=== PATIENT | female | born 1950 | race Caucasian/White ===

== ENCOUNTER 2020-04-05 14:14 | Inpatient (IN) | payer MEDICARE, SELFPAY ==
[2020-04-05] VITALS (12 sets, daily range): BP systolic 106–191; BP diastolic 62–84; PULSE 76–98; RESP 14–22; TEMP 36.6–37.1; O2SAT 85–96; BMI 35.4; BMI 35.5; BMI 35.9
[2020-04-05 15:29] LABS: Absolute Lymphocyte Count 1.04 X10^3/uL (0.83-4.51); Absolute Neutrophil Count 5.8 X10^3/uL (2.0-7.7); Basophil# 0.05 X10^3/uL; Basophil% 0.7 % (0-1); Eosinophil# 0.19 X10^3/uL; Eosinophils% 2.5 % (0-5); Hematocrit 55.4 % (37-47); Hemoglobin 16.9 g/dL (12.0-15.0); Lymphocyte # 1.04 X10^3/ul (4.0); Lymphocyte % 13.9 % (19-41); Mean Corp Hgb Conc 30.5 g/dL (32-36); Mean Corpuscular Hgb 29.4 pg (27.0-32.0); Mean Corpuscular Volume 96.5 fL (81-99); Mean Platelet Vol. 10.8 fl (6.2-12.0); Monocyte# 0.41 X10^3/uL; Monocyte% 5.5 % (0-10); NRBC Flagged by Analyzer 0 % (0-5); Neutrophil # 5.78 X10^3/uL (2.7-7.7); Platelet Count 218 K/mm3 (150-450); RBC Distribution Width SD 49.9 fl (35.1-43.9); Red Blood Count 5.74 M/mm3 (4.2-5.4); White Blood Count 7.5 K/mm3 (4.4-11.0)
--- NOTE | 2020-04-05 15:32 | ED.DCSUM_ITS ---
History of Present Illness Chief Complaint: Shortness of Breath Informant: Patient Onset: Days Context: Gradual Onset Timing: Continuous Current Severity: Moderate Maximum Severity: Severe Narrative: The patient is a 69-year-old female with medical history significant for hypertension and GERD, along with significant smoking history but no aruna diagnosis of COPD, who presents to the emergency department with shortness of breath, fever, productive sputum, and generalized malaise. Patient states her symptoms began over the weekend. She states she had worsening cough. She states that she was feeling like she was wheezing and having a difficult time moving air. She states over the past 2 days, she is felt more weak. She went to urgent care. She was found to be hypoxic with saturations of 84%. She has not on oxygen at baseline. She denies any sick contacts or travel. She denies any chest pain. Prior similar symptoms: No Recent Illness/Hospitalization: No Past Medical History - Allergies and Home Meds Allergies/Adverse Reactions: Allergies No Known Allergies Allergy (Verified 04/05/20 14:16) Primary Care Physician: Romy Denson MD [NON-STAFF] - Prior records reviewed: Yes Past Medical History: - - Hypertension, GERD Surgical History: noncontributory Lives: With Family Smoking Status: Current every day smoker Review of Systems General: Reports: Fever. Denies: Chills, Sweats Eyes: Denies: Visual changes - bilaterally, Diplopia ENT: Denies: Rhinorrhea, Sore throat Cardiovascular: Denies: Chest pain, Palpitations Respiratory: Reports: Dyspnea, Cough, Sputum. Denies: Dyspnea on exertion Gastrointestinal: Denies: Abdominal pain, Nausea, Vomiting, Diarrhea, Melena, Hematochezia Genitourinary: Denies: Dysuria, Hematuria, Frequency Musculoskeletal: Denies: Back pain, Extremity Pain Skin: Denies: Rash, Wounds Neurological: Denies: Headache, Weakness, Numbness Physical Exam Vital Signs/Narrative: Vital Signs Temp Pulse Resp BP Pulse Ox 04/05/20 14:21 18 94 04/05/20 14:14 97.9 F 98 22 H 191/78 H 85 Inital Vital Signs reviewed: Yes General: Well nourished, Well developed, No Acute Distress Head: Normocephalic, Atraumatic Eyes: Perrl, EOMI ENT: Moist mucous membranes, No rhinorrhea Neck: Supple, Nontender Cardiovascular: Regular rate, Regular rhythm, No murmurs Respiratory: No distress, Chest nontender, Wheezing, Decreased Air Movement Abdomen: Soft, Nontender, Nondistended, Normal bowel sounds Back: Nontender, Normal Inspection Extremities: Nontender, No edema Skin: Normal color, No rash Neurological: Alert, Oriented x3, Cranial nerves II-XII grossly intact, Normal Strength, Normal Sensation Psychological: Normal affect, Normal Mood Diagnostic/Tx/Re-eval Clinical Impression(s) from Imaging Studies Chest X-Ray 04/05/20 16:20 IMPRESSION: Bibasilar infiltrates and/or atelectasis. Calcified plaques of the aortic arch. Electronically Signed: Carlos Love MD at 16:38 EDT , Service support , Abnormal Lab Results 04/05/20 04/05/20 04/05/20 15:20 15:20 15:20 WBC 7.5 RBC 5.74 H Hgb 16.9 H Hct 55.4 H MCV 96.5 MCH 29.4 MCHC 30.5 L RDW Std Deviation 49.9 H RDW Coeff of Piper 14.0 Plt Count 218 MPV 10.8 Immature Gran % (Auto) 0.400 Neut % (Auto) 77.0 H Lymph % (Auto) 13.9 L Mariposa % (Auto) 5.5 Eos % (Auto) 2.5 Baso % (Auto) 0.7 Absolute Neuts (auto) 5.8 Absolute Lymphs (auto) 1.04 Nucleated RBC % 0 Sodium 143 Potassium 3.9 Chloride 104 Carbon Dioxide 34.0 H Anion Gap 5 BUN 16 Creatinine 1.12 H Estim Creat Clear Calc 37.49 Est GFR (MDRD) Af Amer 62 Est GFR (MDRD) Non-Af 51 L BUN/Creatinine Ratio 14.3 Glucose 218 H Lactic Acid 1.7 Calcium 9.3 Total Bilirubin 0.30 AST 12 L ALT 21 Alkaline Phosphatase 95 B-Natriuretic Peptide Total Protein 7.6 Albumin 3.4 Globulin 4.2 Albumin/Globulin Ratio 0.8 L 04/05/20 15:20 WBC RBC Hgb Hct MCV MCH MCHC RDW Std Deviation RDW Coeff of Piper Plt Count MPV Immature Gran % (Auto) Neut % (Auto) Lymph % (Auto) Mariposa % (Auto) Eos % (Auto) Baso % (Auto) Absolute Neuts (auto) Absolute Lymphs (auto) Nucleated RBC % Sodium Potassium Chloride Carbon Dioxide Anion Gap BUN Creatinine Estim Creat Clear Calc Est GFR (MDRD) Af Amer Est GFR (MDRD) Non-Af BUN/Creatinine Ratio Glucose Lactic Acid Calcium Total Bilirubin AST ALT Alkaline Phosphatase B-Natriuretic Peptide 115.2 H Total Protein Albumin Globulin Albumin/Globulin Ratio - Medical Decision Making The patient presents to the emergency department cough, productive sputum, fever, dyspnea. She was hypoxic on arrival with oxygen saturations of 86%. She has no known oxygen requirement. She did have wheezing in all lung [place]. Metabolic work-up was pursued. She does have mild leukocytosis. Labs are otherwise unremarkable. Chest x-ray shows bibasilar infiltrates. Not sure if this is atelectasis versus actual infection. COVID was obtained and is currently pending. Given the patient's oxygen requirement, I do feel that she is going require admission. She will be treated for community-acquired pneumonia. Patient was discussed with the hospitalist. Impression 1. Community-acquired pneumonia 2. Hypoxia requiring supplemental oxygen ED Disposition - Plan for ED Patient: Referrals: Romy Denson MD [NON-STAFF] -
[2020-04-05 15:52] LABS: BNP,B-Type NATRIURETIC PEPTIDE 115.2 pg/mL (0-100)
[2020-04-05 15:53] LABS: ALB/GLOB Ratio 0.8 RATIO (0.9-2.4); AST(SGOT) 12 U/L (15-37); Alanine Aminotransfer ALT/SGPT 21 U/L (13-56); Albumin, Serum 3.4 g/dL (3.2-5.0); Alkaline Phosphatase 95 U/L (45-117); Anion Gap 5 (5-15); BUN 16 mg/dL (7-18); BUN/Creat Ratio 14.3 RATIO (10-20); Calcium,Total 9.3 mg/dL (8.5-10.1); Chloride 104 mmol/L (98-107); Creatinine, Serum 1.12 mg/dL (0.55-1.02); EST Glomerular Filtration Rate 51 mL/min (>60); Est Glom Filt Rate - Afr Amer 62 mL/min (>60); Estimated Creatinine Clearance 37.49 ml/min; Globulin 4.2 g/dL (2.2-4.2); Glucose 218 mg/dL (74-106); Potassium 3.9 mmol/L (3.5-5.1); Protein, Total 7.6 g/dL (6.4-8.2); Sodium Level 143 mmol/L (136-145)
[2020-04-05 15:54] LABS: Lactic Acid 1.7 mmol/L (0.4-1.9)
[2020-04-05] MEDS: Acetaminophen 500 MG Tablet 1000 MG PO (16:17)
--- NOTE | 2020-04-05 16:20 | RAD_ITS ---
STUDY: X-RAY CHEST REASON FOR EXAM: Female, 69 years old. pulse ox of 84%. -- Pt C/O cough, SOB and fever TECHNIQUE: Single AP portable view of the chest. COMPARISON: None. FINDINGS: gambling monitor leads are present. There are bibasilar infiltrates and/or atelectasis. There is no demonstrated pleural abnormality. Normal size heart. Normal mediastinum and [place]. Normal visualized pulmonary arteries. There are calcified plaques of the aortic arch. Normal visualized thoracic spine. Normal visualized ribs, clavicles, and shoulders. There is no demonstrated abnormality of the visualized soft tissue structures of the upper abdomen. RAD/Chest 1 View (Portable) IMPRESSION: Bibasilar infiltrates and/or atelectasis. Calcified plaques of the aortic arch. Electronically Signed: Carlos Love MD at 16:38 EDT , Service support ,
--- NOTE | 2020-04-05 16:51 | HP.PCM_ITS ---
History of Present Illness Date of Admission: 04/05/20 Chief Complaint: shortness of breath The patient is a 69 year old F with past medical history significant for hypertension and GERD and a significant smoking history. She has never been diagnosed with COPD. She was admitted through the ED on 04/05/2020 with a complaint of fever, shortness of breath and general malaise as well as cough with productive sputum. Symptoms have started about 3 to 4 days prior to admission. Cough has been worsening and she also had some wheezing. Her weakness had gradually progressed. She therefore went to the urgent care on day of admission was found to be hypoxic with saturation of 84%. Patient is not on oxygen. She denied any chest pain, palpitations, nausea vomiting or diarrhea. Review of symptoms otherwise negative. In the ED, vitals showed temperature of 98.1 Fahrenheit with blood pressure of 130/70, pulse rate of 92 respiratory rate of 17. Chemistry showed creatinine of 1.12 and BNP was 115.2. CBC showed hemoglobin of 16.9 and WBC of 7.5 with platelets of 218. Chest x-ray showed bibasilar infiltrates and atelectasis. COVID test was done and pending at time of review. She has been admitted to be managed for acute hypoxic respiratory insufficiency due to community-acquired pneumonia, probable COPD exacerbation and probable COVID infection. [] Past Medical History Allergies No Known Allergies Allergy (Verified 04/05/20 14:16) Home Medications: Ambulatory Orders Medication Instructions Recorded Cholecalciferol (Vitamin D3) 1,250 mcg PO BLAKE 04/05/20 [Weekly-D] Cyanocobalamin (Vitamin B-12) 5,000 mcg PO DAILY 04/05/20 [Vitamin B-12] Hydrochlorothiazide 12.5 mg PO DAILY 04/05/20 Multivit-Min/Iron/Folic/Lutein 1 tab PO DAILY 04/05/20 [Centrum Silver Women Tablet] Omeprazole 40 mg PO DAILY 04/05/20 Surgical History: noncontributory Psychiatric History: No pertinent psych hx Lives: With Family Smoking Status: Current every day smoker Tobacco Use: Cigarettes Alcohol: None Drugs: None Review of Systems Constitutional: Reports: Anorexia, Chills, Fever, Malaise, Weakness, Fatigue Eyes: Denies: Blurred vision HEENT: Denies: Head Aches, Sinus Congestion, Sinus Drainage Cardiovascular: Denies: Chest Pain, Chest Pressure, Chest Tightness, Edema, Light Headedness, Orthopnea, Palpitations Respiratory: Reports: Cough, Shortness of Breath, Shortness of breath at rest, Shortness of breath upon exertion, Sputum production, Wheezing Gastrointestinal: Denies: Abdominal Pain, Nausea, Vomiting Genitourinary: Denies: Dysuria Musculoskeletal: Denies: Joint Pain, Joint Tenderness Skin: Denies: Rash, Wounds Neurological: Denies: Numbness, Tingling, Focal weakness Psychiatric: Denies: Anxiety, Depression, Homicidal Ideations, Suicidal Ideations Hematologic/ Lymphatic: Denies: Easy Bruising, Easy Bleeding VTE Information - Inpt Only VTE Present on Admission: No VTE Pharm Prophylaxis ordered?: Yes - Physical Exam Vitals/I&O's: Vital Signs Temp Pulse Resp BP Pulse Ox 98.1 F 92 17 130/70 H 91 04/05/20 16:18 04/05/20 16:18 04/05/20 16:18 04/05/20 16:18 04/05/20 16:18 Oxygen Flow Rate (L/min) 3 Oxygen Delivery Method Nasal Cannula Weight: 194 lb Body Mass Index (BMI) 35.4 General: Alert, Oriented x3, Cooperative HEENT: Atraumatic, PERRLA, EOMI, Normocephalic Oral: Moist Mucosa Neck: Supple, No JVD, Negative Carotid Bruits Lungs: - - bilatereal wheezing, with decreased breath sounds Cardiovascular: Regular rate, Regular Rhythm, Normal S1, Normal S2, No murmurs Abdomen: Bowel Sounds Present Extremities: No edema, Capillary Refill Less than 3 Seconds Skin: No rashes, No breakdown Musculoskeletal: No Tenderness to Palpation of Joints or Extremities Neurological: Cranial nerves II-XII grossly intact, Neuro grossly intact, Motor Exam 5/5 strength throughout Psych/Mental Status: Normal Affect, Appropriate, Alert and oriented to time, place, person, mood and affect Laboratory Results 04/05/20 15:20: WBC 7.5, RBC 5.74 H, Hgb 16.9 H, Hct 55.4 H, MCV 96.5, MCH 29.4, MCHC 30.5 L, RDW Std Deviation 49.9 H, RDW Coeff of Piper 14.0, Plt Count 218, MPV 10.8, Immature Gran % (Auto) 0.400, Neut % (Auto) 77.0 H, Lymph % (Auto) 13.9 L, Mckean % (Auto) 5.5, Eos % (Auto) 2.5, Baso % (Auto) 0.7, Absolute Neuts (auto) 5.8, Absolute Lymphs (auto) 1.04, Nucleated RBC % 0 04/05/20 15:20: Sodium 143, Potassium 3.9, Chloride 104, Carbon Dioxide 34.0 H, Anion Gap 5, BUN 16, Creatinine 1.12 H, Estim Creat Clear Calc 37.49, Est GFR (MDRD) Af Amer 62, Est GFR (MDRD) Non-Af 51 L, BUN/Creatinine Ratio 14.3, Glucose 218 H, Calcium 9.3, Total Bilirubin 0.30, AST 12 L, ALT 21, Alkaline Phosphatase 95, Total Protein 7.6, Albumin 3.4, Globulin 4.2, Albumin/Globulin Ratio 0.8 L 04/05/20 15:20: Lactic Acid 1.7 04/05/20 15:20: B-Natriuretic Peptide 115.2 H Diagnostic Data Chest X-Ray 04/05/20 16:20 IMPRESSION: Bibasilar infiltrates and/or atelectasis. Calcified plaques of the aortic arch. Electronically Signed: Carlos Love MD at 16:38 EDT , Service support , Current Medications Acetaminophen (Tylenol) 1,000 mg PO X1 ONE Stop: 04/05/20 15:15 Last Admin: 04/05/20 16:17 Dose: 1,000 mg Documented by: Albuterol Sulfate (Proair Hfa (Sp) Surgery/Vent Pts) 6 puff INHALATION X1 ONE Stop: 04/05/20 15:15 Last Admin: 04/05/20 15:45 Dose: 6 puff Documented by: Azithromycin 500 mg/ Dextrose 255 mls @ 250 mls/hr IV X1 ONE Stop: 04/05/20 17:46 Ceftriaxone Sodium (Rocephin) 1 gm in 50 mls @ 100 mls/hr IV X1 ONE Stop: 04/05/20 17:14 Assessment/Plan 69-year-old admitted with a complaint of fever, chills and cough/shortness of breath. #Acute hypoxic respiratory insufficiency * Patient saturation was 84% on admission. Currently on 3 L of oxygen. * Likely due to COPD exacerbation, community-acquired pneumonia and probable covud nfection. * BNP was only 115. * Will get 2D echo. * Titrate oxygen to maintain saturation above 90%. * IV solumedrol 40mg q8 # Community acquired pneumonia * X-ray showed bilateral infiltrates. Started on IV ceftriaxone and azithromycin in the ED. Will continue. * Sputum cultures and blood cultures pending. * Hydrate gently with IV fluids. # COPD exacerbation * patient says her PCP has told her she may have suspected COPD, but she hasnt seen a utility specialist before * started on IV solumedrol 40mg q8 * on breathing treatments with IV solumedrol 40mg q8 * #Hypertension: On hydrochlorothiazide. IV solumedrol DVT prophylaxis: lovenox Code status: full code * Patient counseled extensively about different types of CODE STATUS including full code, DNR CCA and DNR CCA. Patient elects to be full code. * Total [id number] time 17 minutes. Inpatient E&M: 02563 Init Hosp L3 Procedures: 84295 Advncd Care Plan 30 Min
--- NOTE | 2020-04-05 16:51 | NURSING ---
MED SURG KORAM HYPOXIA, PROBABLE COPD EXAC
[2020-04-05] MEDS: Ceftriaxone 1 GM/50 ML BAG IV (17:35)
[2020-04-05] MEDS: 0.9% Normal Saline 1,000 ML 100 ML IV (20:24)
[2020-04-05] MEDS: 0.9% Saline Lock 10 ML Syringe IV (22:11)
[2020-04-05] MEDS: Ipratropium/Albuterol Sulfate 3 ML AMPUL.NEB INHALATION (22:29)
[2020-04-06] VITALS (15 sets, daily range): BP systolic 94–130; BP diastolic 56–80; PULSE 77–98; RESP 16–20; TEMP 36.4–37.1; O2SAT 91–95
[2020-04-06] MEDS: Ipratropium/Albuterol Sulfate 3 ML AMPUL.NEB INHALATION ×5 (02:39→23:09)
[2020-04-06 05:42] LABS: Absolute Lymphocyte Count 0.36 X10^3/uL (0.83-4.51); Absolute Neutrophil Count 6.9 X10^3/uL (2.0-7.7); Basophil# 0.02 X10^3/uL; Basophil% 0.3 % (0-1); Hematocrit 52.1 % (37-47); Hemoglobin 15.7 g/dL (12.0-15.0); Lymphocyte # 0.36 X10^3/ul (4.0); Lymphocyte % 4.9 % (19-41); Mean Corp Hgb Conc 30.1 g/dL (32-36); Mean Corpuscular Hgb 29.6 pg (27.0-32.0); Mean Corpuscular Volume 98.3 fL (81-99); Mean Platelet Vol. 10.6 fl (6.2-12.0); Monocyte# 0.07 X10^3/uL; Monocyte% 0.9 % (0-10); NRBC Flagged by Analyzer 0 % (0-5); Neutrophil # 6.92 X10^3/uL (2.7-7.7); Neutrophil % 93.4 % (47-70); POSITIVE DIFFERENTIAL YES; Platelet Count 199 K/mm3 (150-450); RBC Distribution Width CV 14.1 % (11.6-14.6); RBC Distribution Width SD 51.6 fl (35.1-43.9); White Blood Count 7.4 K/mm3 (4.4-11.0)
[2020-04-06 05:48] LABS: Differential Indicated SCAN CRITERIA MET
[2020-04-06] MEDS: 0.9% Normal Saline 1,000 ML 100 ML IV (06:01)
[2020-04-06] MEDS: 0.9% Saline Lock 10 ML Syringe IV ×2 (06:02→21:06)
[2020-04-06 06:08] LABS: Anion Gap 2 (5-15); BUN 16 mg/dL (7-18); BUN/Creat Ratio 19.4 RATIO (10-20); Calcium,Total 8.4 mg/dL (8.5-10.1); Chloride 107 mmol/L (98-107); Creatinine, Serum 0.82 mg/dL (0.55-1.02); EST Glomerular Filtration Rate 73 mL/min (>60); Est Glom Filt Rate - Afr Amer 88 mL/min (>60); Estimated Creatinine Clearance 51.21 ml/min; Glucose 142 mg/dL (74-106); Potassium 4.5 mmol/L (3.5-5.1); Sodium Level 139 mmol/L (136-145)
[2020-04-06 06:27] LABS: Differential Comment SCANNED
[2020-04-06] MEDS: Pantoprazole Sodium 40 MG Tablet PO (08:05)
[2020-04-06] MEDS: Multivitamins,Ther W-Minerals Tablet 1 TABLET PO (08:05)
[2020-04-06] MEDS: hydroCHLOROthiazide 12.5mg 12.5 MG PO (08:05)
[2020-04-06] MEDS: Enoxaparin 40 MG/0.4 ML Syringe SC (08:05)
[2020-04-06] MEDS: Acetaminophen 500 MG Tablet 1000 MG PO (08:48)
[2020-04-06] MEDS: Azithromycin 250 MG Tablet 500 MG PO (09:29)
--- NOTE | 2020-04-06 13:00 | CASEMGMT ---
RN KIMBERLY Face to Face with patient for initial transition planning/care coordination assessment. RN CM introduced self and role at [facility]. Patient lying in bed, alert and oriented. Patient willing to participate in assessment and is able to answer all questions appropriately. Care providers, pharmacy, and demographics verified. Patient wishes to discharge home, denies need for home health at this time. Patient states she has no further needs or concerns at this time. CM to follow for discharge planning needs that may arise. PCP: Castillo Specialists: None Preferred Pharmacy: [facility] Insurance: [employer] Prescription Benefit: yes Living Will/HPOA: none LNOK: daughter Living Arrangements: Patient lives with daughter in a ranch style home with 3 steps to enter the home. Patient states she is independent at home. Transportation: self DME/HHC: Patient denies DME or previous HHC. Will monitor for need for home oxygen and nebulizer at home. Disposition Plan: Patient to discharge home with family support and follow-up plans in place. Latonia NOBLE, RN, CM
--- NOTE | 2020-04-06 17:15 | PN_ITS ---
Subjective: Patient was seen and examined today, she is requiring 4 L of oxygen to maintain her pulse ox, patient's viral panel was positive for rhinovirus. Patient states she smokes a pack of cigarettes daily and has done so for at least 40 years. - Physical Exam Vitals/I&O's: Vital Signs Temp Pulse Resp BP Pulse Ox 98 F 78 18 109/56 L 95 04/06/20 15:58 04/06/20 15:58 04/06/20 15:58 04/06/20 15:58 04/06/20 15:58 Oxygen Flow Rate (L/min) 4 Oxygen Delivery Method Nasal Cannula Weight: 89.1 kg Body Mass Index (BMI) 35.9 Intake and Output for Last 24 Hours 04/04/20 04/05/20 04/06/20 23:59 23:59 23:59 Intake Total 405 / 405 2206.67 / 2206.67 Output Total 250 / 250 Balance 405 / 405 1956.67 / 1956.67 General: Alert, Oriented x3, Cooperative, No apparent distress, Well developed HEENT: Atraumatic, PERRLA, EOMI, Normocephalic Oral: Moist Mucosa Neck: Supple, No JVD, Trachea Midline, Thyroid Normal Size and Texture Lungs: Diminished, Wheezes - Diffuse expiratory wheezes are noted bilaterally Cardiovascular: Regular rate, Regular Rhythm, Normal S1, Normal S2, No murmurs, PMI Normal, No rub noted, No Gallop Abdomen: Bowel Sounds Present, Soft, Non Tender, Non-Distended, No hernias noted Extremities: No clubbing, No cyanosis, No edema, Capillary Refill Less than 3 Seconds Skin: No rashes, No breakdown Musculoskeletal: No Tenderness to Palpation of Joints or Extremities Neurological: Cranial nerves II-XII grossly intact, Neuro grossly intact, Sensory exam intact to light touch and pain, Coordination normal Psych/Mental Status: Normal Affect, Appropriate, Alert and oriented to time, place, person, mood and affect Microbiology Past 72 Hours 04/06/20 04:40 Urine, Clean Catch Legionella Antigen - Final 04/06/20 04:40 Urine, Clean Catch Streptococcus pneumoniae Antigen (M - Final 04/05/20 15:40 Mucosa - Nose Respiratory Panel (PCR) - Final Rhinovirus Laboratory Results 04/05/20 15:40: COVID-19 (GURVINDER) Not Detected 04/06/20 05:14: WBC 7.4, RBC 5.30, Hgb 15.7 H, Hct 52.1 H, MCV 98.3, MCH 29.6, MCHC 30.1 L, RDW Std Deviation 51.6 H, RDW Coeff of Piper 14.1, Plt Count 199, MPV 10.6, Immature Gran % (Auto) 0.500, Neut % (Auto) 93.4 H, Lymph % (Auto) 4.9 L, Nobles % (Auto) 0.9, Eos % (Auto) 0.0, Baso % (Auto) 0.3, Absolute Neuts (auto) 6.9, Absolute Lymphs (auto) 0.36 L, Nucleated RBC % 0, Differential Comment SCANNED 04/06/20 05:14: Sodium 139, Potassium 4.5, Chloride 107, Carbon Dioxide 30.0, Anion Gap 2 L, BUN 16, Creatinine 0.82, Estim Creat Clear Calc 51.21, Est GFR (MDRD) Af Amer 88, Est GFR (MDRD) Non-Af 73, BUN/Creatinine Ratio 19.4, Glucose 142 H, Calcium 8.4 L Current Medications Acetaminophen (Tylenol) 1,000 mg PO Q8H PRN PRN PRN Reason: Pain Score 1-10/10 Last Admin: 04/06/20 08:48 Dose: 1,000 mg Documented by: Albuterol/Ipratropium (Duoneb) 3 ml INHALATION Q4H.RT [facility] Last Admin: 04/06/20 16:10 Dose: Not Given Documented by: Azithromycin (Zithromax) 500 mg PO Q24 [facility] Last Admin: 04/06/20 09:29 Dose: 500 mg Documented by: Enoxaparin Sodium (Lovenox) 40 mg SC DAILY [facility] Last Admin: 04/06/20 08:05 Dose: 40 mg Documented by: Ergocalciferol (Vitamin D) 50,000 unit PO BLAKE [facility] Hydrochlorothiazide () 12.5 mg PO DAILY [facility] Last Admin: 04/06/20 08:05 Dose: 12.5 mg Documented by: Methylprednisolone (Solu-Medrol) 40 mg IV Q8 [facility] Last Admin: 04/06/20 14:02 Dose: 40 mg Documented by: Multivitamins/Minerals (Multivitamin With Minerals (Bkc)) 1 tablet PO DAILY@0800 [facility] Last Admin: 04/06/20 08:05 Dose: 1 tablet Documented by: Nitroglycerin (Nitrostat) 0.4 mg SUBLINGUAL Q5M PRN PRN Reason: CARDIAC/CHEST PAIN Ondansetron HCl (Zofran) 4 mg IV Q8H PRN PRN PRN Reason: NAUSEA/VOMITING Pantoprazole Sodium (Protonix) 40 mg PO DAILY [facility] Last Admin: 04/06/20 08:05 Dose: 40 mg Documented by: Sodium Chloride () 10 - 40 ml IV UD PRN PRN Reason: SALINE FLUSH Last Admin: 04/06/20 06:02 Dose: 10 ml Documented by: Medical Necessity - Tobacco Use Smoking Status: Current every day smoker Tobacco Use: Cigarettes Assessment/Plan #1 acute exacerbation of COPD secondary to tracheobronchitis from rhinovirus- continue IV corticosteroid administration, aerosol treatments, and monitoring of pulse ox #2 tracheobronchitis secondary to rhinovirus-continue IV corticosteroid administration and aerosol treatments #3 hypoxia secondary to #1 and #2-monitor pulse ox, supplemental oxygen will continue as needed #4 GERD-patient is on omeprazole at home Inpatient E&M: [id number] [facility] Hosp L2
[2020-04-07] VITALS (12 sets, daily range): BP systolic 127–149; BP diastolic 65–82; PULSE 76–113; RESP 12–20; TEMP 36.5–36.9; O2SAT 90–94
[2020-04-07] MEDS: 0.9% Saline Lock 10 ML Syringe IV ×4 (05:26→21:45)
[2020-04-07] MEDS: Ipratropium/Albuterol Sulfate 3 ML AMPUL.NEB INHALATION ×4 (07:28→18:26)
[2020-04-07] MEDS: hydroCHLOROthiazide 12.5mg 12.5 MG PO (08:35)
[2020-04-07] MEDS: Multivitamins,Ther W-Minerals Tablet 1 TABLET PO (08:38)
[2020-04-07] MEDS: Enoxaparin 40 MG/0.4 ML Syringe SC (08:38)
[2020-04-07] MEDS: Pantoprazole Sodium 40 MG Tablet PO (08:38)
[2020-04-07] MEDS: Azithromycin 250 MG Tablet 500 MG PO (08:38)
[2020-04-07] MEDS: Acetaminophen 500 MG Tablet 1000 MG PO (14:30)
--- NOTE | 2020-04-07 18:07 | PN_ITS ---
Subjective: Patient was seen and examined today, she states she feels better today and her breathing is better, she is still requiring 4 L of supplemental oxygen however to maintain her pulse ox adequately. Patient does not complain of any chills, chest pain, or increased shortness of breath. - Physical Exam Vitals/I&O's: Vital Signs Temp Pulse Resp BP Pulse Ox 98.5 F 81 16 137/66 H 94 04/07/20 14:25 04/07/20 16:03 04/07/20 16:03 04/07/20 14:25 04/07/20 14:25 Oxygen Flow Rate (L/min) 4 Oxygen Delivery Method Nasal Cannula Weight: 89.1 kg Body Mass Index (BMI) 35.9 Intake and Output for Last 24 Hours 04/05/20 04/06/20 04/07/20 23:59 23:59 23:59 Intake Total 405 / 405 2806.67 / 2806.67 1000 / 1000 Output Total 250 / 250 Balance 405 / 405 2556.67 / 2556.67 1000 / 1000 General: Alert, Oriented x3, Cooperative, No apparent distress, Well developed HEENT: Atraumatic, PERRLA, EOMI, Normocephalic Oral: Moist Mucosa Neck: Supple, No JVD, Negative Carotid Bruits, Trachea Midline, Thyroid Normal Size and Texture Lungs: Normal air movement, No rhonchi, Wheezes - Expiratory wheezes are noted bilaterally Cardiovascular: Regular rate, Regular Rhythm, Normal S1, Normal S2, No murmurs, PMI Normal, No rub noted, No Gallop Abdomen: Bowel Sounds Present, Soft, Non Tender Extremities: No clubbing, No cyanosis, No edema, Capillary Refill Less than 3 Seconds Skin: No rashes, No breakdown Musculoskeletal: No Tenderness to Palpation of Joints or Extremities Neurological: Cranial nerves II-XII grossly intact, Neuro grossly intact, Sensory exam intact to light touch and pain, Coordination normal Psych/Mental Status: Normal Affect, Appropriate, Alert and oriented to time, place, person, mood and affect Microbiology Past 72 Hours 04/05/20 15:25 Blood Culture (Wb) - Left Forearm Blood Culture - Preliminary No growth in 48 hours. 04/05/20 15:20 Blood Culture (Wb) - Anticubital Right Blood Culture - Preliminary No growth in 48 hours. 04/06/20 04:40 Urine, Clean Catch Legionella Antigen - Final 04/06/20 04:40 Urine, Clean Catch Streptococcus pneumoniae Antigen (M - Final 04/05/20 15:40 Mucosa - Nose Respiratory Panel (PCR) - Final Rhinovirus Current Medications Acetaminophen (Tylenol) 1,000 mg PO Q8H PRN PRN PRN Reason: Pain Score 1-10/10 Last Admin: 04/07/20 14:30 Dose: 1,000 mg Documented by: Albuterol/Ipratropium (Duoneb) 3 ml INHALATION Q4H.RT [facility] Last Admin: 04/07/20 16:01 Dose: 3 ml Documented by: Azithromycin (Zithromax) 500 mg PO Q24 [facility] Last Admin: 04/07/20 08:38 Dose: 500 mg Documented by: Enoxaparin Sodium (Lovenox) 40 mg SC DAILY [facility] Last Admin: 04/07/20 08:38 Dose: 40 mg Documented by: Ergocalciferol (Vitamin D) 50,000 unit PO BLAKE [facility] Hydrochlorothiazide () 12.5 mg PO DAILY [facility] Last Admin: 04/07/20 08:35 Dose: 12.5 mg Documented by: Methylprednisolone (Solu-Medrol) 40 mg IV Q8 [facility] Last Admin: 04/07/20 14:26 Dose: 40 mg Documented by: Multivitamins/Minerals (Multivitamin With Minerals (Bkc)) 1 tablet PO DAILY@0800 [facility] Last Admin: 04/07/20 08:38 Dose: 1 tablet Documented by: Nitroglycerin (Nitrostat) 0.4 mg SUBLINGUAL Q5M PRN PRN Reason: CARDIAC/CHEST PAIN Ondansetron HCl (Zofran) 4 mg IV Q8H PRN PRN PRN Reason: NAUSEA/VOMITING Pantoprazole Sodium (Protonix) 40 mg PO DAILY [facility] Last Admin: 04/07/20 08:38 Dose: 40 mg Documented by: Sodium Chloride () 10 - 40 ml IV UD PRN PRN Reason: SALINE FLUSH Last Admin: 04/07/20 14:26 Dose: 10 ml Documented by: Medical Necessity - Tobacco Use Smoking Status: Current every day smoker Tobacco Use: Cigarettes Assessment/Plan #1 acute exacerbation of COPD secondary to tracheobronchitis from rhinovirus- continue IV corticosteroid administration, aerosol treatments, and monitoring of pulse ox, I explained to the patient that she may have to be discharged when medically stable on oxygen and she is agreeable to this. Patient will be reevaluated tomorrow for possible discharge and need for home O2. #2 tracheobronchitis secondary to rhinovirus-continue IV corticosteroid administration and aerosol treatments #3 hypoxia secondary to #1 and #2-monitor pulse ox, supplemental oxygen will continue as needed #4 GERD-patient is on omeprazole at home Inpatient E&M: [id number] [facility] Hosp L2
[2020-04-08] VITALS (8 sets, daily range): BP systolic 141–146; BP diastolic 63–78; PULSE 70–95; RESP 14–18; TEMP 36.3–36.6; O2SAT 80–92
[2020-04-08] MEDS: Ipratropium/Albuterol Sulfate 3 ML AMPUL.NEB INHALATION ×3 (02:32→11:11)
[2020-04-08] MEDS: 0.9% Saline Lock 10 ML Syringe IV (06:17)
[2020-04-08] MEDS: Pantoprazole Sodium 40 MG Tablet PO (09:26)
[2020-04-08] MEDS: Multivitamins,Ther W-Minerals Tablet 1 TABLET PO (09:26)
[2020-04-08] MEDS: hydroCHLOROthiazide 12.5mg 12.5 MG PO (09:26)
[2020-04-08] MEDS: Azithromycin 250 MG Tablet 500 MG PO (09:26)
[2020-04-08] MEDS: Enoxaparin 40 MG/0.4 ML Syringe SC (09:26)
--- NOTE | 2020-04-08 11:01 | NURSING ---
Patient ambulated on 4L was 86% oxygen increased to 6L while ambulating and was 90%.
--- NOTE | 2020-04-08 11:28 | CASEMGMT ---
NATACHA HARRIS updated that patient will need oxygen at discharge. NATACHA HARRIS received script from hospitalist. NATACHA HARRIS in to discuss preferences for DME and list provided to patient. Patient would like [employer] for home oxygen. NATACHA HARRIS sent referral and called to arrange for delivery prior to discharge.
--- NOTE | 2020-04-08 11:44 | PCM.HOSP.N ---
Hospitalist Note Patient was seen and examined today, she was walked to determine her pulse ox on activity, she still required supplemental oxygen at 6 L while ambulating-the pulse ox was 90%, at rest on room air the patient's oxygen sat was 80%, she required 4 L per nasal cannula at rest to maintain a pulse ox of 90%. Patient will require home oxygen, she is ambulatory both in and out of her home and will require ambulatory oxygen. Patient's diagnosis for oxygen use will be chronic obstructive pulmonary disease.
--- NOTE | 2020-04-08 12:01 | PCM.DC ---
You will use the following diet at home:: No restrictions Your food should be the consistency of: Regular Your liquids should be the consistency of: Regular/Thin Discharge Activity: Return to Normal Activity Weight Bearing Status: Full weight bearing Additional Instructions: USE OXYGEN AT 4 LITERS PER MINUTE AT REST, 6 LITERS PER MINUTE WHILE AMBULATING. DON'T SMOKE Allergies/Adverse Reactions: Allergies No Known Allergies Allergy (Verified 04/05/20 14:16) Medications to take at Discharge Cholecalciferol (Vitamin D3) [Weekly-D] 1,250 mcg PO BLAKE 04/05/20 Cyanocobalamin (Vitamin B-12) [Vitamin B-12] 5,000 mcg PO DAILY 04/05/20 Hydrochlorothiazide 12.5 mg PO DAILY 04/05/20 Multivit-Min/Iron/Folic/Lutein [Centrum Silver Women Tablet] 1 tab PO DAILY 04/05/20 Omeprazole 40 mg PO DAILY 04/05/20 Albuterol Inhaler [Ventolin Hfa] 2 puff INHALATION [id number] #1 inhaler 04/08/20 Prednisone 20 mg PO UD #18 tab 04/08/20 Tiotropium [place] [Spiriva Respimat] 4 gm IH DAILY #1 mist.inhal 04/08/20 The following prescriptions were given: Prednisone 20 mg PO UD #18 tab Transmission Status: Pending to [employer] [facility] #30 Tiotropium [place] [Spiriva Respimat] 4 gm IH DAILY #1 mist.inhal Transmission Status: Pending to [employer] [facility] [employer] #30 Albuterol Inhaler [Ventolin Hfa] 2 puff INHALATION [id number] #1 inhaler Transmission Status: Pending to [employer] [facility] [employer] #30 Primary Care Physician: Romy Denson MD [NON-STAFF] - Please follow up with your Primary Care Physician in: in 1-2 weeks Test Results: Test results from this visit will be discussed in further detail at your follow-up appointment, if applicable.
--- NOTE | 2020-04-09 09:25 | DS.PCM_ITS ---
Discharge Date and Diagnosis Date of Admission: 04/05/20 Date of Discharge: 04/08/20 - Primary Discharge Diagnosis Acute Problems: #1 acute exacerbation of COPD secondary to tracheobronchitis from rhinovirus #2 tracheobronchitis secondary to rhinovirus #3 hypoxia secondary to #1 and #2 #4 GERD Hospital Course and Treatment Operations: None Procedures: None Summary of Care Provided: The patient is a 69 year old F was seen in the emergency room at [facility] with shortness of breath, fever, productive sputum, and general malaise. Her symptoms began several days ago, she had a worsening cough, she is a chronic cigarette smoker. Work-up in the emergency room included a chest x-ray which showed evidence of bibasilar infiltrates and/or atelectasis, patient was hypoxic on room air with O2 sat of 86%, on examination she had wheezing in all lung [place], patient had a mild leukocytosis labs are otherwise unremarkable. COVID test was obtained and was negative, respiratory panel was obtained and was positive for rhinovirus. Patient was admitted to [place] [id number] with a diagnosis of community-acquired pneumonia and hypoxia, urine culture for Legionella and strep pneumoniae were negative. Patient was placed on IV corticosteroids and received Zithromax. Patient made slow progress while hospitalized as far as her respiratory status was concerned, she remained on supplemental oxygen. On 04/08/2020, patient was seen and examined: General: Alert, Oriented x3, Cooperative, No apparent distress, Well developed HEENT: Atraumatic, PERRLA, EOMI, Normocephalic Oral: Moist Mucosa Neck: Supple, No JVD, Negative Carotid Bruits, Trachea Midline, Thyroid Normal Size and Texture Lungs: Normal air movement, No rhonchi, Wheezes - Expiratory wheezes are noted bilaterally Cardiovascular: Regular rate, Regular Rhythm, Normal S1, Normal S2, No murmurs, PMI Normal, No rub noted, No Gallop Abdomen: Bowel Sounds Present, Soft, Non Tender Extremities: No clubbing, No cyanosis, No edema, Capillary Refill Less than 3 Seconds Skin: No rashes, No breakdown Musculoskeletal: No Tenderness to Palpation of Joints or Extremities Neurological: Cranial nerves II-XII grossly intact, Neuro grossly intact, Sensory exam intact to light touch and pain, Coordination normal Psych/Mental Status: Normal Affect, Appropriate, Alert and oriented to time, place, person, mood and affect It was felt she was stable for discharge on 04/08/2020, patient had completed 3 days of antibiotic treatment with Zithromax and this examiner felt that this was sufficient for treatment of any atypical pneumonia. Patient was discharged on prednisone, and a Spiriva inhaler. She was to resume her Ventolin which she has at home. Patient was cautioned not to smoke. Supplemental oxygen at 4 L/min at rest and 6 L/min while ambulating was arranged for the patient to have at home. - Physical Exam Vitals/I&O's: Vital Signs Temp Pulse Resp BP Pulse Ox 97.8 F 70 18 143/69 H 92 04/08/20 14:10 04/08/20 14:10 04/08/20 14:10 04/08/20 14:10 04/08/20 14:10 Oxygen Flow Rate (L/min) [ 4 AMBULATION with Oxygen] Oxygen Flow Rate (L/min) 4 Oxygen Delivery Method Nasal Cannula Weight: 89.1 kg Body Mass Index (BMI) 35.9 Intake and Output for Last 24 Hours 04/07/20 04/08/20 04/09/20 23:59 23:59 23:59 Intake Total 2200 / 2200 1000 / 1000 Balance 2200 / 2200 1000 / 1000 Microbiology Past 72 Hours 04/05/20 15:25 Blood Culture (Wb) - Left Forearm Blood Culture - Preliminary No growth in 48 hours. 04/05/20 15:20 Blood Culture (Wb) - Anticubital Right Blood Culture - Preliminary No growth in 48 hours. 04/06/20 04:40 Urine, Clean Catch Legionella Antigen - Final 04/06/20 04:40 Urine, Clean Catch Streptococcus pneumoniae Antigen (M - Final Discharge Activity: Return to Normal Activity Weight Bearing Status: Full weight bearing Home Medications: Medications to take at Discharge Cholecalciferol (Vitamin D3) [Weekly-D] 1,250 mcg PO BLAKE 04/05/20 Cyanocobalamin (Vitamin B-12) [Vitamin B-12] 5,000 mcg PO DAILY 04/05/20 Hydrochlorothiazide 12.5 mg PO DAILY 04/05/20 Multivit-Min/Iron/Folic/Lutein [Centrum Silver Women Tablet] 1 tab PO DAILY 04/05/20 Omeprazole 40 mg PO DAILY 04/05/20 Albuterol Inhaler [Ventolin Hfa] 2 puff INHALATION [id number] #1 inhaler 04/08/20 Prednisone 20 mg PO UD #18 tab 04/08/20 Tiotropium [place] [Spiriva Respimat] 4 gm IH DAILY #1 mist.inhal 04/08/20 Following Prescriptions Were Given to Patient: Prednisone 20 mg PO UD #18 tab Transmission Status: Received by [employer] #30 Tiotropium [place] [Spiriva Respimat] 4 gm IH DAILY #1 mist.inhal Transmission Status: Received by [employer] #30 Albuterol Inhaler [Ventolin Hfa] 2 puff INHALATION [id number] #1 inhaler Transmission Status: Received by [employer] #30 Primary Care Physician: Romy Denson MD [NON-STAFF] - Please follow up with your Primary Care Physician in: in 1-2 weeks Disposition: Home Minutes spent on discharge:: 32 Patient Condition:: Stable Medical Necessity - Tobacco Use Smoking Status: Current every day smoker Tobacco Use: Cigarettes Meaningful Use Info Meaningful Use Diagnoses (Choose all that apply): None applicable Inpatient E&M: 55331 Disch Hosp
== END 2020-04-08 14:30 | disposition home or self-care (01) | DRG 202 ==
LOC: ED 16:02 → MS3 19:53
PROVIDERS: Admitting Provider Student in an Organized Health Care Education/Training Program; Emergency Provider Emergency Medicine; PCP Family Medicine; Visit Provider Internal Medicine
DX: J20.6 Acute bronchitis due to rhinovirus (principal); J44.1 Chronic obstructive pulmonary disease with (acute) exacerbation; J44.0 Chronic obstructive pulmonary disease with (acute) lower respiratory infection; Z66 Do not resuscitate; B97.89 Other viral agents as the cause of diseases classified elsewhere; R09.02 Hypoxemia; I10 Essential (primary) hypertension; K21.9 Gastro-esophageal reflux disease without esophagitis; F17.210 Nicotine dependence, cigarettes, uncomplicated; Z79.899 Other long term (current) drug therapy; Z23 Encounter for immunization
CPT/HCPCS: 36415; 36600; 71045; 80048; 80053; 83605; 83880; 85025; 87040; 87449; 87633; 87635; 94640; 94668; 97161; 97530; 99285; 99406; G0008; J7030; 90686; A4216; U0003

== ENCOUNTER 2021-08-10 10:44 | Emergency (ER) | payer MEDICARE, SELFPAY ==
[2021-08-10 10:45] VITALS: BP 172/90; PULSE 92; RESP 15; TEMP 35.7; O2SAT 93; BMI 35.9
--- NOTE | 2021-08-10 10:53 | RAD_ITS ---
STUDY: X-RAY - RIGHT ANKLE REASON FOR EXAM: Female, 71 years old. Injury/Pain TECHNIQUE: 3 view(s) of the ankle. COMPARISON: None. FINDINGS: Normal visualized distal tibia and fibula. Nondisplaced avulsion fracture of the lateral malleolus. Normal tibiotalar articulation and ankle mortise. Normal visualized talus and calcaneus. The visualized subtalar, talonavicular, calcaneocuboid and tarsal articulations are normal. Lateral soft tissue swelling. RAD/Ankle min 3 Views IMPRESSION: Nondisplaced avulsion fracture of the lateral malleolus. Overlying soft tissue swelling. Electronically Signed: Cameron Nation MD at 11:46 EST ,
--- NOTE | 2021-08-10 12:07 | ED.VIS.LOWEX ---
HPI History of Present Illness HPI Narrative: Patient presents with right ankle injury that occurred 4 days ago. Patient states she inverted her ankle when she slipped and fell. Patient states her pain is sharp and aching. Patient states it is worse with ambulation. Patient denies any paresthesias or weakness. Patient denies any other injuries. Patient denies any pain over the proximal fibula or fifth metatarsal. Chief Complaint: Lower Extremity Injury Informant: patient Occured/Mechanism Mechanism/Context: Yes fall Onset/Context/Timing Onset: Days (5) Context: Sudden Onset Timing: Continuous Quality of Pain: Sharp and Aching Location: Lateral aspect of right ankle Worsened by: Ambulation Relieved by: Nothing Associated Symptoms Associated Symptoms: Negative for Parasthesia, Weakness and Loss of Funtion PFSH PFSH Medical History COPD (chronic obstructive pulmonary disease) GERD (gastroesophageal reflux disease) Hypertension Home Medications hydrochlorothiazide 12.5 mg PO DAILY 04/05/20 [History Last Taken 04/03/20] omeprazole 40 mg PO DAILY 04/05/20 [History Last Taken 04/03/20] albuterol sulfate 2 puff INHALATION [id number] #1 inhaler 04/08/20 [Rx Last Taken Unknown] hydrocodone-acetaminophen 1 tab PO Q6H PRN PRN 3 Days #10 tablet 08/10/21 [Rx Last Taken Unknown] Allergy/AdvReac Type Severity Reaction Status Date / Time shellfish derived Allergy Other Verified 08/10/21 10:47 Social History Smoking Status: Current every day smoker tobacco type: cigarettes ROS ROS ED Constitutional Constitutional ED: Denies chills or fever(s) Eyes Eyes: Denies blurry vision or change in vision ENT ENT ED: Denies rhinorrhea or sore throat Cardiovascular Cardiovascular: Denies chest pain or palpitations Respiratory/Chest Respiratory/Chest: Denies cough or dyspnea Gastrointestinal Gastrointestinal: Denies nausea or vomiting Genitourinary Genitourinary ED: Denies dysuria or hematuria Musculoskeletal Musculoskeletal: Denies back pain or neck pain Integumentary Denies abscess or rash Neurologic Neurologic: Denies headache(s) or weakness Allergic/Immunologic Allergic/Immunologic ED: Denies mouth swelling or urticaria EXAM Physical Exam Const Vital Signs: 08/10/21 10:45 Temperature 96.2 F L Temperature Source Temporal Pulse Rate 92 Respiratory Rate 15 Blood Pressure 172/90 H Blood Pressure Mean 117 Pulse Ox 93 Oxygen Delivery Method Room Air Positive well nourished and well developed General Appearance ED: well developed HEENT Reports moist mucous membranes Neck full ROM Extremity Extremity Narrative: There is tenderness, edema, and ecchymosis over the lateral aspect of the right ankle. There is no obvious deformity noted. There is no bony crepitance or step-off. Range of motion was limited in all motions of the right ankle secondary to pain. There is no tenderness over the fifth metatarsal. There is no tenderness over the proximal fibula. Pedal pulses are equal bilaterally. Sensation was intact to light touch in all digits. Capillary refill was less than 2 seconds in all digits. Neuro oriented x3, CN's II-XII intact bilaterally, moves all extremities and no sensory deficits noted Sensorium / Orientation: alert Motor Exam: strength 5/5 throughout Psych mental status grossly normal MDM MDM MDM Narrative Medical decision making narrative: X-rays of the right ankle were obtained. There are 3 views. On my interpretation, there is a nondisplaced fracture of the distal fibula. There is also an old avulsion fracture of the tip of the distal fibula. There is some mild soft tissue swelling. Radiologist also interpreted the x-rays and agrees. Patient states she has a walking boot at home. Patient was given a prescription for a short course of [place]. Patient was instructed to ice and elevate the right ankle. Patient was given a referral for orthopedics for follow-up care. Patient understood and was agreeable with the plan. All questions were answered. Radiography Diagnostic Testing: Clinical Impression(s) from Imaging Studies Ankle X-Ray 08/10/21 10:53 IMPRESSION: Nondisplaced avulsion fracture of the lateral malleolus. Overlying soft tissue swelling. Electronically Signed: Cameron Nation MD at 11:46 EST , Discharge Plan Triage Chief Complaint: Lower Extremity Injury ED Provider: Bridger Zafar Dx/Rx/DC Orders Clinical Impression: Closed fracture of distal end of right fibula Instructions: ED Ankle Fracture, Distal Fibula Prescriptions: New hydrocodone-acetaminophen [hydrocodone-acetaminophen] 1 TABLET tablet 1 tab PO Q6H PRN PRN (Reason: Pain) 3 Days Qty: 10 RF: 0 No Action hydrochlorothiazide 12.5 mg capsule 12.5 mg PO DAILY RF: 0 omeprazole 20 MG capsule,delayed release(DR/EC) 40 mg PO DAILY RF: 0 albuterol sulfate 1 INHALER inhaler 2 puff inhalation [id number] Qty: 1 RF: 0 Primary Care Provider: Davy Chong Referrals: Oscar Solis DO [STAFF PHYSICIAN] - 5-7 Days Davy Chong MD [Primary Care Provider] - 5-7 Days Disposition Disposition: Home, Self Care
== END 2021-08-10 12:36 | disposition home or self-care (01) ==
PROVIDERS: Emergency Provider Emergency Medicine; PCP Family Medicine; Visit Provider Emergency Medicine
DX: S82.64XA Nondisplaced fracture of lateral malleolus of right fibula, initial encounter for closed fracture (principal); J44.9 Chronic obstructive pulmonary disease, unspecified; W01.0XXA Fall on same level from slipping, tripping and stumbling without subsequent striking against object, initial encounter; I10 Essential (primary) hypertension; K21.9 Gastro-esophageal reflux disease without esophagitis; F17.210 Nicotine dependence, cigarettes, uncomplicated; Z79.899 Other long term (current) drug therapy
CPT/HCPCS: 73610; 99282

== ENCOUNTER 2023-03-21 09:32 | Inpatient (IN) | payer MEDICARE, SELFPAY ==
[2023-03-21] VITALS (32 sets, daily range): BP systolic 122–189; BP diastolic 69–126; PULSE 79–138; RESP 13–33; TEMP 35.2–36.8; O2SAT 87–97; BMI 40.4; BMI 40.8
--- NOTE | 2023-03-21 09:44 | EKG12_ITS ---
Test Reason : SOB Blood Pressure : / mmHG Vent. Rate : 076 BPM Atrial Rate : 076 BPM P-R Int : 156 ms QRS Dur : 082 ms QT Int : 418 ms P-R-T Axes : 074 072 098 degrees QTc Int : 470 ms Normal sinus rhythm Low voltage QRS Cannot rule out Anterior infarct , age undetermined Abnormal ECG Confirmed by BALA ROBLEDO, NAVEED ([id number]), online editor ERLIN THOMAS ([id number]) on 03/22/2023 12:04:45 PM Referred By: Confirmed By:NAVEED MCKENNA MD
--- NOTE | 2023-03-21 09:44 | RAD_ITS ---
STUDY: X-RAY CHEST REASON FOR EXAM: Female, 72 years old. Dyspnea. Decreased oxygenation. TECHNIQUE: Single AP portable view of the chest. COMPARISON: Comparison is made with prior study dated April 05, 2020. FINDINGS: EKG electrodes are seen. Increased interstitial markings at the lung bases with areas of confluence. This has progressed as compared to prior study and most likely represents bibasilar scarring. This is superimposed on mild vascular congestion. Blunting of the left costophrenic angle. There is mild cardiac enlargement. Normal mediastinum and [place]. Normal visualized pulmonary arteries. There is atherosclerotic calcification of the aortic arch with tortuosity. There are diffuse degenerative changes of the visualized thoracic spine. Normal visualized ribs, clavicles, and shoulders. There is no demonstrated abnormality of the visualized soft tissue structures of the upper abdomen. RAD/Chest 1 View (Portable) IMPRESSION: Increased markings at the lung bases with areas of confluence which have progressed as compared to prior study. Findings suggestive of bibasilar scarring superimposed on mild vascular congestion. Electronically Signed: Cameron Nation MD at 10:37 EDT ,
--- NOTE | 2023-03-21 09:46 | ED.VIS.DYS ---
HPI History of Present Illness Chief Complaint: Shortness of Breath Informant: patient Narrative Narrative: Progressive dyspnea wheeze over the past week. History of COPD tobacco history up to a pack per day. Reported stopped yesterday. No history of diabetes. Patient states she was on oxygen 2 years ago she was diagnosed with pneumonia with hospitalization. He was on it for short-term. Chest tightness. States with the weather changes it is worsened over the last week. Headache chronic myalgias. COVID vaccinated with no COVID infections in the past. Denies recent travel or surgeries. No history of PE or DVT. Prior similar symptoms: Yes PFSH PFSH Medical History COPD (chronic obstructive pulmonary disease) GERD (gastroesophageal reflux disease) Hypertension Smoker Home Medications hydrochlorothiazide 12.5 mg capsule 12.5 mg PO DAILY BP 04/05/20 [History Last Taken 03/21/23] omeprazole 20 mg capsule,delayed release 40 mg PO DAILY GERD 04/05/20 [History Last Taken 03/21/23] albuterol sulfate 90 mcg/actuation aerosol inhaler 2 puff inhalation [id number] ##1 04/08/20 [Rx Last Taken 03/21/23] cetirizine 10 mg tablet (All Day Allergy (cetirizine)) 10 mg PO DAILY 03/21/23 [History Last Taken 03/21/23] fluticasone fur. 100 mcg-umeclid 62.5 mcg-vilant 25 mcg inhalat.powder (Trelegy Ellipta) 1 inh inhalation Q24H 03/21/23 [History Last Taken 03/21/23] Allergy/AdvReac Type Severity Reaction Status Date / Time shellfish derived Allergy Other Verified 03/21/23 09:34 Surgical History (Updated 03/21/23 @ 15:05 by Claudia Lu) History of appendectomy Social History Smoking Status: Current every day smoker tobacco type: cigarettes ROS ROS ED Constitutional Constitutional ED: Denies chills, fever(s) or sweats Eyes Eyes: Denies change in vision ENT ENT ED: Denies dysphagia or sore throat Cardiovascular Cardiovascular: Denies chest pain, leg edema, palpitations or racing heartbeat Respiratory/Chest Respiratory/Chest: Reports cough and dyspnea; Denies dyspnea on exertion Gastrointestinal Gastrointestinal: Denies abdominal pain, diarrhea, nausea or vomiting Genitourinary Genitourinary ED: Denies dysuria, hematuria or urinary frequency Musculoskeletal Musculoskeletal: Denies back pain, extremity pain or neck pain Integumentary Denies rash or wounds Neurologic Neurologic: Reports headache(s); Denies paresthesias or weakness EXAM Physical Exam Const Vital Signs: 03/21/23 09:34 03/21/23 09:44 03/21/23 09:44 Temperature 97.6 F L Temperature Source Temporal Pulse Rate 80 Respiratory Rate 16 Respiratory Effort Short of Breath Respiratory Pattern Tachypnea Blood Pressure 149/76 H Blood Pressure Mean 100 Pulse Ox 90 87 Oxygen Delivery Method Nasal Cannula Nasal Cannula Nasal Cannula Oxygen Flow Rate (L/min) 3 5 6 03/21/23 09:54 03/21/23 11:57 03/21/23 12:00 Temperature Temperature Source Pulse Rate 80 85 Respiratory Rate 20 H 24 H Respiratory Effort Respiratory Pattern Blood Pressure 133/74 H Blood Pressure Mean 84 Pulse Ox 94 Oxygen Delivery Method Oxygen Flow Rate (L/min) 03/21/23 12:10 03/21/23 12:15 03/21/23 12:20 Temperature Temperature Source Pulse Rate 138 H 100 89 Respiratory Rate 17 15 14 Respiratory Effort Respiratory Pattern Blood Pressure 148/101 H Blood Pressure Mean 114 Pulse Ox 92 94 94 Oxygen Delivery Method Oxygen Flow Rate (L/min) 03/21/23 12:30 03/21/23 12:40 Temperature Temperature Source Pulse Rate 89 97 Respiratory Rate 16 17 Respiratory Effort Respiratory Pattern Blood Pressure 170/95 H Blood Pressure Mean 118 Pulse Ox 92 91 Oxygen Delivery Method Oxygen Flow Rate (L/min) Positive well nourished and well developed General Appearance ED: well developed and NAD HEENT Reports moist mucous membranes normocephalic and atraumatic Eyes PERRL, EOMs intact bilaterally and conjunctivae normal General Eye ED: Yes normal appearance of both eyes Neck no lymphadenopathy, supple and no meningeal signs General: Negative for tenderness Chest Wall Chest: Negative for tenderness Resp Resp Narrative: Decreased breath sounds at bases there is mild expiratory wheezing, no distress Effort and Inspection: symmetric chest movement; Negative for respiratory distress Cardio regular rate, regular rhythm and no murmurs Peripheral Pulses: pulses 2+ throughout GI normal to inspection, nondistended, normoactive bowel sounds and non-tender Palpation: Negative for guarding or rebound tenderness present Back/Spine no CVA tenderness and no thoracic nor lumbar tenderness Extremity normal to inspection General Extremety ED: Negative for edema or tenderness General Extremity: Negative for edema Neuro oriented x3, CN's II-XII intact bilaterally and no sensory deficits noted Sensorium / Orientation: awake and alert Skin no rashes or lesions noted and no wounds MDM MDM MDM Narrative Medical decision making narrative: Interventions / MDM: Differential diagnosis: COPD exacerbation, pneumonia, chest pain, ACS Diagnosis considered but do not suspect: PE however CT chest negative. My EKG interpretation: Sinus rate of 76, no ST or T wave changes. Imaging independently reviewed and interpreted by myself: 1 view chest x-ray: No infiltrates, question effusion. Also read by radiology. CTA chest: No PE. Right-sided patchy infiltrate noted per radiology. External documents reviewed: N/A Test considered but not ordered:N/A ED course: Ambulated in the department 60% on room air. She is in no respiratory distress, she is placed on oxygen. History of COPD has wheezing. Aerosol treatment steroids. Labs were ordered. Tylenol for headache. No meningismal findings. 1050: Currently on 4.5 L of oxygen 95% on room air. Breathing and chest tightness improved aerosol treatments troponin did return at 78. EKG with no ischemic findings. D-dimer was elevated. COVID negative. CTA chest ordered for further evaluation. 1155: CTA chest negative for PE however patchy infiltrates noted. 7.1 mm nodule right side. Patient covered with Rocephin and Zithromax IV. Aspirin ordered for her elevated troponin, pending 2-hour troponin, is likely type II strain. Will discuss with hospitalist service for admission. Discussed with hospitalist Dr. Springer for admission to PCU. Re-evaluation: stable, on 4.5 L nasal cannula. Disposition discussed with patient/family/significant other: Patient Case discussed with consulting clinician: Hospitalist This note was generated with [employer] dictation software. It may contain incorrect words, spelling, and punctuation that were not noted in checking the note before signing. Lab Data Attestation: I reviewed the patient's lab results. Labs: Laboratory Results - last 24 hr 03/21/23 09:58 WBC 6.1 RBC 6.01 H Hgb 16.0 H Hct 54.2 H MCV 90.2 MCH 26.6 L MCHC 29.5 L RDW Std Deviation 50.5 H RDW Coeff of [place] 15.3 H Plt Count 238 MPV 10.7 Immature Gran % (Auto) 0.500 Neut % (Auto) 65.7 Lymph % (Auto) 20.8 Davis % (Auto) 9.2 Eos % (Auto) 2.6 Baso % (Auto) 1.2 H Absolute Neuts (auto) 4.0 Absolute Lymphs (auto) 1.26 Nucleated RBC % 0 PT 13.8 INR 1.1 APTT 28.2 D-Dimer Quant (PE/DVT) 0.95 H* Sodium 140 Potassium 3.7 Chloride 103 Carbon Dioxide 32.0 Anion Gap 5 BUN 23 H Creatinine 1.13 H Estim Creat Clear Calc 33.96 Est GFR (MDRD) Af Amer 61 Est GFR (MDRD) Non-Af 50 L BUN/Creatinine Ratio 20.4 H Glucose 106 Calcium 8.7 Total Bilirubin 0.70 AST 44 H ALT 101 H Alkaline Phosphatase 92 Troponin I High Sens 79 H Total Protein 6.9 Albumin 3.0 L Globulin 3.9 Albumin/Globulin Ratio 0.8 L Radiography Diagnostic Testing: Clinical Impression(s) from Imaging Studies Chest X-Ray 03/21/23 09:44 IMPRESSION: Increased markings at the lung bases with areas of confluence which have progressed as compared to prior study. Findings suggestive of bibasilar scarring superimposed on mild vascular congestion. Electronically Signed: Cameron Nation MD at 10:37 EDT , Chest CTA 03/21/23 10:32 IMPRESSION: No evidence of pulmonary embolism. Emphysematous changes. Infiltration at the lung bases slightly worse on the right side. Patchy infiltrate in the posterior aspect of the right middle lobe. 7.1 mm noncalcified nodule in the peripheral lateral aspect of the right middle lobe. Twelve-month follow-up examination is recommended. Electronically Signed: Cameron Nation MD at 11:52 EDT , Discharge Plan Dx/Rx/DC Orders Clinical Impression: Elevated troponin, Hypoxia, COPD exacerbation, Pneumonia Disposition Disposition: Acute Care Hospital [facility] Discharge Date/Time: 03/21/23 14:35
--- NOTE | 2023-03-21 09:50 | NURSING ---
NO OLD EKGS
[2023-03-21] MEDS: Ipratropium/Albuterol Sulfate 3 ML AMPUL.NEB INHALATION ×3 (09:54→23:36)
[2023-03-21] MEDS: Albuterol 2.5 MG/3 ML VIAL.NEB. INHALATION (09:54)
[2023-03-21] MEDS: MethylPREDNISolone 125 MG/2 ML Vial IV (10:03)
[2023-03-21 10:10] LABS: Absolute Lymphocyte Count 1.26 X10^3/uL (0.83-4.51); Basophil# 0.07 X10^3/uL; Basophil% 1.2 % (0-1); Eosinophil# 0.16 X10^3/uL; Eosinophils% 2.6 % (0-5); Hematocrit 54.2 % (37-47); Lymphocyte # 1.26 X10^3/ul (0.83-4.51); Lymphocyte % 20.8 % (19-41); Mean Corp Hgb Conc 29.5 g/dL (32-36); Mean Corpuscular Hgb 26.6 pg (27.0-32.0); Mean Corpuscular Volume 90.2 fL (81-99); Mean Platelet Vol. 10.7 fl (6.2-12.0); Monocyte# 0.56 X10^3/uL; Monocyte% 9.2 % (0-10); NRBC Flagged by Analyzer 0 % (0-5); Neutrophil # 3.98 X10^3/uL (2.7-7.7); Neutrophil % 65.7 % (47-70); Platelet Count 238 K/mm3 (150-450); RBC Distribution Width CV 15.3 % (11.6-14.6); RBC Distribution Width SD 50.5 fl (35.1-43.9); Red Blood Count 6.01 M/mm3 (4.2-5.4); White Blood Count 6.1 K/mm3 (4.4-11.0)
[2023-03-21 10:24] LABS: ALB/GLOB Ratio 0.8 RATIO (0.9-2.4); AST(SGOT) 44 U/L (15-37); Alanine Aminotransfer ALT/SGPT 101 U/L (13-56); Alkaline Phosphatase 92 U/L (45-117); Anion Gap 5 (5-15); BUN 23 mg/dL (7-18); BUN/Creat Ratio 20.4 RATIO (10-20); Calcium,Total 8.7 mg/dL (8.5-10.1); Chloride 103 mmol/L (98-107); Creatinine, Serum 1.13 mg/dL (0.55-1.02); EST Glomerular Filtration Rate 50 mL/min (>60); Est Glom Filt Rate - Afr Amer 61 mL/min (>60); Estimated Creatinine Clearance 33.96 ml/min; Globulin 3.9 g/dL (2.2-4.2); Glucose 106 mg/dL (74-106); Potassium 3.7 mmol/L (3.5-5.1); Protein, Total 6.9 g/dL (6.4-8.2); Sodium Level 140 mmol/L (136-145); Troponin-I HS (w/2H Reflex) 79 pg/mL (3.0-54.0)
[2023-03-21 10:29] LABS: D-Dimer Quantitative (DVT/PE) 0.95 FEU/ug/m (0.27-0.49)
--- NOTE | 2023-03-21 10:32 | CT_ITS ---
STUDY: CTA CHEST REASON FOR EXAM: Female, 72 years old. Hypoxia, elevated dimer RADIATION DOSAGE (If Supplied By Facility): CTDIvol = ( 15.01 ) mGy, DLP = ( 488.15 ) mGycm TECHNIQUE: The examination was performed with the intravenous administration of IV 100mL Isovue-370. Post-processing of the angiographic images was performed, with multiplanar reformation and 3D reconstruction. Individualized dose optimization techniques were used for this CT. COMPARISON: Comparison is made with prior chest radiograph done earlier today. FINDINGS: Normal enhancement of the main pulmonary artery and right and left pulmonary arteries. Normal enhancement of the bilateral peripheral pulmonary arteries. There is no demonstrated pulmonary embolism. There is atherosclerotic calcification of the aortic arch with tortuosity. There is no demonstrated aortic dissection. Normal heart and pericardium. Normal mediastinum. Normal hilar regions. Normal visualized trachea and bronchi. The lungs are well expanded. There is evidence of emphysematous changes more prominent in the upper lobes with centrilobular changes. Patchy infiltrate in the posterior aspect of the right middle lobe. This is 7.1 mm noncalcified nodule in the peripheral lateral aspect of the right middle lobe as seen on axial image #70 and coronal image #120. There is evidence of a infiltration at the lung bases worse at the right lung base. Normal pleura. Normal chest wall structures. There are degenerative changes of thoracic spine. Increased kyphosis. Normal visualized upper abdomen. CT/CTA Chest W/WO Contrast IMPRESSION: No evidence of pulmonary embolism. Emphysematous changes. Infiltration at the lung bases slightly worse on the right side. Patchy infiltrate in the posterior aspect of the right middle lobe. 7.1 mm noncalcified nodule in the peripheral lateral aspect of the right middle lobe. Twelve-month follow-up examination is recommended. Electronically Signed: Cameron Nation MD at 11:52 EDT ,
[2023-03-21 10:33] LABS: International Normalized Ratio 1.1; Partial Thromboplast Time 28.2 Seconds (24.1-36.2); Prothrombin Time (Protime)PT. 13.8 SECONDS (11.7-14.9)
[2023-03-21 12:02] LABS: Reflex Troponin-HS? (from REC) Y
--- NOTE | 2023-03-21 12:31 | PCM.HP.STD ---
HPI - General General Date of Admission: 03/21/23 Date of Service: 03/21/23 Chief Complaint: Worsening shortness of breath HPI Narrative MIMA DOS SANTOS, is a 72 F with history of COPD not on home O2, current smoker, hypertension and GERD who presented to [facility] ED on 03/21/2023 with worsening shortness of breath. Patient seen at bedside in the ED, son present. Patient had just received a breathing treatment and was feeling significantly improved. Breathing comfortably on 4 to 5 L nasal cannula, no increased work of breathing noted. Patient states she was diagnosed with COPD about 2 years ago, has never had an acute exacerbation of COPD like this before. She does not wear home oxygen. She is a current smoker, has been trying to cut back and is currently smoking about 5 cigarettes daily. Has extensive smoking history. States she has had progressive dyspnea with worsening wheezing over the past week. Has been taking her long-acting inhaler as prescribed, and has been using her rescue inhaler more frequently with some relief. Patient denies any fevers or chills. Denies any known sick contacts recently. She denies any chest pain. Denies abdominal pain, nausea or vomiting. No other acute concerns. Vitals in ED notable for mild tachycardia with heart rate in 90s to 100s (normal sinus rhythm), O2 saturations in low 90s on 4 L nasal cannula, respiration rate around 20, mild hypertension, afebrile. Labs notable for normal white blood cell count of 6, hemoglobin 16, normal BMP, troponins 79 down to 68. Chest CTA showed infiltration of the lung bases slightly worse on the right side, patchy infiltrate in the posterior aspect of the right middle lobe, emphysematous changes, no evidence of pulmonary embolism. [facility] Medical History COPD (chronic obstructive pulmonary disease) GERD (gastroesophageal reflux disease) Hypertension Smoker Home Medications hydrochlorothiazide 12.5 mg capsule 12.5 mg PO DAILY BP 04/05/20 [History Last Taken 03/21/23] omeprazole 20 mg capsule,delayed release 40 mg PO DAILY GERD 04/05/20 [History Last Taken 03/21/23] albuterol sulfate 90 mcg/actuation aerosol inhaler 2 puff inhalation [id number] ##1 04/08/20 [Rx Last Taken 03/21/23] cetirizine 10 mg tablet (All Day Allergy (cetirizine)) 10 mg PO DAILY 03/21/23 [History Last Taken 03/21/23] fluticasone fur. 100 mcg-umeclid 62.5 mcg-vilant 25 mcg inhalat.powder (Trelegy Ellipta) 1 inh inhalation Q24H 03/21/23 [History Last Taken 03/21/23] Allergy/AdvReac Type Severity Reaction Status Date / Time shellfish derived Allergy Other Verified 03/21/23 09:34 Surgical History (Updated 03/21/23 @ 15:05 by Claudia Lu) History of appendectomy Social History Smoking Status: Current every day smoker tobacco type: cigarettes Vital Signs Vital Signs Vital Signs: 03/21/23 09:34 03/21/23 09:44 03/21/23 09:44 Temperature 97.6 F L Temperature Source Temporal Pulse Rate 80 Respiratory Rate 16 Respiratory Effort Short of Breath Respiratory Pattern Tachypnea Blood Pressure 149/76 H Blood Pressure Mean 100 Pulse Ox 90 87 Oxygen Delivery Method Nasal Cannula Nasal Cannula Nasal Cannula Oxygen Flow Rate (L/min) 3 5 6 03/21/23 09:54 03/21/23 11:57 03/21/23 12:00 Temperature Temperature Source Pulse Rate 80 85 Respiratory Rate 20 H 24 H Respiratory Effort Respiratory Pattern Blood Pressure 133/74 H Blood Pressure Mean 84 Pulse Ox 94 Oxygen Delivery Method Oxygen Flow Rate (L/min) 03/21/23 12:10 03/21/23 12:15 Temperature Temperature Source Pulse Rate 138 H 100 Respiratory Rate 17 15 Respiratory Effort Respiratory Pattern Blood Pressure 148/101 H Blood Pressure Mean 114 Pulse Ox 92 94 Oxygen Delivery Method Oxygen Flow Rate (L/min) Weight Weight: 97.205 kg Body Mass Index (BMI) 40.4 Physical Exam Const alert, oriented x3, no apparent distress, average body habitus and well nourished Constitutional Narrative: Pleasant female, sitting comfortably in bed, conversing normally, no conversational dyspnea, no increased work of breathing, satting well on 4 L nasal cannula. General Appearance: cooperative, comfortable, well kempt and well developed HEENT normocephalic, head/scalp atraumatic, hearing grossly normal bilaterally, nasal mucous membranes and turbinates normal and moist oral mucous membranes Eyes PERRL, EOMs intact bilaterally and conjunctivae normal Neck full ROM, no lymphadenopathy and supple Lymph Lymphatic: no lymphadenopathy noted Chest inspection of chest normal Resp Resp Narrative: Decreased breath sounds throughout, with mild wheezes noted bilaterally in upper airways. No increased work of breathing noted. Cardio regular rate, regular rhythm, no murmurs and peripheral pulses 2+ throughout GI normal to inspection, nondistended, normoactive bowel sounds, soft to palpation, non-tender and non-distended Back/Spine normal ROM Extremity normal to inspection, full ROM and no pedal edema Skin no rashes or lesions noted Psych mental status grossly normal Results Lab / Micro Data 03/21/23 09:58 03/21/23 09:58 Labs: Laboratory Results - last 24 hr 03/21/23 09:58: WBC 6.1, RBC 6.01 H, Hgb 16.0 H, Hct 54.2 H, MCV 90.2, MCH 26.6 L, MCHC 29.5 L, RDW Std Deviation 50.5 H, RDW Coeff of Piper 15.3 H, Plt Count 238, MPV 10.7, Immature Gran % (Auto) 0.500, Neut % (Auto) 65.7, Lymph % (Auto) 20.8, Rice % (Auto) 9.2, Eos % (Auto) 2.6, Baso % (Auto) 1.2 H, Absolute Neuts (auto) 4.0, Absolute Lymphs (auto) 1.26, Nucleated RBC % 0, PT 13.8, INR 1.1, APTT 28.2, D-Dimer Quant (PE/DVT) 0.95 H*, Sodium 140, Potassium 3.7, Chloride 103, Carbon Dioxide 32.0, Anion Gap 5, BUN 23 H, Creatinine 1.13 H, Estim Creat Clear Calc 33.96, Est GFR (MDRD) Af Amer 61, Est GFR (MDRD) Non-Af 50 L, BUN/Creatinine Ratio 20.4 H, Glucose 106, Calcium 8.7, Total Bilirubin 0.70, AST 44 H, ALT 101 H, Alkaline Phosphatase 92, Troponin I High Sens 79 H, Total Protein 6.9, Albumin 3.0 L, Globulin 3.9, Albumin/Globulin Ratio 0.8 L Micro: Microbiology 03/21/23 09:58 Nasal Secretion SARS-CoV-2 & FLU Antigen (Rapid) - Final Radiology Impression Chest X-Ray 03/21/23 09:44 IMPRESSION: Increased markings at the lung bases with areas of confluence which have progressed as compared to prior study. Findings suggestive of bibasilar scarring superimposed on mild vascular congestion. Electronically Signed: Cameron Nation MD at 10:37 EDT , Chest CTA 03/21/23 10:32 IMPRESSION: No evidence of pulmonary embolism. Emphysematous changes. Infiltration at the lung bases slightly worse on the right side. Patchy infiltrate in the posterior aspect of the right middle lobe. 7.1 mm noncalcified nodule in the peripheral lateral aspect of the right middle lobe. Twelve-month follow-up examination is recommended. Electronically Signed: Cameron Nation MD at 11:52 EDT , Assessment & Plan Assessment/Plan (1) COPD exacerbation: PLAN: Plan Patient is a 72-year-old female with history of COPD not on home O2, current smoker, hypertension and GERD who presented to [facility] ED on 03/21/2023 with worsening shortness of breath. 1. Acute hypoxic respiratory failure, COPD exacerbation, community-acquired pneumonia with unclear organism History of COPD secondary to longstanding tobacco use, not on home oxygen. Diagnosed with COPD about 2 years ago. No previous history of COPD exacerbations. Suspect exacerbation is likely secondary to community-acquired pneumonia. Chest CTA showed infiltrates at the lung bases slightly worse on the right side, patchy infiltrate in the posterior aspect of the right middle lobe, emphysematous changes. Requiring 4 to 5 L nasal cannula in ED for saturations greater than 90%. Moderately improved in ED after a breathing treatment. COVID and flu negative. ? Admit to cardiac telemetry bed in PCU. Treat COPD exacerbation with prednisone, ceftriaxone and azithromycin for 5-day courses. Wean supplemental oxygen as able, goal saturations greater than 88%. May require home O2 evaluation prior to discharge. Sputum culture, respiratory panel, urine antigens ordered. DuoNebs every 4 hours scheduled for now. Continue home long-acting inhaler. 2. Current smoker Currently smoking around 5 cigarettes daily. Extensive smoking history. ? Nicotine patch ordered per patient request. Encouraged cessation. 3. Lung nodule ? CT chest on admit with 7 mm noncalcified nodule noted in peripheral lateral aspect of the right middle lobe. 12-month follow-up examination is recommended. 4. Elevated troponins ? Troponin trend 79 to 68 in the ED. EKG showed normal sinus rhythm, no ST changes. Suspect secondary to demand ischemia in setting of COPD exacerbation as noted above. No need for further work-up. Chronic medical conditions: ? Hypertension: Continue home hydrochlorothiazide. ? GERD: Continue home PPI. DVT prophylaxis: Lovenox CODE STATUS: Full code, verified Expected disposition: Home, 2 to 3 days Total clinical time spent by myself addressing the patient's medical issues, reviewing all the data, and collaborating with patient's care team: 35 minutes. Charges/Coding Visit Charges Inpatient E&M: 78373 Init Hosp L2
[2023-03-21] MEDS: Acetaminophen 500 MG Tablet 1000 MG PO (12:36)
[2023-03-21] MEDS: Aspirin 325 MG Tablet PO (12:36)
[2023-03-21] MEDS: Ceftriaxone 1 GM/50 ML BAG IV (12:36)
[2023-03-21 13:20] LABS: Troponin-I HS 68 pg/mL (3.0-54.0)
[2023-03-22] VITALS (10 sets, daily range): BP systolic 124–150; BP diastolic 61–76; PULSE 77–96; RESP 18–20; TEMP 35.9–36.5; O2SAT 91–94
[2023-03-22 04:14] LABS: Mucous, Urine 0 SEEN /hpf (<or=2+); Red Blood Cells-Urine 0 SEEN /hpf (0-5)
[2023-03-22 04:15] LABS: Color, Urine Yellow (Yellow); Glucose, Dipstick Normal (Normal); Ketone-Dipstick Negative (Negative); Leukocyte Esterase-Dipstick 25 /ul (Negative); Nitrite-Dipstick Negative (Negative); Occult Blood-Urine 10 /ul (Negative); Protein-Dipstick 30 mg/dl (Negative); Urine Bilirubin Dipstick Negative (Negative); Urine Clarity Clear (Clear); Urine Urobilinogen Normal (Normal)
[2023-03-22 05:20] LABS: Bacteria 2+ /hpf (None Seen); Squamous Epithelial Cells - UA 0-5 SEEN /hpf (5-10); White Blood Cells 0-5 SEEN /hpf (0-5)
[2023-03-22 06:01] LABS: Hematocrit 55.1 % (37-47); Hemoglobin 15.7 g/dL (12.0-15.0); Mean Corp Hgb Conc 28.5 g/dL (32-36); Mean Corpuscular Hgb 25.9 pg (27.0-32.0); Mean Corpuscular Volume 90.8 fL (81-99); Mean Platelet Vol. 10.8 fl (6.2-12.0); Platelet Count 256 K/mm3 (150-450); RBC Distribution Width CV 15.6 % (11.6-14.6); RBC Distribution Width SD 50.9 fl (35.1-43.9); Red Blood Count 6.07 M/mm3 (4.2-5.4); White Blood Count 10.3 K/mm3 (4.4-11.0)
[2023-03-22 06:42] LABS: Anion Gap 3 (5-15); BUN 22 mg/dL (7-18); BUN/Creat Ratio 24.3 RATIO (10-20); Chloride 102 mmol/L (98-107); Creatinine, Serum 0.91 mg/dL (0.55-1.02); EST Glomerular Filtration Rate 65 mL/min (>60); Est Glom Filt Rate - Afr Amer 78 mL/min (>60); Estimated Creatinine Clearance 42.17 ml/min; Glucose 140 mg/dL (74-106); Potassium 4.2 mmol/L (3.5-5.1); Sodium Level 138 mmol/L (136-145)
[2023-03-22] MEDS: Ipratropium/Albuterol Sulfate 3 ML AMPUL.NEB INHALATION ×3 (07:24→19:33)
[2023-03-22] MEDS: Enoxaparin 40 MG/0.4 ML Syringe SC (10:28)
[2023-03-22] MEDS: Pantoprazole Sodium 40 MG Tablet PO (10:28)
[2023-03-22] MEDS: Azithromycin 250 MG in Dextrose 5%-Water (250mL Bag) 250 ML IV (10:29)
[2023-03-22] MEDS: hydroCHLOROthiazide 12.5mg 12.5 MG PO (10:29)
[2023-03-22] MEDS: predniSONE 20 MG Tablet 40 MG PO (10:29)
[2023-03-22] MEDS: Loratadine 10 MG Tablet PO (10:29)
[2023-03-22] MEDS: Ceftriaxone 1 GM/50 ML BAG IV (11:59)
--- NOTE | 2023-03-22 12:40 | CASEMGMT ---
RN?CM?DISABILITY BENEFITS SPECIALIST?CM?to room to meet with patient for initial transition planning/care coordination?assessment.?RN?CM?introduced self and role at [facility].? Pt voices understanding and consents to?assessment?at this time.? Pt resting in bed in no distress at this time.? Pt is A/O at this time and answers all questions appropriately.?? Care providers, pharmacy, and demographics verified/updated at this time. PCP: Dr Chong Specialists:Pt states was in the process of getting established w/Dr Gianna Maynard/pulmonology and plans to f/u with this after d/c. Preferred Pharmacy: [facility], [place] Insurance: [employer] Prescription Benefit:?yes Living Will/HPOA:?Pt does not currently have LW/HCPOA and interested in completing. SW, Vanessa, made aware. Pt made aware, if SW unable to meet w/her prior to discharge, AD can be completed as an OP w/SW. LNOK: Dtr, [address]. Son, [address] Living Arrangements: Lives alone in one-story home w/basement where laundry is.3 steps to enter home. Pt denies having difficulty w/any stairs. Pt is independent w/ADL's and IADL's and manages her own medications. Pt works full-time @ [employer]. Transportation:?Pt states drives self and states no transportation concerns at this time.?Dtr will take her home @ d/c. DME: States has the following DME:?shower chair, nebulizer, pulse ox. Pt does not have Home O2. Discussed process of home O2 set-up, should she qualify for O2 @ d/c. [facility] is only home O2 provider in-network w/pt's insurance and she is aware of same and is agreeable to [facility]. Pt states no need for further DME at this time.? HHC/SNF: No hx of either. Denies needs for HHC and no needs identified. Palliative: Discussed palliative care w/pt. She states is not interested in referral at this time, but would take info on this. Info provided along w/list of local palliative agencies. Pt voices appreciation. Pt wishes to return home and states has no concerns with going home at time of discharge.? Pt smokes ~ 1 PPD. Discussed importance of not smoking around oxygen, if she does need oxygen @ d/c. Pt voices understanding. Follow for home oxygen needs and any further discharge planning/needs.? Pt voices no further concerns/needs at this time.? Advised pt to ask for?CM?if any further questions/concerns/needs arise.? Voices understanding. PLAN:?Home. Follow for any O2 needs @ d/c. ? Araceli MARTINEZN?RN?CM
--- NOTE | 2023-03-22 13:10 | PN.HOSP_ITS ---
Reason for Visit Reason for Visit: Diagnoses Chronic obstructive pulmonary disease with (acute) exacerbation (03/21/23) Subjective Subjective No acute events overnight. Patient seen at bedside this morning. Laying comfortably in bed, conversing normally, no acute distress. Breathing comfortably on 4 L nasal cannula, satting in low 90s, no increased work of breathing noted. Patient states she continues to feel more fatigued than her usual, but otherwise has no acute concerns. States that her breathing does not feel labored at this point. Denies any fevers or chills. Denies any chest pain. Denies any lightheadedness or dizziness. Has been able to ambulate around the room without issue. No other acute concerns. Objective Data Objective Data Vital Signs: Vital Signs Temp Pulse Resp BP Pulse Ox O2 Del Method O2 Flow Rate 97.7 F L 85 20 H 130/61 H 93 Nasal Cannula 6 03/22/23 10:15 03/22/23 10:15 03/22/23 10:15 03/22/23 10:15 03/22/23 10:15 03/22/23 10:15 03/22/23 10:15 Oxygen Flow Rate (L/min) 6 Oxygen Delivery Method Nasal Cannula Weight: 98 kg Body Mass Index (BMI) 40.8 Intake & Output: Intake and Output for Last 24 Hours 03/20/23 03/21/23 03/22/23 23:59 23:59 23:59 Intake Total 785 / 905 902.5 / 902.5 Balance 785 / 905 902.5 / 902.5 Lab / Micro Data 03/22/23 05:00 03/22/23 05:00 Labs: Laboratory Results - last 24 hr 03/21/23 12:45: Troponin I High Sens 68 H 03/22/23 03:10: Urine Color Yellow, Urine Clarity Clear, Urine pH 5.0, Ur Specific Dutton 1.020, Urine Protein 30 H, Urine Glucose (UA) Normal, Urine Ketones Negative, Urine Occult Blood 10 H, Urine Nitrite Negative, Urine Bilirubin Negative, Urine Urobilinogen Normal, Ur Leukocyte Esterase 25 H, Urine RBC 0 SEEN, Urine WBC 0-5 SEEN, Ur Squamous Epith Cells 0-5 SEEN, Urine Bacteria 2+, Urine Mucus 0 SEEN 03/22/23 05:00: WBC 10.3, RBC 6.07 H, Hgb 15.7 H, Hct 55.1 H, MCV 90.8, MCH 25.9 L, MCHC 28.5 L, RDW Std Deviation 50.9 H, RDW Coeff of Piper 15.6 H, Plt Count 256, MPV 10.8, Sodium 138, Potassium 4.2, Chloride 102, Carbon Dioxide 33.0 H, Anion Gap 3 L, BUN 22 H, Creatinine 0.91, Estim Creat Clear Calc 42.17, Est GFR (MDRD) Af Amer 78, Est GFR (MDRD) Non-Af 65, BUN/Creatinine Ratio 24.3 H, Glucose 140 H, Calcium 9.0 Micro: Microbiology 03/22/23 03:10 Urine, Clean Catch Legionella Antigen - Final 03/22/23 03:10 Urine, Clean Catch Streptococcus pneumoniae Antigen (M - Final 03/21/23 16:15 Mucosa - Nasopharyngeal Respiratory Panel (PCR) - Final 03/21/23 09:58 Nasal Secretion SARS-CoV-2 & FLU Antigen (Rapid) - Final Physical Exam Const alert, oriented x3, no apparent distress, average body habitus and well nourished Constitutional Narrative: Pleasant female, laying comfortably in bed, conversing normally, no conversational dyspnea, no increased work of breathing, satting well on 4 L nasal cannula. General Appearance: cooperative, comfortable, well kempt and well developed HEENT normocephalic, head/scalp atraumatic, hearing grossly normal bilaterally, nasal mucous membranes and turbinates normal and moist oral mucous membranes Eyes PERRL, EOMs intact bilaterally and conjunctivae normal Neck full ROM, no lymphadenopathy and supple Lymph Lymphatic: no lymphadenopathy noted Chest inspection of chest normal Resp Resp Narrative: Decreased breath sounds throughout, with mild wheezes noted bilaterally in upper airways. No increased work of breathing noted. Cardio regular rate, regular rhythm, no murmurs and peripheral pulses 2+ throughout GI normal to inspection, nondistended, normoactive bowel sounds, soft to palpation, non-tender and non-distended Back/Spine normal ROM Extremity normal to inspection, full ROM and no pedal edema Skin no rashes or lesions noted Psych mental status grossly normal Assessment & Plan Assessment/Plan (1) COPD exacerbation: PLAN: Plan Patient is a 72-year-old female with history of COPD not on home O2, current smoker, hypertension and GERD who presented to [facility] ED on 03/21/2023 with worsening shortness of breath. 1. Acute hypoxic respiratory failure, COPD exacerbation, community-acquired pneumonia with unclear organism History of COPD secondary to longstanding tobacco use, not on home oxygen. Diagnosed with COPD about 2 years ago. No previous history of COPD exace rbations. Suspect exacerbation is likely secondary to community-acquired pneumonia. Chest CTA showed infiltrates at the lung bases slightly worse on the right side, patchy infiltrate in the posterior aspect of the right middle lobe, emphysematous changes. Requiring 4 to 5 L nasal cannula in ED for saturations greater than 90%. Moderately improved in ED after a breathing treatment. COVID and flu negative. Respiratory panel negative. ?Continue prednisone, ceftriaxone and azithromycin with plan for 5-day courses. Wean supplemental oxygen as able, goal saturations greater than 88%. Patient very likely will require home O2 evaluation prior to discharge. Follow-up sputum culture, urine antigens. DuoNebs every 4 hours scheduled for now. Continue home long-acting inhaler. 2. Current smoker Currently smoking around 5 cigarettes daily. Extensive smoking history. ? Nicotine patch ordered per patient request. Encouraged cessation. 3. Lung nodule ? CT chest on admit with 7 mm noncalcified nodule noted in peripheral lateral aspect of the right middle lobe. 12-month follow-up examination is recommended. 4. Elevated troponins ? Troponin trend 79 to 68 in the ED. EKG showed normal sinus rhythm, no ST changes. Suspect secondary to demand ischemia in setting of COPD exacerbation as noted above. No need for further work-up. Chronic medical conditions: ? Hypertension: Continue home hydrochlorothiazide. ? GERD: Continue home PPI. DVT prophylaxis: Lovenox CODE STATUS: Full code, verified Expected disposition: Home, 1 to 2 days Total clinical time spent by myself addressing the patient's medical issues, reviewing all the data, and collaborating with patient's care team: 35 minutes. Charges/Coding Visit Charges Inpatient E&M: 13010 Subs Hosp L2
--- NOTE | 2023-03-22 16:12 | CASEMGMT ---
SW was informed that patient would like to complete advance directives. SW met with patient and confirmed she would like to do the documents. SW completed documents with patient. Copies were made and given to patient along with originals. A copy of each was also placed in patient's chart. Vanessa DUENAS
[2023-03-23] VITALS (11 sets, daily range): BP systolic 119–140; BP diastolic 67–73; PULSE 80–158; RESP 16–20; TEMP 36.6–36.9; O2SAT 82–100
[2023-03-23] MEDS: Ipratropium/Albuterol Sulfate 3 ML AMPUL.NEB INHALATION ×3 (07:13→20:20)
[2023-03-23] MEDS: Loratadine 10 MG Tablet PO (09:20)
[2023-03-23] MEDS: predniSONE 20 MG Tablet 40 MG PO (09:20)
[2023-03-23] MEDS: hydroCHLOROthiazide 12.5mg 12.5 MG PO (09:20)
[2023-03-23] MEDS: Pantoprazole Sodium 40 MG Tablet PO (09:21)
[2023-03-23] MEDS: Enoxaparin 40 MG/0.4 ML Syringe SC (09:21)
--- NOTE | 2023-03-23 09:30 | CASEMGMT ---
Social Work Noted in patient's chart, AD were complete with JUD Díaz on 03/22/23 with a copy placed on patient's chart. Kristy JOHN, HENRIQUE
--- NOTE | 2023-03-23 09:59 | EKG12_ITS ---
Test Reason : Blood Pressure : / mmHG Vent. Rate : 156 BPM Atrial Rate : 359 BPM P-R Int : 000 ms QRS Dur : 078 ms QT Int : 278 ms P-R-T Axes : 000 097 250 degrees QTc Int : 448 ms Critical Test Result: High HR Atrial flutter with variable A-V block Anterolateral infarct (cited on or before 21-MAR-2023) Abnormal ECG When compared with ECG of 21-MAR-2023 09:58, Atrial flutter has replaced Sinus rhythm Vent. rate has increased BY 80 BPM Questionable change in initial forces of Lateral leads Nonspecific T wave abnormality now evident in Inferior leads Confirmed by BALA ROBLEDO, NAVEED ([id number]), news video editor ERLIN THOMAS ([id number]) on 04/24/2023 1:54:28 PM Referred By: Confirmed By:NAVEED MCKENNA MD
[2023-03-23] MEDS: 0.9% Saline Lock 10 ML Syringe IV (10:03)
[2023-03-23] MEDS: Ceftriaxone 1 GM/50 ML BAG IV (10:03)
[2023-03-23] MEDS: Azithromycin 250 MG in Dextrose 5%-Water (250mL Bag) 250 ML IV (11:01)
--- NOTE | 2023-03-23 13:42 | PCM.PN.HOSP ---
Reason for Visit Reason for Visit: Diagnoses Chronic obstructive pulmonary disease with (acute) exacerbation (03/21/23) Subjective Subjective No acute events overnight. Patient seen at bedside this morning. Laying comfortably in bed, conversing normally, no acute distress. Still requiring 3 to 4 L nasal cannula to maintain saturations greater than 90%. She has mild shortness of breath with walking around the room. Denies any shortness of breath at rest. Denies any chest pain. States the prednisone has made her feel a bit jittery, and has limited her sleep somewhat. She denies any fevers or chills. Denies any sputum production. Has been tolerating the nicotine patch well. No other acute concerns. Objective Data Objective Data Vital Signs: Vital Signs Temp Pulse Resp BP Pulse Ox O2 Del Method O2 Flow Rate 98.2 F 88 18 119/69 86 Nasal Cannula 3 03/23/23 09:10 03/23/23 09:10 03/23/23 09:10 03/23/23 09:10 03/23/23 12:54 03/23/23 09:10 03/23/23 12:54 Oxygen Flow Rate (L/min) [ 6 AMBULATING with Oxygen #2] Oxygen Flow Rate (L/min) [ 4 AMBULATING with Oxygen #1] Oxygen Flow Rate (L/min) [At 3 REST with Oxygen] Oxygen Flow Rate (L/min) 5 Oxygen Delivery Method Nasal Cannula Weight: 98 kg Body Mass Index (BMI) 40.8 Intake & Output: Intake and Output for Last 24 Hours 03/21/23 03/22/23 03/23/23 23:59 23:59 23:59 Intake Total 785 / 905 1622.5 / 1622.5 422.5 / 422.5 Balance 785 / 905 1622.5 / 1622.5 422.5 / 422.5 Lab / Micro Data 03/22/23 05:00 03/22/23 05:00 Micro: Microbiology 03/22/23 03:10 Urine, Clean Catch Legionella Antigen - Final 03/22/23 03:10 Urine, Clean Catch Streptococcus pneumoniae Antigen (M - Final 03/21/23 16:15 Mucosa - Nasopharyngeal Respiratory Panel (PCR) - Final 03/21/23 09:58 Nasal Secretion SARS-CoV-2 & FLU Antigen (Rapid) - Final Physical Exam Const alert, oriented x3, no apparent distress, average body habitus and well nourished Constitutional Narrative: Pleasant female, laying comfortably in bed, conversing normally, no conversational dyspnea, no increased work of breathing, satting well on 4 L nasal cannula. General Appearance: cooperative, comfortable, well kempt and well developed HEENT normocephalic, head/scalp atraumatic, hearing grossly normal bilaterally, nasal mucous membranes and turbinates normal and moist oral mucous membranes Eyes PERRL, EOMs intact bilaterally and conjunctivae normal Neck full ROM, no lymphadenopathy and supple Lymph Lymphatic: no lymphadenopathy noted Chest inspection of chest normal Resp Resp Narrative: Decreased breath sounds throughout, with mild wheezes noted bilaterally in upper airways. No increased work of breathing noted. Cardio regular rate, regular rhythm, no murmurs and peripheral pulses 2+ throughout GI normal to inspection, nondistended, normoactive bowel sounds, soft to palpation, non-tender and non-distended Back/Spine normal ROM Extremity normal to inspection, full ROM and no pedal edema Skin no rashes or lesions noted Psych mental status grossly normal Assessment & Plan Assessment/Plan (1) COPD exacerbation: PLAN: Plan Patient is a 72-year-old female with history of COPD not on home O2, current smoker, hypertension and GERD who presented to [facility] ED on 03/21/2023 with worsening shortness of breath. 1. Acute hypoxic respiratory failure, COPD exacerbation, community-acquired pneumonia with unclear organism History of COPD secondary to longstanding tobacco use, not on home oxygen. Diagnosed with COPD about 2 years ago. No previous history of COPD exacerbations. Suspect exacerbation is likely secondary to community-acquired pneumonia. Chest CTA showed infiltrates at the lung bases slightly worse on the right side, patchy infiltrate in the posterior aspect of the right middle lobe, emphysematous changes. Requiring 4 to 5 L nasal cannula in ED for saturations greater than 90%. Moderately improved in ED after a breathing treatment. COVID and flu negative. Respiratory panel negative. Urine antigens negative. Unable to produce sputum culture. ? Patient unfortunately failed O2 walk test on 03/23, had oxygen saturations drop below 88% on 6 L nasal cannula. We will plan to repeat tomorrow. Continue prednisone, ceftriaxone and azithromycin with plan for 5-day courses. Continue DuoNebs every 4 hours scheduled. Continue home long-acting inhaler. 2. Paroxysmal atrial flutter New diagnosis. Had episode of heart rate spike to the 150s on 03/23. EKG showed atrial flutter with 2:1 conduction, heart rate 156 bpm. Episode notably occurred shortly after breathing treatment and as patient was exerting herself. Resolved after approximately 10 minutes without need for rate control medication. ?We will start p.o. Lopressor 25 mg twice daily. We will hold on anticoagulation at this time. Monitor telemetry. 3. Current smoker Currently smoking around 5 cigarettes daily. Extensive smoking history. ? Nicotine patch ordered per patient request. Encouraged cessation. 4. Lung nodule ? CT chest on admit with 7 mm noncalcified nodule noted in peripheral lateral aspect of the right middle lobe. 12-month follow-up examination is recommended. 5. Elevated troponins ? Troponin trend 79 to 68 in the ED. EKG showed normal sinus rhythm, no ST changes. Suspect secondary to demand ischemia in setting of COPD exacerbation as noted above. No need for further work-up. Chronic medical conditions: ? Hypertension: Continue home hydrochlorothiazide. ? GERD: Continue home PPI. DVT prophylaxis: Lovenox CODE STATUS: Full code, verified Expected disposition: Home, 1 to 2 days Total clinical time spent by myself addressing the patient's medical issues, reviewing all the data, and collaborating with patient's care team: 35 minutes. Charges/Coding Visit Charges Inpatient E&M: 62250 Subs Hosp L2
[2023-03-23] MEDS: Metoprolol Tartrate 25 MG Tablet PO (21:01)
[2023-03-24] VITALS (12 sets, daily range): BP systolic 107–148; BP diastolic 58–96; PULSE 73–85; RESP 18–20; TEMP 36.7–36.9; O2SAT 88–93
[2023-03-24 00:18] LABS: BNP,B-Type NATRIURETIC PEPTIDE 508.7 pg/mL (0-100)
--- NOTE | 2023-03-24 00:22 | PCM.HOSP.N ---
Hospitalist Note Patient with increased oxygenation requirements with rales, admit with COPD but new onset PAFlutter with RVR. BNP obtained and ~ 500 range. Certainly with RVR could be overloaded component. Will pulse dose with lasix 40 mg IV x 1 now. ECHO requested, mag ordered as well as TSH/FT4.
--- NOTE | 2023-03-24 00:23 | ECHOCS_ITS ---
Reason For Study: CHF Procedure This was a 2D Doppler, Color Flow transthoracic echocardiogram. Exam performed portable in patient room. Left Ventricle Normal LV size. Mild concentric left ventricular hypertrophy. Left ventricular systolic function is normal. The estimated ejection fraction is 55 %. Stage 1 diastolic dysfunction. No regional wall motion abnormalities noted. Right Ventricle Normal RV size. Normal systolic function. Atria Normal left atrium. Normal right atrium. Mitral Valve Mitral valve not well visualized. Tricuspid Valve The tricuspid valve is not well visualized. Aortic Valve The aortic valve is not well visualized. Pulmonic Valve The pulmonic valve is not well visualized. Great Vessels Normal aortic root. The pulmonary artery is normal size. Normal inferior vena cava. Pericardium/Pleural No pericardial effusion. Medication Diluted definity 2ml given slow IV push to enhance endocardial definition. MMode/2D Measurements & Calculations LVIDd: 3.9 cm IVSd: 1.3 cm Ao root diam: 2.6 cm LVIDs: 2.6 cm LVPWd: 1.4 cm FS: 34.8 % LAV(MOD-bp): 31.3 ml LVAd ap4: 26.6 cm2 SV(MOD-sp4): 47.1 ml LAV(MOD-bp) Indexed: 16.0 ml/m2 LVLd ap4: 7.5 cm LAV(MOD-sp2): 28.2 ml EDV(MOD-sp4): 75.5 ml LAV(MOD-sp4): 33.8 ml EDV(sp4-el): 79.8 ml LVAs ap4: 14.6 cm2 LVLs ap4: 6.5 cm ESV(MOD-sp4): 28.3 ml ESV(sp4-el): 27.8 ml EF(MOD-sp4): 62.4 % EF(sp4-el): 65.2 % SV(sp4-el): 52.0 ml LA A4 area: 14.5 cm2 LA dimension(2D): 3.7 cm RA A4 area: 15.3 cm2 TAPSE: 1.2 cm Time Measurements MV dec time: 0.28 sec Doppler Measurements & Calculations MV E max rod: 77.6 cm/sec Lat Peak E' Rod: 8.6 cm/sec Med Peak E' Rod: 6.2 cm/sec MV A max rod: 92.6 cm/sec E/E' lat: 9.0 E/E' med: 12.5 MV E/A: 0.84 MV V2 max: 98.7 cm/sec MV dec slope: 278.3 cm/sec2 Ao V2 max: 143.4 cm/sec MV max P.9 mmHg Ao max P.2 mmHg MV V2 mean: 55.9 cm/sec Ao V2 mean: 96.9 cm/sec MV mean P.4 mmHg Ao mean P.3 mmHg MV V2 VTI: 32.3 cm Ao V2 VTI: 28.7 cm AV (velocity ratio): 0.96 LV V1 max: 124.2 cm/sec PA V2 max: 90.2 cm/sec LV V1 max P.2 mmHg PA V2 mean: 60.3 cm/sec LV V1 mean P.2 mmHg LV V1 mean: 82.9 cm/sec LV V1 VTI: 27.6 cm ECHO/Echo Complete W/ Contrast Interpretation Summary Normal LV size. Left ventricular systolic function is normal. The estimated ejection fraction is 55 %. Stage 1 diastolic dysfunction. Mild concentric left ventricular hypertrophy. Ordering Physician: Ana Paula Hennessy Referring Physician: NADEGE DOWNEY Performed By: Francisca Austin RCS
[2023-03-24] MEDS: Furosemide 40 MG/4 ML Vial IV ×3 (01:05→17:33)
[2023-03-24] MEDS: 0.9% Saline Lock 10 ML Syringe IV ×3 (01:05→17:34)
[2023-03-24] MEDS: Ipratropium/Albuterol Sulfate 3 ML AMPUL.NEB INHALATION ×4 (07:12→19:06)
[2023-03-24 07:52] LABS: Magnesium 2.4 mg/dL (1.6-2.6); T4 Free Direct 0.92 ng/dL (0.76-1.46); Thyroid Stim Hormone (TSH) 0.31 uIU/mL (0.358-3.74)
[2023-03-24] MEDS: predniSONE 20 MG Tablet 40 MG PO (08:15)
[2023-03-24 09:02] LABS: Anion Gap 4 (5-15); BUN 21 mg/dL (7-18); BUN/Creat Ratio 20.8 RATIO (10-20); Calcium,Total 8.9 mg/dL (8.5-10.1); Chloride 98 mmol/L (98-107); Creatinine, Serum 1.01 mg/dL (0.55-1.02); EST Glomerular Filtration Rate 57 mL/min (>60); Est Glom Filt Rate - Afr Amer 69 mL/min (>60); Estimated Creatinine Clearance 37.99 ml/min; Glucose 92 mg/dL (74-106); Potassium 4.1 mmol/L (3.5-5.1); Sodium Level 139 mmol/L (136-145)
[2023-03-24] MEDS: Ceftriaxone 1 GM/50 ML BAG IV (10:16)
[2023-03-24] MEDS: Loratadine 10 MG Tablet PO (10:18)
[2023-03-24] MEDS: hydroCHLOROthiazide 12.5mg 12.5 MG PO (10:18)
[2023-03-24] MEDS: Pantoprazole Sodium 40 MG Tablet PO (10:18)
[2023-03-24] MEDS: Metoprolol Tartrate 25 MG Tablet PO ×2 (10:18→21:47)
[2023-03-24] MEDS: Enoxaparin 40 MG/0.4 ML Syringe SC (10:19)
[2023-03-24] MEDS: Azithromycin 250 MG in Dextrose 5%-Water (250mL Bag) 250 ML IV (11:00)
[2023-03-24] MEDS: APIXABAN 5 MG TABLET PO ×2 (11:42→21:47)
--- NOTE | 2023-03-24 12:17 | PCM.PN.HOSP ---
Reason for Visit Reason for Visit: Diagnoses Chronic obstructive pulmonary disease with (acute) exacerbation (03/21/23) Subjective Subjective Patient had mildly worsened hypoxia overnight, along with runs of A-fib with RVR. See Dr. Hennessy's note for further details. Patient seen at bedside this morning. Was asleep when I entered the room. Resting comfortably in bed, conversing normally, no acute distress. No increased work of breathing noted on 4 L nasal cannula. Patient states that she has noticed palpitations yesterday and this morning. However, she states she has noticed palpitations at home as well for some time. She denies any fevers or chills. She denies any sputum production. She denies any leg swelling or discomfort. No other acute concerns. Objective Data Objective Data Vital Signs: Vital Signs Temp Pulse Resp BP Pulse Ox O2 Del Method O2 Flow Rate 98.4 F 84 20 H 122/67 H 93 Nasal Cannula 6 03/24/23 08:55 03/24/23 11:13 03/24/23 11:13 03/24/23 10:18 03/24/23 08:55 03/24/23 08:55 03/24/23 08:55 Oxygen Flow Rate (L/min) [ 6 AMBULATING with Oxygen #2] Oxygen Flow Rate (L/min) [ 4 AMBULATING with Oxygen #1] Oxygen Flow Rate (L/min) [At 3 REST with Oxygen] Oxygen Flow Rate (L/min) 6 Oxygen Delivery Method Nasal Cannula Weight: 98 kg Body Mass Index (BMI) 40.8 Intake & Output: Intake and Output for Last 24 Hours 03/22/23 03/23/23 03/24/23 23:59 23:59 23:59 Intake Total 1622.5 / 1622.5 422.5 / 662.5 530 / 530 Output Total 1550 / 1550 Balance 1622.5 / 1622.5 422.5 / 662.5 -1020 / -1020 Lab / Micro Data 03/22/23 05:00 03/24/23 06:12 Labs: Laboratory Results - last 24 hr 03/23/23 23:44: B-Natriuretic Peptide 508.7 H 03/24/23 06:12: Sodium 139, Potassium 4.1, Chloride 98, Carbon Dioxide 37.0 H, Anion Gap 4 L, BUN 21 H, Creatinine 1.01, Estim Creat Clear Calc 37.99, Est GFR (MDRD) Af Amer 69, Est GFR (MDRD) Non-Af 57 L, BUN/Creatinine Ratio 20.8 H, Glucose 92, Calcium 8.9, Magnesium 2.4, TSH 0.31 L, Free T4 0.92 Micro: Microbiology 03/22/23 03:10 Urine, Clean Catch Legionella Antigen - Final 03/22/23 03:10 Urine, Clean Catch Streptococcus pneumoniae Antigen (M - Final 03/21/23 16:15 Mucosa - Nasopharyngeal Respiratory Panel (PCR) - Final 03/21/23 09:58 Nasal Secretion SARS-CoV-2 & FLU Antigen (Rapid) - Final Physical Exam Const alert, oriented x3, no apparent distress, average body habitus and well nourished Constitutional Narrative: Pleasant female, laying comfortably in bed, conversing normally, no conversational dyspnea, no increased work of breathing, satting well on 4 L nasal cannula. General Appearance: cooperative, comfortable, well kempt and well developed HEENT normocephalic, head/scalp atraumatic, hearing grossly normal bilaterally, nasal mucous membranes and turbinates normal and moist oral mucous membranes Eyes PERRL, EOMs intact bilaterally and conjunctivae normal Neck full ROM, no lymphadenopathy and supple Lymph Lymphatic: no lymphadenopathy noted Chest inspection of chest normal Resp Resp Narrative: Decreased breath sounds throughout, with mild wheezes noted bilaterally in upper airways. No increased work of breathing noted. Cardio regular rate, regular rhythm, no murmurs and peripheral pulses 2+ throughout GI normal to inspection, nondistended, normoactive bowel sounds, soft to palpation, non-tender and non-distended Back/Spine normal ROM Extremity normal to inspection, full ROM and no pedal edema Skin no rashes or lesions noted Psych mental status grossly normal Assessment & Plan Assessment/Plan (1) COPD exacerbation: PLAN: Plan Patient is a 72-year-old female with history of COPD not on home O2, current smoker, hypertension and GERD who presented to [facility] ED on 03/21/2023 with worsening shortness of breath. 1. Acute hypoxic respiratory failure, COPD exacerbation, community-acquired pneumonia with unclear organism History of COPD secondary to longstanding tobacco use, not on home oxygen. Diagnosed with COPD about 2 years ago. No previous history of COPD exacerbations. Suspect exacerbation is likely secondary to community-acquired pneumonia. Chest CTA showed infiltrates at the lung bases slightly worse on the right side, patchy infiltrate in the posterior aspect of the right middle lobe, emphysematous changes. Requiring 4 to 5 L nasal cannula in ED for saturations greater than 90%. Moderately improved in ED after a breathing treatment. COVID and flu negative. Respiratory panel negative. Urine antigens negative. Unable to produce sputum culture. Failed O2 walk test on 03/23, had oxygen saturations drop below 88% on 6 L nasal cannula. ? Continue supplemental oxygen, wean as able. Will need home oxygen on discharge, will repeat walk test likely tomorrow after echo was done as noted below. Continue prednisone, ceftriaxone and azithromycin with plan for 5-day courses. Continue DuoNebs every 4 hours scheduled. Continue home long-acting inhaler. 2. Paroxysmal atrial flutter New diagnosis. Had episode of heart rate spike to the 150s on 03/23. EKG showed atrial flutter with 2:1 conduction, heart rate 156 bpm. Resolved after approximately 10 minutes without need for rate control medication. Unfortunately had recurrence on evening of 03/23. ?[id number] score of 3 (age, sex, hypertension). Continue Lopressor 25 mg twice daily, can increase as needed. TTE ordered. We will start Eliquis today for anticoagulation. Lasix as noted below. Monitor telemetry. 3. Concern for volume overload Mild volume overload suspected given persistent hypoxia as noted above. Likely tachycardia mediated in setting of paroxysmal atrial flutter as noted above. ? TTE pending as above. We will give 2 doses of IV Lasix 40 mg today, start p.o. Lasix 40 mg daily tomorrow morning. Monitor volume status and oxygen saturations. 4. Current smoker Currently smoking around 5 cigarettes daily. Extensive smoking history. ? Nicotine patch ordered per patient request. Encouraged cessation. 5. Lung nodule ? CT chest on admit with 7 mm noncalcified nodule noted in peripheral lateral aspect of the right middle lobe. 12-month follow-up examination is recommended. 6. Elevated troponins ? Troponin trend 79 to 68 in the ED. EKG showed normal sinus rhythm, no ST changes. Suspect secondary to demand ischemia in setting of COPD exacerbation as noted above. No need for further work-up. Chronic medical conditions: ? Hypertension: Continue home hydrochlorothiazide. ? GERD: Continue home PPI. DVT prophylaxis: Lovenox CODE STATUS: Full code, verified Expected disposition: Home, 1 to 2 days Total clinical time spent by myself addressing the patient's medical issues, reviewing all the data, and collaborating with patient's care team: 35 minutes. Charges/Coding Visit Charges Inpatient E&M: 66118 Subs Hosp L2
[2023-03-25] VITALS (13 sets, daily range): BP systolic 116–168; BP diastolic 61–82; PULSE 64–89; RESP 14–24; TEMP 36.3–36.9; O2SAT 83–94
[2023-03-25] MEDS: Ipratropium/Albuterol Sulfate 3 ML AMPUL.NEB INHALATION ×4 (07:05→20:21)
[2023-03-25] MEDS: Ceftriaxone 1 GM/50 ML BAG IV (09:19)
[2023-03-25] MEDS: Metoprolol Tartrate 25 MG Tablet PO ×2 (09:20→20:07)
[2023-03-25] MEDS: Pantoprazole Sodium 40 MG Tablet PO (09:20)
[2023-03-25] MEDS: hydroCHLOROthiazide 12.5mg 12.5 MG PO (09:20)
[2023-03-25] MEDS: APIXABAN 5 MG TABLET PO ×2 (09:20→20:07)
[2023-03-25] MEDS: Loratadine 10 MG Tablet PO (09:20)
[2023-03-25] MEDS: predniSONE 20 MG Tablet 40 MG PO (09:20)
[2023-03-25] MEDS: Enoxaparin 40 MG/0.4 ML Syringe SC (09:21)
[2023-03-25] MEDS: Azithromycin 250 MG in Dextrose 5%-Water (250mL Bag) 250 ML IV (10:13)
--- NOTE | 2023-03-25 13:12 | PCM.PN.HOSP ---
Subjective Subjective Doing well, no issues overnight. Breathing a little bit easier today. Objective Data Objective Data Vital Signs: Vital Signs Temp Pulse Resp BP Pulse Ox O2 Del Method O2 Flow Rate 98 F 64 14 168/82 H 91 Nasal Cannula 5 03/25/23 08:59 03/25/23 10:59 03/25/23 10:59 03/25/23 09:20 03/25/23 10:59 03/25/23 10:59 03/25/23 10:59 Oxygen Flow Rate (L/min) [ 6 AMBULATING with Oxygen #2] Oxygen Flow Rate (L/min) [ 4 AMBULATING with Oxygen #1] Oxygen Flow Rate (L/min) [At 3 REST with Oxygen] Oxygen Flow Rate (L/min) 5 Oxygen Delivery Method Nasal Cannula Weight: 216 lb 0.848 oz Body Mass Index (BMI) 40.8 Intake & Output: Intake and Output for Last 24 Hours 03/24/23 03/25/23 03/26/23 03:59 03:59 03:59 Intake Total 542.5 / 542.5 1442.5 / 1442.5 50 / 50 Output Total 3300 / 3300 700 / 700 Balance 542.5 / 542.5 -1857.5 / -1857.5 -650 / -650 Lab / Micro Data 03/22/23 05:00 03/24/23 06:12 Micro: Microbiology 03/24/23 10:20 Sputum, Expectorated/Coughed Gram Stain - Final 03/24/23 10:20 Sputum, Expectorated/Coughed Respiratory Culture - Preliminary Appears to be normal respiratory no. Further studies to follow. 03/22/23 03:10 Urine, Clean Catch Legionella Antigen - Final 03/22/23 03:10 Urine, Clean Catch Streptococcus pneumoniae Antigen (M - Final 03/21/23 16:15 Mucosa - Nasopharyngeal Respiratory Panel (PCR) - Final 03/21/23 09:58 Nasal Secretion SARS-CoV-2 & FLU Antigen (Rapid) - Final Physical Exam Narrative General: Alert, Oriented x3, Cooperative, No apparent distress HEENT: Atraumatic, PERRLA, EOMI, Normocephalic Oral: Moist Mucosa Neck: Supple, No JVD Lungs: Diminished left greater than right, Normal air movement, No rhonchi, slight expiratory wheeze, No rales Cardiovascular: Regular rate, Regular Rhythm, Normal S1, Normal S2, No murmurs Abdomen: Soft, Non Tender, Non-Distended, No Hepato-splenomegaly Extremities: No edema, Capillary Refill Less than 3 Seconds Skin: No rashes, No breakdown Musculoskeletal: No Tenderness to Palpation of Joints or Extremities Neurological: Cranial nerves II-XII grossly intact, Motor Exam 5/5 strength throughout, Sensory exam intact to light touch and pain Psych/Mental Status: Normal Affect, Appropriate Assessment & Plan Assessment/Plan (1) COPD exacerbation: PLAN: Plan 1. Acute hypoxic respiratory failure, COPD exacerbation, community-acquired pneumonia with unclear organism History of COPD secondary to longstanding tobacco use, not on home oxygen. Diagnosed with COPD about 2 years ago. No previous history of COPD exacerbations. Suspect exacerbation is likely secondary to community-acquired pneumonia. Chest CTA showed infiltrates at the lung bases slightly worse on the right side, patchy infiltrate in the posterior aspect of the right middle lobe, emphysematous changes. Requiring 4 to 5 L nasal cannula in ED for saturations greater than 90%. Moderately improved in ED after a breathing treatment. COVID and flu negative. Respiratory panel negative. Urine antigens negative. Unable to produce sputum culture. Failed O2 walk test on 03/23, had oxygen saturations drop below 88% on 6 L nasal cannula. ? Continue supplemental oxygen, wean as able. Will need home oxygen on discharge, will repeat walk test likely tomorrow after echo was done as noted below. Continue prednisone, ceftriaxone and azithromycin with plan for 5-day courses. Continue DuoNebs every 4 hours scheduled. Continue home long-acting inhaler. 03/25/2023: Doing well, she is slow to improve this is likely secondary to her baseline lung physiology. Will obtain an ambulatory pulse ox today to gauge where we are at in her recovery 2. Paroxysmal atrial flutter/elevated troponins New diagnosis. Had episode of heart rate spike to the 150s on 03/23. EKG showed atrial flutter with 2:1 conduction, heart rate 156 bpm. Resolved after approximately 10 minutes without need for rate control medication. Unfortunately had recurrence on evening of 03/23. ?[id number] score of 3 (age, sex, hypertension). Continue Lopressor 25 mg twice daily, can increase as needed. TTE ordered. We will start Eliquis today for anticoagulation. Lasix as noted below. Monitor telemetry. 03/25/2023: Rate and rhythm are regular so this is likely paroxysmal and could be related to her hypoxia especially with ambulation. We will continue with medications and have her follow-up as an outpatient with allergy. Troponins are likely secondary to demand ischemia and hypoxia from her COPD exacerbation 3. Concern for volume overload Mild volume overload suspected given persistent hypoxia as noted above. Likely tachycardia mediated in setting of paroxysmal atrial flutter as noted above. ? TTE pending as above. We will give 2 doses of IV Lasix 40 mg today, start p.o. Lasix 40 mg daily tomorrow morning. Monitor volume status and oxygen saturations. 4. Current smoker Currently smoking around 5 cigarettes daily. Extensive smoking history. ? Nicotine patch ordered per patient request. Encouraged cessation. 5. Lung nodule ? CT chest on admit with 7 mm noncalcified nodule noted in peripheral lateral aspect of the right middle lobe. 12-month follow-up examination is recommended. Chronic medical conditions: ? Hypertension: Continue home hydrochlorothiazide. ? GERD: Continue home PPI. DVT: Eliquis Charges/Coding Visit Charges Inpatient E&M: 93918 Subs Hosp L2
[2023-03-25] MEDS: Furosemide 40 MG Tablet PO (20:06)
[2023-03-26] VITALS (14 sets, daily range): BP systolic 106–127; BP diastolic 58–79; PULSE 63–78; RESP 16–18; TEMP 36.4–36.8; O2SAT 86–93
[2023-03-26 05:08] LABS: Absolute Lymphocyte Count 2.01 X10^3/uL (0.83-4.51); Absolute Neutrophil Count 6.3 X10^3/uL (2.0-7.7); Basophil# 0.05 X10^3/uL; Basophil% 0.5 % (0-1); Eosinophil# 0.12 X10^3/uL; Eosinophils% 1.3 % (0-5); Hemoglobin 16.3 g/dL (12.0-15.0); Lymphocyte # 2.01 X10^3/ul (0.83-4.51); Lymphocyte % 21.8 % (19-41); Mean Corp Hgb Conc 29.1 g/dL (32-36); Mean Corpuscular Hgb 26.1 pg (27.0-32.0); Mean Corpuscular Volume 89.9 fL (81-99); Mean Platelet Vol. 10.1 fl (6.2-12.0); Monocyte# 0.76 X10^3/uL; Monocyte% 8.2 % (0-10); NRBC Flagged by Analyzer 0 % (0-5); Neutrophil # 6.25 X10^3/uL (2.7-7.7); Neutrophil % 67.8 % (47-70); Platelet Count 211 K/mm3 (150-450); RBC Distribution Width CV 16.1 % (11.6-14.6); Red Blood Count 6.24 M/mm3 (4.2-5.4); White Blood Count 9.2 K/mm3 (4.4-11.0)
[2023-03-26 05:16] LABS: Hematocrit 56.1 % (37-47)
[2023-03-26 05:45] LABS: Anion Gap 4 (5-15); BUN 32 mg/dL (7-18); BUN/Creat Ratio 33.4 RATIO (10-20); Calcium,Total 8.8 mg/dL (8.5-10.1); Chloride 95 mmol/L (98-107); Creatinine, Serum 0.96 mg/dL (0.55-1.02); EST Glomerular Filtration Rate 61 mL/min (>60); Est Glom Filt Rate - Afr Amer 73 mL/min (>60); Estimated Creatinine Clearance 39.97 ml/min; Glucose 108 mg/dL (74-106); Potassium 3.9 mmol/L (3.5-5.1); Sodium Level 139 mmol/L (136-145)
[2023-03-26] MEDS: Ipratropium/Albuterol Sulfate 3 ML AMPUL.NEB INHALATION ×4 (07:42→19:14)
[2023-03-26] MEDS: predniSONE 20 MG Tablet 40 MG PO (09:51)
[2023-03-26] MEDS: Metoprolol Tartrate 25 MG Tablet PO ×2 (09:51→23:10)
[2023-03-26] MEDS: Pantoprazole Sodium 40 MG Tablet PO (09:51)
[2023-03-26] MEDS: Loratadine 10 MG Tablet PO (09:51)
[2023-03-26] MEDS: Furosemide 40 MG Tablet PO (09:51)
[2023-03-26] MEDS: hydroCHLOROthiazide 12.5mg 12.5 MG PO (09:51)
[2023-03-26] MEDS: APIXABAN 5 MG TABLET PO ×2 (09:52→23:09)
[2023-03-26] MEDS: Ceftriaxone 1 GM/50 ML BAG IV (09:59)
[2023-03-26] MEDS: Azithromycin 250 MG in Dextrose 5%-Water (250mL Bag) 250 ML IV (10:52)
--- NOTE | 2023-03-26 13:57 | PN.HOSP_ITS ---
Subjective Subjective Breathing about the same today. No new issues overnight Objective Data Objective Data Vital Signs: Vital Signs Temp Pulse Resp BP Pulse Ox O2 Del Method O2 Flow Rate 97.9 F 65 18 109/58 L 89 Nasal Cannula 6 03/26/23 09:44 03/26/23 11:00 03/26/23 11:00 03/26/23 09:51 03/26/23 12:37 03/26/23 09:47 03/26/23 12:37 Oxygen Flow Rate (L/min) [ 6 AMBULATING with Oxygen #2] Oxygen Flow Rate (L/min) [ 6 AMBULATING with Oxygen #1] Oxygen Flow Rate (L/min) [At 6 REST with Oxygen] Oxygen Flow Rate (L/min) 4 Oxygen Delivery Method Nasal Cannula Weight: 216 lb 0.848 oz Body Mass Index (BMI) 40.8 Intake & Output: Intake and Output for Last 24 Hours 03/25/23 03/26/23 03/27/23 03:59 03:59 03:59 Intake Total 1442.5 / 1442.5 542.5 / 542.5 422.5 / 422.5 Output Total 3300 / 3300 700 / 700 Balance -1857.5 / -1857.5 -157.5 / -157.5 422.5 / 422.5 Lab / Micro Data 03/26/23 04:56 03/26/23 04:56 Labs: Laboratory Results - last 24 hr 03/26/23 04:56: WBC 9.2, RBC 6.24 H, Hgb 16.3 H, Hct 56.1 H, MCV 89.9, MCH 26.1 L, MCHC 29.1 L, RDW Std Deviation 51.0 H, RDW Coeff of Piper 16.1 H, Plt Count 211, MPV 10.1, Immature Gran % (Auto) 0.400, Neut % (Auto) 67.8, Lymph % (Auto) 21.8, [place] % (Auto) 8.2, Eos % (Auto) 1.3, Baso % (Auto) 0.5, Absolute Neuts (auto) 6.3, Absolute Lymphs (auto) 2.01, Nucleated RBC % 0, Sodium 139, Pot assium 3.9, Chloride 95 L, Carbon Dioxide 40.0 H, Anion Gap 4 L, BUN 32 H, Creatinine 0.96, Estim Creat Clear Calc 39.97, Est GFR (MDRD) Af Amer 73, Est GFR (MDRD) Non-Af 61, BUN/Creatinine Ratio 33.4 H, Glucose 108 H, Calcium 8.8 Micro: Microbiology 03/24/23 10:20 Sputum, Expectorated/Coughed Gram Stain - Final 03/24/23 10:20 Sputum, Expectorated/Coughed Respiratory Culture - Prelimin lucy 03/22/23 03:10 Urine, Clean Catch Legionella Antigen - Final 03/22/23 03:10 Urine, Clean Catch Streptococcus pneumoniae Antigen (M - Final 03/21/23 16:15 Mucosa - Nasopharyngeal Respiratory Panel (PCR) - Final 03/21/23 09:58 Nasal Secretion SARS-CoV-2 & FLU Antigen (Rapid) - Final Radiography Diagnostic Testing: Radiology Impression Echocardiogram 03/24/23 00:23 Interpretation Summary Normal LV size. Left ventricular systolic function is normal. The estimated ejection fraction is 55 %. Stage 1 diastolic dysfunction. Mild concentric left ventricular hypertrophy. Ordering Physician: Ana Paula Hennessy Referring Physician: NADEGE DOWNEY Performed By: Francisca Austin RCS Physical Exam Narrative General: Alert, Oriented x3, Cooperative, No apparent distress HEENT: Atraumatic, PERRLA, EOMI, Normocephalic Oral: Moist Mucosa Neck: Supple, No JVD Lungs: Diminished left greater than right, Normal air movement, No rhonchi, slight expiratory wheeze, No rales Cardiovascular: Regular rate, Regular Rhythm, Normal S1, Normal S2, No murmurs Abdomen: Soft, Non Tender, Non-Distended, No Hepato-splenomegaly Extremities: No edema, Capillary Refill Less than 3 Seconds Skin: No rashes, No breakdown Musculoskeletal: No Tenderness to Palpation of Joints or Extremities Neurological: Cranial nerves II-XII grossly intact, Motor Exam 5/5 strength throughout, Sensory exam intact to light touch and pain Psych/Mental Status: Normal Affect, Appropriate Assessment & Plan Assessment/Plan (1) COPD exacerbation: PLAN: Plan 1. Acute hypoxic respiratory failure, COPD exacerbation, community-acquired pneumonia with unclear organism History of COPD secondary to longstanding tobacco use, not on home oxygen. Diagnosed with COPD about 2 years ago. No previous history of COPD exacerbations. Suspect exacerbation is likely secondary to community-acquired pneumonia. Chest CTA showed infiltrates at the lung bases slightly worse on the right side, patchy infiltrate in the posterior aspect of the right middle lobe, emphysematous changes. Requiring 4 to 5 L nasal cannula in ED for saturations greater than 90%. Moderately improved in ED after a breathing treatment. COVID and flu negative. Respiratory panel negative. Urine antigens negative. Unable to produce sputum culture. Failed O2 walk test on 03/23, had oxygen saturations drop below 88% on 6 L nasal cannula. ? Continue supplemental oxygen, wean as able. Will need home oxygen on discharge, will repeat walk test likely tomorrow after echo was done as noted below. Continue prednisone, ceftriaxone and azithromycin with plan for 5-day courses. Continue DuoNebs every 4 hours scheduled. Continue home long-acting inhaler. 03/25/2023: Doing well, she is slow to improve this is likely secondary to her baseline lung physiology. Will obtain an ambulatory pulse ox today to gauge where we are at in her recovery 03/26/2023: Given her slow improvement we will place her back on IV Lasix daily and will transition her steroids to IV 3 times daily 2. Paroxysmal atrial flutter/elevated troponins New diagnosis. Had episode of heart rate spike to the 150s on 03/23. EKG showed atrial flutter with 2:1 conduction, heart rate 156 bpm. Resolved after approximately 10 minutes without need for rate control medication. Unfortunately had recurrence on evening of 03/23. ?[id number] score of 3 (age, sex, hypertension). Continue Lopressor 25 mg twice daily, can increase as needed. TTE ordered. We will start Eliquis today for anticoagulation. Lasix as noted below. Monitor telemetry. 03/25/2023: Rate and rhythm are regular so this is likely paroxysmal and could be related to her hypoxia especially with ambulation. We will continue with medications and have her follow-up as an outpatient with allergy. Troponins are likely secondary to demand ischemia and hypoxia from her COPD exacerbation 3. Concern for volume overload Mild volume overload suspected given persistent hypoxia as noted above. Likely tachycardia mediated in setting of paroxysmal atrial flutter as noted above. ? TTE pending as above. We will give 2 doses of IV Lasix 40 mg today, start p.o. Lasix 40 mg daily tomorrow morning. Monitor volume status and oxygen saturations. 4. Current smoker Currently smoking around 5 cigarettes daily. Extensive smoking history. ? Nicotine patch ordered per patient request. Encouraged cessation. 5. Lung nodule ? CT chest on admit with 7 mm noncalcified nodule noted in peripheral lateral a spect of the right middle lobe. 12-month follow-up examination is recommended. Chronic medical conditions: ? Hypertension: Continue home hydrochlorothiazide. ? GERD: Continue home PPI. DVT: Eliquis Charges/Coding Visit Charges Inpatient E&M: 60656 Subs Hosp L2
[2023-03-26] MEDS: 0.9% Saline Lock 10 ML Syringe IV (14:45)
[2023-03-26] MEDS: Furosemide 40 MG/4 ML Vial IV (14:45)
[2023-03-27] VITALS (12 sets, daily range): BP systolic 120–136; BP diastolic 59–74; PULSE 63–77; RESP 16–20; TEMP 36.5–36.6; O2SAT 86–98
[2023-03-27 06:30] LABS: Absolute Lymphocyte Count 0.57 X10^3/uL (0.83-4.51); Absolute Neutrophil Count 8.4 X10^3/uL (2.0-7.7); Basophil# 0.02 X10^3/uL; Basophil% 0.2 % (0-1); Hemoglobin 16.9 g/dL (12.0-15.0); Lymphocyte # 0.57 X10^3/ul (0.83-4.51); Lymphocyte % 6.2 % (19-41); Mean Corp Hgb Conc 29.2 g/dL (32-36); Mean Corpuscular Hgb 26.2 pg (27.0-32.0); Mean Corpuscular Volume 89.9 fL (81-99); Mean Platelet Vol. 11.1 fl (6.2-12.0); Monocyte# 0.17 X10^3/uL; Monocyte% 1.8 % (0-10); NRBC Flagged by Analyzer 0 % (0-5); Neutrophil # 8.41 X10^3/uL (2.7-7.7); Neutrophil % 91.3 % (47-70); POSITIVE DIFFERENTIAL YES; Platelet Count 235 K/mm3 (150-450); RBC Distribution Width CV 16.8 % (11.6-14.6); RBC Distribution Width SD 51.8 fl (35.1-43.9); Red Blood Count 6.44 M/mm3 (4.2-5.4); White Blood Count 9.2 K/mm3 (4.4-11.0)
[2023-03-27 06:43] LABS: Differential Indicated SCAN CRITERIA MET; Hematocrit 57.9 % (37-47)
[2023-03-27 06:53] LABS: Differential Comment SCANNED
[2023-03-27 07:06] LABS: Anion Gap 3 (5-15); BUN 37 mg/dL (7-18); BUN/Creat Ratio 36.6 RATIO (10-20); Calcium,Total 9.4 mg/dL (8.5-10.1); Chloride 93 mmol/L (98-107); Creatinine, Serum 1.01 mg/dL (0.55-1.02); EST Glomerular Filtration Rate 57 mL/min (>60); Est Glom Filt Rate - Afr Amer 69 mL/min (>60); Estimated Creatinine Clearance 37.99 ml/min; Glucose 130 mg/dL (74-106); Potassium 4.4 mmol/L (3.5-5.1); Sodium Level 139 mmol/L (136-145)
[2023-03-27] MEDS: Ipratropium/Albuterol Sulfate 3 ML AMPUL.NEB INHALATION ×4 (07:39→20:10)
--- NOTE | 2023-03-27 08:45 | RAD_ITS ---
STUDY: X-RAY CHEST REASON FOR EXAM: Female, 72 years old. Hypoxia TECHNIQUE: Single AP portable view of the chest. COMPARISON: Comparison is made with prior study to March 21, 2023. FINDINGS: EKG electrodes are seen. Persistent infiltrate in the right lung base. Improved aeration of the left lung base. Persistent blunting of both triangles. Normal size heart. Normal mediastinum and [place]. Normal visualized pulmonary arteries. There is atherosclerotic calcification of the aortic arch with tortuosity. Normal visualized thoracic spine. Normal visualized ribs, clavicles, and shoulders. There is no demonstrated abnormality of the visualized soft tissue structures of the upper abdomen. RAD/Chest 1 View (Portable) IMPRESSION: Persistent right lower lobe infiltrate. Improved aeration at the left lung base. Electronically Signed: Cameron Nation MD at 9:40 EDT ,
[2023-03-27] MEDS: Furosemide 20 MG/2 ML VIAL IV ×2 (09:35→17:05)
[2023-03-27] MEDS: 0.9% Saline Lock 10 ML Syringe IV ×4 (09:35→17:05)
[2023-03-27] MEDS: Metoprolol Tartrate 25 MG Tablet PO ×2 (09:37→21:16)
[2023-03-27] MEDS: Pantoprazole Sodium 40 MG Tablet PO (09:37)
[2023-03-27] MEDS: Ceftriaxone 1 GM/50 ML BAG IV (09:37)
[2023-03-27] MEDS: Loratadine 10 MG Tablet PO (09:38)
[2023-03-27] MEDS: APIXABAN 5 MG TABLET PO ×2 (09:38→21:16)
--- NOTE | 2023-03-27 10:28 | PN.HOSP_ITS ---
Subjective Subjective No issues overnight still requiring 6 to 7 L nasal cannula Objective Data Objective Data Vital Signs: Vital Signs Temp Pulse Resp BP Pulse Ox O2 Del Method O2 Flow Rate 99.5 F H 72 15 119/60 98 Nasal Cannula 6 03/27/23 09:21 03/27/23 09:37 03/27/23 09:21 03/27/23 09:21 03/27/23 09:21 03/27/23 09:34 03/27/23 09:34 Oxygen Flow Rate (L/min) [ 6 AMBULATING with Oxygen #2] Oxygen Flow Rate (L/min) [ 6 AMBULATING with Oxygen #1] Oxygen Flow Rate (L/min) [At 6 REST with Oxygen] Oxygen Flow Rate (L/min) 6 Oxygen Delivery Method Nasal Cannula Weight: 216 lb 0.848 oz Body Mass Index (BMI) 40.8 Intake & Output: Intake and Output for Last 24 Hours 03/26/23 03/27/23 03/28/23 03:59 03:59 03:59 Intake Total 542.5 / 542.5 422.5 / 422.5 Output Total 700 / 700 Balance -157.5 / -157.5 422.5 / 422.5 Lab / Micro Data 03/27/23 05:46 03/27/23 05:46 Labs: Laboratory Results - last 24 hr 03/27/23 05:46: WBC 9.2, RBC 6.44 H, Hgb 16.9 H, Hct 57.9 H, MCV 89.9, MCH 26.2 L, MCHC 29.2 L, RDW Std Deviation 51.8 H, RDW Coeff of Piper 16.8 H, Plt Count 235, MPV 11.1, Immature Gran % (Auto) 0.500, Neut % (Auto) 91.3 H, Lymph % (Auto) 6.2 L, [place] % (Auto) 1.8, Eos % (Auto) 0.0, Baso % (Auto) 0.2, Absolute Neuts (auto) 8.4 H, Absolute Lymphs (auto) 0.57 L, Nucleated RBC % 0, Differential Comment SCANNED, Sodium 139, Potassium 4.4, Chloride 93 L, Carbon Dioxide 43.0 H, Anion Gap 3 L, BUN 37 H, Creatinine 1.01, Estim Creat Clear Calc 37.99, Est GFR (MDRD) Af Amer 69, Est GFR (MDRD) Non-Af 57 L, BUN/Creatinine Ratio 36.6 H, Glucose 130 H, Calcium 9.4 Micro: Microbiology 03/24/23 10:20 Sputum, Expectorated/Coughed Gram Stain - Final 03/24/23 10:20 Sputum, Expectorated/Coughed Respiratory Culture - Final 03/22/23 03:10 Urine, Clean Catch Legionella Antigen - Final 03/22/23 03:10 Urine, Clean Catch Streptococcus pneumoniae Antigen (M - Final 03/21/23 16:15 Mucosa - Nasopharyngeal Respiratory Panel (PCR) - Final 03/21/23 09:58 Nasal Secretion SARS-CoV-2 & FLU Antigen (Rapid) - Final Radiography Diagnostic Testing: Radiology Impression Chest X-Ray 03/27/23 08:45 IMPRESSION: Persistent right lower lobe infiltrate. Improved aeration at the left lung base. Electronically Signed: Cameron Nation MD at 9:40 EDT Reading Location ID and State: [facility] / [place] , Service support , Physical Exam Narrative General: Alert, Oriented x3, Cooperative, No apparent distress HEENT: Atraumatic, PERRLA, EOMI, Normocephalic Oral: Moist Mucosa Neck: Supple, No JVD Lungs: Diminished left greater than right, poor air movement, No rhonchi, slight expiratory wheeze, No rales Cardiovascular: Regular rate, Regular Rhythm, Normal S1, Normal S2, No murmurs Abdomen: Soft, Non Tender, Non-Distended, No Hepato-splenomegaly Extremities: No edema, Capillary Refill Less than 3 Seconds Skin: No rashes, No breakdown Musculoskeletal: No Tenderness to Palpation of Joints or Extremities Neurological: Cranial nerves II-XII grossly intact, Motor Exam 5/5 strength throughout, Sensory exam intact to light touch and pain Psych/Mental Status: Normal Affect, Appropriate Assessment & Plan Assessment/Plan (1) COPD exacerbation: PLAN: Plan 1. Acute hypoxic respiratory failure, COPD exacerbation, community-acquired pneumonia with unclear organism History of COPD secondary to longstanding tobacco use, not on home oxygen. Diagnosed with COPD about 2 years ago. No previous history of COPD exacerbations. Suspect exacerbation is likely secondary to community-acquired pneumonia. Chest CTA showed infiltrates at the lung bases slightly worse on the right side, patchy infiltrate in the posterior aspect of the right middle lobe, emphysematous changes. Requiring 4 to 5 L nasal cannula in ED for saturations greater than 90%. Moderately improved in ED after a breathing treatment. COVID and flu negative. Respiratory panel negative. Urine antigens negative. Unable to produce sputum culture. Failed O2 walk test on 03/23, had oxygen saturations drop below 88% on 6 L nasal cannula. ? Continue supplemental oxygen, wean as able. Will need home oxygen on discharge, will repeat walk test likely tomorrow after echo was done as noted below. Continue prednisone, ceftriaxone and azithromycin with plan for 5-day courses. Continue DuoNebs every 4 hours scheduled. Continue home long-acting inhaler. 03/25/2023: Doing well, she is slow to improve this is likely secondary to her baseline lung physiology. Will obtain an ambulatory pulse ox today to gauge where we are at in her recovery 03/26/2023: Given her slow improvement we will place her back on IV Lasix daily and will transition her steroids to IV 3 times daily 03/27/2023: Given her continued slow improvement we will consult pulmonology for their assistance 2. Paroxysmal atrial flutter/elevated troponins New diagnosis. Had episode of heart rate spike to the 150s on 03/23. EKG showed atrial flutter with 2:1 conduction, heart rate 156 bpm. Resolved after approximately 10 minutes without need for rate control medication. Unfortunately had recurrence on evening of 03/23. ?[id number] score of 3 (age, sex, hypertension). Continue Lopressor 25 mg twice daily, can increase as needed. TTE ordered. We will start Eliquis today for anticoagulation. Lasix as noted below. Monitor telemetry. 03/25/2023: Rate and rhythm are regular so this is likely paroxysmal and could be related to her hypoxia especially with ambulation. We will continue with medications and have her follow-up as an outpatient with allergy. Troponins are likely secondary to demand ischemia and hypoxia from her COPD exacerbation 3. Concern for volume overload Mild volume overload suspected given persistent hypoxia as noted above. Likely tachycardia mediated in setting of paroxysmal atrial flutter as noted above. ? TTE pending as above. We will give 2 doses of IV Lasix 40 mg today, start p.o. Lasix 40 mg daily tomorrow morning. Monitor volume status and oxygen saturations. 03/27/2023: We will hold off on any further diuretics at this time her bicarb is climbing so we will monitor for now and await pulmonology evaluation 4. Current smoker Currently smoking around 5 cigarettes daily. Extensive smoking history. ? Nicotine patch ordered per patient request. Encouraged cessation. 5. Lung nodule ? CT chest on admit with 7 mm noncalcified nodule noted in peripheral lateral aspect of the right middle lobe. 12-month follow-up examination is recommended. Chronic medical conditions: ? Hypertension: Continue home hydrochlorothiazide. ? GERD: Continue home PPI. DVT: Eliquis Charges/Coding Visit Charges Inpatient E&M: 21206 Subs Hosp L2
[2023-03-27] MEDS: AcetaZOLAMIDE 500 MG/10 ML Vial IV (10:39)
[2023-03-27] MEDS: Acetaminophen 325 MG Tablet 650 MG PO (13:53)
--- NOTE | 2023-03-27 14:43 | CON.PCM.CC_ITS ---
Assessment & Plan Assessment/Plan (1) COPD exacerbation: PLAN: Plan Assessment Acute hypoxic respiratory failure currently on 6 to 7 L via nasal cannula. 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 She also has diastolic heart failure. * Initiate Lasix with Diamox to help avoid contraction alkalosis and improve diuresis in the light of diastolic heart failure * Continue steroids and breathing treatments * Patient would benefit from outpatient pulmonary evaluation. She also has severe sleep apnea per her report but she has not had CPAP or BiPAP prescribed. She will need further work-up outpatient * Discussed with the patient importance of smoking cessation * Patient was found to have a 7.1 mm right middle lobe nodule along with bilateral consolidation suggestive of pneumonia. Patient high risk given her smoking history. Recommend repeat CT scan in 2 to 8 weeks to ensure resolution of PNA. * wean Oxygen as tolerated. She will need home O2 eval prior to discharge * Rest of management per primary HPI Consult Data Date of Consult: 03/27/23 HPI Narrative Reason for Consultation: Hypoxia HPI Narrative: MIMA DOS SANTOS, is a 72 F past medical history of morbid obesity BMI of 40.8, C OPD, lifelong smoker and hypertension. Patient presented around a week ago with worsening shortness of breath she told me that she went to her primary care physician's office and was found to be satting in the 90s. She is not on home oxygen. Reports that she is diagnosed with COPD and she is on home Trelegy and as needed albuterol. She reports that her most recent COPD exacerbation was around 2 years ago. She continues to smoke. She reports that she has had home sleep study which revealed severe sleep apnea and AHI of 47 however she has not followed up and has not obtained a BiPAP/CPAP. Patient was found to have bilateral infiltrates on her CT scan upon admission she is on CAP coverage. She also went into A-fib with RVR her echo showed grade 1 diastolic dysfunction with a EF of 55%. She also notes that she occasionally has lower extremity edema. She otherwise denies coughing, weight loss, hemoptysis or fever. PFSH Medical History COPD (chronic obstructive pulmonary disease) GERD (gastroesophageal reflux disease) Hypertension Smoker Home Medications hydrochlorothiazide 12.5 mg capsule 12.5 mg PO DAILY BP 04/05/20 [History Last Taken 03/21/23] omeprazole 20 mg capsule,delayed release 40 mg PO DAILY GERD 04/05/20 [History Last Taken 03/21/23] albuterol sulfate 90 mcg/actuation aerosol inhaler 2 puff inhalation [id number] ##1 04/08/20 [Rx Last Taken 03/21/23] cetirizine 10 mg tablet (All Day Allergy (cetirizine)) 10 mg PO DAILY 03/21/23 [History Last Taken 03/21/23] fluticasone fur. 100 mcg-umeclid 62.5 mcg-vilant 25 mcg inhalat.powder (Trelegy Ellipta) 1 inh inhalation Q24H 03/21/23 [History Last Taken 03/21/23] Allergy/AdvReac Type Severity Reaction Status Date / Time shellfish derived Allergy Other Verified 03/21/23 09:34 Surgical History History of appendectomy Social History Smoking Status: Current every day smoker tobacco type: cigarettes ROS ROS Narrative Pertinent positives and pertinent negatives as noted in HPI. All other systems were reviewed and are negative Physical Exam Narrative General alert oriented in no acute distress HEENT. Normocephalic atraumatic, pupils equal and reactive Respiratory reduced air entry bilaterally, no wheezing Cardiac S1-S2, regular rate and rhythm GI abdomen soft and nontender MSK +1 lower extremity edema Skin no rashes Neuro moves all extremities, no dysarthria, no facial droop Lab / Micro Data 03/27/23 05:46 03/27/23 05:46 Labs: Laboratory Results - last 24 hr 03/27/23 05:46: WBC 9.2, RBC 6.44 H, Hgb 16.9 H, Hct 57.9 H, MCV 89.9, MCH 26.2 L, MCHC 29.2 L, RDW Std Deviation 51.8 H, RDW Coeff of Piper 16.8 H, Plt Count 235, MPV 11.1, Immature Gran % (Auto) 0.500, Neut % (Auto) 91.3 H, Lymph % (Auto) 6.2 L, [place] % (Auto) 1.8, Eos % (Auto) 0.0, Baso % (Auto) 0.2, Absolute Neuts (auto) 8.4 H, Absolute Lymphs (auto) 0.57 L, Nucleated RBC % 0, Differential Comment SCANNED, Sodium 139, Potassium 4.4, Chloride 93 L, Carbon Dioxide 43.0 H, Anion Gap 3 L, BUN 37 H, Creatinine 1.01, Estim Creat Clear Calc 37.99, Est GFR (MDRD) Af Amer 69, Est GFR (MDRD) Non-Af 57 L, BUN/Creatinine Ratio 36.6 H, Glucose 130 H, Calcium 9.4 Micro: Microbiology 03/24/23 10:20 Sputum, Expectorated/Coughed Gram Stain - Final 03/24/23 10:20 Sputum, Expectorated/Coughed Respiratory Culture - Final Radiology Impression Chest X-Ray 03/27/23 08:45 IMPRESSION: Persistent right lower lobe infiltrate. Improved aeration at the left lung base. Electronically Signed: Cameron Nation MD at 9:40 EDT , Charges/Coding Visit Charges Inpatient E&M: 91660 Init Hosp L3
[2023-03-28] VITALS (15 sets, daily range): BP systolic 120–141; BP diastolic 58–75; PULSE 57–76; RESP 14–18; TEMP 36.5–36.8; O2SAT 88–94
[2023-03-28] MEDS: 0.9% Saline Lock 10 ML Syringe IV ×3 (05:52→22:06)
[2023-03-28 07:27] LABS: Absolute Neutrophil Count 12.7 X10^3/uL (2.0-7.7); Basophil# 0.03 X10^3/uL; Basophil% 0.2 % (0-1); Hemoglobin 16.7 g/dL (12.0-15.0); Lymphocyte % 4.3 % (19-41); Mean Corp Hgb Conc 29.2 g/dL (32-36); Mean Corpuscular Hgb 26.6 pg (27.0-32.0); Mean Corpuscular Volume 91.1 fL (81-99); Mean Platelet Vol. 11.7 fl (6.2-12.0); Monocyte# 0.48 X10^3/uL; Monocyte% 3.5 % (0-10); NRBC Flagged by Analyzer 0 % (0-5); Neutrophil # 12.66 X10^3/uL (2.7-7.7); Neutrophil % 91.5 % (47-70); POSITIVE DIFFERENTIAL YES; Platelet Count 264 K/mm3 (150-450); RBC Distribution Width CV 16.7 % (11.6-14.6); RBC Distribution Width SD 54.3 fl (35.1-43.9); Red Blood Count 6.27 M/mm3 (4.2-5.4); White Blood Count 13.8 K/mm3 (4.4-11.0)
[2023-03-28] MEDS: Ipratropium/Albuterol Sulfate 3 ML AMPUL.NEB INHALATION ×4 (07:34→19:33)
[2023-03-28 07:45] LABS: Differential Indicated SCAN CRITERIA MET; Hematocrit 57.1 % (37-47)
[2023-03-28 08:12] LABS: Anion Gap 2 (5-15); BUN 48 mg/dL (7-18); BUN/Creat Ratio 41.7 RATIO (10-20); Calcium,Total 9.2 mg/dL (8.5-10.1); Chloride 101 mmol/L (98-107); Creatinine, Serum 1.15 mg/dL (0.55-1.02); EST Glomerular Filtration Rate 49 mL/min (>60); Est Glom Filt Rate - Afr Amer 60 mL/min (>60); Estimated Creatinine Clearance 33.37 ml/min; Glucose 134 mg/dL (74-106); Potassium 4.4 mmol/L (3.5-5.1); Sodium Level 138 mmol/L (136-145)
--- NOTE | 2023-03-28 08:40 | PN.HOSP_ITS ---
Subjective Subjective Resting comfortably, no issues overnight. Appreciate pulmonology's assistance Objective Data Objective Data Vital Signs: Vital Signs Temp Pulse Resp BP Pulse Ox O2 Del Method O2 Flow Rate 97.7 F L 57 L 18 141/71 H 93 High Flow 8 03/28/23 05:00 03/28/23 05:00 03/28/23 05:00 03/28/23 05:00 03/28/23 05:00 03/28/23 05:00 03/28/23 05:00 Oxygen Flow Rate (L/min) [ 10 AMBULATING with Oxygen #2] Oxygen Flow Rate (L/min) [ 8 AMBULATING with Oxygen #1] Oxygen Flow Rate (L/min) [At 7 REST with Oxygen] Oxygen Flow Rate (L/min) 8 Oxygen Delivery Method High Flow Weight: 216 lb 0.848 oz Body Mass Index (BMI) 40.8 Intake & Output: Intake and Output for Last 24 Hours 03/27/23 03/28/23 03/29/23 03:59 03:59 03:59 Intake Total 422.5 / 422.5 900 / 900 0 / 0 Balance 422.5 / 422.5 900 / 900 0 / 0 Lab / Micro Data 03/28/23 05:56 03/28/23 05:56 Labs: Laboratory Results - last 24 hr 03/28/23 05:56: WBC 13.8 H, RBC 6.27 H, Hgb 16.7 H, Hct 57.1 H, MCV 91.1, MCH 26.6 L, MCHC 29.2 L, RDW Std Deviation 54.3 H, RDW Coeff of Piper 16.7 H, Plt Count 264, MPV 11.7, Immature Gran % (Auto) 0.500, Neut % (Auto) 91.5 H, Lymph % (Auto) 4.3 L, [place] % (Auto) 3.5, Eos % (Auto) 0.0, Baso % (Auto) 0.2, Absolute Neuts (auto) 12.7 H, Absolute Lymphs (auto) 0.60 L, Nucleated RBC % 0, Sodium 138, Potassium 4.4, Chloride 101, Carbon Dioxide 35.0 H, Anion Gap 2 L, BUN 48 H , Creatinine 1.15 H, Estim Creat Clear Calc 33.37, Est GFR (MDRD) Af Amer 60, Est GFR (MDRD) Non-Af 49 L, BUN/Creatinine Ratio 41.7 H, Glucose 134 H, Calcium 9.2 Micro: Microbiology 03/24/23 10:20 Sputum, Expectorated/Coughed Gram Stain - Final 03/24/23 10:20 Sputum, Expectorated/Coughed Respiratory Culture - Final 03/22/23 03:10 Urine, Clean Catch Legionella Antigen - Final 03/22/23 03:10 Urine, Clean Catch Streptococcus pneumoniae Antigen (M - Final 03/21/23 16:15 Mucosa - Nasopharyngeal Respiratory Panel (PCR) - Final 03/21/23 09:58 Nasal Secretion SARS-CoV-2 & FLU Antigen (Rapid) - Final Radiography Diagnostic Testing: Radiology Impression Chest X-Ray 03/27/23 08:45 IMPRESSION: Persistent right lower lobe infiltrate. Improved aeration at the left lung base. Electronically Signed: Cameron Nation MD at 9:40 EDT , Physical Exam Narrative General: Alert, Oriented x3, Cooperative, No apparent distress HEENT: Atraumatic, PERRLA, EOMI, Normocephalic Oral: Moist Mucosa Neck: Supple, No JVD Lungs: Diminished left greater than right, poor air movement, No rhonchi, no wheeze, No rales Cardiovascular: Regular rate, Regular Rhythm, Normal S1, Normal S2, No murmurs Abdomen: Soft, Non Tender, Non-Distended, No Hepato-splenomegaly Extremities: No edema, Capillary Refill Less than 3 Seconds Skin: No rashes, No breakdown Musculoskeletal: No Tenderness to Palpation of Joints or Extremities Neurological: Cranial nerves II-XII grossly intact, Motor Exam 5/5 strength throughout, Sensory exam intact to light touch and pain Psych/Mental Status: Normal Affect, Appropriate Assessment & Plan Assessment/Plan (1) COPD exacerbation: PLAN: Plan 1. Acute hypoxic respiratory failure, COPD exacerbation, community-acquired pneumonia with unclear organism History of COPD secondary to longstanding tobacco use, not on home oxygen. Diagnosed with COPD about 2 years ago. No previous history of COPD exacerbations. Suspect exacerbation is likely secondary to community-acquired pneumonia. Chest CTA showed infiltrates at the lung bases slightly worse on the right side, patchy infiltrate in the posterior aspect of the right middle lobe, emphysematous changes. Requiring 4 to 5 L nasal cannula in ED for saturations greater than 90%. Moderately improved in ED after a breathing treatment. COVID and flu negative. Respiratory panel negative. Urine antigens negative. Unable to produce sputum culture. Failed O2 walk test on 03/23, had oxygen saturations drop below 88% on 6 L nasal cannula. ? Continue supplemental oxygen, wean as able. Will need home oxygen on discharge, will repeat walk test likely tomorrow after echo was done as noted below. Continue prednisone, ceftriaxone and azithromycin with plan for 5-day courses. Continue DuoNebs every 4 hours scheduled. Continue home long-acting inhaler. 03/25/2023: Doing well, she is slow to improve this is likely secondary to her baseline lung physiology. Will obtain an ambulatory pulse ox today to gauge w here we are at in her recovery 03/26/2023: Given her slow improvement we will place her back on IV Lasix daily and will transition her steroids to IV 3 times daily 03/27/2023: Given her continued slow improvement we will consult pulmonology for their assistance 03/28/2023: Continue with IV Lasix and Diamox per pulmonology's recommendations she will complete her dose of Rocephin this morning 2. Paroxysmal atrial flutter/elevated troponins New diagnosis. Had episode of heart rate spike to the 150s on 03/23. EKG showed atrial flutter with 2:1 conduction, heart rate 156 bpm. Resolved after approxi mately 10 minutes without need for rate control medication. Unfortunately had recurrence on evening of 03/23. ?[id number] score of 3 (age, sex, hypertension). Continue Lopressor 25 mg twice daily, can increase as needed. TTE ordered. We will start Eliquis today for anticoagulation. Lasix as noted below. Monitor telemetry. 03/25/2023: Rate and rhythm are regular so this is likely paroxysmal and could be related to her hypoxia especially with ambulation. We will continue with medications and have her follow-up as an outpatient with allergy. Troponins are likely secondary to demand ischemia and hypoxia from her COPD exacerbation 3. Concern for volume overload Mild volume overload suspected given persistent hypoxia as noted above. Likely tachycardia mediated in setting of paroxysmal atrial flutter as noted above. ? TTE pending as above. We will give 2 doses of IV Lasix 40 mg today, start p.o. Lasix 40 mg daily tomorrow morning. Monitor volume status and oxygen saturations. 03/27/2023: We will hold off on any further diuretics at this time her bicarb is climbing so we will monitor for now and await pulmonology evaluation 4. Current smoker Currently smoking around 5 cigarettes daily. Extensive smoking history. ? Nicotine patch ordered per patient request. Encouraged cessation. 5. Lung nodule ? CT chest on admit with 7 mm noncalcified nodule noted in peripheral lateral aspect of the right middle lobe. 12-month follow-up examination is recommended. Chronic medical conditions: ? Hypertension: Continue home hydrochlorothiazide. ? GERD: Continue home PPI. DVT: Eliquis Charges/Coding Visit Charges Inpatient E&M: 13521 Subs Hosp L2
[2023-03-28] MEDS: APIXABAN 5 MG TABLET PO ×2 (09:58→22:04)
[2023-03-28] MEDS: Furosemide 20 MG/2 ML VIAL IV ×2 (09:58→17:55)
[2023-03-28] MEDS: AcetaZOLAMIDE 500 MG/10 ML Vial IV (09:58)
[2023-03-28] MEDS: Loratadine 10 MG Tablet PO (09:58)
[2023-03-28] MEDS: Metoprolol Tartrate 25 MG Tablet PO ×2 (09:58→22:04)
[2023-03-28] MEDS: Pantoprazole Sodium 40 MG Tablet PO (09:59)
[2023-03-28] MEDS: Methylprednisolone Sod Succ 40 MG/ML VIAL IV ×2 (09:59→22:04)
[2023-03-28] MEDS: Ceftriaxone 1 GM/50 ML BAG IV (10:08)
--- NOTE | 2023-03-28 10:26 | PN.CC_ITS ---
Assessment & Plan Assessment/Plan (1) COPD exacerbation: PLAN: Plan Assessment Acute hypoxic respiratory failure currently on 6 to 7 L via nasal cannula. 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 She also has diastolic heart failure. * She was started on lasix with diamox yesterday. Her kidney function is starting to be affected. Will cont lasix with diamox for one more day. She remains on 8L NC. * start steroid taper. cont breathing treatments * Will obtain a blood gas, if pt is hypercapnic then she could qualify for home non invasive vent * Patient would benefit from outpatient pulmonary evaluation. She also has severe sleep apnea per her report but she has not had CPAP or BiPAP prescribed. She will need further work-up outpatient * Discussed with the patient importance of smoking cessation * Patient was found to have a 7.1 mm right middle lobe nodule along with bilateral consolidation suggestive of pneumonia. Patient high risk given her smoking history. Recommend repeat CT scan in 6 to 8 weeks to ensure resolution of PNA. * wean Oxygen as tolerated. She will need home O2 eval prior to discharge * Rest of management per primary Subjective Subjective No acute changes. Patient is frustrated with her respiratory status. She was asking about getting a sleep study done inpatient. Explained that we cannot do that here Objective Data Objective Data Vital Signs: Vital Signs Temp Pulse Resp BP Pulse Ox O2 Del Method O2 Flow Rate 36.6 C 65 18 132/58 H 92 Nasal Cannula 8 03/28/23 09:55 03/28/23 09:58 03/28/23 09:55 03/28/23 09:58 03/28/23 09:55 03/28/23 09:55 03/28/23 09:55 Oxygen Flow Rate (L/min) [ 10 AMBULATING with Oxygen #2] Oxygen Flow Rate (L/min) [ 8 AMBULATING with Oxygen #1] Oxygen Flow Rate (L/min) [At 7 REST with Oxygen] Oxygen Flow Rate (L/min) 8 Oxygen Delivery Method Nasal Cannula Weight: 98 kg Body Mass Index (BMI) 40.8 Intake & Output: Intake and Output for Last 24 Hours 03/26/23 03/27/23 03/28/23 23:59 23:59 23:59 Intake Total 422.5 / 422.5 900 / 900 0 / 0 Balance 422.5 / 422.5 900 / 900 0 / 0 Lab / Micro Data 03/28/23 05:56 03/28/23 05:56 Labs: Laboratory Results - last 24 hr 03/28/23 05:56: WBC 13.8 H, RBC 6.27 H, Hgb 16.7 H, Hct 57.1 H, MCV 91.1, MCH 26 .6 L, MCHC 29.2 L, RDW Std Deviation 54.3 H, RDW Coeff of Piper 16.7 H, Plt Count 264, MPV 11.7, Immature Gran % (Auto) 0.500, Neut % (Auto) 91.5 H, Lymph % (Auto) 4.3 L, [place] % (Auto) 3.5, Eos % (Auto) 0.0, Baso % (Auto) 0.2, Absolute Neuts (auto) 12.7 H, Absolute Lymphs (auto) 0.60 L, Nucleated RBC % 0, Differential Comment COMMENT, Sodium 138, Potassium 4.4, Chloride 101, Carbon Dioxide 35.0 H, Anion Gap 2 L, BUN 48 H, Creatinine 1.15 H, Estim Creat Clear Calc 33.37, Est GFR (MDRD) Af Amer 60, Est GFR (MDRD) Non-Af 49 L, BUN/Creatinine Ratio 41.7 H, Glucose 134 H, Calcium 9.2 Micro: Microbiology 03/24/23 10:20 Sputum, Expectorated/Coughed Gram Stain - Final 03/24/23 10:20 Sputum, Expectorated/Coughed Respiratory Culture - Final 03/22/23 03:10 Urine, Clean Catch Legionella Antigen - Final 03/22/23 03:10 Urine, Clean Catch Streptococcus pneumoniae Antigen (M - Final 03/21/23 16:15 Mucosa - Nasopharyngeal Respiratory Panel (PCR) - Final 03/21/23 09:58 Nasal Secretion SARS-CoV-2 & FLU Antigen (Rapid) - Final Physical Exam Narrative General alert oriented in no acute distress HEENT. Normocephalic atraumatic, pupils equal and reactive Respiratory reduced air entry bilaterally, mild wheezing Cardiac S1-S2, regular rate and rhythm GI abdomen soft and nontender MSK +1 lower extremity edema Skin no rashes Neuro moves all extremities, no dysarthria, no facial droop Charges/Coding Visit Charges Inpatient E&M: 12379 Subs Hosp L3
[2023-03-28 12:50] LABS: Allen Test Positive; Base Excess 10 mmol/L (-2 to +2); Bicarbonate 35.5 mmol/L (22-26); Blood Gas Specimen Type ART; Mode Not entered; O2 Delivery Device Cannula; PO2 69 mmHG (75-100); SITE L Radial; SO2 92 % (95-99); Total Carbon Dioxide 37 mmol/L; pCO2 63.1 mmHg (35-45); pH 7.36 (7.35-7.45)
--- NOTE | 2023-03-28 22:45 | CPS ---
Pt still awake, will keep checking frequently
[2023-03-29] VITALS (14 sets, daily range): BP systolic 126–138; BP diastolic 70–73; PULSE 60–79; RESP 14–20; TEMP 36.6–36.7; O2SAT 92–95
--- NOTE | 2023-03-29 06:34 | CPS ---
Started at 12/5 and 50% o2 sats were 96%, immediately decreased fio2 to40. TV was over 500 because she was awake, checked on her after a bit and tidal volumes dropped after she fell asleep. RT slowly increased pressures. Ended with 29/03 35-40% tv's were over 400 O2 sats stayed 90-93%
[2023-03-29 06:46] LABS: Anion Gap 5 (5-15); BUN 56 mg/dL (7-18); BUN/Creat Ratio 40.3 RATIO (10-20); Calcium,Total 9.1 mg/dL (8.5-10.1); Chloride 105 mmol/L (98-107); Creatinine, Serum 1.39 mg/dL (0.55-1.02); EST Glomerular Filtration Rate 40 mL/min (>60); Est Glom Filt Rate - Afr Amer 48 mL/min (>60); Estimated Creatinine Clearance 27.61 ml/min; Glucose 158 mg/dL (74-106); Potassium 4.5 mmol/L (3.5-5.1); Sodium Level 141 mmol/L (136-145)
[2023-03-29] MEDS: Ipratropium/Albuterol Sulfate 3 ML AMPUL.NEB INHALATION ×4 (06:57→20:03)
--- NOTE | 2023-03-29 09:57 | PN.CC_ITS ---
Assessment & Plan Assessment/Plan (1) COPD exacerbation: PLAN: Plan Assessment Acute hypoxic respiratory failure currently on 6 to 7 L via nasal cannula. 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 She also has diastolic heart failure. * Will hold off Lasix today given worsening BECKIE. * cont steroid taper. cont breathing treatments. Will try her on 6L NC today, goal O2 sat 88% or above * This patient has severe COPD with elevated CO2 despite treatment for a week. Her condition now requires the use of a noninvasive ventilator due to the life-threatening condition chronic respiratory failure secondary to chronic obstructive pulmonary disease. All other therapies have been considered and or attempted and failed. Due to the severity of this patient's disease, as indicated by CO2 retention, this patient requires assisted tidal volume therapy with a trilogy, astral or Anna NIV unit. Without noninvasive ventilator intervention this patient's health will rapidly deteriorate which could lead to serious harm, rehospitalization or . * Discussed with the patient importance of smoking cessation * Patient was found to have a 7.1 mm right middle lobe nodule along with bilateral consolidation suggestive of pneumonia. Patient high risk given her smoking history. Recommend repeat CT scan in 6 to 8 weeks to ensure resolution of PNA. * wean Oxygen as tolerated. She will need home O2 eval prior to discharge * Rest of management per primary Subjective Subjective She reports that she slept better with NIPPV on Objective Data Objective Data Vital Signs: Vital Signs Temp Pulse Resp BP Pulse Ox O2 Del Method O2 Flow Rate 36.6 C 63 16 133/73 H 93 Nasal Cannula 6 03/29/23 09:50 03/29/23 09:50 03/29/23 09:50 03/29/23 09:50 03/29/23 09:50 03/29/23 09:50 03/29/23 09:50 FiO2 35 03/29/23 04:01 Oxygen Flow Rate (L/min) [ 10 AMBULATING with Oxygen #2] Oxygen Flow Rate (L/min) [ 8 AMBULATING with Oxygen #1] Oxygen Flow Rate (L/min) [At 7 REST with Oxygen] Oxygen Flow Rate (L/min) 6 Oxygen Delivery Method Nasal Cannula Weight: 98 kg Body Mass Index (BMI) 40.8 Intake & Output: Intake and Output for Last 24 Hours 03/27/23 03/28/23 03/29/23 23:59 23:59 23:59 Intake Total 900 / 900 500 / 500 Output Total 300 / 300 Balance 900 / 900 200 / 200 Lab / Micro Data 03/28/23 05:56 03/29/23 05:38 Labs: Laboratory Results - last 24 hr 03/29/23 05:38: Sodium 141, Potassium 4.5, Chloride 105, Carbon Dioxide 31.0, Anion Gap 5, BUN 56 H, Creatinine 1.39 H, Estim Creat Clear Calc 27.61, Est GFR (MDRD) Af Amer 48 L, Est GFR (MDRD) Non-Af 40 L, BUN/Creatinine Ratio 40.3 H, Glucose 158 H, Calcium 9.1 Micro: Microbiology 03/24/23 10:20 Sputum, Expectorated/Coughed Gram Stain - Final 03/24/23 10:20 Sputum, Expectorated/Coughed Respiratory Culture - Final 03/22/23 03:10 Urine, Clean Catch Legionella Antigen - Final 03/22/23 03:10 Urine, Clean Catch Streptococcus pneumoniae Antigen (M - Final 03/21/23 16:15 Mucosa - Nasopharyngeal Respiratory Panel (PCR) - Final 03/21/23 09:58 Nasal Secretion SARS-CoV-2 & FLU Antigen (Rapid) - Final ABG Data ABG results: ABG 03/28/23 12:46 Specimen Type ART Sample Site L Radial pH 7.36 Bicarbonate Actual 35.5 H Total CO2 37 Base Excess 10 H O2 Saturation 92 L O2 % 8.0 ABG pCO2 63.1 H ABG pO2 69 L Redd Test Positive O2 Delivery Device Cannula Vent Mode Not entered Physical Exam Narrative General alert oriented in no acute distress HEENT. Normocephalic atraumatic, pupils equal and reactive Respiratory reduced air entry bilaterally, mild wheezing Cardiac S1-S2, regular rate and rhythm GI abdomen soft and nontender MSK +1 lower extremity edema Skin no rashes Neuro moves all extremities, no dysarthria, no facial droop Charges/Coding Visit Charges Inpatient E&M: 41050 Subs Hosp L3
[2023-03-29] MEDS: Loratadine 10 MG Tablet PO (10:04)
[2023-03-29] MEDS: 0.9% Saline Lock 10 ML Syringe IV ×2 (10:04→22:15)
[2023-03-29] MEDS: APIXABAN 5 MG TABLET PO ×2 (10:05→21:29)
[2023-03-29] MEDS: Pantoprazole Sodium 40 MG Tablet PO (10:05)
[2023-03-29] MEDS: Methylprednisolone Sod Succ 40 MG/ML VIAL IV ×2 (10:05→22:16)
[2023-03-29] MEDS: Metoprolol Tartrate 25 MG Tablet PO ×2 (10:05→21:29)
--- NOTE | 2023-03-29 10:34 | PN.HOSP_ITS ---
Subjective Subjective Feels better today, she was finally able to get some sleep with the BiPAP overnight and she feels more rested than she has in a long time Objective Data Objective Data Vital Signs: Vital Signs Temp Pulse Resp BP Pulse Ox O2 Del Method O2 Flow Rate 97.8 F 63 16 133/73 H 93 Nasal Cannula 6 03/29/23 09:50 03/29/23 10:05 03/29/23 09:50 03/29/23 10:05 03/29/23 09:50 03/29/23 09:50 03/29/23 09:50 FiO2 35 03/29/23 04:01 Oxygen Flow Rate (L/min) [ 10 AMBULATING with Oxygen #2] Oxygen Flow Rate (L/min) [ 8 AMBULATING with Oxygen #1] Oxygen Flow Rate (L/min) [At 7 REST with Oxygen] Oxygen Flow Rate (L/min) 6 Oxygen Delivery Method Nasal Cannula Weight: 216 lb 0.848 oz Body Mass Index (BMI) 40.8 Intake & Output: Intake and Output for Last 24 Hours 03/28/23 03/29/23 03/30/23 03:59 03:59 03:59 Intake Total 900 / 900 500 / 500 Output Total 300 / 300 Balance 900 / 900 200 / 200 Lab / Micro Data 03/28/23 05:56 03/29/23 05:38 Labs: Laboratory Results - last 24 hr 03/29/23 05:38: Sodium 141, Potassium 4.5, Chloride 105, Carbon Dioxide 31.0, Anion Gap 5, BUN 56 H, Creatinine 1.39 H, Estim Creat Clear Calc 27.61, Est GFR (MDRD) Af Amer 48 L, Est GFR (MDRD) Non-Af 40 L, BUN/Creatinine Ratio 40.3 H, Glucose 158 H, Calcium 9.1 Micro: Microbiology 03/24/23 10:20 Sputum, Expectorated/Coughed Gram Stain - Final 03/24/23 10:20 Sputum, Expectorated/Coughed Respiratory Culture - Final 03/22/23 03:10 Urine, Clean Catch Legionella Antigen - Final 03/22/23 03:10 Urine, Clean Catch Streptococcus pneumoniae Antigen (M - Final 03/21/23 16:15 Mucosa - Nasopharyngeal Respiratory Panel (PCR) - Final 03/21/23 09:58 Nasal Secretion SARS-CoV-2 & FLU Antigen (Rapid) - Final ABG Data ABG results: ABG 03/28/23 12:46 Specimen Type ART Sample Site L Radial pH 7.36 Bicarbonate Actual 35.5 H Total CO2 37 Base Excess 10 H O2 Saturation 92 L O2 % 8.0 ABG pCO2 63.1 H ABG pO2 69 L Redd Test Positive O2 Delivery Device Cannula Vent Mode Not entered Physical Exam Narrative General: Alert, Oriented x3, Cooperative, No apparent distress HEENT: Atraumatic, PERRLA, EOMI, Normocephalic Oral: Moist Mucosa Neck: Supple, No JVD Lungs: Diminished, poor air movement, No rhonchi, no wheeze, No rales Cardiovascular: Regular rate, Regular Rhythm, Normal S1, Normal S2, No murmurs Abdomen: Soft, Non Tender, Non-Distended, No Hepato-splenomegaly Extremities: No edema, Capillary Refill Less than 3 Seconds Skin: No rashes, No breakdown Musculoskeletal: No Tenderness to Palpation of Joints or Extremities Neurological: Cranial nerves II-XII grossly intact, Motor Exam 5/5 strength throughout, Sensory exam intact to light touch and pain Psych/Mental Status: Normal Affect, Appropriate Assessment & Plan Assessment/Plan (1) COPD exacerbation: PLAN: Plan 1. Acute hypoxic respiratory failure, COPD exacerbation, community-acquired pneumonia with unclear organism History of COPD secondary to longstanding tobacco use, not on home oxygen. Diagnosed with COPD about 2 years ago. No previous history of COPD exacerbations. Suspect exacerbation is likely secondary to community-acquired pneumonia. Chest CTA showed infiltrates at the lung bases slightly worse on the right side, patchy infiltrate in the posterior aspect of the right middle lobe, emphysematous changes. Requiring 4 to 5 L nasal cannula in ED for saturations greater than 90%. Moderately improved in ED after a breathing treatment. COVID and flu negative. Respiratory panel negative. Urine antigens negative. Unable to produce sputum culture. Failed O2 walk test on 03/23, had oxygen saturations drop below 88% on 6 L nasal cannula. ? Continue supplemental oxygen, wean as able. Will need home oxygen on discharge, will repeat walk test likely tomorrow after echo was done as noted below. Continue prednisone, ceftriaxone and azithromycin with plan for 5-day courses. Continue DuoNebs every 4 hours scheduled. Continue home long-acting inhaler. 03/25/2023: Doing well, she is slow to improve this is likely secondary to her baseline lung physiology. Will obtain an ambulatory pulse ox today to gauge where we are at in her recovery 03/26/2023: Given her slow improvement we will place her back on IV Lasix daily and will transition her steroids to IV 3 times daily 03/27/2023: Given her continued slow improvement we will consult pulmonology for their assistance 03/28/2023: Continue with IV Lasix and Diamox per pulmonology's recommendations she will complete her dose of Rocephin this morning 03/29/2023: She tolerated the BiPAP very well overnight and she feels like it worked well she was able to sleep, her creatinine is elevated so we will hold her Lasix and Diamox and we will proceed with trying to obtain home noninvasive ventilator 2. Paroxysmal atrial flutter/elevated troponins New diagnosis. Had episode of heart rate spike to the 150s on 03/23. EKG showed atrial flutter with 2:1 conduction, heart rate 156 bpm. Resolved after approximately 10 minutes without need for rate control medication. Unfortunately had recurrence on evening of 03/23. ?[id number] score of 3 (age, sex, hypertension). Continue Lopressor 25 mg twice daily, can increase as needed. TTE ordered. We will start Eliquis today for anticoagulation. Lasix as noted below. Monitor telemetry. 03/25/2023: Rate and rhythm are regular so this is likely paroxysmal and could be related to her hypoxia especially with ambulation. We will continue with medications and have her follow-up as an outpatient with allergy. Troponins are likely secondary to demand ischemia and hypoxia from her COPD exacerbation 3. Concern for volume overload Mild volume overload suspected given persistent hypoxia as noted above. Likely tachycardia mediated in setting of paroxysmal atrial flutter as noted above. ? TTE pending as above. We will give 2 doses of IV Lasix 40 mg today, start p.o. Lasix 40 mg daily tomorrow morning. Monitor volume status and oxygen saturations. 03/27/2023: We will hold off on any further diuretics at this time her bicarb is climbing so we will monitor for now and await pulmonology evaluation 4. Current smoker Currently smoking around 5 cigarettes daily. Extensive smoking history. ? Nicotine patch ordered per patient request. Encouraged cessation. 5. Lung nodule ? CT chest on admit with 7 mm noncalcified nodule noted in peripheral lateral as pect of the right middle lobe. 12-month follow-up examination is recommended. Chronic medical conditions: ? Hypertension: Continue home hydrochlorothiazide. ? GERD: Continue home PPI. DVT: Eliquis Charges/Coding Visit Charges Inpatient E&M: 53343 Subs Hosp L2
--- NOTE | 2023-03-29 15:38 | CHAPLAIN ---
Type of Pastoral Visit _x__ Initial Visit ___ Follow-up Visit ___ On-call Visit ___ General Patient Visit ___ Spiritual Assessment ___ Family Conference ___ Bereavement ___ Rapid Response ___ Code Blue ___ Other (describe below) Pastoral Care Referral From ___ Patient ___ Family ___ Nurse ___ Physician ___ Bleach Packer ___ Vice President Business [employer] Development _x__ Other (describe below) Sacrament/Intervention _x__ Active listening ___ Anointing ___ Episcopal ___ Bereavement ___ Communion ___ Adalgisa exploration ___ ___ Life review ___ Prayer ___ Reconciliation ___ Sacrament of Sick ___ Supportive presence ___ Wedding ___ Other (describe below) Pastoral Comments patient had been added to referral list this afternoon; entered room and found patients with two visitors; offered support; pt states she is feeling better after a long stay in the hospital but did not request spiritual care; offer of support as desired; pt is pleasant but stated no need for spiritual care
--- NOTE | 2023-03-29 16:38 | CASEMGMT ---
NATACHA HARRIS called [facility] to inquire if they are able to provide NIV for patient. Per Valerie at [facility] they are able to provide NIV. Valerie sent script for NIV to this RN CM to have hospitalist sign. RN KIMBERLY updated hospitalist, script received and faxed to [facility] with clinical information. RN KIMBERLY in to update patient. Patient voiced understanding. Patient denies need for HHC, up independent in room. Patient had no further questions or concerns.
[2023-03-30] VITALS (14 sets, daily range): BP systolic 121–136; BP diastolic 65–75; PULSE 53–71; RESP 14–20; TEMP 35.7–36.7; O2SAT 82–95
--- NOTE | 2023-03-30 02:56 | CPS ---
Decreased fio2 to 35%
--- NOTE | 2023-03-30 05:57 | CPS ---
Increased fio2 back to 38%
[2023-03-30] MEDS: Ipratropium/Albuterol Sulfate 3 ML AMPUL.NEB INHALATION ×4 (07:50→18:53)
[2023-03-30 08:03] LABS: Absolute Lymphocyte Count 0.75 X10^3/uL (0.83-4.51); Absolute Neutrophil Count 8.1 X10^3/uL (2.0-7.7); Basophil# 0.02 X10^3/uL; Basophil% 0.2 % (0-1); Hemoglobin 17.3 g/dL (12.0-15.0); Lymphocyte # 0.75 X10^3/ul (0.83-4.51); Mean Corp Hgb Conc 28.7 g/dL (32-36); Mean Corpuscular Hgb 26.3 pg (27.0-32.0); Mean Corpuscular Volume 91.6 fL (81-99); Mean Platelet Vol. 11.2 fl (6.2-12.0); Monocyte# 0.46 X10^3/uL; Monocyte% 4.9 % (0-10); NRBC Flagged by Analyzer 0 % (0-5); Neutrophil # 8.13 X10^3/uL (2.7-7.7); Neutrophil % 86.3 % (47-70); Platelet Count 239 K/mm3 (150-450); RBC Distribution Width SD 55.9 fl (35.1-43.9); Red Blood Count 6.57 M/mm3 (4.2-5.4); White Blood Count 9.4 K/mm3 (4.4-11.0)
[2023-03-30 08:10] LABS: Hematocrit 60.2 % (37-47)
--- NOTE | 2023-03-30 08:15 | PN.HOSP_ITS ---
Subjective Subjective Well, no issues overnight. She tolerated BiPAP again very well and is now down to 6 L nasal cannula we will obtain an ambulatory pulse ox Objective Data Objective Data Vital Signs: Vital Signs Temp Pulse Resp BP Pulse Ox O2 Del Method O2 Flow Rate 97.6 F L 62 16 136/71 H 90 Nasal Cannula 6 03/30/23 03:13 03/30/23 05:00 03/30/23 05:00 03/30/23 03:13 03/30/23 05:00 03/30/23 08:10 03/30/23 08:10 FiO2 35 03/30/23 05:00 Oxygen Flow Rate (L/min) [ 10 AMBULATING with Oxygen #2] Oxygen Flow Rate (L/min) [ 8 AMBULATING with Oxygen #1] Oxygen Flow Rate (L/min) [At 7 REST with Oxygen] Oxygen Flow Rate (L/min) 6 Oxygen Delivery Method Nasal Cannula Weight: 216 lb 0.848 oz Body Mass Index (BMI) 40.8 Intake & Output: Intake and Output for Last 24 Hours 03/29/23 03/30/23 03/31/23 03:59 03:59 03:59 Intake Total 500 / 500 555 / 555 Output Total 300 / 300 Balance 200 / 200 555 / 555 Lab / Micro Data 03/30/23 07:39 03/29/23 05:38 Labs: Laboratory Results - last 24 hr 03/30/23 07:39: WBC 9.4, RBC 6.57 H, Hgb 17.3 H, Hct 60.2 H, MCV 91.6, MCH 26.3 L, MCHC 28.7 L, RDW Std Deviation 55.9 H, RDW Coeff of Piper 18.0 H, Plt Count 239, MPV 11.2, Immature Gran % (Auto) 0.600, Neut % (Auto) 86.3 H, Lymph % (Auto) 8.0 L, [place] % (Auto) 4.9, Eos % (Auto) 0.0, Baso % (Auto) 0.2, Absolute Neuts (auto) 8.1 H, Absolute Lymphs (auto) 0.75 L, Nucleated RBC % 0 Micro: Microbiology 03/24/23 10:20 Sputum, Expectorated/Coughed Gram Stain - Final 03/24/23 10:20 Sputum, Expectorated/Coughed Respiratory Culture - Final 03/22/23 03:10 Urine, Clean Catch Legionella Antigen - Final 03/22/23 03:10 Urine, Clean Catch Streptococcus pneumoniae Antigen (M - Final 03/21/23 16:15 Mucosa - Nasopharyngeal Respiratory Panel (PCR) - Final 03/21/23 09:58 Nasal Secretion SARS-CoV-2 & FLU Antigen (Rapid) - Final Physical Exam Narrative General: Alert, Oriented x3, Cooperative, No apparent distress HEENT: Atraumatic, PERRLA, EOMI, Normocephalic Oral: Moist Mucosa Neck: Supple, No JVD Lungs: Diminished, poor air movement, No rhonchi, no wheeze, No rales Cardiovascular: Regular rate, Regular Rhythm, Normal S1, Normal S2, No murmurs Abdomen: Soft, Non Tender, Non-Distended, No Hepato-splenomegaly Extremities: No edema, Capillary Refill Less than 3 Seconds Skin: No rashes, No breakdown Musculoskeletal: No Tenderness to Palpation of Joints or Extremities Neurological: Cranial nerves II-XII grossly intact, Motor Exam 5/5 strength throughout, Sensory exam intact to light touch and pain Psych/Mental Status: Normal Affect, Appropriate Assessment & Plan Assessment/Plan (1) COPD exacerbation: PLAN: Plan 1. Acute hypoxic respiratory failure, COPD exacerbation, community-acquired pneumonia with unclear organism History of COPD secondary to longstanding tobacco use, not on home oxygen. Diagnosed with COPD about 2 years ago. No previous history of COPD exacerbations. Suspect exacerbation is likely secondary to community-acquired pneumonia. Chest CTA showed infiltrates at the lung bases slightly worse on the right side, patchy infiltrate in the posterior aspect of the right middle lobe, emphysematous changes. Requiring 4 to 5 L nasal cannula in ED for saturations greater than 90%. Moderately improved in ED after a breathing treatment. COVID and flu negative. Respiratory panel negative. Urine antigens negative. Unable to produce sputum culture. Failed O2 walk test on 03/23, had oxygen saturations drop below 88% on 6 L nasal cannula. ? Continue supplemental oxygen, wean as able. Will need home oxygen on discharge, will repeat walk test likely tomorrow after echo was done as noted below. Continue prednisone, ceftriaxone and azithromycin with plan for 5-day courses. Continue DuoNebs every 4 hours scheduled. Continue home long-acting inhaler. 03/25/2023: Doing well, she is slow to improve this is likely secondary to her baseline lung physiology. Will obtain an ambulatory pulse ox today to gauge where we are at in her recovery 03/26/2023: Given her slow improvement we will place her back on IV Lasix daily and will transition her steroids to IV 3 times daily 03/27/2023: Given her continued slow improvement we will consult pulmonology for their assistance 03/28/2023: Continue with IV Lasix and Diamox per pulmonology's recommendations she will complete her dose of Rocephin this morning 03/29/2023: She tolerated the BiPAP very well overnight and she feels like it worked well she was able to sleep, her creatinine is elevated so we will hold her Lasix and Diamox and we will proceed with trying to obtain home noninvasive ventilator 03/30/2023: Awaiting BMP to monitor renal function. Do have a noninvasive ventilator set up for discharge. We will obtain an ambulatory pulse ox 2. Paroxysmal atrial flutter/elevated troponins New diagnosis. Had episode of heart rate spike to the 150s on 03/23. EKG showed atrial flutter with 2:1 conduction, heart rate 156 bpm. Resolved after approximately 10 minutes without need for rate control medication. Unfortunately had recurrence on evening of 03/23. ?[id number] score of 3 (age, sex, hypertension). Continue Lopressor 25 mg twice daily, can increase as needed. TTE ordered. We will start Eliquis today for anticoagulation. Lasix as noted below. Monitor telemetry. 03/25/2023: Rate and rhythm are regular so this is likely paroxysmal and could be related to her hypoxia especially with ambulation. We will continue with medications and have her follow-up as an outpatient with allergy. Troponins are likely secondary to demand ischemia and hypoxia from her COPD exacerbation 3. Concern for volume overload Mild volume overload suspected given persistent hypoxia as noted above. Likely tachycardia mediated in setting of paroxysmal atrial flutter as noted above. ? TTE pending as above. We will give 2 doses of IV Lasix 40 mg today, start p.o. Lasix 40 mg daily tomorrow morning. Monitor volume status and oxygen saturations. 03/27/2023: We will hold off on any further diuretics at this time her bicarb is climbing so we will monitor for now and await pulmonology evaluation 03/30/2023: Had to hold Diamox and Lasix secondary to a bump in her renal function will await repeat BMP today 4. Current smoker Currently smoking around 5 cigarettes daily. Extensive smoking history. ? Nicotine patch ordered per patient request. Encouraged cessation. 5. Lung nodule ? CT chest on admit with 7 mm noncalcified nodule noted in peripheral lateral aspect of the right middle lobe. 12-month follow-up examination is recommended. Chronic medical conditions: ? Hypertension: Continue home hydrochlorothiazide. ? GERD: Continue home PPI. DVT: Eliquis Charges/Coding Visit Charges Inpatient E&M: 90003 Subs Hosp L2
[2023-03-30 08:20] LABS: Anion Gap 2 (5-15); BUN 54 mg/dL (7-18); BUN/Creat Ratio 48.6 RATIO (10-20); Calcium,Total 9.1 mg/dL (8.5-10.1); Chloride 107 mmol/L (98-107); Creatinine, Serum 1.11 mg/dL (0.55-1.02); EST Glomerular Filtration Rate 51 mL/min (>60); Est Glom Filt Rate - Afr Amer 62 mL/min (>60); Estimated Creatinine Clearance 34.57 ml/min; Glucose 141 mg/dL (74-106); Potassium 4.7 mmol/L (3.5-5.1); Sodium Level 137 mmol/L (136-145)
[2023-03-30] MEDS: APIXABAN 5 MG TABLET PO ×2 (10:00→21:46)
[2023-03-30] MEDS: predniSONE 20 MG Tablet 40 MG PO (10:00)
[2023-03-30] MEDS: Loratadine 10 MG Tablet PO (10:00)
[2023-03-30] MEDS: Metoprolol Tartrate 25 MG Tablet PO ×2 (10:00→21:46)
[2023-03-30] MEDS: Pantoprazole Sodium 40 MG Tablet PO (10:02)
--- NOTE | 2023-03-30 10:28 | PN.CC_ITS ---
Assessment & Plan Assessment/Plan (1) COPD exacerbation: PLAN: Plan Assessment Acute hypoxic respiratory failure currently on 6 to 7 L via nasal cannula. Patient is not usually on home oxygen COPD exacerbation Chronic hypercapnia 7.1 mm right middle lobe nodule Diastolic heart failure, acute A-fib with RVR History of severe sleep apnea AHI of 47 with noncompliance Volume overload Morbid obesity BMI of 40.8 Tobacco use Plan * Hypoxia is mostly multifactorial she has severe COPD with emphysema on her CT scan. She also has diastolic heart failure. * Cont to hold off Lasix given BECKIE. * cont steroid taper. cont breathing treatments. She is down to 5 L NC today, goal O2 sat 88% or above * She is tolerating NIPPV at night. * This patient has severe COPD with elevated CO2 despite treatment for a week. Her condition now requires the use of a noninvasive ventilator due to the life-threatening condition chronic respiratory failure secondary to chronic obstructive pulmonary disease. All other therapies have been considered and or attempted and failed. Due to the severity of this patient's disease, as indicated by CO2 retention, this patient requires assisted tidal volume therapy with a trilogy, astral or Anna NIV unit. Without noninvasive ventilator intervention this patient's health will rapidly deteriorate which could lead to serious harm, rehospitalization or . * Discussed with SW and pt's insurance will cover NIPPV. * Discussed with the patient importance of smoking cessation * Patient was found to have a 7.1 mm right middle lobe nodule along with bilateral consolidation suggestive of pneumonia. Patient high risk given her smoking history. Recommend repeat CT scan in 6 to 8 weeks to ensure resolution of PNA. * wean Oxygen as tolerated. She will need home O2 eval prior to discharge * Rest of management per primary Subjective Subjective Continues to improve. she is now on 5L NC. Objective Data Objective Data Vital Signs: Vital Signs Temp Pulse Resp BP Pulse Ox O2 Del Method O2 Flow Rate 36.6 C 69 16 130/65 H 90 High Flow 5 03/30/23 09:50 03/30/23 10:00 03/30/23 09:50 03/30/23 10:00 03/30/23 09:50 03/30/23 09:50 03/30/23 09:50 FiO2 35 03/30/23 05:00 Oxygen Flow Rate (L/min) [ 10 AMBULATING with Oxygen #2] Oxygen Flow Rate (L/min) [ 8 AMBULATING with Oxygen #1] Oxygen Flow Rate (L/min) [At 7 REST with Oxygen] Oxygen Flow Rate (L/min) 5 Oxygen Delivery Method High Flow Weight: 98 kg Body Mass Index (BMI) 40.8 Intake & Output: Intake and Output for Last 24 Hours 03/28/23 03/29/23 03/30/23 23:59 23:59 23:59 Intake Total 500 / 500 555 / 555 Output Total 300 / 300 Balance 200 / 200 555 / 555 Lab / Micro Data 03/30/23 07:39 03/30/23 07:39 Labs: Laboratory Results - last 24 hr 03/30/23 07:39: WBC 9.4, RBC 6.57 H, Hgb 17.3 H, Hct 60.2 H, MCV 91.6, MCH 26.3 L, MCHC 28.7 L, RDW Std Deviation 55.9 H, RDW Coeff of [place]per 18.0 H, Plt Count 239, MPV 11.2, Immature Gran % (Auto) 0.600, Neut % (Auto) 86.3 H, Lymph % (Auto) 8.0 L, [place] % (Auto) 4.9, Eos % (Auto) 0.0, Baso % (Auto) 0.2, Absolute Neuts (auto) 8.1 H, Absolute Lymphs (auto) 0.75 L, Nucleated RBC % 0, Sodium 137, Potassium 4.7, Chloride 107, Carbon Dioxide 28.0, Anion Gap 2 L, BUN 54 H, Creatinine 1.11 H, Estim Creat Clear Calc 34.57, Est GFR (MDRD) Af Amer 62, Est GFR (MDRD) Non-Af 51 L, BUN/Creatinine Ratio 48.6 H, Glucose 141 H, Calcium 9.1 Micro: Microbiology 03/24/23 10:20 Sputum, Expectorated/Coughed Gram Stain - Final 03/24/23 10:20 Sputum, Expectorated/Coughed Respiratory Culture - Final 03/22/23 03:10 Urine, Clean Catch Legionella Antigen - Final 03/22/23 03:10 Urine, Clean Catch Streptococcus pneumoniae Antigen (M - Final 03/21/23 16:15 Mucosa - Nasopharyngeal Respiratory Panel (PCR) - Final 03/21/23 09:58 Nasal Secretion SARS-CoV-2 & FLU Antigen (Rapid) - Final Physical Exam Narrative General alert oriented in no acute distress HEENT. Normocephalic atraumatic, pupils equal and reactive Respiratory equal air entry bilaterally, no wheezing Cardiac S1-S2, regular rate and rhythm GI abdomen soft and nontender MSK +1 lower extremity edema Skin no rashes Neuro moves all extremities, no dysarthria, no facial droop Charges/Coding Visit Charges Inpatient E&M: 42089 Subs Hosp L3
[2023-03-30] MEDS: Furosemide 40 MG Tablet PO (15:06)
[2023-03-30] MEDS: 0.9% Saline Lock 10 ML Syringe IV (15:10)
--- NOTE | 2023-03-30 18:50 | NURSING ---
Reviewed charting with Vicki Carvalho RN
[2023-03-31] VITALS (16 sets, daily range): BP systolic 111–147; BP diastolic 63–69; PULSE 45–77; RESP 12–18; TEMP 36.2–36.7; O2SAT 85–95
[2023-03-31] MEDS: Ipratropium/Albuterol Sulfate 3 ML AMPUL.NEB INHALATION ×4 (07:42→19:02)
[2023-03-31 08:25] LABS: Anion Gap 5 (5-15); BUN 47 mg/dL (7-18); BUN/Creat Ratio 46.1 RATIO (10-20); Calcium,Total 8.7 mg/dL (8.5-10.1); Chloride 109 mmol/L (98-107); Creatinine, Serum 1.02 mg/dL (0.55-1.02); EST Glomerular Filtration Rate 57 mL/min (>60); Est Glom Filt Rate - Afr Amer 68 mL/min (>60); Estimated Creatinine Clearance 37.62 ml/min; Glucose 85 mg/dL (74-106); Sodium Level 140 mmol/L (136-145)
[2023-03-31 08:38] LABS: Absolute Lymphocyte Count 1.91 X10^3/uL (0.83-4.51); Absolute Neutrophil Count 5.6 X10^3/uL (2.0-7.7); Basophil# 0.01 X10^3/uL; Basophil% 0.1 % (0-1); Eosinophil# 0.06 X10^3/uL; Eosinophils% 0.7 % (0-5); Hemoglobin 17.6 g/dL (12.0-15.0); Lymphocyte # 1.91 X10^3/ul (0.83-4.51); Lymphocyte % 23.2 % (19-41); Mean Corpuscular Hgb 26.4 pg (27.0-32.0); Mean Platelet Vol. 10.7 fl (6.2-12.0); Monocyte# 0.66 X10^3/uL; NRBC Flagged by Analyzer 0 % (0-5); Neutrophil # 5.55 X10^3/uL (2.7-7.7); Neutrophil % 67.4 % (47-70); Platelet Count 214 K/mm3 (150-450); RBC Distribution Width CV 17.3 % (11.6-14.6); Red Blood Count 6.66 M/mm3 (4.2-5.4); White Blood Count 8.2 K/mm3 (4.4-11.0)
[2023-03-31 08:42] LABS: Hematocrit 60.6 % (37-47)
--- NOTE | 2023-03-31 08:54 | PCM.PN.HOSP ---
Subjective Subjective Feels a little bit better every day, she is getting much better sleep now that she wears a BiPAP at night Objective Data Objective Data Vital Signs: Vital Signs Temp Pulse Resp BP Pulse Ox O2 Del Method O2 Flow Rate 97.2 F L 54 L 18 147/69 H 86 Nasal Cannula 2 03/31/23 03:48 03/31/23 07:43 03/31/23 07:43 03/31/23 03:48 03/31/23 08:10 03/31/23 08:10 03/31/23 08:10 FiO2 40 03/31/23 04:42 Oxygen Flow Rate (L/min) [ 8 AMBULATING with Oxygen #3] Oxygen Flow Rate (L/min) [ 6 AMBULATING with Oxygen #2] Oxygen Flow Rate (L/min) [ 4 AMBULATING with Oxygen #1] Oxygen Flow Rate (L/min) [At 2 REST with Oxygen] Oxygen Flow Rate (L/min) 2 Oxygen Delivery Method Nasal Cannula Weight: 216 lb 0.848 oz Body Mass Index (BMI) 40.8 Intake & Output: Intake and Output for Last 24 Hours 03/30/23 03/31/23 04/01/23 03:59 03:59 03:59 Intake Total 555 / 555 800 / 800 Balance 555 / 555 800 / 800 Lab / Micro Data 03/31/23 08:30 03/31/23 07:25 Labs: Laboratory Results - last 24 hr 03/31/23 07:25: WBC Cancelled, Corrected WBC Cancelled, RBC Cancelled, Hgb Cancelled, Hct Cancelled, MCV Cancelled, MCH Cancelled, MCHC Cancelled, RDW Std Deviation Cancelled, RDW Coeff of Piper Cancelled, Plt Count Cancelled, MPV Cancelled, Immature Gran % (Auto) Cancelled, Neut % (Auto) Cancelled, Lymph % (Auto) Cancelled, [place] % (Auto) Cancelled, Eos % (Auto) Cancelled, Baso % (Auto) Cancelled, Absolute Neuts (auto) Cancelled, Absolute Lymphs (auto) Cancelled, Total Counted Cancelled, Neutrophils % (Manual) Cancelled, Band Neutrophils % Cancelled, Lymphocytes % (Manual) Cancelled, Monocytes % (Manual) Cancelled, Eosinophils % (Manual) Cancelled, Basophils % (Manual) Cancelled, Metamyelocytes % Cancelled, Myelocytes % Cancelled, Promyelocytes % Cancelled, Blast Cells % Cancelled, Plasma Cell % (Manual) Cancelled, Other Cells % Cancelled, Nucleated RBC % Cancelled, Nucleated RBCs/100 WBC Cancelled, Differential Comment Cancelled, Diff Path Review Cancelled, Hypersegmented Neuts Cancelled, Atypical Lymphocytes Cancelled, Reactive Lymphocytes Cancelled, Smudge Cells Cancelled, Toxic Granulation Cancelled, Toxic Vacuolation Cancelled, Dohle Bodies Cancelled, [place] Rods Cancelled, Platelet Estimate Cancelled, Plt Morphology Comment Cancelled, RBC Morphology Cancelled 03/31/23 07:25: RBC Morphology Cancelled, Polychromasia Cancelled, Hypochromasia Cancelled, Poikilocytosis Cancelled, Basophilic Stippling Cancelled, Anisocytosis Cancelled, Microcytosis Cancelled, Macrocytosis Cancelled, Spherocytes Cancelled, Sickle Cells Cancelled, Target Cells Cancelled, Tear Drop Cells Cancelled, Ovalocytes Cancelled, Stomatocytes Cancelled, Bee-[place] Bodies Cancelled, [place] Cells Cancelled, Bite Cells Cancelled, Crenated Cell Cancelled, Acanthocytes (Spur) Cancelled, Rouleaux Cancelled, Schistocytes Cancelled, Sodium 140, Potassium 5.0, Chloride 109 H, Carbon Dioxide 26.0, Anion Gap 5, BUN 47 H, Creatinine 1.02, Estim Creat Clear Calc 37.62, Est GFR (MDRD) Af Amer 68, Est GFR (MDRD) Non-Af 57 L, BUN/Creatinine Ratio 46.1 H, Glucose 85, Calcium 8.7 03/31/23 08:30: WBC 8.2, RBC 6.66 H, Hgb 17.6 H, Hct 60.6 H, MCV 91.0, MCH 26.4 L, MCHC 29.0 L, RDW Std Deviation 55.0 H, RDW Coeff of [place] 17.3 H, Plt Count 214, MPV 10.7, Immature Gran % (Auto) 0.600, Neut % (Auto) 67.4, Lymph % (Auto) 23.2, [place] % (Auto) 8.0, Eos % (Auto) 0.7, Baso % (Auto) 0.1, Absolute Neuts (auto) 5.6, Absolute Lymphs (auto) 1.91, Nucleated RBC % 0 Micro: Microbiology 03/24/23 10:20 Sputum, Expectorated/Coughed Gram Stain - Final 03/24/23 10:20 Sputum, Expectorated/Coughed Respiratory Culture - Final 03/22/23 03:10 Urine, Clean Catch Legionella Antigen - Final 03/22/23 03:10 Urine, Clean Catch Streptococcus pneumoniae Antigen (M - Final 03/21/23 16:15 Mucosa - Nasopharyngeal Respiratory Panel (PCR) - Final 03/21/23 09:58 Nasal Secretion SARS-CoV-2 & FLU Antigen (Rapid) - Final Physical Exam Narrative General: Alert, Oriented x3, Cooperative, No apparent distress HEENT: Atraumatic, PERRLA, EOMI, Normocephalic Oral: Moist Mucosa Neck: Supple, No JVD Lungs: Diminished, poor air movement, No rhonchi, no wheeze, No rales Cardiovascular: Regular rate, Regular Rhythm, Normal S1, Normal S2, No murmurs Abdomen: Soft, Non Tender, Non-Distended, No Hepato-splenomegaly Extremities: No edema, Capillary Refill Less than 3 Seconds Skin: No rashes, No breakdown Musculoskeletal: No Tenderness to Palpation of Joints or Extremities Neurological: Cranial nerves II-XII grossly intact, Motor Exam 5/5 strength throughout, Sensory exam intact to light touch and pain Psych/Mental Status: Normal Affect, Appropriate Assessment & Plan Assessment/Plan (1) COPD exacerbation: PLAN: Plan 1. Acute hypoxic respiratory failure, COPD exacerbation, community-acquired pneumonia with unclear organism/tobacco abuse ?She did complete her antibiotic course ? She does have a history of COPD but she is also never been worked up for obstructive sleep apnea currently she requires 2 L nasal cannula at rest but needed 8 L with ambulation ? We will trial her on another IV dose of Lasix today as her renal function has improved ? We will continue with nocturnal BiPAP she does have approval for BiPAP on discharge for home ? Continue nicotine patch, discussed cessation 2. Paroxysmal atrial flutter/elevated troponins/pulmonary hypertension stage I diastolic dysfunction/HTN ? We will continue with Eliquis given her [id number] score of 3 and her history of atrial flutter ? Continue with the beta-kelvin for rate control ? Echo with 55% EF and stage I diastolic dysfunction ? Now that her renal function has improved we will transition her to IV Lasix to be given daily after evaluation of her renal function 3. Lung nodule ? She has a 7 mm noncalcified nodule in closer peripheral lateral aspect of the right middle lobe follow-up as an outpatient 4. GERD ? Stable ? Continue with PPI DVT: Eliquis Charges/Coding Visit Charges Inpatient E&M: 79239 Subs Hosp L2
[2023-03-31] MEDS: 0.9% Saline Lock 10 ML Syringe IV (09:41)
[2023-03-31] MEDS: Pantoprazole Sodium 40 MG Tablet PO (09:41)
[2023-03-31] MEDS: predniSONE 20 MG Tablet 40 MG PO (09:41)
[2023-03-31] MEDS: Loratadine 10 MG Tablet PO (09:41)
[2023-03-31] MEDS: APIXABAN 5 MG TABLET PO ×2 (09:41→22:09)
[2023-03-31] MEDS: Furosemide 40 MG/4 ML Vial IV (09:41)
[2023-03-31] MEDS: Metoprolol Tartrate 25 MG Tablet PO ×2 (09:41→22:09)
--- NOTE | 2023-03-31 10:14 | PN.CC_ITS ---
Assessment & Plan Assessment/Plan (1) COPD exacerbation: PLAN: Plan Assessment Acute hypoxic respiratory failure. Patient is not usually on home oxygen COPD exacerbation Chronic hypercapnia 7.1 mm right middle lobe nodule Diastolic heart failure, acute A-fib with RVR History of severe sleep apnea AHI of 47 with noncompliance Volume overload Morbid obesity BMI of 40.8 Tobacco use Plan * Hypoxia is mostly multifactorial she has severe COPD with emphysema on her CT scan. She also has diastolic heart failure. * Kidney function improved. Lasix ordered per primary. * cont steroid taper. cont breathing treatments. She is now on 2L NC during the day but requires upto 8L when she ambulates. * Cont NIPPV at night. She will benefit from outpt pulmonary evaluation including PFTs. She will benefit from scheduled ICS/LABA/LAMA inhalers and PRN albuterol upon discharge. * This patient has severe COPD with elevated CO2 despite treatment for a week. Her condition now requires the use of a noninvasive ventilator due to the life-threatening condition chronic respiratory failure secondary to chronic obstructive pulmonary disease. All other therapies have been considered and or attempted and failed. Due to the severity of this patient's disease, as indicated by CO2 retention, this patient requires assisted tidal volume therapy with a trilogy, astral or Anna NIV unit. Without noninvasive ventilator intervention this patient's health will rapidly deteriorate which could lead to serious harm, rehospitalization or . * Discussed with SW and pt's insurance will cover NIPPV. * Discussed with the patient importance of smoking cessation * Patient was found to have a 7.1 mm right middle lobe nodule along with bilateral consolidation suggestive of pneumonia. Patient high risk given her smoking history. Recommend repeat CT scan in 6 to 8 weeks to ensure resolution of PNA. * wean Oxygen as tolerated. She will need home O2 eval prior to discharge * Rest of management per primary Subjective Subjective Continues to improve. She is now on 2L NC during the day but requires upto 8L when she ambulates. Objective Data Objective Data Vital Signs: Vital Signs Temp Pulse Resp BP Pulse Ox O2 Del Method O2 Flow Rate 36.6 C 65 18 111/63 91 Nasal Cannula 2 03/31/23 09:40 03/31/23 09:41 03/31/23 09:40 03/31/23 09:40 03/31/23 09:40 03/31/23 09:40 03/31/23 09:40 FiO2 40 09/17/23 04:42 Oxygen Flow Rate (L/min) [ 8 AMBULATING with Oxygen #3] Oxygen Flow Rate (L/min) [ 6 AMBULATING with Oxygen #2] Oxygen Flow Rate (L/min) [ 4 AMBULATING with Oxygen #1] Oxygen Flow Rate (L/min) [At 2 REST with Oxygen] Oxygen Flow Rate (L/min) 2 Oxygen Delivery Method Nasal Cannula Weight: 98 kg Body Mass Index (BMI) 40.8 Intake & Output: Intake and Output for Last 24 Hours 03/29/23 03/30/23 03/31/23 23:59 23:59 23:59 Intake Total 555 / 555 800 / 800 Balance 555 / 555 800 / 800 Lab / Micro Data 03/31/23 08:30 03/31/23 07:25 Labs: Laboratory Results - last 24 hr 03/31/23 07:25: WBC Cancelled, Corrected WBC Cancelled, RBC Cancelled, Hgb Cancelled, Hct Cancelled, MCV Cancelled, MCH Cancelled, MCHC Cancelled, RDW Std Deviation Cancelled, RDW Coeff of Piepr Cancelled, Plt Count Cancelled, MPV Cancelled, Immature Gran % (Auto) Cancelled, Neut % (Auto) Cancelled, Lymph % (Auto) Cancelled, [place] % (Auto) Cancelled, Eos % (Auto) Cancelled, Baso % (Auto) Cancelled, Absolute Neuts (auto) Cancelled, Absolute Lymphs (auto) Cancelled, Total Counted Cancelled, Neutrophils % (Manual) Cancelled, Band Neutrophils % Cancelled, Lymphocytes % (Manual) Cancelled, Monocytes % (Manual) Cancelled, Eosinophils % (Manual) Cancelled, Basophils % (Manual) Cancelled, Metamyelocytes % Cancelled, Myelocytes % Cancelled, Promyelocytes % Cancelled, Blast Cells % Cancelled, Plasma Cell % (Manual) Cancelled, Other Cells % Cancelled, Nucleated RBC % Cancelled, Nucleated RBCs/100 WBC Cancelled, Differential Comment Cancelled, Diff Path Review Cancelled, Hypersegmented Neuts Cancelled, Atypical Lymphocytes Cancelled, Reactive Lymphocytes Cancelled, Smudge Cells Cancelled, Toxic Granulation Cancelled, Toxic Vacuolation Cancelled, Dohle Bodies Cancelled, [place] Rods Cancelled, Platelet Estimate Cancelled, Plt Morphology Comment Cancelled, RBC Morphology Cancelled 03/31/23 07:25: RBC Morphology Cancelled, Polychromasia Cancelled, Hypochromasia Cancelled, Poikilocytosis Cancelled, Basophilic Stippling Cancelled, Anisocytosis Cancelled, Microcytosis Cancelled, Macrocytosis Cancelled, Spherocytes Cancelled, Sickle Cells Cancelled, Target Cells Cancelled, Tear Drop Cells Cancelled, Ovalocytes Cancelled, Stomatocytes Cancelled, Bee-[place] Bodies Cancelled, [place] Cells Cancelled, Bite Cells Cancelled, Crenated Cell Cancelled, Acanthocytes (Spur) Cancelled, Rouleaux Cancelled, Schistocytes Cancelled, Sodium 140, Potassium 5.0, Chloride 109 H, Carbon Dioxide 26.0, Anion Gap 5, BUN 47 H, Creatinine 1.02, Estim Creat Clear Calc 37.62, Est GFR (MDRD) Af Amer 68, Est GFR (MDRD) Non-Af 57 L, BUN/Creatinine Ratio 46.1 H, Glucose 85, Calcium 8.7 03/31/23 08:30: WBC 8.2, RBC 6.66 H, Hgb 17.6 H, Hct 60.6 H, MCV 91.0, MCH 26.4 L, MCHC 29.0 L, RDW Std Deviation 55.0 H, RDW Coeff of [place] 17.3 H, Plt Count 214, MPV 10.7, Immature Gran % (Auto) 0.600, Neut % (Auto) 67.4, Lymph % (Auto) 23.2, [place] % (Auto) 8.0, Eos % (Auto) 0.7, Baso % (Auto) 0.1, Absolute Neuts (auto) 5.6, Absolute Lymphs (auto) 1.91, Nucleated RBC % 0 Micro: Microbiology 03/24/23 10:20 Sputum, Expectorated/Coughed Gram Stain - Final 03/24/23 10:20 Sputum, Expectorated/Coughed Respiratory Culture - Final 03/22/23 03:10 Urine, Clean Catch Legionella Antigen - Final 03/22/23 03:10 Urine, Clean Catch Streptococcus pneumoniae Antigen (M - Final 03/21/23 16:15 Mucosa - Nasopharyngeal Respiratory Panel (PCR) - Final 03/21/23 09:58 Nasal Secretion SARS-CoV-2 & FLU Antigen (Rapid) - Final Physical Exam Narrative General alert oriented in no acute distress HEENT. Normocephalic atraumatic, pupils equal and reactive Respiratory equal air entry bilaterally, no wheezing Cardiac S1-S2, regular rate and rhythm GI abdomen soft and nontender MSK +1 lower extremity edema Skin no rashes Neuro moves all extremities, no dysarthria, no facial droop Charges/Coding Visit Charges Inpatient E&M: 60633 Subs Hosp L2
[2023-04-01] VITALS (11 sets, daily range): BP systolic 124–141; BP diastolic 65–78; PULSE 54–77; RESP 14–21; TEMP 36.5–36.8; O2SAT 83–96; BMI 38.4
[2023-04-01 06:47] LABS: Absolute Lymphocyte Count 1.92 X10^3/uL (0.83-4.51); Absolute Neutrophil Count 7.3 X10^3/uL (2.0-7.7); Basophil# 0.04 X10^3/uL; Basophil% 0.4 % (0-1); Eosinophil# 0.11 X10^3/uL; Eosinophils% 1.1 % (0-5); Hemoglobin 16.4 g/dL (12.0-15.0); Lymphocyte # 1.92 X10^3/ul (0.83-4.51); Lymphocyte % 18.8 % (19-41); Mean Corp Hgb Conc 29.1 g/dL (32-36); Mean Corpuscular Hgb 26.2 pg (27.0-32.0); Mean Corpuscular Volume 89.9 fL (81-99); Mean Platelet Vol. 11.7 fl (6.2-12.0); Monocyte# 0.83 X10^3/uL; Monocyte% 8.1 % (0-10); NRBC Flagged by Analyzer 0 % (0-5); Neutrophil % 71.2 % (47-70); Platelet Count 220 K/mm3 (150-450); RBC Distribution Width CV 17.4 % (11.6-14.6); RBC Distribution Width SD 53.4 fl (35.1-43.9); Red Blood Count 6.26 M/mm3 (4.2-5.4); White Blood Count 10.2 K/mm3 (4.4-11.0)
[2023-04-01] MEDS: Ipratropium/Albuterol Sulfate 3 ML AMPUL.NEB INHALATION ×2 (06:50→11:02)
[2023-04-01 06:51] LABS: Hematocrit 56.3 % (37-47)
[2023-04-01 07:33] LABS: Anion Gap 5 (5-15); BUN 46 mg/dL (7-18); BUN/Creat Ratio 50.3 RATIO (10-20); Calcium,Total 8.7 mg/dL (8.5-10.1); Chloride 107 mmol/L (98-107); Creatinine, Serum 0.92 mg/dL (0.55-1.02); EST Glomerular Filtration Rate 64 mL/min (>60); Est Glom Filt Rate - Afr Amer 78 mL/min (>60); Estimated Creatinine Clearance 41.71 ml/min; Glucose 88 mg/dL (74-106); Potassium 4.2 mmol/L (3.5-5.1); Sodium Level 145 mmol/L (136-145)
[2023-04-01] MEDS: Pantoprazole Sodium 40 MG Tablet PO (08:27)
[2023-04-01] MEDS: Metoprolol Tartrate 25 MG Tablet PO (08:27)
[2023-04-01] MEDS: APIXABAN 5 MG TABLET PO (08:28)
[2023-04-01] MEDS: predniSONE 20 MG Tablet 40 MG PO (08:28)
[2023-04-01] MEDS: Loratadine 10 MG Tablet PO (08:28)
--- NOTE | 2023-04-01 11:13 | CASEMGMT ---
Social Work As per admitting RN pt does not have LW/POA and declined further information. CARIDAD Aragon
[2023-04-01] MEDS: Potassium Chloride Oral Tablet 20 MEQ 40 MEQ PO (12:57)
[2023-04-01] MEDS: Furosemide 40 MG/4 ML Vial IV (12:57)
[2023-04-01] MEDS: 0.9% Saline Lock 10 ML Syringe IV (12:57)
--- NOTE | 2023-04-01 14:37 | DCINST_ITS ---
Discharge Instructions Diet Discharge Diet: No restrictions Activity Discharge Activity: Return to Normal Activity Weight Bearing Status: Weight bearing as tolerated Follow Up Care Test Results: Test results from this visit will be discussed in further detail at your follow- up appointment, if applicable. Discharge Plan Admission Admit Date/Time: 03/21/23 12:44 Primary Reason for Your Visit: Exacerbation of COPD, diastolic heart failure Attending Provider: Dhaval Smith Primary Care Provider: Davy Chong Consulting Providers: Jimmy Springer; Deng Dubon; Arturo Maynard; Michael Soto; Ty Jackson; Chance Mcintyre; Nina Worrell NP; Severino Madsen Instructions Additional Instructions / Restrictions: Do not take aspirin, ibuprofen, or Aleve while taking Eliquis, take Tylenol for pain Use oxygen at 2 L/min via nasal cannula at rest, use NIV at night, use 8 L of oxygen via nasal cannula during activity Do not smoke Discharge Orders/Prescriptions Prescriptions: New metoprolol tartrate 25 mg Tablet 25 mg PO BID Qty: 60 0RF Eliquis 5 mg Tablet 5 mg PO BID Qty: 60 0RF furosemide [Lasix] 40 mg tablet 40 mg PO DAILY Qty: 30 0RF potassium chloride 10 mEq tablet extended release 20 meq PO DAILY Qty: 60 0RF prednisone 20 mg tablet 40 mg PO DAILY Qty: 12 0RF Rx Instructions: one twice a day for 3 days, then one per day until gone Continued omeprazole 20 MG capsule,delayed release(DR/EC) 40 mg PO DAILY albuterol sulfate 1 INHALER inhaler 2 puff inhalation [id number] Qty: 1 0RF Rx Instructions: after 1 week, use every 6 hours as needed for shortness of breath Trelegy Ellipta 100-62.5-25 mcg blister with device 1 inh INHALATION Q24H Patient Comments: Inhale 1 Puff as instructed once daily. cetirizine [All Day Allergy (cetirizine)] 10 mg tablet 10 mg PO DAILY Discontinued hydrochlorothiazide 12.5 mg capsule 12.5 mg PO DAILY Patient Comments: TAKE 1 CAPSULE BY MOUTH ONCE DAILY. Referrals / Follow Up: Arturo Maynard DO [Med Staff - Active Staff] - See Referral Note (Follow-up in 2 weeks in the office) Davy Chong MD [Primary Care Provider] - Within 2 Weeks Disposition Disposition (needs filled in before D/C Order can be placed): Home, Self Care
--- NOTE | 2023-04-01 14:56 | PCM.DC.SUM ---
Providers Date of Admission: 03/21/23 Date of Discharge: 04/01/23 Primary Care Physician: Dr. Davy Chong MD Consultations 03/27/23 07:13 Consult: Tax Manager Cpa / Pulmonary Medicine Routine Consulting Provider: [facility] Reason for Consult: COPD exacerbation not improved in 6 days EMERGENT Consult: No MD Notified: Yes Date Notified: 03/27/23 Time Notified: 09:33 Method of Notification: Text Reason For Visit: PNA, COPD, HYPOXIA, ELEVATED TROPONIN Diagnosis Discharge Diagnosis (1) COPD exacerbation: Status: Chronic Code(s): J44.1 - Chronic obstructive pulmonary disease with (acute) exacerbation Plan 1. Acute hypoxic respiratory failure secondary to COPD exacerbation with community-acquired pneumonia #2 acute exacerbation of COPD #3 community-acquired pneumonia-organism unknown #4 paroxysmal atrial flutter #5 pulmonary hypertension #6 acute diastolic congestive heart failure Medications at Discharge Home Medications omeprazole 20 mg capsule,delayed release 40 mg PO DAILY GERD 04/05/20 albuterol sulfate 90 mcg/actuation aerosol inhaler 2 puff inhalation [id number] ##1 04/08/20 cetirizine 10 mg tablet (All Day Allergy (cetirizine)) 10 mg PO DAILY 03/21/23 fluticasone fur. 100 mcg-umeclid 62.5 mcg-vilant 25 mcg inhalat.powder (Trelegy Ellipta) 1 inh inhalation Q24H 03/21/23 apixaban 5 mg tablet (Eliquis) 5 mg PO BID #60 tabs 04/01/23 furosemide 40 mg tablet (Lasix) 40 mg PO DAILY #30 tabs 04/01/23 metoprolol tartrate 25 mg tablet 25 mg PO BID #60 tabs 04/01/23 potassium chloride 10 mEq tablet,extended release 20 meq (2 x 10 mEq) PO DAILY #60 tabs 04/01/23 prednisone 20 mg tablet 40 mg (2 x 20 mg) PO DAILY #12 tabs 04/01/23 Hospital Course Operations None Procedures 2-D Echocardiogram Summary of Care Provided Minutes Spent on Discharge: 32 Hospital Course: 2-year-old white female was seen in the emergency room at [facility] with complaints of shortness of breath with wheezing, patient had a history of COPD. Patient had been smoking up to the day before she was seen in the emergency room. Patient was placed on supplemental oxygen, her O2 saturations were in the low 90s on 4 L with a respiratory rate of 20, white blood cell count was normal, hemoglobin was 16, chest CTA showed infiltration of the lung bases slightly worse on the right side with a patchy infiltrate in the posterior aspect of the right middle lobe along with emphysematous changes. No evidence of pulmonary embolism was noted. Patient was admitted for acute hypoxic respiratory failure with COPD exacerbation along with community-acquired pneumonia, she was placed on corticosteroids and IV antibiotics, pulse ox was monitored and she was given aerosol treatments. Patient had mildly elevated troponins but was not thought to have had a non-STEMI. Patient was seen in consultation by pulmonary medicine, she was felt to have a component of diastolic congestive heart failure and given IV Lasix, patient required noninvasive ventilation at night and this was set up for the patient as an outpatient. On 04/01/2023, patient was seen and examined: On examination she appeared older than her stated age, she does not appear to be in any distress. Vital signs as documented. Skin warm and dry and without overt rashes. Neck without JVD, thyroid appears normal, trachea is midline, neck is supple. Lungs clear, normal air movement was noted. Heart exam notable for regular rhythm, normal sounds and absence of murmurs, rubs or gallops. Abdomen unremarkable and without evidence of organomegaly, masses, or abdominal aortic enlargement, bowel sounds are present in all 4 quadrants, no abdominal tenderness was noted. Extremities nonedematous, no cyanosis was noted, no clubbing was noted. Neuro: Cranial nerves II through XII are grossly intact, no focal motor deficits were noted, sensation to light touch and pinprick is intact, motor exam 5/5 throughout. Psych: Patient is alert and oriented x3, she does not appear anxious or depressed, she does not appear agitated. Patient required 2 L of oxygen via nasal cannula at rest, she required the use of 8 L of oxygen via nasal cannula during activity, she was expected to use the oxygen at home and outside of her home during ADLs. Noninvasive ventilation was set up at night. Patient appears stable for discharge on 04/01/2023. Weight / BMI Weight Weight: 92.3 kg Body Mass Index (BMI) 38.4 ABG / Lab / Microbiology Data 04/01/23 05:05 04/01/23 05:05 Laboratory: Laboratory Results - last 24 hr 04/01/23 05:05: WBC 10.2, RBC 6.26 H, Hgb 16.4 H, Hct 56.3 H, MCV 89.9, MCH 26.2 L, MCHC 29.1 L, RDW Std Deviation 53.4 H, RDW Coeff of Piper 17.4 H, Plt Count 220, MPV 11.7, Immature Gran % (Auto) 0.400, Neut % (Auto) 71.2 H, Lymph % (Auto) 18.8 L, Collin % (Auto) 8.1, Eos % (Auto) 1.1, Baso % (Auto) 0.4, Absolute Neuts (auto) 7.3, Absolute Lymphs (auto) 1.92, Nucleated RBC % 0, Sodium 145, Potassium 4.2, Chloride 107, Carbon Dioxide 33.0 H, Anion Gap 5, BUN 46 H, Creatinine 0.92, Estim Creat Clear Calc 41.71, Est GFR (MDRD) Af Amer 78, Est GFR (MDRD) Non-Af 64, BUN/Creatinine Ratio 50.3 H, Glucose 88, Calcium 8.7 Microbiology: Microbiology 03/24/23 10:20 Sputum, Expectorated/Coughed Gram Stain - Final 03/24/23 10:20 Sputum, Expectorated/Coughed Respiratory Culture - Final 03/22/23 03:10 Urine, Clean Catch Legionella Antigen - Final 03/22/23 03:10 Urine, Clean Catch Streptococcus pneumoniae Antigen (M - Final 03/21/23 16:15 Mucosa - Nasopharyngeal Respiratory Panel (PCR) - Final 03/21/23 09:58 Nasal Secretion SARS-CoV-2 & FLU Antigen (Rapid) - Final D/C Instructions Discharge Diet: No restrictions Weight Bearing Status: Weight bearing as tolerated Meaningful Use Info Meaningful Use Diagnoses (Choose all that apply): CHF CHF AUSTEN/ARB ordered at discharge?: No Reason AUSTEN/ARB not ordered?: Not indicated Documented LVEF (%): 55 Discharge Plan Admission Admit Date/Time: 03/21/23 12:44 Primary Reason for Your Visit: Exacerbation of COPD, diastolic heart failure Attending Provider: Dhaval Smith Primary Care Provider: Davy Chong Consulting Providers: Jimmy Springer; Deng Dubon; Arturo Maynard; Michael Soto; Ty Jackson; Chance Mcintyre; Nina Worrell NP; Severino Madsen Instructions Additional Instructions / Restrictions: Do not take aspirin, ibuprofen, or Aleve while taking Eliquis, take Tylenol for pain Use oxygen at 2 L/min via nasal cannula at rest, use NIV at night, use 8 L of oxygen via nasal cannula during activity Do not smoke Discharge Orders/Prescriptions Prescriptions: New metoprolol tartrate 25 mg Tablet 25 mg PO BID Qty: 60 0RF Eliquis 5 mg Tablet 5 mg PO BID Qty: 60 0RF furosemide [Lasix] 40 mg tablet 40 mg PO DAILY Qty: 30 0RF potassium chloride 10 mEq tablet extended release 20 meq PO DAILY Qty: 60 0RF prednisone 20 mg tablet 40 mg PO DAILY Qty: 12 0RF Rx Instructions: one twice a day for 3 days, then one per day until gone Continued omeprazole 20 MG capsule,delayed release(DR/EC) 40 mg PO DAILY albuterol sulfate 1 INHALER inhaler 2 puff inhalation [id number] Qty: 1 0RF Rx Instructions: after 1 week, use every 6 hours as needed for shortness of breath Trelegy Ellipta 100-62.5-25 mcg blister with device 1 inh INHALATION Q24H Patient Comments: Inhale 1 Puff as instructed once daily. cetirizine [All Day Allergy (cetirizine)] 10 mg tablet 10 mg PO DAILY Discontinued hydrochlorothiazide 12.5 mg capsule 12.5 mg PO DAILY Patient Comments: TAKE 1 CAPSULE BY MOUTH ONCE DAILY. Referrals / Follow Up: Davy Chong MD [Primary Care Provider] - Within 2 Weeks Nina Worrell NP, [employer] SUPER[employer]OR-C [Med Staff - [facility]] - 04/15/23 10:45 am Disposition Disposition (needs filled in before D/C Order can be placed): Home, Self Care Charges/Coding Visit Charges Inpatient E&M: 26013 Disch Hosp >30min
--- NOTE | 2023-04-01 15:15 | CASEMGMT ---
NATACHA HARRIS updated that patient is discharging today. Patient qualifies for home oxygen. Script received and referral faxed to [facility]. NATACHA HARRIS called [facility] and arranged for oxygen tank to be delivered to patient's room and for equipment and NIV to be delivered to patient's home at 4pm today. NATACHA HARRIS called [facility] to inquire about cost of Eliquis, copay is $47. NATACHA HARRIS in to update patient regarding oxygen setup and Eliquis copay. Patient denied further needs. Patient had no further questions or concerns.
== END 2023-04-01 16:00 | disposition home or self-care (01) | DRG 193 ==
LOC: ED 11:32 → PCU 12:53
PROVIDERS: Family Medicine; Admitting Provider Hospitalist; Emergency Provider Emergency Medicine; PCP Family Medicine; Visit Provider Internal Medicine
DX: J18.9 Pneumonia, unspecified organism (principal); J96.01 Acute respiratory failure with hypoxia; I50.31 Acute diastolic (congestive) heart failure; J44.1 Chronic obstructive pulmonary disease with (acute) exacerbation; Z68.41 Body mass index [BMI] 40.0-44.9, adult; I24.8 Other forms of acute ischemic heart disease; I48.92 Unspecified atrial flutter; J44.0 Chronic obstructive pulmonary disease with (acute) lower respiratory infection; E87.29 Other acidosis; I27.20 Pulmonary hypertension, unspecified; I11.0 Hypertensive heart disease with heart failure; E66.01 Morbid (severe) obesity due to excess calories; I48.91 Unspecified atrial fibrillation; I10 Essential (primary) hypertension; F17.210 Nicotine dependence, cigarettes, uncomplicated; K21.9 Gastro-esophageal reflux disease without esophagitis; E87.70 Fluid overload, unspecified; G47.30 Sleep apnea, unspecified; R77.8 Other specified abnormalities of plasma proteins; Z79.51 Long term (current) use of inhaled steroids; Z79.52 Long term (current) use of systemic steroids; Z79.01 Long term (current) use of anticoagulants; R91.8 Other nonspecific abnormal finding of lung field; Z99.81 Dependence on supplemental oxygen
CPT/HCPCS: 36415; 36600; 71045; 71275; 80048; 80053; 81001; 82803; 83735; 83880; 84439; 84443; 84484; 85025; 85027; 85379; 85610; 85730; 87070; 87205; 87428; 87449; 87633; 93005; 93306; 94002; 94003; 94640; 94668; 94762; 97162; 97165; 97802; 99252; 99285; J7050; Q9957; Q9967; A4216; C8929; G0463; J1940

== ENCOUNTER → 2023-10-04 | Outpatient (CLI) | payer MEDICARE, SELFPAY ==
--- NOTE | 2023-10-04 14:28 | CT_ITS ---
HISTORY: new 7 mm nodule in smoker. TECHNIQUE: Helically acquired images were obtained of the chest without contrast. A radiation dose optimization technique was used for this scan. 840 images. COMPARISON: CTA 03/21/2023. FINDINGS: LARGE AIRWAYS: Patent. LUNGS: Moderate emphysema with mild biapical scarring. Stable 3 mm right upper nodule. Multiple noncalcified right middle lobe nodules measuring up to 7 mm again seen. Resolution of right lower lobe pneumonia or pneumonitis with multiple 3-4 mm noncalcified nodules again seen. 3 to 4 mm left upper lobe nodules again seen. Decreased lingular atelectasis with a 2 to 3 mm nodule again seen. Decreased dependent atelectasis in the left lower lobe with nodules measuring up to 5 mm adjacent to the diaphragm again seen. PLEURA: No pneumothorax or significant pleural effusion. HEART/PERICARDIUM: Heart within normal limits in size with coronary artery calcification. No pericardial effusion. VESSELS: Thoracic aorta nondilated. Atherosclerosis present. Main pulmonary artery enlargement suggesting pulmonary hypertension. MEDIASTINUM/TYLER: No pathologically enlarged adenopathy. UPPER ABDOMEN: Colonic diverticulosis observed. Nonobstructing left renal calculus. BONES: Degenerative change. Mild scoliosis. CT/Chest without Contrast IMPRESSION: Resolution of right lower lobe pneumonia and left lower lobe atelectasis. Pulmonary emphysema with no significant interval change in pulmonary nodules measuring up to 7 mm. Lungs-RADS category 2: Continue annual screening with low dose CT. Electronically Signed: Manuela Butcher MD at 15:18 EDT ,
== END | disposition home or self-care (01) ==
PROVIDERS: PCP Family Medicine; Referring Provider Nurse Practitioner Acute Care; Visit Provider Nurse Practitioner Acute Care
DX: R91.1 Solitary pulmonary nodule (principal)
CPT/HCPCS: 71250

== ENCOUNTER → 2024-10-26 | Outpatient (CLI) | payer MEDICARE, SELFPAY ==
--- NOTE | 2024-10-26 16:57 | CT_ITS ---
PROCEDURE: LOW DOSE CT LUNG SCREENING 10/26/2024 REASON FOR EXAM: >20 PACK YEARS TECHNIQUE: Low Dose CT Lung screening without contrast. Coronal and Sagittal reconstruction series were provided. One or more dose reduction techniques were used (e.g., Automated exposure control, adjustment of the mA and/or kV according to patient size, use of iterative reconstruction technique). REFERENCE LINK: [employer] Lung-RADS RADIATION DOSE SUMMARY: CTDlvol: 4.02 mGy DLP: 133.41 mGycm COMPARISON: None. FINDINGS: Note that evaluation of the vasculature, [place], and soft tissues is limited in the absence of IV contrast. Heart/pericardium:Moderate multivessel coronary atherosclerosis and/or stents. Mild aortic annular calcification. Aorta: Mild/moderate atherosclerosis.. Pulmonary arteries: Enlarged central pulmonary arteries which may indicate pulmonary arterial hypertension. Lymph nodes: Unremarkable. Lungs/pleura: Emphysema. Biapical pleural/parenchymal scarring. Bibasilar atelectasis/scarring. 9 x 8 mm RIGHT lower lobe nodule (series 2, image 180). Similar additional similar and smaller nodules annotated on series 2. prominent likely fissural intrapulmonary lymph node on the RIGHT. Airways: Mild endobronchial debris within the lower lobes. Mild central bronchial wall thickening.. Chest wall: Unremarkable. Upper abdomen: Gastric underdistention limits evaluation of wall thickness.. Musculoskeletal: Demineralization. Multilevel spondylosis. Mild scoliosis.. CT/Low Dose CT Lung Screening IMPRESSION: 1. Lung-RADS category: 4AS (suspicious, 5-15% chance of malignancy); recommend 3-month follow-up with LDCT or PET-CT if there is a ?8 mm solid component. 2. Other clinically significant or potentially significant non-lung cancer find ings: Moderate multivessel coronary atherosclerosis.. 3. Additional description as above. Recommendations per [employer]. Lung CT Screening Reporting and Data System (Lung-RADS) v. 2021 Reading Location: [id number]
== END | disposition home or self-care (01) ==
LOC: CT 16:54
PROVIDERS: PCP Family Medicine; Referring Provider Nurse Practitioner Acute Care; Visit Provider Nurse Practitioner Acute Care
DX: F17.210 Nicotine dependence, cigarettes, uncomplicated (principal)
CPT/HCPCS: 71271

== ENCOUNTER → 2025-02-18 | Outpatient (CLI) | payer MEDICARE, SELFPAY ==
--- NOTE | 2025-02-18 17:08 | CT_ITS ---
PROCEDURE: CHEST WITHOUT CONTRAST 02/18/2025 REASON FOR EXAM: LUNG NODULE IN SMOKER Follow-up examination. History of COPD. TECHNIQUE: Chest CT without contrast. Coronal and Sagittal reconstruction series were provided. One or more dose reduction techniques were used (e.g., Automated exposure control, adjustment of the mA and/or kV according to patient size, use of iterative reconstruction technique RADIATION DOSE SUMMARY: CTDlvol: 18.37 mGy DLP: 693.21 mGycm COMPARISON: Comparison is made with prior study dated October 26, 2024. FINDINGS: Hardware: None Lymph nodes: Unremarkable Heart and Vasculature: The heart is nonenlarged. Aortic annular calcification. Coronary Artery Calcifications: Present Lungs and Airways: Mild emphysematous changes are present. New irregular pulmonary nodule in the lingular segment of the left upper lobe as seen on axial image number 61. This measures 1 cm. Focal area of scarring is seen in the surrounding lung parenchyma. Stable otherwise tiny nodular density seen in both lungs. Focal scarring in the anterior aspect of the left lower lobe. Pleura: No pleural effusion. Upper Abdomen: Unremarkable Bones: Degenerative changes of the thoracic spine. CT/Chest without Contrast IMPRESSION: Coronary artery calcification (CAC) is is present Essentially stable examination except for a new 1 cm irregular spiculated nodul e in the lingular segment of the left upper lobe as seen on axial image number 61. Correlation with a PET scan recommended. Reading Location: [id number]
== END | disposition home or self-care (01) ==
LOC: CT 17:06
PROVIDERS: PCP Family Medicine; Referring Provider Nurse Practitioner Acute Care; Visit Provider Nurse Practitioner Acute Care
DX: R91.1 Solitary pulmonary nodule (principal)
CPT/HCPCS: 71250

== ENCOUNTER → 2025-03-02 | Outpatient (CLI) | payer MEDICARE, SELFPAY ==
--- NOTE | 2025-03-02 08:00 | PET_ITS ---
PROCEDURE: PET/CT TUMOR BASE -THIGH INIT 03/02/2025 REASON FOR EXAM: 74 y/o F with LUNG: Left upper lobe enlarging solitary pulmonary nodule, currently measuring 9.8 mm. TECHNIQUE: Following the intravenous administration of radionucleotide, image acquisition on a dedicated PET/CT unit was performed at one hour post injection. A preliminary CT study encompassing the Skull base, neck, chest, abdomen, pelvis, and proximal thighs was performed for purposes of attenuation correction and anatomic localization. The proximal thighs were also included. The patient's blood glucose level was 105 mg/dL (allowable range: 50-180 mg/dL). RADIOPHARMACEUTICAL: 12.294 mCi 18F-FDG (Fluorodeoxyglucose F18) IV was injected into he patient. RADIATION DOSE SUMMARY: Effective Dose: Approximately 7 mSv for a standard whole-body PET scan Organ Doses: Varies by organ, with higher doses typically to the bladder, liver, and brain COMPARISON: COMPARISON FROM CT, PET OR OTHER PERTINENT EXAMS: Chest CT of 02/18/2025. FINDINGS: Physiologic uptake: There may be expected metabolic uptake within the brain, tongue and floor of the mouth and larynx/vocal cords, heart, [place] (many normal individuals have hilar uptake in less than 3 nodes with mildly avid hilar nodes less than 2.7 SUV), liver and spleen, system, and GI tract and symmetric muscle uptake. FDG AVID AND NON-AVID LESIONS. Reported avid SUV values (g/mL*) are maximum SUV. NECK: There are no significant neck abnormalities. CHEST: Chest wall- There are no significant chest wall abnormalities. Axilla- There are no significant axillary abnormalities. Lung parenchyma- No focus of hypermetabolic activity is seen, including the area of the previously noted left upper lobe nodule. Moderate emphysematous changes are present. Mediastinum- There are no significant hilar or mediastinal adenopathy. Pleura- There are no significant pleural abnormalities. ABDOMEN: Moderate aortic calcification is seen; no evidence of abdominal aortic aneurysm. Stomach- No significant abnormalities. Liver- No significant abnormalities. Spleen- No significant abnormalities. Pancrease- No significant abnormalities. Kidneys- No significant abnormalities. Bowel- Normal bowel activity. Spine- No significant abnormalities. PELVIS: Bowel- Normal physiologic bowel activity is identified. Masses- There are no pelvic masses. Bones- Moderate degenerative changes of the spine are most apparent at the lower lumbar and cervical regions. With the use of bone window settings, there are no osteolytic or osteoblastic lesions. There are no FDG avid lesions within the visualized portion of the axial skeleton. PET/PET/CT Tumor Base -Thigh Init IMPRESSION: FDG avid- No significant avid lesions. Other: Moderate pulmonary emphysema. Moderate degenerative changes of the spine are most apparent at the lower lumba r and cervical regions. Please note the low-dose CT scan was performed to facilitate PET image reconstr uction and anatomic localization and does not replace a diagnostic CT. Any diagnostic CT requested and performed at the time of the PET will be reported separately. Reading Location: [place] [id number]
== END | disposition home or self-care (01) ==
PROVIDERS: PCP Family Medicine; Referring Provider Nurse Practitioner Acute Care; Visit Provider Nurse Practitioner Acute Care
DX: R91.8 Other nonspecific abnormal finding of lung field (principal); R91.1 Solitary pulmonary nodule
CPT/HCPCS: 78815; A9552

== ENCOUNTER → 2025-06-09 | Outpatient (CLI) | payer MEDICARE, SELFPAY ==
--- NOTE | 2025-06-09 14:57 | CT_ITS ---
PROCEDURE: CHEST WITHOUT CONTRAST 06/09/2025 REASON FOR EXAM: NODULE IN SMOKER COPD. Patient has smoked 1 pack per day for more than 50 years. TECHNIQUE: Chest CT without contrast. Coronal and Sagittal reconstruction series were provided. One or more dose reduction techniques were used (e.g., Automated exposure control, adjustment of the mA and/or kV according to patient size, use of iterative reconstruction technique RADIATION DOSE SUMMARY: CTDlvol: 15.67 mGy DLP: 540.26 mGycm COMPARISON: February 18, 2025. FINDINGS: Hardware: None Lymph nodes: Small benign-appearing mediastinal lymph nodes. Heart and Vasculature: The heart is nonenlarged. Atherosclerotic calcifications of the thoracic aorta. Thoracic aorta and pulmonary arteries have normal contours; noncontrast technique limits evaluation. Coronary Artery Calcifications: Present Lungs and Airways: Moderate degree of emphysematous changes worse in the upper lobes. The previously seen irregular nodular density in the lateral aspect of the lingular segment of the left upper lobe is not seen at this time. There is evidence of scarring along the medial aspect of the lingular segment of the left upper lobe as well as at the lung bases. Pleura: No pleural effusion. Upper Abdomen: Unremarkable. Bones: Degenerative changes of the thoracic spine. CT/Chest without Contrast IMPRESSION: Coronary artery calcification (CAC) is is present Emphysematous changes. Mild residual scarring. The previously seen irregular density in the lingula segment of the left upper lobe is not seen at this time. Reading Location: [id number]
== END | disposition home or self-care (01) ==
LOC: CT 14:56
PROVIDERS: PCP Family Medicine; Referring Provider Nurse Practitioner Acute Care; Visit Provider Nurse Practitioner Acute Care
DX: R91.1 Solitary pulmonary nodule (principal)
CPT/HCPCS: 71250

== ENCOUNTER → 2025-06-24 | Outpatient (CLI) | payer MEDICARE, SELFPAY ==
[2025-06-24 16:27] LABS: Hematocrit 51.7 % (37-47); Hemoglobin 16.3 g/dL (12.0-15.0); Immature Granulocytes Count 0.030 X10^3/uL (0.0-0.0); Mean Corp Hgb Conc 31.5 g/dL (32-36); Mean Corpuscular Volume 94.5 fL (81-99); Mean Platelet Vol. 10.8 fl (6.2-12.0); NRBC Flagged by Analyzer 0 % (0-5); Platelet Count 275 K/mm3 (150-450); RBC Distribution Width CV 13.2 % (11.6-14.6); RBC Distribution Width SD 46.1 fl (35.1-43.9); Red Blood Count 5.47 M/mm3 (4.2-5.4); White Blood Count 7.3 K/mm3 (4.4-11.0)
--- OUTSIDE RECORDS SUMMARY | 2025-06-24 18:14 | XMS RPT_ITS | CCD ---
Author Organization [facility] Care Team Providers Care Forgeman Helper Name Role Phone Davy Downey MD Primary Care Provider Dr. Davy Downey Primary Care Provider Dr. Earl Hutson Emergency Provider Dr. Jimmy Springer Admit Provider Dr. Jimmy Springer Attending Provider Dr. Jimmy Springer Other Provider Dr. Severino Mdasen Attending Provider Dr. Severino Madsen Other Provider Dr. Víctor Sim Attending Provider Dr. Deng Dubon Other Provider Dr. Arturo Maynard Other Provider Dr. Michael Soto Other Provider Unavailable Dr. Ty Jackson Other Provider Dr. Chance Mcintyre Other Provider Unavailab kathy Worrell NP, RANGE OPERATOR-C Nina Other Provider Dr. Michael Soto Attending Provider Unavailabl Davy Webb MD Primary Care Provider Davy Downey MD Primary Care Provider Lino CARRASCON.LANCE CREWMEMBER/MLRS SERGEANT, Fahad Unavailable Jennifer Ward PA-C Unavailable Preet MANZANO, Frankie Unavailable Dr. Davy Downey MD Primary Care Provider Worrell RANGE OPERATOR-C, Nina Attending Provider Gm RANGE OPERATOR-C, Nina Referring Provider Shayan ROBLEDO, Dr. Bhatti Referring Provider Lino PLATE FURNACE OPERATOR.KYLIE, Fahad Unavailable Ed FRAGOSO Jennifer Unavailable Dr. Davy Downey MD Primary Care Provider [phone] Gm RANGE OPERATOR-C, Nina Attending Provider Gm RANGE OPERATOR-C, Nina Referring Provider FAHAD WEBBER Attending Unavailable SHAYAN, DAVY A Primary Care Unavailable SHAYAN, DAVY A Attending Unavailable SHAYAN, DAVY A Referring Unavailable SHAYAN, DAVY A Primary Care Unavailable SHAYAN, DAVY A Referring Unavailable SHAYAN, DAVY A Primary Care Unavailable WENCESLAO SPENCER Attending Unavailable SHAYAN, DAVY A Primary Care Unavailable Shayan, Davy Primary Care Unavailable Worrell RANGE OPERATOR, Nina Referring Unavailable Worrell RANGE OPERATOR, Nina Attending Unavailable Shayan, Davy Referring Unavailable Worrell RANGE OPERATOR, Nina Attending Unavailable Shayan, Davy Primary Care Unavailable Worrell RANGE OPERATOR, Nina Attending Unavailable Shayan, Davy Primary Care Unavailable Shayan, Davy Referring Unavailable Shayan, Davy Primary Care Unavailable Rajwinder Rivera Attending Unavail able Shayan, Davy Referring Unavailable Shayan, Davy Referring Unavailable Chaya Laura NP Attending Unavailable Shayan, Davy Primary Care Unavailable Shayan, Davy Referring Unavailable Shayan, Davy Primary Care Unavailable Worrell RANGE OPERATOR, Nina Attending Unavailable Worrell RANGE OPERATOR, Nina Attending Unavailable Worrell RANGE OPERATOR, Nina Referring Unavailable Shayan, Davy Primary Care Unavailable Shayan, Davy Primary Care Unavailable Worrell RANGE OPERATOR, Nina Attending Unavailable Worrell RANGE OPERATOR, Nina Referring Unavailable Worrell RANGE OPERATOR, Nina Attending Unavailable Shayan, Davy Primary Care Unavailable Worrell RANGE OPERATOR, Nina Referring Unavailable Allergies Allergy Classification Reported Allergen(s) Allergy Type Date of Onset Reaction(s) Facility shrimp allergenic extract (1 source) shrimp allergenic extract Drug Allergy 09-01-2015 Vomiting [facility] Work Phone: Sulfites (1 source) Sulfites Substance Allergy 09-01-2015 Rash [facility] (20 sources) shrimp allergenic extract; Translations: [SHRIMP] Drug Allergy 09-01-2015 Vomiting [facility] Work Phone: (20 sources) Sulfites; Translations: [SULFITES] Drug Allergy 09-01-2015 [facility] Work Phone: (8 sources) Shellfish; Translations: [shellfish derived] Allergy to substance 05-08-2023 Other [facility] (8 sources) Sulfites; Translations: [sulfite] Allergy to substance 05-08-2023 [facility] Medications Current Medications Medication Drug Class(es) Dates Sig (Normalized) Sig (Original) [id number] 200 actuat albuterol 0.09 mg/actuat metered dose inhaler (20 sources) beta2-Adrenergic Agonist Start: 04-25-2023 End: 02-23-2025 Albuterol Sulfate 90 mcg/actuation HFA aerosol inhaler Active 2 NMA INHALATION Q4H as needed for shortness of breath or wheezing 8.5 11 February 23, 2025 2:36pm Start: 04-25-2023 take 1 puff(s) by in halation every four hours Albuterol Sulfate Active 2 PUFF INHALATION Q4H April 25, 2023 12:02pm Start: 01-18-2021 End: 02-19-2023 take 2 puff(s) by inhalation every four hours as needed for wheezing albuterol HFA (VENTOLIN HFA) 90 mcg/actuation inhaler Inhale 2 Puffs as instructed every 4 hours as needed for wheezing/shortness of breath. 1 Each 5 02/19/2023 Active Start: 04-08-2020 End: 04-25-2023 Albuterol Sulfate 1 INHALER inhaler Discontinued 2 NMA INHALATION EVERY 6 HOURS FOR 7 DAYS April 08, 2020 12:00am April 25, 2023 12:03pm after 1 week, use every 6 hours as needed for shortness of breath Start: 04-08-2020 End: 04-25-2023 Albuterol Sulfate Discontinu ed 2 PUFF INHALATION EVERY 6 HOURS FOR 7 DAYS April 08, 2020 12:00am April 25, 2023 12:03pm after 1 week, use every 6 hours as needed for shortness of breath Comment on above: Inhale 2 Puffs as in structed every 4 hours as needed for wheezing/shortness of breath. apixaban 5 mg oral tablet (20 sources) Factor Xa Inhibitor Start: End: ELIQUIS 5 mg tab(s) 04/01/2023 Active atorvastatin 20 mg oral tablet (17 sources) HMG-CoA Reductase Inhibitor Start: take 1 tablet by mouth once daily atorvastatin (LIPITOR) 20 mg tablet Take 1 tablet by mouth once daily. 30 tablet 10/10/2024 Active azithromycin 500 mg oral tablet (1 source) Macrolide Antimicrobial Start: End: take 1 tablet by mouth once daily azithromycin (ZITHROMAX TRI-ISRAEL) 500 mg tablet Indications: COPD with exacerbation (HCC) Take 1 tablet by mouth once daily for 3 days. 3 tablet 11/02/2024 11/05/2024 Active Fluticasone-Umeclidi n-Vilanter (20 sources) Anticholinergic, Corticosteroid, beta2-Adrenergic Agonist Start: Fluticasone-Umeclid in-Vilanter (Trelegy Ellipta) 100-62.5-25 mcg blister with device Active 1 NMA INHALATION daily 60 February 23, 2025 2:36pm Start: 02-23-2025 End: 02-23-2025 Fheitmewhnb-Ygbqwlfmu-Cyawbz er (Trelegy Ellipta) 100-62.5-25 mcg blister with device Discontinued 1 NMA INHALATION daily February 23, 2025 12:00am February 23, 2025 2:36pm Start: 07-17-2024 take 1 puff(s) by inhalation once daily igoavhxlbsi-kywmmrvjl-gadwpwwe (TRELEGY ELLIPTA) 100-62.5-25 mcg inhalation powder Indications: Chronic obstructive pulmonary disease, unspecified COPD type (HCC) Inhale 1 Puff as instructed once daily. 1 Each 5 07/17/2024 Active Start: 03-21-2023 End: 05-27-2024 Pvcsvxafsyj-Qwysaexgo-Blagrk er (Trelegy Ellipta) 100-62.5-25 mcg blister with device Discontinued 1 NMA INHALATION Q24H March 21, 2023 12:00am May 27, 2024 4:25pm Start: 03-21-2023 Fluticasone-Um eclidin-Vilanter (Trelegy Ellipta) 100-62.5-25 mcg blister with device Active 1 INH INHALATION Q24H March 21, 2023 12:00am Start: 03-21-2023 Fluticasone-Um eclidin-Vilanter [Fluticasone Fur. 100 Mcg-Umeclid 62.5 Mcg-Vilant 25 Mcg Inhalat.Powder] (Fluticasone Fur. 100 Mcg-Umeclid 62.5 Mcg-Vilant ) 100-62.5-25 mcg blister with device Active 1 INH INHALATION Q24H March 21, 2023 12:00am Start: 08-24-2021 End: 04-14-2024 take 1 puff(s) by inhalation once daily hnapwwcotne-fgarycthf-abjiberb (TRELEGY ELLIPTA) 100-62.5-25 mcg inhalation powder Inhale 1 Puff as instructed once daily. 1 Each 5 02/19/2023 04/14/2024 Discontinued (Cost of medication) Comment on above: Inhale 1 Puff as ins tructed once daily. furosemide 20 mg oral tablet (20 sources) Loop Diuretic Start: 10-12-2024 take 1 tablet by mouth once daily Furosemide 20 mg tablet Active 20 mg PO daily 13 06October 12, 2024 12:00am This is a dose decrease Start: 04-01-2023 End: 10-12-2024 furosemide (LASIX) 40 mg tab let 04/01/2023 Active metoprolol tartrate 25 mg oral tablet (20 sources) beta-Adrenergic Kelvin Start: 04-01-2023 End: 06-03-2024 metoprolol tartrate, short acting, (LOPRESSOR) 25 mg tablet TWICE A DAY 04/01/2023 Active Comment on above: TWICE A DAY omeprazole 20 mg delayed release oral capsule (20 sources) Proton Pump Inhibitor Start: 04-05-2020 End: 12-31-2024 take 2 capsules by mouth once daily omeprazole (PRILOSEC) 20 mg capsule Indications: GERD without esophagitis Take 2 capsules by mouth once daily. 60 capsule 5 01/01/2025 Active Start: 04-05-2020 End: 05-08-2023 take 40 mg by mouth once daily Omeprazole Active 40 MG PO DAILY May 08, 2023 10:29am Comment on above: Take 2 capsules by m out once daily. potassium chloride 10 meq extended release oral tablet (20 sources) Start: 04-01-2023 potassium chloride (K-TAB) 10 mEq tablet 04/01/2023 Active Start: 04-01-2023 End: 06-03-2024 take 2 tablets by mouth once daily Potassium Chloride 10 mEq tablet extended release Discontinued 20 meq PO DAILY 60 April 30, 2023 2:09pm June 03, 2024 11:09am Start: 04-01-2023 End: 04-30-2023 take 20 mEq by mouth once daily Potassium Chloride Act sandra 20 MEQ PO DAILY 60 April 30, 2023 2:09pm predniSONE 10 mg oral tablet (16 sources) Start: 11-02-2024 predniSONE (DE LTASONE) 10 mg tablet Indications: COPD with exacerbation (HCC) Take 4 tablets x 3 days, then 3 tablets x 3 days, then 2 tablets x 3 days, then one tablet x 3 days then stop 30 tablet 11/02/2024 Active Start: 04-01-2023 End: 04-15-2023 take 1 tablet by mouth twice daily, then take 1 tablet by mouth once daily Prednisone 20 mg tablet Discontinued 40 mg PO DAILY 12 April 01, 2023 12:00am April 15, 2023 10:59am one twice a day for 3 days, then one per day until gone Start: 04-01-2023 End: 04-15-2023 Prednisone Discontinued 40 M G PO DAILY April 01, 2023 12:00am April 15, 2023 10:59am one twice a day for 3 days, then one per day until gone Completed/Discontinued Medications Medication Drug Class(es) Dates Sig (Normalized) Sig (Original) acetaminophen 325 mg / oxyCODONE hydrochloride 5 mg oral tablet (10 sources) Opioid Agonist Start: 08-10-2021 End: 03-21-2023 Oxycodone-Acetamino phen 1 TABLET tablet Discontinued 1 {tbl} PO EVERY 6 HOURS NEEDED as needed for Pain 12 3 August 10, 2021 March 21, 2023 11:13am Closed fracture of distal end of right fibula Start: 08-10-2021 End: 03-21-2023 take 1 tablet by mouth every six hours as needed Oxycodone-Acetaminophen Discontinued 1 TABLET PO EVERY 6 HOURS NEEDED 12 August 10, 2021 March 21, 2023 11:13am Start: 08-10-2021 End: 10-05-2021 oxyCODONE-acetaminophen (PER COCET) 5-325 mg tablet Take by mouth. 0 08/10/2021 10/05/2021 Discontinued Comment on above: Take by mouth. smoking cessation 12 hr buPROPion hydrochloride 150 mg extended release oral tablet (5 sources) Aminoketone Start: 11-27-19 End: 02-24-20 take 1 tablet by mouth twice daily, then take 1 tablet by mouth every twelve hours Bupropion Hcl (Smoking Deter) 150 mg tablet extended release 12 hr Discontinued 150 mg PO TWICE A DAY 60 November 26, 2024 12:00am February 23, 2025 2:19pm cetirizine hydrochloride 10 mg oral tablet (9 sources) Histamine-1 Receptor Antagonist Start: 03-21-20 End: 10-17-19 take 1 tablet by mouth once daily Cetirizine (All Day Allergy (Cetirizine)) 10 mg tablet Discontinued 10 mg PO DAILY March 21, 2023 12:00am October 17, 2023 9:22am cholecalciferol 1.25 mg oral capsule (20 sources) Vitamin D Start: 04-25-20 End: 05-08-20 Cholecalciferol (Vitamin D3) 1,250 mcg (50,000 unit) capsule Discontinued PO April 25, 2023 12:00am May 08, 2023 10:28am Start: 10-28-2022 End: 10-07-2024 take 1 capsule by mouth every other week cholecalciferol, Vitamin D3, (VITAMIN D3) 1,250 mcg (50,000 unit) cap capsule Indications: Vitamin D deficiency Take 1 capsule by mouth every 2 weeks. 10/28/2022 10/07/2024 Discontinued Start: 08-24-2021 End: 09-10-2022 take 1 capsule by mouth every week cholecalciferol, Vitamin D3, (VITAMIN D3) 1,250 mcg (50,000 unit) cap capsule Indications: Vitamin D deficiency Take 1 capsule by mouth one time a week. 12 capsule 1 09/10/2022 Active Comment on above: Take 1 capsule by mo ut one time a week. Take 1 capsule by mo uth every 2 weeks. dronedarone 400 mg oral tablet (7 sources) Antiarrhythmic Start : 05-08 End: 07-30 take 1 tablet by mouth twice daily at mealtime Dronedarone (Multaq) 400 mg tablet Discontinued 400 mg PO TWICE A DAY May 08, 2023 12:00am July 30, 2023 6:18pm must administer with a meal/food hydroCHLOROthiazide 12.5 mg oral capsule (20 sources) Thiazide Diuretic Start : 04-05 End: 04-14 take 1 capsule by mouth once daily Hydrochlorothiazide 12.5 mg capsule Discontinued 12.5 mg PO DAILY April 25, 2023 12:00am May 08, 2023 10:28am Comment on above: Take 1 capsule by mo [facility] once daily. menthol 0.0044 mg/mg / zinc oxide 0.206 mg/mg topical ointment (10 sources) Start : 04-25 End: 05-08 Menthol-Zinc Oxide (Calmoseptine) 0.44-20.6 % ointment Discontinued TOPICAL April 25, 2023 12:00am May 08, 2023 10:29am Start: 04-25-2023 End: 05-08-2023 Menthol-Zinc Oxide (Calmosep sergio) 0.44-20.6 % ointment Discontinued TOPICAL April 25, 2023 12:00am May 08, 2023 10:29am Start: 04-09-2023 End: 05-09-2023 Menthol-Zinc Oxide (CALMOSEP SERGIO) 0.44-20.6 % Indications: Skin ulcer of multiple sites of buttock, limited to breakdown of skin (HCC) Apply to affected area three times daily as needed. 113 g 2 04/09/2023 05/09/2023 Comment on above: Apply to affected ar ea three times daily as needed. 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; Translations: [Chronic ulcer of other specified sites] 04-09-2023 Chronic Diabetes mellitus without complication (20 sources) Type 2 diabetes mellitus without complication; Translations: [Type 2 diabetes mellitus without complications] Onset: 10-28-2022 10-28-2022 Chronic Disorders of lipid metabolism (1 source) Mixed hyperlipidemia; Translations: [Hyperlipidemia, mixed] Onset: 04-15-2025 Chronic Esophageal disorders (20 sources) Gastroesophageal reflux disease without esophagitis; Translations: [Gastro-esophageal reflux disease without esophagitis] Onset: 05-28-2019 Chronic Essential hypertension (20 sources) Essential hypertension; Translations: [Essential (primary) hypertension] Onset: 05-20-2020 Chronic Fracture of lower limb (12 sources) Closed fracture of lateral malleolus; Translations: [Displaced fracture of lateral malleolus of right fibula, initial encounter for closed fracture] Episodic Immunizations and screening for infectious disease (2 sources) Vaccination needed; Translations: [Encounter for immunization] Onset: 04-15-2025 Episodic Menopausal disorders (20 sources) Primary ovarian failure; Translations: [Other primary ovarian failure] Onset: 03-03-2018 03-03-2018 Chronic Nutritional deficiencies (20 sources) Vitamin D deficiency; Translations: [Vitamin D deficiency, unspecified] Onset: 01-21-2020 04-23-2020 Chronic Osteoporosis (20 sources) Senile osteoporosis; Translations: [Age-related osteoporosis without current pathological fracture] Onset: 03-12-2018 Chronic Other ear and sense organ disorders (1 source) Impacted cerumen of bilateral ears; Translations: [Impacted cerumen, bilateral] Episodic Other hematologic conditions (1 source) Raised cardiac enzyme or marker; Translations: [Other specified abnormalities of plasma proteins] 03-21-2023 Episodic Other hematologic conditions (1 source) Other specified abnormalities of plasma proteins; Translations: [Other abnormal blood chemistry] 04-01-2023 Episodic Other hematologic conditions (1 source) Erythrocytosis; Translations: [Secondary polycythemia] 04-17-2024 Episodic Other lower respiratory disease (1 source) Dyspnea; Translations: [Shortness of breath] 03-21-2023 Episodic Other lower respiratory disease (19 sources) Hypoxia; Translations: [Hypoxemia] 03-21-2023 Episodic Other lower respiratory disease (1 source) Hypoxemia; Translations: [Hypoxemia] 04-01-2023 Episodic Other lower respiratory disease (1 source) Multiple nodules of lung; Translations: [Other nonspecific abnormal finding of lung field] 04-04-2023 Episodic Other lower respiratory disease (2 sources) Solitary pulmonary nodule; Translations: [Solitary pulmonary nodule] Onset: 02-26-2025 Episodic Other lower respiratory disease (1 source) Other nonspecific abnormal finding of lung field; Translations: [Other nonspecific abnormal finding of lung field] Onset: 03-09-2025 Episodic Other nutritional; endocrine; and metabolic disorders (20 sources) Obese class II; Translations: [Obesity, unspecified] Onset: 10-05-2021 Chronic Other nutritional; endocrine; and metabolic disorders (15 sources) Obesity; Translations: [Obesity, unspecified] 11-26-2024 Chronic Other screening for suspected conditions (not mental disorders or infectious disease) (20 sources) Patient encounter status; Translations: [Encounter for screening for malignant neoplasm of colon] Onset: 09-01-2015 09-01-2015 Episodic Other upper respiratory disease (1 source) Congestion of nasal sinus; Translations: [Nasal congestion] Episodic Other upper respiratory infections (20 sources) Chronic sinusitis; Translations: [Other chronic sinusitis] Onset: 10-24-2018 04-23-2020 Chronic Pneumonia (except that caused by tuberculosis or sexually transmitted disease) (9 sources) Pneumonia; Translations: [Pneumonia, unspecified organism] 03-21-2023 Episodic Residual codes; unclassified (16 sources) Obstructive sleep apnea syndrome; Translations: [Obstructive sleep apnea (adult) (pediatric)] 10-17-2023 Chronic Residual codes; unclassified (1 source) Asymptomatic menopausal state; Translations: [Asymptomatic menopause] Onset: 04-15-2025 Episodic Respiratory failure; insufficiency; arrest (adult) (2 sources) Dependence on supplemental oxygen when ambulating; Translations: [Dependence on supplemental oxygen] 04-09-2023 Chronic Screening and history of mental health and substance abuse codes (2 sources) Encounter for screening for depression; Translations: [Encounter for screening examination for other mental health and behavioral disorders] Onset: 04-15-2025 Episodic Septicemia (except in labor) (1 source) Sepsis; Translations: [Sepsis, unspecified organism] 04-09-2023 Episodic Sprains and strains (1 source) Sprain of right ankle; Translations: [Sprain of unspecified ligament of right ankle, initial encounter] 08-28-2021 Episodic Substance-related disorders (20 sources) Smoker; Translations: [Nicotine dependence, unspecified, uncomplicated] Onset: 09-01-2015 Chronic Comment on above: LDCT due 09/2024 Unclassified (1 source) Obesity, Class II, BMI 35-39.9; Translations: [Obesity, Class II, BMI 35-39.9] Onset: 10-24-2022 Unclassified (1 source) Other persistent atrial fibrillation; Translations: [Other persistent atrial fibrillation] Onset: 05-26-2025 Past or Other Problems Problem Classification Problem Date Documented Da te Episodic/Chronic Administrative/social admission (20 sources) Advance directive discussed with patient; Translations: [Other specified counseling] Onset: 10-05-2021 Episodic Diabetes mellitus without complication (20 sources) Hyperglycemia; Translations: [Impaired fasting glucose] Onset: 01-18-2021 Episodic Genitourinary symptoms and ill-defined conditions (20 sources) Proteinuria; Translations: [Other proteinuria] Onset: 01-18-2021 01-18-2021 Episodic Other aftercare (9 sources) Drug therapy finding; Translations: [Other terminal gauger (current) drug therapy] Onset: 01-21-2020 01-21-2020 Episodic Other aftercare (1 source) Other terminal gauger (current) drug therapy; Translations: [Medication management] Onset: 10-24-2022 Episodic Other connective tissue disease (20 sources) Mass of soft tissue; Translations: [Other specified soft tissue disorders] Onset: 09-26-2017 03-03-2018 Episodic Other hematologic conditions (20 sources) Secondary polycythemia; Translations: [Secondary polycythemia] Onset: 04-22-2024 04-22-2024 Episodic Other hematologic conditions (1 source) Secondary polycythemia; Translations: [Secondary polycythemia] Onset: 04-22-2024 Episodic Other lower respiratory disease (20 sources) Nodule of lung; Translations: [Solitary pulmonary nodule] Onset: 04-04-2023 04-04-2023 Episodic Comment on above: 7 mm new Residual codes; unclassified (20 sources) Bilateral lower limb edema; Translations: [Localized edema] Onset: 05-20-2020 05-20-2020 Episodic Residual codes; unclassified (1 source) Localized edema; Translations: [Bilateral leg edema] Onset: 05-20-2020 Episodic Results Test Name Value Interpretation Reference Range Facility CNOVon 04-15-2025 CNOV Office Visit (FAMPWS ) MIMA DOS SANTOS ([id number]) 1950 F Date Time Provider Department 04/15/25 3:40 PM [facility] During your visit today, we recorded the following information about you: Pulse Blood pressure Weight 76/minute 117/65 87 kg Fahad Webber APRN.CNP 04/15/2025 5:05 PM Signed Mima A Raya is a 74 year old female here for a Medicare wellness visit. Medicare Health Risk Assessment General Health Fair Exercise: Minutes/Day None Exercise: Days/Week None Alcohol: Daily Use None Alcohol: Drinks/Day None Alcohol: 6 or more drinks None Feel off balance No Concerns: Teeth/Dentures No Concerns: Sexual function Troubled by feelings No Frequency: Eating healthy diet Well rounded ADLs requiring help No Safety precautions in home/vehicle Yes Smoke, vape, chews tobacco Yes Difficulty hearing No Difficulty seeing No Current Providers Specialists: I have reviewed specialist-related care of the patient in the medical record. Current care team: Patient Care Team: Davy Downey MD as PCP - General (Family Medicine) Fahad Webber APRN.CNP as Rolfer (Family Medicine) Jennifer Ward PA-C as Rolfer (Family Medicine) Medical/Family history review Reviewed and updated problem list, medical/surgical/family/soci al history, medications, and allergies. Opioid use review Opioid Medications (last 90 days) No data to display Anxiety/Depression screening (Lower risk for depression) (Lower risk for anxiety) Recommendation: no further intervention at this time Cognitive screening Cognitive screening reviewed and No further action needed (score 3-5). Functional Observation Was the patient's Timed Up AND Go test unsteady or >= 12 seconds? No Advance Care Planning Patient did not wish or was not able to name a surrogate decision maker or provide an advance care plan Measurements BP 117/65 Pulse 76 Wt 87 kg (191 lb 12.8 oz) BMI 36.10 kg/m? Vision Screening: Follows with optometry/ophthalmology Assessment/Plan Medicare annual wellness visit, subsequent (Z00.00) - Counseled on healthy diet and regular exercise - Fall avoidance information provided - Personalized prevention plan provided Chief Complaint Patient presents with: Medicare Wellness Exam HPI Mima Dos Santos is a 74 year old female who presents here today for Above Complaints.. Patient presents for annual wellness exam Past medical history, appointments, medications, allergies reviewed. 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 COPD (chronic obstructive pulmonary disease) (HCC) 10/24/2018 Suspected- patient not wanting to do PFT but willing to trial inhalers Diverticulosis of colon without diverticulitis 03/28/2018 Elevated fasting glucose 01/18/2021 Essential hypertension 05/20/2020 Gastritis GERD without esophagitis 05/28/2019 History of Helicobacter pylori infection 03/28/2018 Lung nodule 04/04/2023 [facility] 03/21/2023 7.1 mm noncalcified nodule Rt middle lobe Obesity, Class II, BMI 35-39.9 10/05/2021 Osteoporosis Other chronic sinusitis 10/24/2018 Paroxysmal atrial fibrillation (HCC) 04/14/2024 Seeing cardio Secondary polycythemia 04/22/2024 Smoker 09/01/2015 Started at age 15 and up to 1PPD Vitamin D deficiency 01/21/2020 Previous Surgical History PAST SURGICAL HISTORY Procedure Laterality Date APPENDECTOMY COLONOSCOPY FLX DX W/COLLJ SPEC WHEN PFRMD 03/28/2018 Colonoscopy ESOPHAGOGASTRODUODENOSCOPY TRANSORAL DIAGNOSTIC 03/28/2018 EGD PAST SURGICAL HISTORY OF 1992 KIRBY Family History FAMILY HISTORY Problem Relation Age of Onset Stroke Mother Alzheimer's Disease Father Diabetes Sister Diabetes Sister Hypertension Sister Brain Cancer Sister Diabetes Brother Hypertension Brother Alzheimer's Disease Paternal Grandmother Patient Allergies ALLERGIES Allergen Reactions Sulfites Rash Shrimp Vomiting Current Medications Current Outpatient Medications on File Prior to Visit Medication Sig omeprazole (PRILOSEC) 20 mg capsule Take 2 capsules by mouth once daily. predniSONE (DELTASONE) 10 mg tablet Take 4 tablets x 3 days, then 3 tablets x 3 days, then 2 tablets x 3 days, then one tablet x 3 days then stop yecxqsxfzvr-rfngjrjit-edqzpo er (TRELEGY ELLIPTA) 100-62.5-25 mcg inhalation powder Inhale 1 Puff as instructed once daily. ELIQUIS 5 mg tab(s) furosemide (LASIX) 40 mg tablet (Patient taking differently: 20 mg.) metoprolol tartrate, short acting, (LOPRESSOR) 25 mg tablet TWICE A DAY potassium chloride (K-TAB) 10 mEq tablet (Patient not taking: Reported on 04/15/2025) albuterol HFA (VENTOLIN HFA) 90 mcg/actuation inhaler Inhale 2 Puffs as instructed every 4 hours as needed for wheezing/shortness of breath. No current facility-adminis (more content not included)... Normal [facility] Pulmonary Visit Reporton Pulmonary Visit Report [facility] of [address] [place] [address] OFFICE VISIT Date of Service: 03/10/25 MR#: [id number] Acct: [id number] Name: MIMA DOS SANTOS Rep #: [id number] : 1950 Provider: SATURNINO Worrell Age/Sex: 74/F Location: [facility] [place].[facility] Status: Signed Assessment and Plan Assessment and Plan (1) Lung nodule: Status: Chronic Plan: The PET scan is negative, we will continue to monitor by serial imaging completing a diagnostic CT of the chest in 3 months. Return to the office in 4 months to discuss test results. She has been encouraged to contact the office with any new or worsening symptoms in the meantime. (2) COPD (chronic obstructive pulmonary disease): Status: Chronic Qualifiers: COPD type: emphysema Emphysema type: centrilobular Qualified Code(s): J43.2 - Centrilobular emphysema Plan: Stable, she does not appear to be an exacerbation of COPD today. No need for prednisone or antibiotic. Continue current maintenance medication, symptomatically controlled with use of Trelegy. No additional testing at this time. Contact the office for any new or worsening symptoms. An acute visit and typically be arranged within 1-2 days. Follow-up in 4 months. (3) Hypoxia: Status: Chronic Plan: She is using and benefiting from supplemental oxygen. She continues to titrate as needed to maintain saturations 89 to 92%. She is compliant with supplemental oxygen bleed into her NIV machine. (4) Smoking greater than 40 pack years: Status: Chronic Plan: Encourage complete smoking cessation. (5) LAWANDA (obstructive sleep apnea): Status: Chronic Plan: She is using and benefiting from NIV therapy. No indication for titration study at this time. Contact the office for any new or worsening symptoms in the meantime. Follow up in 4 months. (6) Obesity: Status: Chronic Qualifiers: Body mass index: BMI 35.0-35.9 Obesity classification: adult class 2 (BMI 35 - 39.9) Obesity type: due to excess calories Serious obesity comorbidity presence: with serious comorbidity Qualified Code(s): E66.812 - Obesity, class 2; E66.01 - Morbid (severe) obesity due to excess calories; Z68.35 - Body mass index [BMI] 35.0-35.9, adult Plan: Complicates exam, plan, care and prognosis. Encourage healthy weight loss. Orders: Orders Chest without Contrast 3 Months R91.1 - Solitary pulmonary nodule Plan Details Additional Comments: This note was generated with [employer] dictation software. It may contain incorrect words, spelling, and punctuation that were not noted in checking the note before signing. Follow Up: 4 Months HPI 2 wk fu Chief Complaint: Test results HPI Comments Details: This patient presents to the office today for follow-up of her COPD with chronic hypoxic respiratory failure and obstructive sleep apnea to discuss test results. She is ambulatory. She has not recently been seen in the ED or urgent care for any respiratory illness. She has not required any antibiotics or prednisone for any breathing problems. She is compliant with use of Trelegy 1 puff daily. She does report rinsing her mouth out after each use. She denies any medication side effect such as sore throat or thrush. She does occasionally utilize albuterol rescue inhaler. She does have supplemental oxygen. She is compliant with the supplemental oxygen bleed into her Pap machine. She is currently smoking one pack/day. She does have shortness of breath on exertion. She reports an occasional cough that can be productive of clear-colored sputum, she denies any hemoptysis. She denies any wheezing, chest tightness, chest pain or palpitations. She also denies any fever, chills or body aches. Test results personally with patient: PET CT completed on March 02, 2025. No significant avid lesions. Intake Vital Signs 02/23/25 10:19 03/10/25 07:56 Height 5 ft 1 in 5 ft 1 in Weight: 192 lb BMI 36.2 BP 160/93 H Blood Pressure Location Lt brachial Position Sitting Respiration 18 Pulse 90 Pulse Source Monitor Temp 97.3 F L Temperature Source Temporal Artery Pulse Oximetry (%) 92 Oxygen Delivery Method room air Intake Visit Reasons: 2 wk fu Chief Complaint: F/U hospital Human Resources Recruiter Required: No DME Vendor: Kenneth Conrad Curbsy Accompanied by: Self Is patient in pain?: No Allergies sulfite Allergy (Unknown, Verified 03/10/25 08:01) Rash shellfish derived Allergy (Verified 03/10/25 08:01) Other Medications ???Medication ???Instructions ???Recorded ???Confirmed ???Type metoprolol tartrate 25 mg tablet 25 mg PO BID #60 tabs 06/03/24 Rx omeprazole 20 mg capsule,delayed 40 mg (2 x 20 mg) PO DAILY GERD 03/10/25 Rx release #30 caps potassium chloride 10 mEq 20 meq (2 x 10 mEq) PO DAILY (more content not included)... Normal [facility] Positron emission tomography scan reportOrdered By: Hector Melendez on 03-03-2025 PT Unspecified body region [facility] Imaging Services [address] [place] [address] PET/CT Tumor Base -Thigh Init MR#: [id number] Acct: [id number] Name: MIMA DOS SANTOS Rep #: [id number] : 1950 F 74 From: Trino Melendez MD PCP: Dr. Davy Downey MD Status: REG CLI Study:PET/CT Tumor Base -Thigh Init Date of E xam: 03/02/25 Exam# [id number] Ordering Dr: Bre Worrell NP RANGE OPERATOR-C PROCEDURE: PET/CT TUMOR BASE -THIGH INIT 03/02/2025 REASON FOR EXAM: 74 y/o F with LUNG: Left upper lobe enlarging solitary pulmonary nodule, currently measuring 9.8 mm. TECHNIQUE: Following the intravenous administration of radionucleotide, image acquisition on a dedicated PET/CT unit was performed at one hour post injection. A preliminary CT study encompassing the Skull base, neck, chest, abdomen, pelvis, and proximal thighs was performed for purposes of attenuation correction and anatomic localization. The proximal thighs were also included. The patient's blood glucose level was 105 mg/dL (allowable range: 50-180 mg/dL). RADIOPHARMACEUTICAL: 12.294 mCi 18F-FDG (Fluorodeoxyglucose F18) IV was injectedinto he patient. RADIATION DOSE SUMMARY: Effective Dose: Approximately 7 mSv for a standard whole-body PET scan Organ Doses: Varies by organ, with higher doses typically to the bladder, liver,and brain COMPARISON: COMPARISON FROM CT, PET OR OTHER PERTINENT EXAMS: Chest CT of 02/18/2025. FINDINGS: Physiologic uptake: There may be expected metabolic uptake within the brain, tongue and floor of the mouth and larynx/vocal cords, heart, [place] (many normal individuals have hilar uptake in less than 3 nodes with mildly avid hilar nodes less than 2.7 SUV), liver and spleen, system, and GI tract and symmetric muscle uptake. FDG AVID AND NON-AVID LESIONS. Reported avid SUV values (g/mL*) are maximum SUV. NECK: There are no significant neck abnormalities. CHEST: Chest wall- There are no significant chest wall abnormalities. Axilla- There are no significant axillary abnormalities. Lung parenchyma- No focus of hypermetabolic activity is seen, including the area of the previously noted left upper lobe nodule. Moderate emphysematous changes are present. Mediastinum- There are no significant hilar or mediastinal adenopathy. Pleura- There are no significant pleural abnormalities. ABDOMEN: Moderate aortic calcification is seen; no evidence of abdominal aortic aneurysm. Stomach- No significant abnormalities. Liver- No significant abnormalities. Spleen- No significant abnormalities. Pancrease- No significant abnormalities. Kidneys- No significant abnormalities. Bowel- Normal bowel activity. Spine- No significant abnormalities. PELVIS: Bowel- Normal physiologic bowel activity is identified. Masses- There are no pelvic masses. Bones- Moderate degenerative changes of the spine are most apparent at the lower lumbarand cervical regions. With the use of bone window settings, there are no osteolytic or osteoblastic lesions. There are no FDG avid lesions within the visualized portion of the axial skeleton. PET/PET/CT Tumor Base -Thigh Init IMPRESSION: FDG avid- No significant avid lesions. Other: Moderate pulmonary emphysema. Moderate degenerative changes of the spine are most apparent at the lower lumbarand cervical regions. Please note the low-dose CT scan was performed to facilitate PET image reconstruction and anatomic localization and does not replace a diagnostic CT. Any diagnostic CT requested and performed at the time of the PET will be reported separately. Reading Location: [place] [address] CC: SATURNINO Worrell; Dr. Davy Downey MD ~ Public Opinion Survey Taker: Signed [facility] PET/CT Tumor Base -Thigh Ini ton 03-02-2025 PET/CT Tumor Base -Thigh Init [facility] Imaging Services [address] [place] [address] PET/CT Tumor Base -Thigh Init MR#: [id number] Acct: [id number] Name: MIMA DOS SANTOS Rep #: [id number] : 1950 F 74 From: Hector Fernandes PCP: Dr. Davy Downey MD Status: REG CL Study: PET/CT Tumor Base -Thigh Init Date of Exam: Exam# [id number] Ordering Dr: Nina Worrell NP RANGE OPERATOR-C PROCEDURE: PET/CT TUMOR BASE -THIGH INIT 03/02/2025 REASON FOR EXAM: 74 y/o F with LUNG: Left upper lobe enlarging solitary pulmonary nodule, currently measuring 9.8 mm. TECHNIQUE: Following the intravenous administration of radionucleotide, image acquisition on a dedicated PET/CT unit was performed at one hour post injection. A preliminary CT study encompassing the Skull base, neck, chest, abdomen, pelvis, and proximal thighs was performed for purposes of attenuation correction and anatomic localization. The proximal thighs were also included. The patient's blood glucose level was 105 mg/dL (allowable range: 50-180 mg/dL). RADIOPHARMACEUTICAL: 12.294 mCi 18F-FDG (Fluorodeoxyglucose F18) IV was injected into he patient. RADIATION DOSE SUMMARY: Effective Dose: Approximately 7 mSv for a standard whole-body PET scan Organ Doses: Varies by organ, with higher doses typically to the bladder, liver, and brain COMPARISON: COMPARISON FROM CT, PET OR OTHER PERTINENT EXAMS: Chest CT of 02/18/2025. FINDINGS: Physiologic uptake: There may be expected metabolic uptake within the brain, tongue and floor of the mouth and larynx/vocal cords, heart, [place] (many normal individuals have hilar uptake in less than 3 nodes with mildly avid hilar nodes less than 2.7 SUV), liver and spleen, system, and GI tract and symmetric muscle uptake. FDG AVID AND NON-AVID LESIONS. Reported avid SUV values (g/mL*) are maximum SUV. NECK: There are no significant neck abnormalities. CHEST: Chest wall- There are no significant chest wall abnormalities. Axilla- There are no significant axillary abnormalities. Lung parenchyma- No focus of hypermetabolic activity is seen, including the area of the previously noted left upper lobe nodule. Moderate emphysematous changes are present. Mediastinum- There are no significant hilar or mediastinal adenopathy. Pleura- There are no significant pleural abnormalities. ABDOMEN: Moderate aortic calcification is seen; no evidence of abdominal aortic aneurysm. Stomach- No significant abnormalities. Liver- No significant abnormalities. Spleen- No significant abnormalities. Pancrease- No significant abnormalities. Kidneys- No significant abnormalities. Bowel- Normal bowel activity. Spine- No significant abnormalities. PELVIS: Bowel- Normal physiologic bowel activity is identified. Masses- There are no pelvic masses. Bones- Moderate degenerative changes of the spine are most apparent at the lower lumbar and cervical regions. With the use of bone window settings, there are no osteolytic or osteoblastic lesions. There are no FDG avid lesions within the visualized portion of the axial skeleton. PET/PET/CT Tumor Base -Thigh Init IMPRESSION: FDG avid- No significant avid lesions. Other: Moderate pulmonary emphysema. Moderate degenerative changes of the spine are most apparent at the lower lumbar and cervical regions. Please note the low-dose CT scan was performed to facilitate PET image reconstruction and anatomic localization and does not replace a diagnostic CT. Any diagnostic CT requested and performed at the time of the PET will be reported separately. Reading Location: [place] [address] CC: SATURNINO Worrell; Dr. Davy Downey MD Public Opinion Survey Taker: Signed Normal [facility] Pulmonary Visit Reporton Pulmonary Visit Report [facility] of [place] [address] [place] [address] OFFICE VISIT Date of Service: 02/23/25 MR#: [id number] Acct: [id number] Name: MIMA DOS SANTOS Rep #: [id number] : 1950 Provider: SATURNINO Worrell Age/Sex: 74/F Location: [facility] [place].[facility] Status: Signed Assessment and Plan Assessment and Plan (1) Lung nodule: Status: Chronic Plan: Deteriorated. There is a new 1 cm irregular spiculated nodule in the lingular segment of the left upper lobe. I discussed with the patient the possibilities of following up on this lung nodule. We discussed the possibility of obtaining a CT-guided biopsy versus a PET scan. The patient prefers to do less invasive first. I have ordered a PET scan. She understands that if the PET scan is positive we will be proceeding with a tissue biopsy. However, if the PET scan is negative we will continue to monitor by serial imaging completing a diagnostic CT of the chest in 3 months. Return to the office in 2 to 3 weeks to discuss test results. She has been encouraged to contact the office with any new or worsening symptoms in the meantime. (2) COPD (chronic obstructive pulmonary disease): Status: Chronic Qualifiers: COPD type: emphysema Emphysema type: centrilobular Qualified Code(s): J43.2 - Centrilobular emphysema Plan: Stable, she does not appear to be an exacerbation of COPD today. No need for prednisone or antibiotic. Continue current maintenance medication, symptomatically controlled with use of Trele gy. No additional testing at this time. Contact the office for any new or worsening symptoms. An acute visit and typically be arranged within 1-2 days. Follow-up in 4 months. (3) Hypoxia: Status: Chronic Plan: She is using and benefiting from supplemental oxygen. She continues to titrate as needed to maintain saturations 89 to 92%. She is compliant with supplemental oxygen bleed into her NIV machine. (4) Smoking greater than 40 pack years: Status: Chronic Plan: Encourage complete smoking cessation. Unfortunately, the patient tried and failed Chantix. (5) LAWANDA (obstructive sleep apnea): Status: Chronic Plan: She is using and benefiting from NIV therapy. No indication for titration study at this time. She was compliant 24 out of 30 days this past month. I have encouraged her to be more compliant with PAP therapy to experience better benefit, she conveys understanding. Contact the office for any new or worsening symptoms in the meantime. Follow up in 4 months. (6) Obesity: Status: Chronic Qualifiers: Body mass index: BMI 35.0-35.9 Obesity classification: adult class 2 (BMI 35 - 39.9) Obesity type: due to excess calories Serious obesity comorbidity presence: with serious comorbidity Qualified Code(s): E66.812 - Obesity, class 2; E66.01 - Morbid (severe) obesity due to excess calories; Z68.35 - Body mass index [BMI] 35.0-35.9, adult Plan: Complicates exam, plan, care and prognosis. Encourage healthy weight loss. Orders: Orders PET/CT Tumor Base -Thigh Init Today R91.1 - Solitary pulmonary nodule, R91.8 - Other nonspecific abnormal finding of lung field Medications: New albuterol sulfate 90 mcg/actuation 2 puffs inhalation Q4H PRN 8.5 grams 11RF shortness of breath or wheezing jvnzfxwzrjo-ktduptjdd-emwyxe er 100-62.5-25 mcg (Trelegy Ellipta) 1 ea inhalation QDAY 60 ea 11RF Plan Details Additional Comments: This note was generated with [employer] dictation software. It may contain incorrect words, spelling, and punctuation that were not noted in checking the note before signing. Follow Up: 3 Weeks HPI Test results Chief Complaint: Test results HPI Comments Details: This patient presents to the office today for follow-up of her COPD with chronic hypoxic respiratory failure and obstructive sleep apnea. She is ambulatory. She has not recently been seen in the ED or urgent care for any respiratory illness. She has not required any antibiotics or prednisone for any breathing problems. She is compliant with use of Trelegy 1 puff daily. She does report rinsing her mouth out after each use. She denies any medication side effect such as sore throat or thrush. She does occasionally utilize albuterol rescue inhaler. She does have supplemental oxygen. She is compliant with the supplemental oxygen bleed into her Pap machine. She is currently smoking one pack/day. She does have shortness of breath on exertion. She reports an occasional cough that can be productive of clear-colored sputum, she denies any hemoptysis. She denies any wheezing, chest tightness, chest pain or palpitations. She also denies any fever, chills or body aches. Test results personally with patient: Chest CT completed on February 18, 2025. Mild emphysematous changes present. New irregular pulmonary nodule in the lingular segment o (more content not included)... Normal [facility] Chest without Contraston Chest without Contrast [facility] Imaging Services [address] [place] [address] Chest without Contrast MR#: [id number] Acct: [id number] Name: MIMA DOS SANTOS Rep #: [id number] : 1950 F 74 From: Cameron rowe MD PCP: Dr. Davy Downey MD Status: REG CLI Study: Chest without Contrast Date of Exam: 02/18/25 Exam# [id number] Ordering Dr: Nina Worrell RANGE OPERATOR RANGE OPERATOR-C PROCEDURE: CHEST WITHOUT CONTRAST 02/18/2025 REASON FOR EXAM: LUNG NODULE IN SMOKER Follow-up examination. History of COPD. TECHNIQUE: Chest CT without contrast. Coronal and Sagittal reconstruction series were provided. One or more dose reduction techniques were used (e.g., Automated exposure control, adjustment of the mA and/or kV according to patient size, use of iterative reconstruction technique RADIATION DOSE SUMMARY: CTDlvol: 18.37 mGy DLP: 693.21 mGycm COMPARISON: Comparison is made with prior study dated October 26, 2024. FINDINGS: Hardware: None Lymph nodes: Unremarkable Heart and Vasculature: The heart is nonenlarged. Aortic annular calcification. Coronary Artery Calcifications: Present Lungs and Airways: Mild emphysematous changes are present. New irregular pulmonary nodule in the lingular segment of the left upper lobe as seen on axial image number 61. This measures 1 cm. Focal area of scarring is seen in the surrounding lung parenchyma. Stable otherwise tiny nodular density seen in both lungs. Focal scarring in the anterior aspect of the left lower lobe. Pleura: No pleural effusion. Upper Abdomen: Unremarkable Bones: Degenerative changes of the thoracic spine. CT/Chest without Contrast IMPRESSION: Coronary artery calcification (CAC) is is present Essentially stable examination except for a new 1 cm irregular spiculated nodule in the lingular segment of the left upper lobe as seen on axial image number 61. Correlation with a PET scan recommended. Reading Location: [id number] CC: SATURNINO Worrell; Dr. Davy Downey MD Public Opinion Survey Taker: Signed Normal [facility] Pulmonary Visit Reporton Pulmonary Visit Report [facility] of [address] [place] [address] OFFICE VISIT Date of Service: 11/26/24 MR#: [id number] Acct: [id number] Name: MIMA DOS SANTOS Rep #: [id number] : 1950 Provider: SATURNINO Worrell Age/Sex: 74/F Location: [facility] [place].[facility] Status: Signed Assessment and Plan Assessment and Plan (1) COPD (chronic obstructive pulmonary disease): Status: Chronic Qualifiers: COPD type: emphysema Emphysema type: centrilobular Qualified Code(s): J43.2 - Centrilobular emphysema Plan: table, she does not appear to be an exacerbation of COPD today. No need for prednisone or antibiotic. Continue current maintenance medication, symptomatically controlled with use of Francisco Javier legy. No additional testing at this time. Contact the office for any new or worsening symptoms. An acute visit and typically be arranged within 1-2 days. Follow-up in 4 months. (2) Hypoxia: Status: Chronic Plan: She is using and benefiting from supplemental oxygen. She continues to titrate as needed to maintain saturations 89 to 92%. She is compliant with supplemental oxygen bleed into her NIV machine. (3) Smoking greater than 40 pack years: Status: Chronic Comment: LDCT due 09/2024 Plan: Encourage complete smoking cessation. We discussed habit changes such as using suckers or wooden cinnamon sticks. The patient is open to trying Wellbutrin. Also provided with printed materials on how to use Wellbutrin to quit smoking. (4) LAWANDA (obstructive sleep apnea): Status: Chronic Plan: She is using and benefiting from NIV therapy. No indication for titration study at this time. She was compliant 24 out of 30 days this past month. I have encouraged her to be more compliant with PAP therapy to experience better benefit, she conveys understanding. Contact the office for any new or worsening symptoms in the meantime. Follow up in 4 months. (5) Obesity: Status: Chronic Qualifiers: Obesity type: due to excess calories Obesity classification: adult class 2 (BMI 35 - 39.9) Serious obesity comorbidity presence: with serious comorbidity Body mass index: BMI 35.0-35.9 Qualified Code(s): E66.812 - Obesity, class 2; E66.01 - Morbid (severe) obesity due to excess calories; Z68.35 - Body mass index [BMI] 35.0-35.9, adult Plan: Complicates exam, plan, care and prognosis. Encourage healthy weight loss. (6) Lung nodule: Status: Chronic Comment: 7 mm new Plan: Slightly increased in size. Will perform a diagnostic CT of the chest in 3 months. Return to the office in 4 months to discuss test results. Orders: Orders Chest without Contrast 3 Months R91.1 - Solitary pulmonary nodule Medications: New bupropion HCl (smoking deter) 150 mg PO BID 60 tabs 0RF Plan Details Additional Comments: This note was generated with [employer] dictation software. It may contain incorrect words, spelling, and punctuation that were not noted in checking the note before signing. Follow Up: 4 Months HPI 1 Y FU Chief Complaint: Test results HPI Comments Details: This patient presents to the office today for follow-up of her COPD with chronic hypoxic respiratory failure and obstructive sleep apnea. She is ambulatory. She was seen in the urgent care about a month ago for a cough that was productive of green-colored sputum. She was prescribed a Z-[place] and prednisone. She is compliant with use of Trelegy 1 puff daily. She does report rinsing her mouth out after each use. She denies any medication side effect such as sore throat or thrush. She hasn't been using cetirizine, but she admits that she should be. She does occasionally utilize albuterol rescue inhaler. She is compliant with Lasix 20 mg daily. She does have supplemental oxygen. She is compliant with the supplemental oxygen bleed into her Pap machine. She is currently smoking a little less than a pack/day. She does have shortness of breath on exertion. She reports an occasional cough that can be productive of clear-colored sputum, she denies any hemoptysis. She denies any wheezing, chest tightness, chest pain or palpitations. She also denies any fever, chills or body aches. She wakes up feeling rested and refreshed with use of her NIV device. She is not nodding off to sleep unintentionally. She is not having nocturia. She denies difficulty with morning headaches. She usually has dry mouth. Compliance report for the last 30 days shows 80% compliance with an average use of 5 and half hours per night. Currently on AVAPS???AE mode. Median tidal volume 500 mL. Pressures ranging from 7 to 15 cm of water with a pressure support of 8 cm of water. Leaks do not appear to be problematic. Test results personally with patient: LDCT completed on October 26, 2024. 9.8 mm right lower lobe nodule. Similar additional and smaller nodules prominently (more content not included)... Normal [facility] CNOVon 11-02-2024 CNOV Office Visit (INTMWS ) MIMA DOS SANTOS ([id number]) 1950 F Date Time Provider Department 11/02/24 3:40 PM WENCESLAO SPENCER INTMWS During your visit today, we recorded the following information about you: Pulse Respiration Blood pressure 82/minute 16/minute 148/76 Wenceslao Spencer, PLATE FURNACE OPERATOR.ELECTRICIAN'S ASSISTANT 11/02/2024 4:03 PM Signed SUBJECTIVE Mima Duarte Raya is a 74 year old female who presents with 3 days of symptoms that are stable. 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 - Productive cough with yellow to green sputum. - Difficult to control; more frequent than usual. Dyspnea: - Worsened since onset of illness. - Uses oxygen at night; has a portable oxygen tank for daytime use but typically does not use it. - Follows with pulmonology; seen by RANGE OPERATOR Mari Ho. Fatigue: - Persistent since onset of illness. Fever and Chills: - Fever on Saturday night and last night; managed with Tylenol. - Temperature this morning was 97.7?F after taking Tylenol. - Chills reported on Saturday night and last night. Additional Symptoms: - Myalgias and headaches. - Sore throat. - Clear nasal congestion and drainage, described as almost an allergy type thing. - Denies nausea, emesis, or diarrhea. Recent Illness Exposure: - Had dinner with sister on Saturday night; sister reported having bronchitis. Medications: - Taking Tylenol and Caridad-Willow Plus tablets. - Using Trelegy and albuterol inhalers; reports albuterol is helpful. - Denies need for albuterol refill. Diabetes: - Denies having diabetes; not on any diabetic medications. - Recent A1c was 6.4%. OTC meds/remedies that patient has tried: acetaminophen and OTC cold medicine. High risk category assessment Age > 60 years old Chronic lung disease Exposures: Sick contacts? No Family or close contacts with confirmed/probable COVID-19 in last 14 days? No She reports that she has been smoking cigarettes. She has a 50 pack-year smoking history. She has never used smokeless tobacco. OBJECTIVE PHYSICAL EXAM: BP 148/76 Pulse 82 Resp 16 SpO2 (!) 89% General appearance: tired/ill appearing, alert, cooperative, pleasant, in no acute distress Head: Normocephalic Eyes: conjunctiva/corneas normal Ears: R TM - clear with good landmarks, nl light reflex, L TM - clear with good landmarks, nl light reflex Nose: clear Oropharynx: moist without lesions, mild erythema to GPA, no exudate Neck: supple and small, benign anterior cervical nodes bilaterally Heart: regular rate and rhythm, without murmur Lungs: diminished breath sounds, wheezing diffusely ASSESSMENT/PLAN (J44.1) COPD with exacerbation (HCC) (primary encounter diagnosis) ASSESSMENT/PLAN: 1. COPD with exacerbation (HCC) - ICD9: 491.21, ICD10: J44.1 Prefers not to check for RSV,Covid, influenza Recommend Wear O2 3 L NC which she has at home, start taking medication today, supportive care. Let us know if not feeling improved. - PREDNISONE 10 MG TABLET - AZITHROMYCIN 500 MG TABLET Wenceslao Spencer APRN.ELECTRICIAN'S ASSISTANT Medical Decision Making: Problems: Low: Acute, uncomplicated illness or injury Moderate: 2+ stable chronic illnesses Risk: Moderate: Drug management Medical Decision Making Level: 4 - Moderate Allergies As of Date: 11/02/2024 Noted Allergy Reaction SULFITES 09/01/2015 2 - Rash SHRIMP 09/01/2015 11 - Vomiting Date Reviewed: 11/02/2024 Reviewed by: Marichuy Ambriz LPN - Fully Assessed Reason for Visit: Cough [28] Primary Visit Diagnosis:COPD with exacerbation (HCC) [J44.1] Order(s):predniSONE (DELTASONE) 10 mg tabletTake 4 tablets x 3 days, then 3 tablets x 3 days, then 2 tablets x 3 days, then one tablet x 3 days then stopDisp: 30 tabletRfl: 0 azithromycin (ZITHROMAX TRI-ISRAEL) 500 mg tabletTake 1 tablet by mouth once daily for 3 days.Disp: 3 tabletRfl: 0 Prescriptions as of 11/02/2024 - predniSONE (DELTASONE) 10 mg tablet Take 4 tablets x 3 days, then 3 tablets x 3 days, then 2 tablets x 3 days, then one tablet x 3 days then stop - azithromycin (ZITHROMAX TRI-ISRAEL) 500 mg tablet Take 1 tablet by mouth once daily for 3 days. - atorvastatin (LIPITOR) 20 mg tablet Take 1 tablet by mouth once daily. - qffdfbnlimd-ujshkjqba-vmsqng er (TRELEGY ELLIPTA) 100-62.5-25 mcg inhalation powder Inhale 1 Puff as instructed once daily. - HANNAH (more content not included)... Normal [facility] Low Dose CT Lung Screeningon 10-26-[address] Lung Screening [facility] Imaging Services [address] [place], [place] [address] Low Dose CT Lung Screening MR#: [id number] Acct: [id number] Name: MIMA DOS SANTOS Rep #: [id number] : 1950 F 74 From: Dhaval Arango MD PCP: Dr. Davy Downey MD Status: [facility] CLI Study: Low Dose CT Lung Screening Date of Exam: 10/26 Exam# [id number] Ordering Dr: Nina Worrell RANGE OPERATOR RANGE OPERATOR-C PROCEDURE: LOW DOSE CT LUNG SCREENING 10/26/2024 REASON FOR EXAM: >20 PACK YEARS TECHNIQUE: Low Dose CT Lung screening without contrast. Coronal and Sagittal reconstruction series were provided. One or more dose reduction techniques were used (e.g., Automated exposure control, adjustment of the mA and/or kV according to patient size, use of iterative reconstruction technique). REFERENCE LINK: [email or web address] Lung-RADS RADIATION DOSE SUMMARY: CTDlvol: 4.02 mGy DLP: 133.41 mGycm COMPARISON: None. FINDINGS: Note that evaluation of the vasculature, [place], and soft tissues is limited in the absence of IV contrast. Heart/pericardium:Moderate multivessel coronary atherosclerosis and/or stents. Mild aortic annular calcification. Aorta: Mild/moderate atherosclerosis.. Pulmonary arteries: Enlarged central pulmonary arteries which may indicate pulmonary arterial hypertension. Lymph nodes: Unremarkable. Lungs/pleura: Emphysema. Biapical pleural/parenchymal scarring. Bibasilar atelectasis/scarring. 9 x 8 mm RIGHT lower lobe nodule (series 2, image 180). Similar additional similar and smaller nodules annotated on series 2. prominent likely fissural intrapulmonary lymph node on the RIGHT. Airways: Mild endobronchial debris within the lower lobes. Mild central bronchial wall thickening.. Chest wall: Unremarkable. Upper abdomen: Gastric underdistention limits evaluation of wall thickness.. Musculoskeletal: Demineralization. Multilevel spondylosis. Mild scoliosis.. CT/Low Dose CT Lung Screening IMPRESSION: 1. Lung-RADS category: 4AS (suspicious, 5-15% chance of malignancy); recommend 3-month follow-up with LDCT or PET-CT if there is a ?8 mm solid component. 2. Other clinically significant or potentially significant non-lung cancer findings: Moderate multivessel coronary atherosclerosis.. 3. Additional description as above. Recommendations per [employer]. Lung CT Screening Reporting and Data System (Lung-RADS) v. 2021 Reading Location: [id number] CC: SATURNINO Worrell; Dr. Davy Downey MD Public Opinion Survey Taker: Signed Normal [facility] 25(OH)D3 [facility] 25-hydroxyvitamin D3 [Mass/Vol] 31.9 ng/mL Normal 31.0-80.0 [facility] Comment on above: Order Comment: Speci men Type: BLOOD SPECIMENOrdering Facility: [facility] Address: [address] [place] [address] Performed By: #### 1 989-3 ####[facility] LABCLIA [id number] [place] [address] [place] Basic metabolic 2000 panelon 10-08-2024 Anion gap [Moles/Vol] 9 mmol/L Normal 8-15 [facility] Comment on above: Order Comment: Speci men Type: BLOOD SPECIMENOrdering Facility: [facility] Address: [address] [place] [address] Performed By: #### L IPNF, 19962-9 ####[facility] LABORATORYCLIA [id number] [place] [address] [place] Calcium [Mass/Vol] 9.4 mg/dL Normal 8.5-10.2 [facility] Comment on above: Order Comment: Speci men Type: BLOOD SPECIMENOrdering Facility: [facility] Address: [address] [place] [address] Performed By: #### L IPNF, 94453-1 ####[facility] LABORATORYCLIA [id number] [place] [id number] [place] Chloride [Moles/Vol] 103 mmol/L Normal 98-107 [facility] Comment on above: Order Comment: Speci men Type: BLOOD SPECIMENOrdering Facility: [facility] Address: [address] [place] [address] Performed By: #### L IPNF, 55743-7 ####[facility] LABORATORYCLIA [id number] [place] [id number] [place] CO2 [Moles/Vol] 27 mmol/L Normal 22-30 [facility] Comment on above: Order Comment: Speci men Type: BLOOD SPECIMENOrdering Facility: [facility] Address: [address] [place] [address] Performed By: #### L IPNF, 90886-0 ####[facility] LABORATORYCLIA [id number] [address] [place] Creatinine [Mass/Vol] 1.21 mg/dL High 0.58-0.96 [facility] Comment on above: Order Comment: Speci men Type: BLOOD SPECIMENOrdering Facility: [facility] Address: [address] [place] [address] Performed By: #### L IPNF, 50796-7 ####[facility] LABORATORYCLIA [id number] [address] Creatinine and Glomerular filtration rate.predicted panel (S/P/Bld) 47 mL/min/1.73m??? Low >=60 [facility] Comment on above: Order Comment: Speci men Type: BLOOD SPECIMENOrdering Facility: [facility] Address: [address] [place] [address] Result Comment: Sherice mated Glomerular Filtration Rate (eGFR) is calculated using the 2020 CKD-EPI creatinine equation. This equation utilizes serum creatinine, sex, and age as parameters. The creatinine assay has traceable calibration to isotope dilution-mass spectrometry. Refer to KDIGO guidelines for clinical interpretation. In patients with unstable renal function, e.g. those with acute kidney injury, the eGFR may not accurately reflect actual GFR. Performed By: #### L LOBO, 17156-9 ####[facility] LABORATORYCLIA [id number] [place] [id number] [place] Glucose [Mass/Vol] 100 mg/dL High 74-99 [facility] Comment on above: Order Comment: Kelsea fairchild Type: BLOOD SPECIMENOrdering Facility: [facility] Address: [address] [place] [address] Result Comment: The [place] [employer] (ADA) provides guidance for cutoff values for fasting glucose and random glucose. The ADA defines fasting as no caloric intake for at least 8 hours. Fasting plasma glucose results between 100 to 125 mg/dL indicate increased risk for diabetes (prediabetes). Fasting plasma glucose results greater than or equal to 126 mg/dL meet the criteria for diagnosis of diabetes. In the absence of unequivocal hyperglycemia, results should be confirmed by repeat testing. In a patient with classic symptoms of hyperglycemia or hyperglycemic crisis, random plasma glucose results greater than or equal to 200 mg/dL meet the criteria for diagnosis of diabetes. Reference: Standards of Medical Care in Diabetes 2016, [place] [employer]. Diabetes Care. 2016.39(Suppl 1). Performed By: #### L LOBO, 76551-3 ####[facility] LABORATORYCLIA [id number] [place] [address] [place] Potassium [Moles/Vol] 4.6 mmol/L Normal 3.7-5.1 [facility] Comment on above: Order Comment: Kelsea fairchild Type: BLOOD SPECIMENOrdering Facility: [facility] Address: [address] [place] [address] Performed By: #### L LOBO, 04094-5 ####[facility] LABORATORYCLIA [id number] [place] [address] [place] Sodium [Moles/Vol] 139 mmol/L Normal 136-144 [facility] Comment on above: Order Comment: Kelsea fairchild Type: BLOOD SPECIMENOrdering Facility: [facility] Address: [address] [place] [address] Performed By: #### L IPNF, 43236-4 ####[facility] LABORATORYCLIA [id number] [place] [address] [place] Urea nitrogen [Mass/Vol] 23 mg/dL High 7- [facility] Comment on above: Order Comment: Speci men Type: BLOOD SPECIMENOrdering Facility: [facility] Address: [address] [place] [address] Performed By: #### L IPNF, 79060-4 ####[facility] LABORATORYCLIA [id number] [place] [address] [place] CBC W Auto Differential pane l (Bld)on 10-08-2024 Basophils (Bld) [#/Vol] 0.06 10*3/uL Normal <0.11 [facility] Comment on above: Order Comment: Speci men Type: BLOOD SPECIMENOrdering Facility: [facility] Address: [address] [place] [address] Performed By: #### 5 7021-8 ####[facility] LABCLIA [id number] [place] [address] [place] Basophils/100 WBC (Bld) 0.9 % Normal [facility] Comment on above: Order Comment: Speci men Type: BLOOD SPECIMENOrdering Facility: [facility] Address: [address] [place] [address] Performed By: #### 5 7021-8 ####[facility] LABCLIA [id number] [place] [address] [place] Differential cell count method Nom (Bld) Auto Normal [facility] Comment on above: Order Comment: Speci men Type: BLOOD SPECIMENOrdering Facility: [facility] Address: [address] [place] [address] Performed By: #### 5 7021-8 ####[facility] LABCLIA [id number] [place] [address] [place] Eosinophils (Bld) [#/Vol] 0.21 10*3/uL Normal <0.46 [facility] Comment on above: Order Comment: Speci men Type: BLOOD SPECIMENOrdering Facility: [facility] Address: [address] [place] [address] Performed By: #### 5 7021-8 ####[facility] LABCLIA [id number] [facility] [place] [address] [place] Eosinophils/100 WBC (Bld) 3.1 % Normal [facility] Comment on above: Order Comment: Speci men Type: BLOOD SPECIMENOrdering Facility: [facility] Address: [address] [place] [address] Performed By: #### 5 7021-8 ####[facility] LABIA [id number] [address], [place] [address] [place] Erythrocyte distribution width (RBC) [Ratio] 14.1 % Normal 11.5-15.0 [facility] Comment on above: Order Comment: Speci men Type: BLOOD SPECIMENOrdering Facility: [facility] Address: [address] [place] [address] Performed By: #### 5 7021-8 ####[facility] LABIA [id number] [place] [address] [place] Hematocrit (Bld) [Volume fraction] 49.7 % High 36.0-46.0 [facility] Comment on above: Order Comment: Speci men Type: BLOOD SPECIMENOrdering Facility: [facility] Address: [address] [place] [address] Performed By: #### 5 7021-8 ####[facility] LABIA [id number] [place] [address] [place] Hemoglobin (Bld) [Mass/Vol] 16.0 g/dL High 11.5-15.5 [facility] Comment on above: Order Comment: Speci men Type: BLOOD SPECIMENOrdering Facility: [facility] Address: [address] [place] [address] Performed By: #### 5 7021-8 ####[facility] LABCLIA [id number] [address], [place] [address] [place] Immature granulocytes (Bld) [#/Vol] 0.03 10*3/uL Normal <0.10 [facility] Comment on above: Order Comment: Speci men Type: BLOOD SPECIMENOrdering Facility: [facility] Address: [address] [place] [address] Performed By: #### 5 7021-8 ####[facility] LABCLIA [id number] [address], [address] [place] Immature granulocytes/100 WBC (Bld) 0.4 % Normal [facility] Comment on above: Order Comment: Speci men Type: BLOOD SPECIMENOrdering Facility: [facility] Address: [address] [place] [address] Performed By: #### 5 7021-8 ####[facility] LABCLIA [id number] [address], [place] [address] [place] Lymphocytes (Bld) [#/Vol] 2.33 10*3/uL Normal 1.00-4.00 [facility] Comment on above: Order Comment: Speci men Type: BLOOD SPECIMENOrdering Facility: [facility] Address: [address] [place] [address] Performed By: #### 5 7021-8 ####[facility] LABCLIA [id number] [place] [id number] [place] Lymphocytes/100 WBC (Bld) 34.0 % Normal [facility] Comment on above: Order Comment: Speci men Type: BLOOD SPECIMENOrdering Facility: [facility] Address: [address] [place] [address] Performed By: #### 5 7021-8 ####[facility] LABCLIA [id number] [address] [place] [address] [place] MCH (RBC) [Entitic mass] 30.6 pg Normal 26.0-34.0 [facility] Comment on above: Order Comment: Speci men Type: BLOOD SPECIMENOrdering Facility: [facility] Address: [address] [place] [address] Performed By: #### 5 7021-8 ####[facility] LABCLIA [id number] [place] [address] [place] MCHC (RBC) [Mass/Vol] 32.2 g/dL Normal 30.5-36.0 [facility] Comment on above: Order Comment: Speci men Type: BLOOD SPECIMENOrdering Facility: [facility] Address: [address] [place] [address] Performed By: #### 5 7021-8 ####[facility] LABCLIA [id number] [place] [address] [place] MCV (RBC) [Entitic vol] 95.0 fL Normal 80.0-100.0 [facility] Comment on above: Order Comment: Speci men Type: BLOOD SPECIMENOrdering Facility: [facility] Address: [address] [place] [address] Performed By: #### 5 7021-8 ####[facility] LABIA [id number] [address] [place] Monocytes (Bld) [#/Vol] 0.59 10*3/uL Normal <0.87 [facility] Comment on above: Order Comment: Speci men Type: BLOOD SPECIMENOrdering Facility: [facility] Address: [address] [place] [address] Performed By: #### 5 7021-8 ####[facility] LABCLIA [id number] [address] [place] Monocytes/100 WBC (Bld) 8.6 % Normal [facility] Comment on above: Order Comment: Speci men Type: BLOOD SPECIMENOrdering Facility: [facility] Address: [address] [place] [address] Performed By: #### 5 7021-8 ####[facility] LABCLIA [id number] [place] [address] [place] Neutrophils (Bld) [#/Vol] 3.63 10*3/uL Normal 1.45-7.50 [facility] Comment on above: Order Comment: Speci men Type: BLOOD SPECIMENOrdering Facility: [facility] Address: [address] [place] [address] Performed By: #### 5 7021-8 ####[facility] LABCLIA [id number] [place] [address] [place] Neutrophils/100 WBC (Bld) 53.0 % Normal [facility] Comment on above: Order Comment: Speci men Type: BLOOD SPECIMENOrdering Facility: [facility] Address: [address] [place] [address] Performed By: #### 5 7021-8 ####[facility] LABCLIA [id number] [place] [address] [place] Nucleated RBC (Bld) [#/Vol] 10*3/uL Normal <0.01 [facility] Comment on above: Order Comment: Speci men Type: BLOOD SPECIMENOrdering Facility: [facility] Address: [address] [place] [address] Performed By: #### 5 7021-8 ####[facility] LABCLIA [id number] [place] [address] [place] Nucleated RBC/100 WBC (Bld) [Ratio] 0.0 /100 WBC Normal [facility] Comment on above: Order Comment: Speci men Type: BLOOD SPECIMENOrdering Facility: [facility] Address: [address] [place] [address] Performed By: #### 5 7021-8 ####[facility] LABCLIA [id number] [place] [id number] [place] Platelet mean volume (Bld) [Entitic vol] 11.2 fL Normal 9.0-12.7 [facility] Comment on above: Order Comment: Speci men Type: BLOOD SPECIMENOrdering Facility: [facility] Address: [address] [place] [address] Performed By: #### 5 7021-8 ####[facility] LABIA [id number] [place] [address] [place] Platelets (Bld) [#/Vol] 274 10*3/uL Normal 150-400 [facility] Comment on above: Order Comment: Speci men Type: BLOOD SPECIMENOrdering Facility: [facility] Address: [address] [place] [address] Performed By: #### 5 7021-8 ####[facility] LABIA [id number] [place] [address] [place] RBC (Bld) [#/Vol] 5.23 10*6/uL High 3.90-5.20 [facility] Comment on above: Order Comment: Speci men Type: BLOOD SPECIMENOrdering Facility: [facility] Address: [address] [place] [address] Performed By: #### 5 7021-8 ####[facility] LABIA [id number] [place] [address] [place] WBC (Bld) [#/Vol] 6.85 10*3/uL Normal 3.70-11.00 [facility] Comment on above: Order Comment: Speci men Type: BLOOD SPECIMENOrdering Facility: [facility] Address: [address] [place] [address] Performed By: #### 5 7021-8 ####[facility] LABCLIA [id number] [address] [address] [place] HbA1c (Bld)on 10-08-2024 Average glucose Estimated from glycated hemoglobin (Bld) [Mass/Vol] 134 mg/dL Normal [facility] Comment on above: Order Comment: Kelsea fairchild Type: BLOOD SPECIMENOrdering Facility: [facility] Address: [address] [place] [address] Result Comment: eAG: (Estimated average glucose) is a calculated value from HgbA1c and is field representative of the average blood glucose level in the last 2-3 month period. Performed By: #### 5 5454-3 ####[facility] LABCLIA [id number] [place] [address] [place] HbA1c (Bld) [Mass fraction] 6.3 % High 4.3-5.6 [facility] Comment on above: Order Comment: Kelsea fairchild Type: BLOOD SPECIMENOrdering Facility: [facility] Address: [address] [place] [address] Result Comment: Amer ican Diabetes Association guidelines indicate that patients with HgbA1c in the range 5.7-6.4% are at increased risk for development of diabetes, and intervention by lifestyle modification may be beneficial. HgbA1c greater or equal to 6.5% is considered diagnostic of diabetes. Performed By: #### 5 5454-3 ####[facility] LABCLIA [id number] [place] [address] [place] LIPID PANEL, NONFASTINGon Cholesterol [Mass/Vol] 232 mg/dL High <200 [facility] Comment on above: Order Comment: Kelsea fairchild Type: BLOOD SPECIMENOrdering Facility: [facility] Address: [address] [place] [address] Result Comment: <200 mg/dL, Desirable 200-239 mg/dL, Borderline high >239 mg/dL, High Performed By: #### [place], 47[address]-0 ####[facility] LABORATORYCLIA [id number] [place] [address] [place] HDL CHOLESTEROL, NF 43 mg/dL Normal >39 [facility] Comment on above: Order Comment: Kelsea fairchild Type: BLOOD SPECIMENOrdering Facility: [facility] Address: [address] [place] [address] Result Comment: 40-5 9 mg/dL, Acceptable >59 mg/dL, High: Negative risk factor for coronary heart disease <40 mg/dL, Low: Positive risk factor for coronary heart disease Performed By: #### L LOBO, 22650-1 ####[facility] LABORATORYCLIA [id number] [place] [address] [place] LDL CHOLESTEROL, NF 111 mg/dL High <100 [facility] Comment on above: Order Comment: Kelsea fairchild Type: BLOOD SPECIMENOrdering Facility: [facility] Address: [address] [place] [address] Result Comment: <100 mg/dL, Optimal 100-129 mg/dL, Near optimal/above optimal 130-159 mg/dL, Borderline high 160-189 mg/dL, High >189 mg/dL, Very high Secondary prevention optimal LDL Cholesterol levels are recommended to be < 70 mg/dL Performed By: #### L LOBO, 10691-3 ####[facility] LABORATORYCLIA [id number] [address] [place] LDL/HDL RATIO, NF 2.58 mg/dL High <2.54 [facility] Comment on above: Order Comment: Kelsea fairchild Type: BLOOD SPECIMENOrdering Facility: [facility] Address: [address] [place] [address] Result Comment: Refe rence: 1. National Cholesterol Education Program ATP III Guideline At-A-Glance Quick Desk Reference: National Heart, Lung, and Blood [place]. National Institutes of Health. 2001: NIH Publication No. 01-3305. 2. An International Atherosclerosis Society position paper: global recommendations for the management of dyslipidemia: executive summary, Atherosclerosis. 2014: 232(2):410-413. Performed By: #### L LOBO, 37584-7 ####[facility] LABORATORYCLIA [id number] [place] [address] [place] NON HDL CHOL, NF 189 mg/dL High <130 [facility] Comment on above: Order Comment: Kelsea fairchild Type: BLOOD SPECIMENOrdering Facility: [facility] Address: [address] [place] [address] Result Comment: <130 mg/dL, Optimal 130-159 mg/dL, Near optimal/above optimal 160-189 mg/dL, Borderline high 190-219 mg/dL, High >219 mg/dL, Very high Secondary prevention optimal non HDL Cholesterol levels are recommended to be <100 mg/dL Performed By: #### L IPNF, 22840-1 ####[facility] LABORATORYCLIA [id number] [address] T CHOL/HDL RATIO NF 5.40 mg/dL High <5.10 [facility] Comment on above: Order Comment: Speci men Type: BLOOD SPECIMENOrdering Facility: [facility] Address: [address] [place] [address] Performed By: #### L IPFRANSISCO, 26424-1 ####[facility] LABORATORYCLIA [id number] [place] [address] [facility] TRIGLYCERIDES, NF 392 mg/dL High <150 [facility] Comment on above: Order Comment: Speci men Type: BLOOD SPECIMENOrdering Facility: [facility] Address: [address] [place] [address] Result Comment: <150 mg/dL, Normal 150-199 mg/dL, Borderline high 200-499 mg/dL, High >499 mg/dL, Very high Performed By: #### L IPNF, 38661-8 ####[facility] LABORATORYCLIA [id number] [place] [address] [place] VLDL CHOLESTEROL, NF 78 mg/dL High <30 [facility] Comment on above: Order Comment: Speci men Type: BLOOD SPECIMENOrdering Facility: [facility] Address: [address] [place] [address] Performed By: #### L IPNF, 16910-5 ####[facility] LABORATORYCLIA [id number] [place] [id number] [facility] MIMA DOS SANTOS ([id number]) 1950 F Date Time Provider Department 10/07/24 5:20 PM DAVY DOWNEY During your visit today, we recorded the following information about you: Pulse Respiration Blood pressure Weight 60/minute 18/minute 138/82 84.8 kg Davy Downey MD 10/08/2024 8:35 AM Signed Chief Complaint Patient presents with: F/U 6 months HPI Mima Dos Santos is a 74 year old female who presents here today for 6 month follow up. Patient with hx of DM2, HTN, COPD, a.fib, GERD, osteoporosis, obesity, vit d def and those as below. Ref Range AND Units 5 mo ago (04/16/24) 1 yr ago (10/26/22) 3 yr ago (08/24/21) 3 yr ago (01/12/21) Hemoglobin A1C 4.3 - 5.6 % 6.5 High 6.7 High CM 6.4 High CM 6.4 High CM Comment: [place] Diabetes Association guidelines indicate that patien Patient has been doing well. No new issues or concerns. Past medical history, appointments, medications, allergies reviewed. 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 COPD (chronic obstructive pulmonary disease) (HCC) 10/24/2018 Suspected- patient not wanting to do PFT but willing to trial inhalers Diverticulosis of colon without diverticulitis 03/28/2018 Elevated fasting glucose 01/18/2021 Essential hypertension 05/20/2020 Gastritis GERD without esophagitis 05/28/2019 History of Helicobacter pylori infection 03/28/2018 Lung nodule 04/04/2023 [facility] 03/21/2023 7.1 mm noncalcified nodule Rt middle lobe Obesity, Class II, BMI 35-39.9 10/05/2021 Osteoporosis Other chronic sinusitis 10/24/2018 Paroxysmal atrial fibrillation (HCC) 04/14/2024 Seeing cardio Smoker 09/01/2015 Started at age 15 and up to 1PPD Vitamin D deficiency 01/21/2020 Previous Surgical History PAST SURGICAL HISTORY Procedure Laterality Date APPENDECTOMY COLONOSCOPY FLX DX W/COLLJ SPEC WHEN PFRMD 03/28/2018 Colonoscopy ESOPHAGOGASTRODUODENOSCOPY TRANSORAL DIAGNOSTIC 03/28/2018 EGD PAST SURGICAL HISTORY OF 1992 [facility] Family History FAMILY HISTORY Problem Relation Age of Onset Stroke Mother Alzheimer's Disease Father Diabetes Sister Diabetes Sister Hypertension Sister Brain Cancer Sister Diabetes Brother Hypertension Brother Alzheimer's Disease Paternal Grandmother Patient Allergies ALLERGIES Allergen Reactions Sulfites Rash Shrimp Vomiting Current Medications Current Outpatient Medications on File Prior to Visit Medication Sig wzqhrfyczmi-rzadmjeft-esypmf er (TRELEGY ELLIPTA) 100-62.5-25 mcg inhalation powder Inhale 1 Puff as instructed once daily. ELIQUIS 5 mg tab(s) furosemide (LASIX) 40 mg tablet metoprolol tartrate, short acting, (LOPRESSOR) 25 mg tablet TWICE A DAY potassium chloride (K-TAB) 10 mEq tablet omeprazole (PRILOSEC) 20 mg capsule Take 2 capsules by mouth once daily. albuterol HFA (VENTOLIN HFA) 90 mcg/actuation inhaler Inhale 2 Puffs as instructed every 4 hours as needed for wheezing/shortness of breath. cholecalciferol, Vitamin D3, (VITAMIN D3) 1,250 mcg (50,000 unit) cap capsule Take 1 capsule by mouth every 2 weeks. (Patient not taking: Reported on 10/07/2024) No current facility-administered medications on file prior to visit. Social History Social History Tobacco Use Smoking status: Every Day Current packs/day: 1.00 Average packs/day: 1 pack/day for 50.0 years (50.0 ttl pk-yrs) Types: Cigarettes Smokeless tobacco: Never Vaping Use Vaping status: Never Used Substance Use Topics Alcohol use: Yes Comment: occasional Drug use: No Review of Symptoms REVIEW OF SYSTEMS GENERAL: No unintentional weight loss, malaise or fevers NECK: Negative for lumps, goiter, pain and significant neck swelling RESPIRATORY: Negative for cough, hemoptysis, wheezing, COPD, dyspnea or shortness of breath CARDIOVASCULAR: Negative for chest pain, leg swelling, hypertension, CHF or palpitations GI: No nausea, vomiting, or diarrhea and No heartburn or reflux symptoms : No history of dysuria, frequency or blood ENDOCRINE: Negative for symptoms of low BS's NEURO: No history of headaches, syncope, paralysis, seizures or tremors EXAM: BP 138/82 Pulse 60 Resp 18 Wt 84.8 kg (187 lb) BMI 35.19 kg/m? Last 5 Encounter Wt Readings: Date: Wt: 10/07/2024 84.8 kg (187 lb) 04/14/2024 86.2 kg (190 lb) 04/09/2023 89.8 kg (198 lb) 03/21/2023 97.5 kg (215 lb) 10/24/2022 93 kg (205 lb) General Appearance: Well appearing, alert, in no acute distress, well-hydrated, well nourished. and Obese. Eyes: Anicteric sclera. Pupils are equally round and reactive to light. Extraocular movements are intact. . Neck: Supple, no adenopathy; thyroid symmetric, normal size, no bruits. Lungs: Lungs clear to auscultation. No wheezing, rhonchi, rales.. Heart: RRR without murmur, gallop, or r (more content not included)... Normal [facility] CNPNon [facility]20[facility]AM[facility] Goodie App[facility] MIMA DOS SANTOS ([id number]) 1950 F Date Time Provider Department 07/16/24 DAVY DOWNEY During your visit today, we recorded the following information about you: Laurie Wilder 07/16/2024 3:39 PM Signed Mima is calling Davy Downey MD today with concern regarding Refill Request and Medication Request mzylputekf-snrzbktwq-sqbsopq r (TRELEGY ELLIPTA) 100-62.5-25 mcg inhalation powder 1 Each 5 02/19/2023 04/14/2024 Sig: Inhale 1 Puff as instructed once daily. Sent to pharmacy as: fuaniesvvye-hrywjrekx-azfsiz er (TRELEGY ELLIPTA) 100-62.5-25 mcg inhalation powder Class: Normal Patient has been identified by name and birthdate. Person calling: self Call patient at: at home [phone] (home) [phone] (cell) Was an appointment scheduled: No Closing statement: Results or non-symptom based questions: Thank you for calling [facility], your call will be returned within the next business day. Isabell Srinivasan MA 07/16/2024 4:37 PM Signed Medication was in historical med list and marked as d/c. Is patient supposed to be taking this? Note said it was d/c due to cost of medication? Please advise. ALEJO Huerta Julie 07/17/2024 2:48 PM Signed Patient calling with an update. She was in the donut hole last year and could not afford to fill it. With the new insurance this year, she is moving forward with this medication and is asking for this to please be refilled today. Please call when this is sent to the pharmacy today. [phone] Fahad Webber APRN.LANCE CREWMEMBER/MLRS SERGEANT 07/17/2024 3:12 PM Signed Please let patient know the prescription has been sent. Bakari Ram MA 07/17/2024 3:31 PM Signed Pt notified and verbalized understanding Bakari Ram MA Allergies As of Date: 07/16/2024 Noted Allergy Reaction SULFITES 09/01/2015 2 - Rash SHRIMP 09/01/2015 11 - Vomiting Date Reviewed: 04/14/2024 Reviewed by: Jan Wilkerson LPN - Fully Assessed Reason for Visit: Refill Request [94] Medication Request [138] Patient Update [1234] Cmt: Beatriz Primary Visit Diagnosis:Chronic obstructive pulmonary disease, unspecified COPD type (HCC) [J44.9] Order(s):fluticasone-umeclid in-vilanter (TRELEGY ELLIPTA) 100-62.5-25 mcg inhalation powderInhale 1 Puff as instructed once daily.Disp: 1 EachRfl: 5 Prescriptions as of 07/17/2024 - lqdesxfnzrd-qowafdhzd-hljvfi er (TRELEGY ELLIPTA) 100-62.5-25 mcg inhalation powder Inhale 1 Puff as instructed once daily. - ELIQUIS 5 mg tab(s) - furosemide (LASIX) 40 mg tablet - metoprolol tartrate, short acting, (LOPRESSOR) 25 mg tablet TWICE A DAY - potassium chloride (K-TAB) 10 mEq tablet - omeprazole (PRILOSEC) 20 mg capsule Take 2 capsules by mouth once daily. - albuterol HFA (VENTOLIN HFA) 90 mcg/actuation inhaler Inhale 2 Puffs as instructed every 4 hours as needed for wheezing/shortness of breath. - cholecalciferol, Vitamin D3, (VITAMIN D3) 1,250 mcg (50,000 unit) cap capsule Take 1 capsule by mouth every 2 weeks. Problem List As Of Date 07/16/2024 Noted Resolved Smoker [F17.200] 09/01/2015 Screen for colon cancer [Z12.11] 09/01/2015 Encounter for gynecological examination without*03/01/2016 Soft tissue mass [M79.89] 09/26/2017 Medicare annual wellness visit, subsequent [Z00*03/03/2018 Encounter for screening mammogram for breast ca*03/03/2018 Primary ovarian failure [E28.39] 03/03/2018 Age-related osteoporosis without current pathol*03/12/2018 Encounter for screening for malignant neoplasm *03/13/2018 COPD (chronic obstructive pulmonary disease) (H*10/24/2018 Other chronic sinusitis [J32.8] 10/24/2018 GERD without esophagitis [K21.9] 05/28/2019 Medication management [Z79.899] 01/21/2020 Vitamin D deficiency [E55.9] 01/21/2020 Essential hypertension [I10] 05/20/2020 Bilateral leg edema [R60.0] 05/20/2020 Other proteinuria [R80.8] 01/18/2021 Advance directive discussed with patient [Z71.8*10/05/2021 Obesity, Class II, BMI 35-39.9 [E66.812] 10/05/2021 Type 2 diabetes mellitus without complication, *10/28/2022 Lung nodule [R91.1] 04/04/2023 Paroxysmal atrial fibrillation (HCC) [I48.0] 04/14/2024 Secondary polycythemia [D75.1] 04/22/2024 Prescriptions ordered this encounter Disp Refills Start End TRELEGY ELLIPTA 100 MCG-62.5 MCG-25 * 1 Ea* 5 07/17/2024 Route: INHALATION Sig: Inhale 1 Puff as instructed once daily. Encounter Status:Closed by WORKMAN BAKARI JEFFERSON on 07/17/24 [facility] Cardiology Visit Reporton Cardiology Visit Report [facility] [address] [place] [address] OFFICE VISIT Date of Service: 05/27/24 MR#: [id number] Acct: [id number] Name: MIMA DOS SANTOS Rep #: [id number] : 1950 Provider: SATURNINO camara Age/Sex: 73/F Location: [facility] [place] Status: Signed HPI HPI History of Present Illness Details: This is a 73-year-old lady who presents to the office for a cardiovascular follow-up visit. She has a history of hypertension who was admitted to the hospital in March of 2023 after she presented with shortness of breath wheezing and was noted to be in atrial fibrillation with rapid ventricular response rate. She was noted to have diastolic heart failure she had an echocardiogram performed which demonstrated an ejection fraction of 55% with normal atrial sizes and her EKG did demonstrate atrial fibrillation with rapid ventricular response rate. She was treated with beta-kelvin with metoprolol Eliquis and furosemide. From a cardiac standpoint, the patient is doing well. She does acknowledge at least one episode of palpitations. She describes this as a thumping sensation. She denies chest pain, pressure or heaviness. She does have SOB with exertion-she attributes this to her COPD. She denies Orthopnea, and PND. She does not have bleeding issues; no blood in urine, stool or nosebleeds. She denies any decrease in energy level, myalgias, or claudication. She does not have edema, or sudden weight gain. She denies dizziness, lightheadedness, syncopal or near syncopal episodes, and headaches. Intake Vital Signs 10/17/23 07:37 11/13/24 15:22 Height 5 ft 1 in 5 ft 1 in Weight: 189 lb BMI 35.6 BP 135/83 H Blood Pressure Location Lt brachial Position Sitting Respiration 18 Pulse 72 Pulse Source Monitor Intake Visit Reasons: 1 Y FU Human Resources Recruiter Required: No Is patient in pain?: No Allergies sulfite Allergy (Unknown, Verified 05/27/24 15:27) Rash shellfish derived Allergy (Verified 05/27/24 15:27) Other Medications ???Medication ???Instructions ???Recorded ???Confirmed ???Type albuterol sulfate 90 mcg/actuation 2 puff inhalation Q4H PRN 04/25/23 05/27/24 History aerosol inhaler apixaban 5 mg tablet (Eliquis) 5 mg PO BID #60 tabs 04/30/23 05/27/24 Rx furosemide 40 mg tablet (Lasix) 40 mg PO DAILY #30 tabs 04/30/23 05/27/24 Rx metoprolol tartrate 25 mg tablet 25 mg PO BID #60 tabs 04/30/23 05/27/24 Rx potassium chloride 10 mEq 20 meq (2 x 10 mEq) PO DAILY #60 04/30/23 05/27/24 Rx tablet,extended release tabs omeprazole 20 mg capsule,delayed 40 mg PO DAILY GERD 05/08/23 05/27/24 History release Have you fallen in the past year?: No PFSH Medical History Hx of Rubin's palsy History of Helicobacter pylori infection Diverticulosis Vitamin D deficiency Osteoporosis Pneumonia COPD exacerbation Elevated troponin Smoker COPD (chronic obstructive pulmonary disease) GERD (gastroesophageal reflux disease) Hypertension Surgical History History of hysterectomy History of esophagogastroduodenoscopy (EGD) History of colonoscopy History of appendectomy Family History Mother CVA (cerebral vascular accident) Father Alzheimers disease Sister Diabetes Hypertension Brain cancer Brother Diabetes Hypertension Grandmother Alzheimers disease Social History Smoking Status: Current every day smoker tobacco type: cigarettes alcohol intake: current details: Occasionally substance use type: does not use ROS Const Const: Negative for fatigue, weakness, fever(s), headache(s), chills, frequent falls, weight gain or weight loss Eyes Eyes: Negative for blind spots, loss of peripheral vision, transient loss of vision, blurry vision, change in vision, double vision, floaters or tunnel vision ENT ENT: Negative for headache(s), dizziness, Nosebleed/epistaxis, balance problems or neck pain Cardio Chest Pain: No Palpitations: Yes feels like its: thumping Edema: None Muscle aches with walking: None Resp Respiratory: Positive for SOB with activity (attributes to COPD); Negative for SOB at rest or SOB orthopnea SOB lying down GI GI: Negative nausea, vomiting, heartburn, bloating, vomiting blood/hematemesis, bright, red blood in stools or black,tarry stools Musc Musc: Negative for muscle aches/ myalgia, muscle weakness, joint pain or balance problems Neuro Neuro: Negative for dizziness, lightheadedness, near syncope, syncope, orthostatic symptoms, frequent falls, headache(s), weakness, blurry vision or double vision Jeovany Hematologic/Lymphatic: Nega (more content not included)... Normal [facility] Absolute lymphocyte countOrd ered By: Severino Madsen on 04-01-2023 Lymphocytes Auto (Unsp spec) [#/Vol] 1.92 10*3/uL 0.83-4.51 [facility] Basophil percentageOrdered B y: Severino Madsen on 04-01-2023 Basophils/100 WBC (Bld) 0.4 % 0-1 [facility] Chloride [Moles/Vol] 107 mmol/L 98-107 [facility] Eosinophils/100 WBC (Bld) 1.1 % 0-5 [facility] Glucose [Mass/Vol] 88 mg/dL 74-106 [facility] Neutrophils (Bld) [#/Vol] 7.3 10*3/uL 2.0-7.7 [facility] Neutrophils/100 WBC (Bld) 71.2 % 47-70 [facility] Potassium [Moles/Vol] 4.2 mmol/L 3.5-5.1 [facility] Comment on above: Slight Hemolysis, Re sult may be falsely increased. Sodium [Moles/Vol] 145 mmol/L 136-145 [facility] WBC (Bld) [#/Vol] 10.2 10*3/uL 4.4-11.0 [facility] Blood erythrocytes count (nu mber/volume)Ordered By: Severino Madsen on 04-01-2023 RBC (Bld) [#/Vol] 6.26 10*6/uL 4.2-5.4 [facility] Blood hemoglobin measurement (mass/volume)Ordered By: Severino Madsen on 04-01-2023 Hemoglobin (Bld) [Mass/Vol] 16.4 g/dL 12.0-15.0 [facility] Blood lymphocytes/100 leukoc ytesOrdered By: Severino Madsen on 04-01-2023 Lymphocytes/100 WBC (Bld) 18.8 % 19-41 [facility] Blood monocytes/100 leukocyt esOrdered By: Severino Madsen on 04-01-2023 Monocytes/100 WBC (Bld) 8.1 % 0-10 [facility] Blood platelet mean volumeOr dered By: Severino Madsen on 04-01-2023 Platelet mean volume (Bld) [Entitic vol] 11.7 fL 6.2-12.0 [facility] Determination of erythrocyte mean corpuscular volume (MCV)Ordered By: Severino Madsen on 04-01-2023 MCV (RBC) [Entitic vol] 89.9 fL 81-99 [facility] Hematocrit Auto (Bld) [Volum e fraction]Ordered By: Severino Madsen on 04-01-2023 Hematocrit (Bld) [Volume fraction] 56.3 % 37-47 [facility] Laboratory - Chemistry and C hemistry - challengeOrdered By: Severino Madsen on 04-01-2023 CO2 [Moles/Vol] 33.0 mmol/L 21.0-32.0 [facility] Urea nitrogen/Creatinine [Mass ratio] 50.3 mg/mg 10-20 [facility] - Hematology and Cell countsOrdered By: Severino Madsen on 04-01-2023 Erythrocyte distribution width (RBC) [Entitic vol] 53.4 fL 35.1-43.9 [facility] Erythrocyte distribution width (RBC) [Ratio] 17.4 % 11.6-14.6 [facility] Immature granulocytes/100 WBC (Bld) 0.400 % 0.0-0.9 [facility] Comment on above: IG% - Immature Granu locytes (promyelocytes, myelocytes and metamyelocytes) > 1% indicates that a LEFT SHIFT is Present. MCH (RBC) [Entitic mass] 26.2 pg 27.0-32.0 [facility] Nucleated RBC/100 WBC (Bld) [Ratio] 0 % 0-5 [facility] MCHC Auto (RBC) [Mass/Vol]Or dered By: Severino Masden on 04-01-2023 MCHC (RBC) [Mass/Vol] 29.1 g/dL 32-36 [facility] No Panel InformationOrdered By: Severino Madsen on 04-01-2023 Estimated Creatinine Clearance Calc 41.71 ml/min [facility] Estimated GFR (MDRD) Amer 78 mL/min >60 [facility] Comment on above: GFR Calc Estimated GFR (MDRD) Non-Af Amer 64 mL/min >60 [facility] Comment on above: Non- GFR Calc Platelets bldOrdered By: Brenton Madsen on 04-01-2023 Platelets (Bld) [#/Vol] 220 10*3/uL 150-450 [facility] Serum or plasma calcium ryan urement (mass/volume)Ordered By: Severino Madsen on 04-01-2023 Calcium [Mass/Vol] 8.7 mg/dL 8.5-10.1 [facility] Serum or plasma creatinine m easurement (mass/volume)Ordered By: Severino Madsen on 04-01-2023 Creatinine [Mass/Vol] 0.92 mg/dL 0.55-1.02 [facility] Comment on above: The validity of the calculated GFR & GFRAA in patients over 70 years has not been determined. Clinical correlation is essential. Serum or plasma urea nitroge n measurement (mass/volume)Ordered By: Severino Madsen on 04-01-2023 Urea nitrogen [Mass/Vol] 46 mg/dL 7- [facility] Thin prep Papanicolaou smear with manual screeningOrdered By: Severino Madsen on 04-01-2023 Thin prep Papanicolaou smear with manual screening 5 5-15 [facility] Assessment of wrist artery p atency prior to arterial punctureOrdered By: Severino Madsen on 03-28-2023 Arterial patency Wrist artery --pre arterial puncture Positive [facility] Base excessOrdered By: Geraldo Madsen on 03-28-2023 Base excess Calc (BldV) [Moles/Vol] 10 mmol/L -2-2 [facility] Basophil percentageOrdered B y: Severino Madsen on 03-28-2023 Basophil percentage 35.5 mmol/L 22- [facility] Basophils/100 WBC (Bld) 92 % 95-99 [facility] Blood manual differential co mment interpretation (narrative result)Ordered By: Severino Madsen on 03-28-2023 Manual differential comment Ricardo (Bld) [Interp] COMMENT [facility] Comment on above: LYMPHOPENIA. CO2 (BldA) [Partial pressure ]Ordered By: Severino Madsen on 03-28-2023 CO2 (Bld) [Partial pressure] 63.1 mm[Hg] 35-45 [facility] No Panel InformationOrdered By: Severino Madsen on 03-28-2023 Blood Gas Oxygen Percent 8.0 [facility] Blood Gas Sample Site L Radial [facility] Blood Gas Specimen Type ART [facility] Blood Gas Total CO2 37 mmol/L [facility] Blood Gas Vent Mode Not entered [facility] Oxygen Delivery Device Cannula [facility] Oxygen (BldA) [Partial press ure]Ordered By: Severino Madsen on 03-28-2023 Oxygen (Bld) [Partial pressure] 69 mmHG 75-100 [facility] pH measurementOrdered By: Tracy Madsen on 03-28-2023 pH (Unsp spec) 7.36 [pH] 7.35-7.45 [facility] Gram stain for investigation of transfusion reactionOrdered By: Jimmy Springer on 03-24-2023 Microscopic observation Gram stain Nom (Unsp spec) [facility] Laboratory - Chemistry and C hemistry - challengeOrdered By: Ana Paula Hennessy on 03-24-2023 Free T4 [Mass/Vol] 0.92 ng/dL 0.76-1.46 [facility] Magnesium [Mass/Vol] 2.4 mg/dL 1.6-2.6 [facility] Microbial respiratory cultur eOrdered By: Jimmy Springer on 03-24-2023 Bacteria identified Respiratory culture Nom (Unsp spec) [facility] No Panel InformationOrdered By: Ana Paula Hennessy on 03-24-2023 Thyroid Stimulating Hormone (TSH) 0.31 uIU/mL 0.358-3.74 [facility] Laboratory - Chemistry and C hemistry - challengeOrdered By: Ana Paula Hennessy on 03-23-2023 Natriuretic peptide B (Bld) [Mass/Vol] 508.7 pg/mL 0-100 [facility] Basophil percentageOrdered B y: Jimmy Springer on 03-22-2023 Basophil percentage 0-5 SEEN /hpf 0-5 [facility] Bilirubin Test strip Ql (U)O rdered By: Jimmy Springer on 03-22-2023 Bilirubin Ql (U) Negative Negative [facility] Ketones Test strip Ql (U)Ord ered By: Jimmy Springer on 03-22-2023 Ketones Ql (U) Negative Negative [facility] Mucus LM Ql (Urine sed)Order ed By: Jimmy Springer on 03-22-2023 Mucus Ql (Urine sed) 0 SEEN /hpf [facility] Nitrite Test strip Ql (U)Ord ered By: Jimmy Springer on 03-22-2023 Nitrite Ql (U) Negative Negative [facility] No Panel InformationOrdered By: Jimmy Springer on 03-22-2023 Streptococcus pneumoniae Antigen (M [facility] Protein Test strip Ql (U)Ord ered By: Jimmy Springer on 03-22-2023 Protein Ql (U) 30 mg/dl Negative [facility] Squamous epithelial cells de tection in urine sediment by light microscopyOrdered By: Jimmy Springer on 03-22-2023 Epithelial cells.squamous LM Ql (Urine sed) 0-5 SEEN /hpf 5-10 [facility] Urine Legionella pneumophila antigen detectionOrdered By: Jimmy Springer on 03-22-2023 L. pneumophila Ag Ql (U) [facility] Urine blood detectionOrdered By: Jimmy Springer on 03-22-2023 RBC Ql (U) 10 /ul Negative [facility] RBC Ql (U) 0 SEEN /hpf 0-5 [facility] Urine clarityOrdered By: Katharine Springer on 03-22-2023 Clarity (U) Clear Clear [facility] Urine color determinationOrd ered By: Jimmy Springer on 03-22-2023 Color (U) Yellow Yellow [facility] Urine glucose detectionOrder ed By: Jimmy Springer on 03-22-2023 Glucose Ql (U) Normal mg/dl Normal [facility] Urine leukocyte esterase det ection by dipstickOrdered By: Jimmy Springer on 03-22-2023 Leukocyte esterase Test strip Ql (U) 25 /ul Negative [facility] Urine pHOrdered By: Bharat Springer on 03-22-2023 pH (U) 5.0 [pH] 5.0 - 8.0 [facility] Urine sediment bacteria coun t by microscopy (number/high power field)Ordered By: Jimmy Springer on 03-22-2023 Bacteria LM.HPF (Urine sed) [#/Area] 2 /[HPF] None Seen [facility] Urine specific gravity measu rementOrdered By: Jimmy Springer on 03-22-2023 Specific gravity (U) [Rel density] 1.020 1.002-1.03 0 [facility] Urobilinogen Auto test strip Ql (U)Ordered By: Jimmy Springer on 03-22-2023 Urobilinogen Ql (U) Normal mg/dl Normal [facility] Absolute lymphocyte countOrd ered By: Earl Hutson on 03-21-2023 Lymphocytes Auto (Unsp spec) [#/Vol] 1.26 10*3/uL 0.83-4.51 [facility] Basophil percentageOrdered B y: Earl Hutson on 03-21-2023 Basophils/100 WBC (Bld) 1.2 % 0-1 [facility] Bilirubin [Mass/Vol] 0.70 mg/dL 0.20-1.00 [facility] Comment on above: For patients on eltr ombopag therapy, use of Dimension [place] TBIL is not recommended. Chloride [Moles/Vol] 103 mmol/L 98-107 [facility] Eosinophils/100 WBC (Bld) 2.6 % 0-5 [facility] Glucose [Mass/Vol] 106 mg/dL 74-106 [facility] Comment on above: Fasting Glucose resu lt from 100 to 125 mg/dL suggests IMPAIRED HOMEOSTASIS per A.D.A. criteria. Neutrophils (Bld) [#/Vol] 4.0 10*3/uL 2.0-7.7 [facility] Neutrophils/100 WBC (Bld) 65.7 % 47-70 [facility] Potassium [Moles/Vol] 3.7 mmol/L 3.5-5.1 [facility] Protein [Mass/Vol] 6.9 g/dL 6.4-8.2 [facility] Sodium [Moles/Vol] 140 mmol/L 136-145 [facility] WBC (Bld) [#/Vol] 6.1 10*3/uL 4.4-11.0 [facility] Blood erythrocytes count (nu mber/volume)Ordered By: Earl Hutson on 03-21-2023 RBC (Bld) [#/Vol] 6.01 10*6/uL 4.2-5.4 [facility] Blood hemoglobin measurement (mass/volume)Ordered By: Earl Hutson on 03-21-2023 Hemoglobin (Bld) [Mass/Vol] 16.0 g/dL 12.0-15.0 [facility] Blood lymphocytes/100 leukoc ytesOrdered By: Earl Hutson on 03-21-2023 Lymphocytes/100 WBC (Bld) 20.8 % 19-41 [facility] Blood monocytes/100 leukocyt esOrdered By: Earl Hutson on 03-21-2023 Monocytes/100 WBC (Bld) 9.2 % 0-10 [facility] Blood platelet mean volumeOr dered By: Earl Hutson on 03-21-2023 Platelet mean volume (Bld) [Entitic vol] 10.7 fL 6.2-12.0 [facility] Determination of erythrocyte mean corpuscular volume (MCV)Ordered By: Earl Hutson on 03-21-2023 MCV (RBC) [Entitic vol] 90.2 fL 81-99 [facility] Hematocrit Auto (Bld) [Volum e fraction]Ordered By: Earl Hutson on 03-21-2023 Hematocrit (Bld) [Volume fraction] 54.2 % 37-47 [facility] INR in Blood by Coagulation assayOrdered By: Earl Hutson on 03-21-2023 INR Coag (Bld) [Relative time] 1.1 {INR} [facility] Influenza virus A and B and SARS-CoV-2 (COVID-19) Ag panel - Upper respiratory specimOrdered By: Earl Hutson on 03-21-2023 SARS-CoV-2 (COVID-19) RNA GURVINDER+probe Ql (Resp) [facility] Laboratory - Chemistry and C hemistry - challengeOrdered By: Earl Hutson on 03-21-2023 ALP [Catalytic activity/Vol] 92 U/L 45-117 [facility] ALT [Catalytic activity/Vol] 101 U/L 13-56 [facility] CO2 [Moles/Vol] 32.0 mmol/L 21.0-32.0 [facility] Globulin (S) [Mass/Vol] 3.9 g/dL 2.2-4.2 [facility] Urea nitrogen/Creatinine [Mass ratio] 20.4 mg/mg 10-20 [facility] Laboratory - CoagulationOrde red By: Earl Hutson on 03-21-2023 aPTT Coag (Bld) [Time] 28.2 s 24.1-36.2 [facility] PT Coag (PPP) [Time] 13.8 s 11.7-14.9 [facility] Laboratory - Hematology and Cell countsOrdered By: Earl Hutson on 03-21-2023 Erythrocyte distribution width (RBC) [Entitic vol] 50.5 fL 35.1-43.9 [facility] Erythrocyte distribution width (RBC) [Ratio] 15.3 % 11.6-14.6 [facility] Immature granulocytes/100 WBC (Bld) 0.500 % 0.0-0.9 [facility] Comment on above: IG% - Immature Granu locytes (promyelocytes, myelocytes and metamyelocytes) > 1% indicates that a LEFT SHIFT is Present. MCH (RBC) [Entitic mass] 26.6 pg 27.0-32.0 [facility] Nucleated RBC/100 WBC (Bld) [Ratio] 0 % 0-5 [facility] [Mass/Vol]Or dered By: Earl Hutson on 03-21-2023 MCHC (RBC) [Mass/Vol] 29.5 g/dL 32-36 [facility] No Panel InformationOrdered By: Earl Hutson on 03-21-2023 Troponin I High Sensitivity 68 pg/mL 3.0-54.0 [facility] Comment on above: Please Note: New Cat t Units and Gender Specific Reference Ranges. For more information see Policy Stat Procedure [place] High Sensitivity Troponin (TNIH) and attachments. D-Dimer Quantitative (PE/DVT) 0.95 FEU/ug/m 0.27-0.49 [facility] Comment on above: CRITICAL VALUE VERIF IED. CALLED TO MEG HERNANDEZ03/21/23 Brian9 Ang Cartagena.RESULTS READ BACK BY SAME . D-Dimer ELEVATED (>0.49): Additional studies and clinicalassessments are indicated to conclude diagnosis of:Deep Vein Thrombosis (DVT) or Pulmonary Embolism (PE) Estimated Creatinine Clearance Calc 33.96 ml/min [facility] Estimated GFR (MDRD) Amer 61 mL/min >60 [facility] Comment on above: GFR Calc Estimated GFR (MDRD) Non-Af Amer 50 mL/min >60 [facility] Comment on above: Non- GFR Calc Platelets bldOrdered By: Maynor Hutson on 03-21-2023 Platelets (Bld) [#/Vol] 238 10*3/uL 150-450 [facility] Serum or plasma albumin ryan urement (mass/volume)Ordered By: Earl Hutson on 03-21-2023 Albumin [Mass/Vol] 3.0 g/dL 3.2-5.0 [facility] Serum or plasma albumin/glob ulin mass ratioOrdered By: Earl Hutson on 03-21-2023 Albumin/Globulin [Mass ratio] 0.8 {ratio} 0.9-2.4 [facility] Serum or plasma calcium ryan urement (mass/volume)Ordered By: Earl Hutson on 09-07-2023 Calcium [Mass/Vol] 8.7 mg/dL 8.5-10.1 [facility] Serum or plasma creatinine m easurement (mass/volume)Ordered By: Earl Hutson on 03-21-2023 Creatinine [Mass/Vol] 1.13 mg/dL 0.55-1.02 [facility] Comment on above: The validity of the calculated GFR & GFRAA in patients over 70 years has not been determined. Clinical correlation is essential. Serum or plasma urea nitroge n measurement (mass/volume)Ordered By: Earl Hutson on 03-21-2023 Urea nitrogen [Mass/Vol] 23 mg/dL 7-18 [facility] Thin prep Papanicolaou smear with manual screeningOrdered By: Earl Hutson on 03-21-2023 Thin prep Papanicolaou smear with manual screening 44 U/L 15-37 [facility] Thin prep Papanicolaou smear with manual screening 5 5-15 [facility] XR ANKLE GENERAL 3V AP/LAT/O BL RIGHTon 10-05-2021 [facility] XR Ankle - right AP and Late ral and obliqueon 10-05-2021 IMPRESSION: Healing distal fibular fracture without interval complication. Public Opinion Survey Taker: [facility] Transcribe Date/Time: Oct 05 2021 12:07P Dictated by : KRYSTINA FITZPATRICK MD This examination was interpreted and the report reviewed and electronically signed by: KRYSTINA FITZPATRICK MD on Oct 05 2021 12:11PM [facility] DIVISION OF RADIOLOGY * * *Final Report* * * DATE OF EXAM: Oct 05 2021 11:47AM WOX 5297 - XR ANKLE 3V AP/LAT/OBL RT / PROCEDURE REASON: Closed avulsion fracture of lateral malleolus of right fibula, initial encounter * * * * Physician Interpretation * * * * EXAMINATION: XR ANKLE 3V AP/LAT/OBL RT HISTORY: Follow-up imaging after right ankle fracture. Closed avulsion fracture of lateral malleolus of right fibula, initial encounter. TECHNIQUE: XR ANKLE 3V AP/LAT/OBL RT Laterality: RIGHT Number of different views (projections): 3 M: XB_1 COMPARISON: Comparison is made to prior study dated 28 August 2021 RESULT: Standing frontal radiographs of the bilateral ankles with oblique and lateral weightbearing views of the right ankle again demonstrate an oblique fracture through the distal right fibula with a small distal avulsion fracture at the fibular tip. Fracture line is less visible and best seen on the lateral view is some bridging new bone formation consistent with progression towards healing. Ankle mortise and syndesmosis are preserved. DIVISION OF RADIOLOGY Provider, Jos Otero Bartlett - 10/05/2021 * * *Final Report* * * DATE OF EXAM: Oct 05 2021 11:47AM WOX 5297 - XR ANKLE 3V AP/LAT/OBL RT / PROCEDURE REASON: Closed avulsion fracture of lateral malleolus of right fibula, initial encounter * * * * Physician Interpretation * * * * EXAMINATION: XR ANKLE 3V AP/LAT/OBL RT HISTORY: Follow-up imaging after right ankle fracture. Closed avulsion fracture of lateral malleolus of right fibula, initial encounter. TECHNIQUE: XR ANKLE 3V AP/LAT/OBL RT Laterality: RIGHT Number of different views (projections): 3 M: XB_1 COMPARISON: Comparison is made to prior study dated 28 August 2021 RESULT: Standing frontal radiographs of the bilateral ankles with oblique and lateral weightbearing views of the right ankle again demonstrate an oblique fracture through the distal right fibula with a small distal avulsion fracture at the fibular tip. Fracture line is less visible and best seen on the lateral view is some bridging new bone formation consistent with progression towards healing. Ankle mortise and syndesmosis are preserved. IMPRESSION IMPRESSION: Healing distal fibular fracture without interval complication. Public Opinion Survey Taker: [facility] Transcribe Date/Time: Oct 05 2021 12:07P Dictated by : KRYSTINA FITZPATRICK MD This examination was interpreted and the report reviewed and electronically signed by: KRYSTINA FITZPATRICK MD on Oct 05 2021 12:11PM EST [facility] Radiology Study observation (narrative) [facility] XR Ankle - right AP and Late ral and obliqueOrdered By: [facility] Provider on 10-05-2021 [facility] XR Ankle - right AP and Late ral and obliqueon 08-28-2021 IMPRESSION: Oblique fracture of the distal fibula as described. Public Opinion Survey Taker: [facility] Transcribe Date/Time: Aug 28 2021 1:11P Dictated by : ALL CUMMINS MD This examination was interpreted and the report reviewed and electronically signed by: ALL CUMMINS MD on Aug 28 2021 1:12PM EST DIVISION OF RADIOLOGY * * *Final Report* * * DATE OF EXAM: Aug 28 2021 12:50PM WOX 5297 - XR ANKLE 3V AP/LAT/OBL RT / PROCEDURE REASON: multiple diagnoses * * * * Physician Interpretation * * * * CLINICAL INDICATION: Closed fracture follow-up TECHNIQUE: 3 view radiographic study of the right ankle COMPARISON: None FINDINGS: There is a oblique fracture of the distal fibula with minimal lateral displacement of the distal fracture fragment. Fracture lucency remains frankly evident with questionable slight healing with questioned minimal lateral periosteal reaction. Well-corticated ossicle adjacent to the tip of the lateral malleolus. No additional osseous abnormality identified. DIVISION OF RADIOLOGY Provider, [facility] - 08/28/2021 * * *Final Report* * * DATE OF EXAM: Aug 28 2021 12:50PM WOX 5297 - XR ANKLE 3V AP/LAT/OBL RT / PROCEDURE REASON: multiple diagnoses * * * * Physician Interpretation * * * * CLINICAL INDICATION: Closed fracture follow-up TECHNIQUE: 3 view radiographic study of the right ankle COMPARISON: None FINDINGS: There is a oblique fracture of the distal fibula with minimal lateral displacement of the distal fracture fragment. Fracture lucency remains frankly evident with questionable slight healing with questioned minimal lateral periosteal reaction. Well-corticated ossicle adjacent to the tip of the lateral malleolus. No additional osseous abnormality identified. IMPRESSION IMPRESSION: Oblique fracture of the distal fibula as described. Public Opinion Survey Taker: [facility] Transcribe Date/Time: Aug 28 2021 1:11P Dictated by : ALL CUMMINS MD This examination was interpreted and the report reviewed and electronically signed by: ALL CUMMINS MD on Aug 28 2021 1:12PM EST [facility] Radiology [facility]narrative[facility] AP and Late ral and obliqueOrdered By: [facility] Provider on 08-28-2021 [facility] Vital Signs Date Time Vital Sign Value Performing Clinician Facility 03-10-2025 07:56-0400 Body height 154.[address] Davy Downey MD Work Phone: 0(415)[phone] [place] [address] 03-10-2025 07:56-0400 Body mass index (BMI) [Ratio] 36.2 kg/m2 Dr. Davy Downey MD Work Phone: 4(411)197-896466 [place] [address] 03-10-2025 07:56-0400 Body temperature 97.3 [degF] Dr. Davy Downey MD Work Phone: 6(200)375-858866 [place] [address] 03-10-2025 07:56-0400 Body weight 87.[address] Davy Downey MD Work Phone: 1(806)852-150066 [place] [address] 03-10-2025 07:56-0400 Diastolic blood pressure 93 mm[Hg] Dr. Davy Downey MD Work Phone: 0(923)215-214466 [place] [address] 03-10-2025 07:56-0400 Heart rate 90 /min Dr. Davy Downey MD Work Phone: 9(565)839-211866 [place] [address] 03-10-2025 07:56-0400 Respiratory rate 18 /min Dr. Davy Downey MD Work Phone: 6(404)246-046966 [place] [address] 03-10-2025 07:56-0400 SaO2% (BldA) [Mass fraction] 92 % Dr. Davy Downey MD Work Phone: 1(978)386-460666 [place] [address] 03-10-2025 07:56-0400 Systolic blood pressure 160 mm[Hg] Dr. Davy Downey MD Work Phone: 4(632)537-323966 [place] [address] 02-23-2025 10:19-0400 Body height 154.[address] Davy Downey MD Work Phone: 7(787)342-893266 [place] [address] 02-23-2025 10:19-0400 Body mass index (BMI) [Ratio] 36.2 kg/m2 Dr. Davy Downey MD Work Phone: 8(262)053-550766 [place] [address] 02-23-2025 10:19-0400 Body temperature 97.6 [degF] Dr. Davy Downey MD Work Phone: 5(050)251-585566 [place] [address] 02-23-2025 10:19-0400 Body weight 87.[address] Davy Downey MD Work Phone: 9(585)025-143766 [place] [address] 02-23-2025 10:19-0400 Diastolic blood pressure 75 mm[Hg] Dr. Davy Downey MD Work Phone: 1(968)752-320866 [place] [address] 02-23-2025 10:19-0400 Heart rate 63 /min Dr. Davy Downey MD Work Phone: 3(947)648-576266 [place] [address] 02-23-2025 10:19-0400 Respiratory rate 18 /min Dr. Davy Downey MD Work Phone: 5(715)326-002366 [place] [address] 02-23-2025 10:19-0400 SaO2% (BldA) [Mass fraction] 91 % Dr. Davy Downey MD Work Phone: 0(220)003-906566 [place] [address] 02-23-2025 10:19-0400 Systolic blood pressure 120 mm[Hg] Dr. Davy Downey MD Work Phone: 0(949)564-792566 [place] [address] 11-26-2024 07:58-0400 Body height 154.[address] Davy Downey MD Work Phone: 3(172)448-776066 [place] [address] 11-26-2024 07:58-0400 Body mass index (BMI) [Ratio] 35.3 kg/m2 Dr. Davy Downey MD Work Phone: 2(102)231-667366 [place] [address] 11-26-2024 07:58-0400 Body temperature 97.4 [degF] Dr. Davy Downey MD Work Phone: 9(519)029-083466 [place] [address] 11-26-2024 07:58-0400 Body weight 84.[address] Davy Downey MD Work Phone: 8(108)093-151866 [place] [address] 11-26-2024 07:58-0400 Diastolic blood pressure 64 mm[Hg] Dr. Davy Downey MD Work Phone: 1(672)433-942066 [place] [address] 11-26-2024 07:58-0400 Heart rate 55 /min Dr. Davy Downey MD Work Phone: 8(274)201-100966 [place] [address] 11-26-2024 07:58-0400 Respiratory rate 20 /min Dr. Davy Downey MD Work Phone: [facility] 11-26-2024 07:58-0400 SaO2% (BldA) [Mass fraction] 91 % Dr. Davy Downey MD Work Phone: [facility] 11-26-2024 07:58-0400 Systolic blood pressure 130 mm[Hg] Dr. Davy Downey MD Work Phone: [facility] 11-02-2024 15:28-0400 Diastolic blood pressure 76 mm[Hg] Wenceslao Spencer PLATE FURNACE OPERATOR.ELECTRICIAN'S ASSISTANT Work Phone: [facility] 11-02-2024 15:28-0400 Heart rate 82 /min Wenceslao Spencer PLATE FURNACE OPERATOR.ELECTRICIAN'S ASSISTANT Work Phone: [facility] 11-02-2024 15:28-0400 Respiratory rate 16 /min Wenceslao Spencer PLATE FURNACE OPERATOR.ELECTRICIAN'S ASSISTANT Work Phone: [facility] 11-02-2024 15:28-0400 SaO2% (BldA) [Mass fraction] 89 % Wenceslao Spencer PLATE FURNACE OPERATOR.ELECTRICIAN'S ASSISTANT Work Phone: [facility] 11-02-2024 15:28-0400 Systolic blood pressure 148 mm[Hg] Wenceslao Spencer PLATE FURNACE OPERATOR.ELECTRICIAN'S ASSISTANT Work Phone: [facility] 10-07-2024 17:05-0400 Body mass index (BMI) [Ratio] 35.19 kg/m2 Davy Downey MD Work Phone: [facility] 10-07-2024 17:05-0400 Body weight 84.82 kg Davy Downey MD Work Phone: [facility] 10-07-2024 17:05-0400 Diastolic blood pressure 82 mm[Hg] Davy Downey MD Work Phone: [facility] 10-07-2024 17:05-0400 Heart rate 60 /min Davy Downey MD Work Phone: [facility] 10-07-2024 17:05-0400 Respiratory rate 18 /min Davy Downey MD Work Phone: [facility] 10-07-2024 17:05-0400 Systolic blood pressure 138 mm[Hg] Davy Downey MD Work Phone: [facility] 04-14-2024 12:34-0400 Body height 155.2 cm Jennifer Ward PA-C Work Phone: [facility] 04-14-2024 12:34-0400 Body mass index (BMI) [Ratio] 35.76 kg/m2 Jennifer Ward PA-C Work Phone: [facility] 04-14-2024 12:34-0400 Body temperature 98.2 [degF] Jennifer Ward PA-C Work Phone: [facility] 04-14-2024 12:34-0400 Body weight 86.18 kg Jennifer Ward PA-C Work Phone: [facility] 04-14-2024 12:34-0400 Diastolic blood pressure 70 mm[Hg] Jennifer Ward PA-C Work Phone: [facility] 04-14-2024 12:34-0400 Heart rate 63 /min Jennifer Ward PA-C Work Phone: [facility] 04-14-2024 12:34-0400 Respiratory rate 18 /min Jennifer Ward PA-C Work Phone: [facility] 04-14-2024 12:34-0400 SaO2% (BldA) [Mass fraction] 91 % Jennifer Ward PA-C Work Phone: [facility] 04-14-2024 12:34-0400 Systolic blood pressure 126 mm[Hg] Jennifer Ward PA-C Work Phone: [facility] 03-14-2024 12:42-0400 Heart rate 86 /min Krislyn Aberegg PA Work Phone: [facility] 03-14-2024 12:42-0400 Respiratory rate 20 /min Krislyn Aberegg PA Work Phone: [facility] 03-14-2024 12:42-0400 SaO2% (BldA) [Mass fraction] 88 % Tr CEBALLOS Work Phone: [facility] 04-09-2023 10:47-0400 Body weight 89.81 kg Fahad Webber PLATE FURNACE OPERATOR.LANCE CREWMEMBER/MLRS SERGEANT Work Phone: [facility] 04-09-2023 10:47-0400 Diastolic blood pressure 71 mm[Hg] Fahad Webber PLATE FURNACE OPERATOR.LANCE CREWMEMBER/MLRS SERGEANT Work Phone: [facility] 04-09-2023 10:47-0400 Heart rate 64 /min Fahad Webber PLATE FURNACE OPERATOR.LANCE CREWMEMBER/MLRS SERGEANT Work Phone: [facility] 04-09-2023 10:47-0400 Respiratory rate 18 /min Fahad Webber PLATE FURNACE OPERATOR.LANCE CREWMEMBER/MLRS SERGEANT Work Phone: [facility] 04-09-2023 10:47-0400 SaO2% (BldA) [Mass fraction] 90 % Fahad Webber PLATE FURNACE OPERATOR.LANCE CREWMEMBER/MLRS SERGEANT Work Phone: [facility] 04-09-2023 10:47-0400 Systolic blood pressure 106 mm[Hg] Fahad Webber PLATE FURNACE OPERATOR.LANCE CREWMEMBER/MLRS SERGEANT Work Phone: [facility] 04-01-2023 14:20-0400 Body temperature 97.7 [degF] Dr. Davy Downey Work Phone: [facility] 04-01-2023 14:20-0400 Diastolic blood pressure 73 mm[Hg] Dr. Davy Downey Work Phone: [facility] 04-01-2023 14:20-0400 Heart rate 68 /min Dr. Davy Downey Work Phone: [facility] 04-01-2023 14:20-0400 Inhaled oxygen flow rate 2 L/min Dr. Davy Downey Work Phone: [facility] 04-01-2023 14:20-0400 Respiratory rate 16 /min Dr. Davy Downey Work Phone: [facility] 04-01-2023 14:20-0400 SaO2% (BldA) [Mass fraction] 92 % Dr. Davy Downey Work Phone: [facility] 04-01-2023 14:20-0400 Systolic blood pressure 131 mm[Hg] Dr. Davy Downey Work Phone: [facility] 04-01-2023 04:01-0400 Body mass index (BMI) [Ratio] 38.4 kg/m2 Dr. Davy Downey Work Phone: [facility] 04-01-2023 04:01-0400 Body weight 92.[address] Davy Downey Work Phone: [facility] 04-01-2023 03:16-0400 Inhaled oxygen concentration 40 % Dr. Davy Downey Work Phone: [facility] 03-27-2023 11:57-0400 Body height 154.[address] aDvy Downey Work Phone: [facility] 03-21-2023 14:29-0400 Body temperature 95.4 [degF] [facility] 03-21-2023 14:29-0400 Diastolic blood pressure 101 mm[Hg] [facility] 03-21-2023 14:29-0400 Heart rate 99 /min [facility] 03-21-2023 14:29-0400 Respiratory rate 28 /min [facility] 03-21-2023 14:29-0400 SaO2% (BldA) [Mass fraction] 95 % [facility] 03-21-2023 14:29-0400 Systolic blood pressure 168 mm[Hg] [facility] 03-21-2023 09:44-0400 Inhaled oxygen flow rate 6 L/min [facility] 03-21-2023 09:34-0400 Body height 154.94 cm [facility] 03-21-2023 09:34-0400 Body mass index (BMI) [Ratio] 40.4 kg/m2 [facility] 03-21-2023 09:34-0400 Body weight 97.2 kg [facility] 03-21-2023 08:48-0400 Body weight 97.52 kg Fahad Webber PLATE FURNACE OPERATOR.LANCE CREWMEMBER/MLRS SERGEANT Work Phone: [facility] 03-21-2023 08:48-0400 Diastolic blood pressure 84 mm[Hg] Fahad Webber PLATE FURNACE OPERATOR.LANCE CREWMEMBER/MLRS SERGEANT Work Phone: [facility] 03-21-2023 08:48-0400 Heart rate 96 /min Fahda Webber PLATE FURNACE OPERATOR.LANCE CREWMEMBER/MLRS SERGEANT Work Phone: [facility] 03-21-2023 08:48-0400 Respiratory rate 14 /min Fahad Webber PLATE FURNACE OPERATOR.LANCE CREWMEMBER/MLRS SERGEANT Work Phone: [facility] 03-21-2023 08:48-0400 SaO2% (BldA) [Mass fraction] 74 % Fahad Webber PLATE FURNACE OPERATOR.LANCE CREWMEMBER/MLRS SERGEANT Work Phone: [facility] 03-21-2023 08:48-0400 Systolic blood pressure 136 mm[Hg] Fahad Webber PLATE FURNACE OPERATOR.LANCE CREWMEMBER/MLRS SERGEANT Work Phone: [facility] 10-24-2022 08:24-0400 Diastolic blood pressure 86 mm[Hg] Davy Downey MD Work Phone: [facility] 10-24-2022 08:24-0400 Systolic blood pressure 138 mm[Hg] Davy Downey MD Work Phone: [facility] 10-24-2022 07:59-0400 Body height 156.8 cm Davy Downey MD Work Phone: [facility] 10-24-2022 07:59-0400 Body weight 92.99 kg Davy Downey MD Work Phone: [facility] 10-24-2022 07:59-0400 Heart rate 70 /min Davy Downey MD Work Phone: [facility] 10-24-2022 07:59-0400 Respiratory rate 16 /min Davy Downey MD Work Phone: [facility] 04-11-2022 14:19-0400 Body temperature 98.01 [degF] Jennifer Ward PA-C Work Phone: [facility] 04-11-2022 14:19-0400 Body weight 90.27 kg Jennifer Ward PA-C Work Phone: [facility] 04-11-2022 14:19-0400 Diastolic blood pressure 78 mm[Hg] Jennifer Ward PA-C Work Phone: [facility] 04-11-2022 14:19-0400 Heart rate 60 /min Jennifer Ward PA-C Work Phone: [facility] 04-11-2022 14:19-0400 Respiratory rate 18 /min Jennifer Ward PA-C Work Phone: [facility] 04-11-2022 14:19-0400 Systolic blood pressure 132 mm[Hg] Jennifer Ward PA-C Work Phone: [facility] 10-05-2021 10:44-0400 Body height 155.5 cm Jennifer Ward PA-C Work Phone: [facility] 10-05-2021 10:44-0400 Body temperature 97.2 [degF] Jennifer Ward PA-C Work Phone: [facility] 10-05-2021 10:44-0400 Body weight 87.54 kg Jennifer Ward PA-C Work Phone: [facility] 10-05-2021 10:44-0400 Diastolic blood pressure 76 mm[Hg] Jennifer Ward PA-C Work Phone: [facility] 10-05-2021 10:44-0400 Heart rate 80 /min Jennifer Ward PA-C Work Phone: [facility] 10-05-2021 10:44-0400 Respiratory rate 18 /min Jennifer Ward PA-C Work Phone: [facility] 10-05-2021 10:44-0400 Systolic blood pressure 100 mm[Hg] Jennifer Ward PA-C Work Phone: [facility] Encounters Encounter Date Encounter Type Care Provider Facility Start: 05-26-2025 End: 05-26-2025 ambulatory Davy Downey Facility:[facility] Start: 04-15-2025 End: 04-15-2025 ambulatory FAHAD WEBBER Facility:[facility] Start: 03-18-2025 End: 03-18-2025 ambulatory Davy Downey MD Work Phone: [facility] [place] Start: 03-18-2025 End: 03-18-2025 Patient encounter procedure [facility] Downey MD [facility] Comment on above: [facility] Health [facility] Start: 03-10-2025 End: 03-10-2025 Patient encounter procedure Nina Worrell RANGE OPERATOR-C -[facility] Work Phone: Start: 03-10-2025 End: 03-10-[address] Davy Downey MD Work Phone: -[facility] Start: 03-02-2025 End: 03-02-[address] Davy Downey MD Work Phone: -[facility] Start: 03-02-2025 End: 03-02-2025 Patient encounter procedure Nina Worrell RANGE OPERATOR-C -[facility] Start: 03-02-2025 End: 03-02-2025 ambulatory Nina Worrell NP Facility:[facility] Start: 02-24-2025 End: 02-24-2025 Chart abstracting Davy Downey MD Work Phone: [facility] Comment on above: Outside Pulmonary Me dicine Start: 02-23-2025 End: 02-23-2025 Patient encounter procedure Nina Worrell NP-C -[facility] Work Phone: Start: 02-23-2025 End: 02-23-[address] Davy Downey MD Work Phone: -[facility] Start: 02-18-2025 End: 02-18-[address] Davy Downey MD Work Phone: -[facility] Start: 02-18-2025 End: 02-18-2025 Patient encounter procedure Nina Worrell NP-C -[facility] Work Phone: Start: 02-18-2025 End: 02-18-2025 ambulatory Davy Downey Facility:[facility] Start: 01-07-2025 End: 01-07-2025 ambulatory Davy Downey MD [facility] Start: 01-07-2025 End: 01-07-2025 Patient encounter procedure Davy Downey MD Work Phone: [facility] Comment on above: Population Health [facility] Start: 12-31-2024 End: 01-01-2025 Refill Davy Downey MD Work Phone: [facility] [place] Comment on above: Refill Request Start: 12-18-2024 End: 12-18-2024 ambulatory Davy Downey MD Work Phone: [facility] Comment on above: Allied Health Visit (Medication Adherence Outreach/) Start: 12-08-2024 End: 12-08-2024 ambulatory Davy Downey MD Work Phone: [facility] Start: 12-08-2024 End: 12-08-2024 Patient encounter procedure Davy Downey MD Work Phone: [facility] Comment on above: Population Health Na vigation Outreach ([facility] ) Start: 11-27-2024 End: 11-27-2024 Chart abstracting Davy Downey MD Work Phone: [facility] [place] Comment on above: Outside Pulmonology Start: 11-26-2024 End: 11-26-2024 Patient encounter procedure Nina MATAMOROS -[facility] Work Phone: Start: 11-26-2024 End: 11-26-[address] Davy Downey MD Work Phone: [facility] Work Phone: Start: 11-02-2024 End: 11-02-2024 Office outpatient visit 25 minutes Wenceslao Spencer APRNKelELECTRICIAN'S ASSISTANT Work Phone: [facility] [place] Comment on above: COPD with exacerbati on (HCC) (Primary Dx) Start: 11-02-2024 End: 11-02-2024 ambulatory Davy Downey MD Work Phone: [facility] Comment on above: productive cough, SO B and fever Bi-Weekly Outreach ( Recurring) for Chronic Disease Management Start: 10-27-2024 End: 10-27-2024 Chart abstracting Davy Downey MD Work Phone: [facility] Comment on above: Outside Imaging Start: 10-26-2024 End: 10-26-[address] Davy Downey MD Work Phone: [facility] Work Phone: Start: 10-26-2024 End: 10-26-2024 Patient encounter procedure Nina Worrell RANGE OPERATOR-C -Cat Scan, [facility] Work Phone: Start: 10-26-2024 End: 10-26-2024 ambulatory Nina Worrell NP Facility:[facility] Start: 10-09-2024 End: 10-10-2024 Follow-up encounter Davy Downey MD Work Phone: [facility] Start: 10-08-2024 End: 10-08-2024 ambulatory DAVY DOWNEY Facility:[facility] Start: 10-07-2024 End: 10-07-2024 Patient encounter procedure Davy Downey MD Work Phone: [facility] Comment on above: Type 2 diabetes halina itus without complication, without long- term current use of insulin (HCC) (Primary Dx); Essential hypertension; GERD without esophagitis; Bilateral leg edema; Chronic obstructive pulmonary disease, unspecified COPD type (HCC); Obesity, Class II, BMI 35-39.9; Smoker; Vitamin D deficiency; Paroxysmal atrial fibrillation (HCC); Secondary polycythemia; Medication management Start: 10-07-2024 End: 10-07-2024 ambulatory DAVY DOWNEY Facility:[facility] Start: 09-28-2024 End: 09-28-2024 ambulatory [facility] [place] Start: 09-28-2024 End: 09-28-2024 Patient encounter procedure Elaine Bueno [facility] [place] Comment on above: Population Health Na vigation Outreach ([employer] High Risk - Attempt 2) Start: 09-17-2024 End: 09-17-2024 ambulatory Frankie Smith RN Work Phone: [facility] Comment on above: Initial enrollment o lula for Chronic Disease Management Start: 08-27-2024 End: 08-27-2024 ambulatory Elaine [facility] [place] Start: 08-27-2024 End: 08-27-2024 Patient encounter procedure [facility] [place] Comment on above: Population Health Na vigation Outreach ([employer] High Risk - Attempt 1) Start: 07-16-2024 End: 07-17-2024 Telephone encounter Davy Downey MD Work Phone: [facility] [place] Comment on above: Refill Request; Medi cation Request; Patient Update (Trelegy) Start: 05-28-2024 End: 05-28-2024 Chart abstracting Davy Downey MD Work Phone: [facility] [place] Comment on above: Outside Cardiology Start: 05-27-2024 End: 05-27-2024 ambulatory Davy Downey Facility:[facility] Start: 05-08-2024 End: 05-08-2024 Telephone encounter Davy Downey MD Work Phone: [facility] [place] Comment on above: Results Start: 05-06-2024 End: 05-06-2024 Subsequent hospital visit by physician Screen Mammo [facility] Comment on above: Encounter for screen ing mammogram for breast cancer [Z12.31] Start: 04-22-2024 End: 04-22-2024 Telephone encounter Jennifer Ward PA-C Work Phone: [facility] [place] Comment on above: Results Start: 04-17-2024 End: 04-17-2024 Telephone encounter Jennifer Ward PA-C Work Phone: [facility] [place] Comment on above: Results Start: 04-14-2024 End: 04-14-2024 Patient encounter procedure [facility]-C [facility] Comment on above: Medicare annual well ness visit, subsequent (Primary Dx); Advance directive discussed with patient; Type 2 diabetes mellitus without complication, without long-term current use of insulin (HCC); Essential hypertension; Screening for depression; Encounter for screening examination for other mental health and behavioral disorders; Encounter for immunization; Obesity, Class II, BMI 35-39.9; Smoker; Chronic obstructive pulmonary disease, unspecified COPD type (HCC); Vitamin D deficiency; Medication management; GERD without esophagitis; Age-related osteoporosis without current pathological fracture; Lung nodule; Paroxysmal atrial fibrillation (HCC) Start: 03-14-2024 End: 03-14-2024 Patient encounter procedure Tr CEBALLOS Work Phone: [facility] Comment on above: Hypoxia (Primary Dx) Start: 12-04-2023 ambulatory Davy vegas MD Work Phone: [facility] [place] Start: 10-18-2023 Chart abstracting Davy rea MD Work Phone: [facility] Comment on above: Outside Records / [facility] Pulmonary Report Start: 10-04-2023 End: 10-04-2023 ambulatory [facility] Work Phone: Start: 10-04-2023 End: 10-04-2023 Patient encounter procedure [facility], [facility] Work Phone: Start: 05-08-2023 Chart abstracting Davy rea MD Work Phone: [facility] Comment on above: Outside Cardiology Start: 04-11-2023 Telephone encounter Fahad murray APRN.LANCE CREWMEMBER/MLRS SERGEANT Work Phone: [facility] Comment on above: Orders Start: 04-09-2023 End: 04-09-2023 Patient encounter procedure Fahad Webber APRN.LANCE CREWMEMBER/MLRS SERGEANT Work Phone: [facility] Comment on above: Dependence on supple mental oxygen when ambulating (Primary Dx); Sepsis with acute hypoxic respiratory failure without septic shock, due to unspecified organism (HCC); Skin ulcer of multiple sites of buttock, limited to breakdown of skin (HCC) Start: 04-04-2023 Telephone encounter Davy Downey MD Work Phone: [facility] Comment on above: Orders; Patient Upda te Start: 03-31-2023 Non-patient / Non-visit Dr. Richar Downey Work Phone: [facility] Start: 03-31-2023 Non-patient / Non-visit Dr. Richar Downey Work Phone: [facility] Work Phone: Start: 03-30-2023 Non-patient / Non-visit Dr. Richar Downey Work Phone: [facility] Start: 03-30-2023 Non-patient / Non-visit Dr. Richar Downey Work Phone: [facility] Work Phone: Start: 03-29-2023 Non-patient / Non-visit Dr. Richar Downey Work Phone: [facility] Work Phone: Start: 03-28-2023 Non-patient / Non-visit Dr. Richar Downey Work Phone: [facility] Start: 03-28-2023 Non-patient / Non-visit Dr. Richar Downey Work Phone: [facility] Work Phone: Start: 03-27-2023 Non-patient / Non-visit Dr. Richar Downey Work Phone: [facility] Start: 03-27-2023 Non-patient / Non-visit Dr. Richar Downey Work Phone: [facility] Work Phone: Start: 03-26-2023 Chart abstracting Davy rea MD Work Phone: [facility] Comment on above: ext document (Echo) Start: 03-26-2023 Non-patient / Non-visit Dr. Richar Downey Work Phone: [facility] Work Phone: Start: 03-25-2023 Non-patient / Non-visit Dr. Richar Downey Work Phone: [facility] Start: 03-25-2023 Non-patient / Non-visit Dr. Richar Downey Work Phone: [facility] Work Phone: Start: 03-24-2023 Non-patient / Non-visit Dr. Richar Downey Work Phone: [facility] Work Phone: Start: 03-23-2023 Non-patient / Non-visit Dr. Richar Downey Work Phone: [facility] Work Phone: Start: 03-22-2023 Non-patient / Non-visit Dr. Richar Downey Work Phone: [facility] Work Phone: Start: 03-21-2023 Chart abstracting Davy rea MD Work Phone: [facility] Comment on above: ext documentation Start: 03-21-2023 End: 04-01-2023 Evaluation and management of inpatient [facility] Work Phone: Start: 03-21-2023 End: 03-21-2023 Patient encounter procedure Fahad Webber APRN.LANCE CREWMEMBER/MLRS SERGEANT Work Phone: [facility] [place] Comment on above: SOB (shortness of br eath) (Primary Dx); Abnormal blood oxygen level Start: 03-20-2023 Telephone encounter Davy Downey MD Work Phone: [address] [place] [address] Comment on above: Orders Start: 03-15-2023 Telephone encounter Davy Downey MD Work Phone: [facility] [place] Comment on above: FYI-No Action Needed (Received form for O2 from [employer] (pt not using this company)) Start: 02-19-2023 Refill Davy vegas MD Work Phone: [facility] [place] Comment on above: Refill Request Start: 10-29-2022 Documentation procedure Mammog maura Coordinator [facility] Start: 10-29-2022 Letter encounter Mammography Coordinator [facility] Department Start: 10-24-2022 End: 10-24-2022 Patient encounter procedure Davy Downey MD Work Phone: [facility] [place] Comment on above: Medicare annual [facility], subsequent (Primary Dx); Essential hypertension; Bilateral leg edema; GERD without esophagitis; Chronic obstructive pulmonary disease, unspecified COPD type (HCC); Vitamin D deficiency; Smoker; Elevated fasting glucose; Obesity, Class II, BMI 35-39.9; Medication management; Encounter for screening for lung cancer; Advance directive discussed with patient Start: 10-18-2022 ambulatory [facility] Comment on above: Population Health Na vigation Outreach ([employer] care gap ) Start: 09-10-2022 Refill Davy vegas MD Work Phone: [facility] [place] Comment on above: Refill Request Start: 04-23-2022 Refill Davy vegas MD Work Phone: [facility] Comment on above: Refill Request Start: 04-12-2022 Telephone encounter Jennifer vang PA-C Work Phone: [facility] [place] Comment on above: Results Start: 04-11-2022 End: 04-11-2022 Patient encounter procedure Jennifer Ward PA-C Work Phone: [facility] Comment on above: Essential hypertensi on (Primary Dx); Chronic obstructive pulmonary disease, unspecified COPD type (HCC); Smoker; GERD without esophagitis; Elevated fasting glucose; Age-related osteoporosis without current pathological fracture; Need for COVID-19 vaccine; Sinus congestion Start: 02-14-2022 Refill Davy vegas MD Work Phone: [facility] Comment on above: Refill Request Start: 12-27-2021 ambulatory Davy vegas MD Work Phone: [facility] [place] Start: 11-07-2021 ambulatory Lima Lundberg RN Work Phone: [facility] Comment on above: Community Monitoring Outreach ([employer] enrollment) Start: 10-05-2021 End: 10-05-2021 Subsequent hospital visit by physician [facility] [place] Work Phone: Radiology Comment on above: Closed avulsion frac ture of lateral malleolus of right fibula, initial encounter [S82.61XA] Start: 10-05-2021 End: 10-05-2021 Patient encounter procedure Jennifer Ward PA-C Work Phone: [facility] Comment on above: Medicare annual [facility] visit, subsequent (Primary Dx); Advance directive discussed with patient; Essential hypertension; Smoker; Chronic obstructive pulmonary disease, unspecified COPD type (HCC); GERD without esophagitis; Bilateral impacted cerumen; Elevated fasting glucose; Age-related osteoporosis without current pathological fracture; Closed avulsion fracture of lateral malleolus of right fibula, initial encounter; Obesity, Class II, BMI 35-39.9 Start: 08-28-2021 End: 08-28-2021 Subsequent hospital visit by physician [facility] [place] Work Phone: Radiology Comment on above: Closed avulsion frac ture of lateral malleolus of right fibula, initial encounter [S82.61XA] Start: 03-01-2016 Patient encounter status Benjamin Ward PA-C Work Phone: [facility] Work Phone: Procedures Date Procedure Procedure Detail Performing Clinician Start: 03-02-2025 Positron emission tomography with computed tomography Dr. Davy Downey MD Work Phone: Start: 02-18-2025 CT of chest without contrast Dr. Davy Downey MD Work Phone: Start: 10-26-[address] Loretta Downey MD Work Phone: Start: 04-14-2024 Adult depression scr eening assessment Jennifer CEBALLOS-C Work Phone: Start: 10-04-2023 CT of chest without contrast Start: 03-27-2023 Plain chest X-ray Dr. Graham Downey Work Phone: Start: 03-24-2023 Investigation of transfusion reaction Dr. Davy Downey Work Phone: Start: 03-24-2023 Respiratory microbia l culture Dr. Davy Downye Work Phone: Start: 03-22-2023 Legionella pneumophi la antigen assay Dr. Davy Downey Work Phone: Start: 03-22-2023 Streptococcus pneumo niae Antigen (M Dr. Davy Downey Work Phone: Start: 03-21-2023 SARS-CoV-2 & FLU Ant igen (Rapid) Start: 03-21-2023 CT angiography of ch est with contrast Start: 03-21-2023 Plain chest X-ray Start: 10-26-2022 Mammography Mammograph y Coordinator Start: 10-05-2021 Radex ankle complete minimum 3 views Jennifer CEBALLOS-C Work Phone: Start: 08-28-2021 Radex ankle complete minimum 3 views Jennifer CEBALLOS-C Work Phone: Start: 10-06-2020 Mammography Jennifer CEBALLOS-C Work Phone: Start: 03-28-2018 Colonoscopy Jennifer vang PA-C Work Phone: Plan of Treatment Date Care Activity Detail Author Start: 08-24-2026 LIPID SCREEN LIPID SCREEN [facility] Start: 11-02-2025 Annual PCP Team Public Relations Player [place] Disease Visit Annual PCP Team Chronic Disease Visit [facility] Start: 10-08-2025 Hepatitis B surface antibody level LDL Cholesterol [facility] Start: 10-07-2025 Annual PCP Team Public Relations Player brent[place] Disease Visit Annual PCP Team Chronic Disease Visit [facility] Start: 06-09-2025 ambulatory Ambulatory Facility:[facility] Start: 05-06-2025 Screening for malign ant neoplasm of breast Mammogram Screening [facility] Start: 04-16-2025 Hepatitis B screening Urine Albumin:Creatinine Ratio [facility] Start: 04-16-2025 Hepatitis B surface antibody level LDL Cholesterol [facility] Start: 04-15-2025 End: 04-15-2025 Patient encounter procedure [facility] [place] Comment on above: Medicare wellness Medicare wellness/ r equesting flu and rsv vaccine Start: 04-14-2025 Annual PCP Team Public Relations Player b[place] Disease Visit Annual PCP Team Chronic Disease Visit [facility] Start: 04-14-2025 Anxiety Screening Anxiety Screening [facility] Start: 04-14-2025 BP Controlled (<130/80) BP Controlle d (<130/80) [facility] Start: 04-14-2025 Covid-19 Vaccine () Covid-19 Vaccine () [facility] Comment on above: Postponed from 03/15 (Declined at this time) Start: 04-14-2025 Depression Screening Depression Scre ening [facility] Start: 04-14-2025 Diabetic foot examination Diabetic F oot Exam [facility] Start: 04-10-2025 Hemoglobin A1c measurement HbA1C [facility] Start: 03-26-2025 End: 06-25-2025 25-hydroxyvitamin D3 [Mass/volume] in Serum or Plasma VITAMIN D 25 HYDROXY Lab Routine Vitamin D deficiency Expected: 03/26/2025, Expires: 06/25/2025 [facility] Comment on above: Expected: 03/26/2025 , Expires: 06/25/2025 Start: 03-26-2025 End: 06-25-2025 CBC W Auto Differential panel - Blood COMPLETE BLOOD COUNT AND DIFFERENTIAL Lab Routine Type 2 diabetes mellitus without complication, without long-term current use of insulin (HCC) Secondary polycythemia Expected: 03/26/2025, Expires: 06/25/2025 [facility] Comment on above: Expected: 03/26/2025 , Expires: 06/25/2025 Start: 03-26-2025 End: 06-25-2025 Cobalamin (Vitamin B12) [Mass/volume] in Serum or Plasma VITAMIN B12 Lab Routine GERD without esophagitis Medication management Expected: 03/26/2025, Expires: 06/25/2025 [facility] Comment on above: Expected: 03/26/2025 , Expires: 06/25/2025 Start: 03-26-2025 End: 06-25-2025 Comprehensive metabolic 2000 panel - Serum or Plasma COMPREHENSIVE METABOLIC PANEL Lab Routine Type 2 diabetes mellitus without complication, without long-term current use of insulin (HCC) Essential hypertension Expected: 03/26/2025, Expires: 06/25/2025 [facility] Comment on above: Expected: 03/26/2025 , Expires: 06/25/2025 Start: 03-26-2025 End: 06-25-2025 Hemoglobin A1c in Blood HEMOGLOBIN A1C Lab Routine Type 2 diabetes mellitus without complication, without long-term current use of insulin (HCC) Expected: 03/26/2025, Expires: 06/25/2025 [facility] Comment on above: Expected: 03/26/2025 , Expires: 06/25/2025 Start: 03-26-2025 End: 06-25-2025 LIPID PANEL, NONFASTING LIPID PANEL, NONFASTING Lab Routine Type 2 diabetes mellitus without complication, without long-term current use of insulin (HCC) Essential hypertension Expected: 03/26/2025, Expires: 06/25/2025 [facility] Comment on above: Expected: 03/26/2025 , Expires: 06/25/2025 Start: 03-26-2025 End: 06-25-2025 Magnesium [Mass/volume] in Serum or Plasma MAGNESIUM Lab Routine GERD without esophagitis Medication management Expected: 03/26/2025, Expires: 06/25/2025 [facility] Comment on above: Expected: 03/26/2025 , Expires: 06/25/2025 Start: 03-26-2025 End: 06-25-2025 Microalbumin/Creatinine [Mass Ratio] in Urine ALBUMIN/CREATININE RATIO, URINE Lab Routine Type 2 diabetes mellitus without complication, without long-term current use of insulin (HCC) Expected: 03/26/2025, Expires: 06/25/2025 [facility] Comment on above: Expected: 03/26/2025 , Expires: 06/25/2025 Start: 03-26-2025 End: 06-25-2025 Urinalysis complete panel - Urine URINALYSIS, WITH MICROSCOPIC Lab Routine Type 2 diabetes mellitus without complication, without long-term current use of insulin (HCC) Essential hypertension Expected: 03/26/2025, Expires: 06/25/2025 [facility] Comment on above: Expected: 03/26/2025 , Expires: 06/25/2025 Start: 03-15-2025 Influenza vaccination Influenza Vacc ine (#1) [facility] Start: 10-15-2024 Hemoglobin A1c measurement HbA1C [facility] Start: 10-14-2024 End: 10-14-2024 Patient encounter procedure 10/14/2024 10:40 AM EDT Office Visit [facility] Julien Gordon [address] [place], [place] [id number] Davy Downey MD [address] [place] [address] 6 month f/u [facility] Julien Gordon Comment on above: 6 month f/u Start: 10-07-2024 End: 10-07-2024 Patient encounter procedure [facility] Julien Gordon Comment on above: 6 month f/u 6 month f/u; schedul e AWV; Urine Albumin/CMP Start: 10-07-2024 End: 01-06-2025 25-hydroxyvitamin D3 [Mass/volume] in Serum or Plasma VITAMIN D 25 HYDROXY Lab Routine Vitamin D deficiency Expected: 10/07/2024, Expires: 01/06/2025 [facility] Comment on above: Expected: 10/07/2024 , Expires: 01/06/2025 Start: 10-07-2024 End: 01-06-2025 Basic metabolic 2000 panel - Serum or Plasma BASIC METABOLIC PANEL Lab Routine Type 2 diabetes mellitus without complication, without long-term current use of insulin ([facility]) Essential hypertension Expected: 10/07/2024, Expires: 01/06/2025 [facility] Work Phone: Comment on above: Expected: 10/07/2024 , Expires: 01/06/2025 Start: 10-07-2024 End: 01-06-2025 CBC W Auto Differential panel - Blood COMPLETE BLOOD COUNT AND DIFFERENTIAL Lab Routine Type 2 diabetes mellitus without complication, without long-term current use of insulin (HCC) Secondary polycythemia Expected: 10/07/2024, Expires: 01/06/2025 [facility] Comment on above: Expected: 10/07/2024 , Expires: 01/06/2025 Start: 10-07-2024 End: 01-06-2025 Hemoglobin A1c in Blood HEMOGLOBIN A1C Lab Routine Type 2 diabetes mellitus without complication, without long-term current use of insulin (HCC) Expected: 10/07/2024, Expires: 01/06/2025 [facility] Comment on above: Expected: 10/07/2024 , Expires: 01/06/2025 Start: 10-07-2024 End: 01-06-2025 LIPID PANEL, NONFASTING LIPID PANEL, NONFASTING Lab Routine Type 2 diabetes mellitus without complication, without long-term current use of insulin (HCC) Essential hypertension Expected: 10/07/2024, Expires: 01/06/2025 [facility] Comment on above: Expected: 10/07/2024 , Expires: 01/06/2025 Start: 09-12-2024 Screening for malign ant neoplasm of lung Lung Cancer Screening [facility] Start: 08-24-2024 DIABETES SCREEN DIABETES SCREEN [facility] Start: 07-15-2024 Advance Directive Discussion Advance Directive Discussion [facility] Start: 07-15-2024 Medicare Advantage A nnual Wellness Visit Medicare Advantage Annual Wellness Visit [facility] Start: 05-06-2024 End: 05-06-2024 Patient encounter procedure 05/06/2024 3:40 PM EDT Appointment Mammogram [address] [place], [place] [id number] [facility] SCREENING Mammogram Comment on above: DASIA SCREENING Start: 04-17-2024 End: 07-17-2024 Erythropoietin (EPO) [Units/volume] in Serum or Plasma ERYTHROPOIETIN/EPO Lab Routine Polycythemia Expected: 04/17/2024, Expires: 07/17/2024 [facility] Work Phone: Comment on above: Expected: 04/17/2024 , Expires: 07/17/2024 Start: 04-14-2024 End: 07-14-2024 25-hydroxyvitamin D3 [Mass/volume] in Serum or Plasma VITAMIN D 25 HYDROXY Lab Routine Vitamin D deficiency Expected: 04/14/2024, Expires: 07/14/2024 [facility] Comment on above: Expected: 04/14/2024 , Expires: 07/14/2024 Start: 04-14-2024 End: 07-14-2024 CBC W Auto Differential panel - Blood COMPLETE BLOOD COUNT AND DIFFERENTIAL Lab Routine Medication management Expected: 04/14/2024, Expires: 07/14/2024 [facility] Comment on above: Expected: 04/14/2024 , Expires: 07/14/2024 Start: 04-14-2024 End: 07-14-2024 Cobalamin (Vitamin B12) [Mass/volume] in Serum or Plasma VITAMIN B12 Lab Routine Medication management Expected: 04/14/2024, Expires: 07/14/2024 [facility] Comment on above: Expected: 04/14/2024 , Expires: 07/14/2024 Start: 04-14-2024 End: 07-14-2024 Comprehensive metabolic 2000 panel - Serum or Plasma COMPREHENSIVE METABOLIC PANEL Lab Routine Essential hypertension Expected: 04/14/2024, Expires: 07/14/2024 [facility] Comment on above: Expected: 04/14/2024 , Expires: 07/14/2024 Start: 04-14-2024 End: 07-14-2024 Hemoglobin A1c in Blood HEMOGLOBIN A1C Lab Routine Type 2 diabetes mellitus without complication, without long-term current use of insulin (HCC) Expected: 04/14/2024, Expires: 07/14/2024 [facility] Work Phone: Comment on above: Expected: 04/14/2024 , Expires: 07/14/2024 Start: 04-14-2024 End: 07-14-2024 LIPID PANEL, NONFASTING LIPID PANEL, NONFASTING Lab Routine Essential hypertension Expected: 04/14/2024, Expires: 07/14/2024 [facility] Comment on above: Expected: 04/14/2024 , Expires: 07/14/2024 Start: 04-14-2024 End: 07-14-2024 Microalbumin/Creatinine [Mass Ratio] in Urine ALBUMIN/CREATININE RATIO, URINE Lab Routine Type 2 diabetes mellitus without complication, without long-term current use of insulin (HCC) Expected: 04/14/2024, Expires: 07/14/2024 [facility] Comment on above: Expected: 04/14/2024 , Expires: 07/14/2024 Start: 04-14-2024 End: 07-14-2024 Urinalysis complete panel - Urine URINALYSIS, WITH MICROSCOPIC Lab Routine Essential hypertension Type 2 diabetes mellitus without complication, without long-term current use of insulin (HCC) Expected: 04/14/2024, Expires: 07/14/2024 [facility] Comment on above: Expected: 04/14/2024 , Expires: 07/14/2024 Start: 04-14-2024 End: 04-14-2024 Patient encounter procedure 04/14/2024 12:40 PM EDT Office Visit [facility] [address] [place], [place] [id number] Jennifer Ward PA-C [address] [place] [address] Physical [facility] Comment on above: Physical Start: 04-09-2024 Annual PCP Team Public Relations Player brenton Disease Visit Annual PCP Team Chronic Disease Visit [facility] Start: 04-09-2024 BP Controlled (<130/80) BP Controlle d (<130/80) [facility] Start: 03-21-2024 ANNUAL PCP TEAM COUPON AND BOND COLLECTION CLERK [place] DISEASE VISIT ANNUAL PCP TEAM CHRONIC DISEASE VISIT [facility] Start: 03-15-2024 Covid-19 Vaccine () Covid-19 Vaccine () [facility] Start: 03-15-2024 Influenza vaccination [facility] Start: 10-27-2023 Hepatitis B surface antibody level LDL CHOLESTEROL [facility] Start: 10-27-2023 Mammography [facility] Start: 10-27-2023 Screening for malign ant neoplasm of breast Mammogram Screening [facility] Start: 10-25-2023 ANNUAL PCP TEAM COUPON AND BOND COLLECTION CLERK [place] DISEASE VISIT ANNUAL PCP TEAM CHRONIC DISEASE VISIT [facility] Start: 10-25-2023 BP CONTROLLED (<130/80) BP CONTROLLE D (<130/80) [facility] Start: 10-25-2023 SHINGRIX VACCINE (1 of 2) BLEDSOE GRIX VACCINE (1 of 2) [facility] Comment on above: Postponed from 06/11 (Insurance Coverage) Start: 10-25-2023 Urine microalbumin profile [facility] Comment on above: Postponed from 06/11 (Insurance Coverage) Start: 07-15-2023 Advance Directive Discussion Advance Directive Discussion [facility] Start: 07-15-2023 Behavioral Health Screening Behavioral Health Screening [facility] Start: 07-04-2023 End: 05-03-2024 Ct thorax w/o contrast material CT CHEST WO IVCON Radiology Routine Lung nodules Expected: 07/04/2023, Expires: 05/03/2024 [facility] Work Phone: Comment on above: Expected: 07/04/2023 , Expires: 05/03/2024 Start: 04-27-2023 Hemoglobin A1c measurement HbA1C [facility] Start: 04-27-2023 Hemoglobin A1c/Hemoglobin.total in Blood HBA1C [facility] Start: 04-12-2023 End: 06-12-2023 Hemoglobin A1c in Blood HGB A1C Lab Routine Elevated fasting glucose Expected: 04/12/2023, Expires: 06/12/2023 [facility] Work Phone: Comment on above: Expected: 04/12/2023 , Expires: 06/12/2023 Start: 04-11-2023 ANNUAL PCP TEAM COUPON AND BOND COLLECTION CLERK [place] DISEASE VISIT ANNUAL PCP TEAM CHRONIC DISEASE VISIT [facility] Start: 04-01-2023 Patient discharge [facility] Start: 03-31-2023 Measuring intake and output [facility] Start: 03-30-2023 Physiotherapy of chest [facility] Start: 03-30-2023 [facility] Start: 03-28-2023 Dual pressure sponta neous ventilation support [facility] Start: 03-28-2023 Continuous pulse oximetry [facility] Start: 03-28-2023 Colonoscopy COLONOSCOPY [facility] Start: 03-28-2023 COLORECTAL CANCER SCREENING COLORECTAL CANCER SCREENING [facility] Start: 03-28-2023 Screening for malign ant neoplasm of colon [facility] Start: 03-27-2023 Fluid restriction [facility] Start: 03-27-2023 Consultation [facility] Start: 03-22-2023 Blood chemistry [facility] Start: 03-22-2023 Complete blood count [facility] Start: 03-22-2023 Inhalation therapy procedure [facility] Start: 03-21-2023 Ambulation without limitation [facility] Start: 03-21-2023 Assessment of risk o f venous thromboembolism [facility] Start: 03-21-2023 Insertion of cathete r into peripheral vein [facility] Start: 03-21-2023 Oxygen therapy [facility] Start: 03-21-2023 Providing care accor ding to standard [facility] Start: 03-21-2023 Referral to occupati onal therapist [facility] Start: 03-21-2023 Referral to service [facility] Start: 03-21-2023 Tobacco use cessatio n education [facility] Start: 03-21-2023 [facility] Start: 03-21-2023 Following clinical pathway protocol [facility] Start: 03-21-2023 Transfusion of blood product [facility] Start: 03-21-2023 Respiratory pathogen s DNA and RNA panel - Respiratory specimen by GURVINDER with probe detection [facility] Start: 03-21-2023 Verification routine [facility] Start: 03-21-2023 Admission procedure [facility] Start: 03-21-2023 [facility] Start: 03-21-2023 Patient referral to dietitian [facility] Start: 03-15-2023 Covid-19 Vaccine () Covid-19 Vaccine () [facility] Start: 03-15-2023 Influenza vaccination [facility] Start: 10-24-2022 End: 12-24-2022 25-hydroxyvitamin D3 [Mass/volume] in Serum or Plasma VITAMIN D 25 HYDROXY Lab Routine Vitamin D deficiency Expected: 10/24/2022, Expires: 12/24/2022 [facility] Work Phone: Comment on above: Expected: 10/24/2022 , Expires: 12/24/2022 Start: 10-24-2022 End: 12-24-2022 CBC W Auto Differential panel - Blood CBC + DIFF Lab Routine Medication management Expected: 10/24/2022, Expires: 12/24/2022 [facility] Work Phone: Comment on above: Expected: 10/24/2022 , Expires: 12/24/2022 Start: 10-24-2022 End: 12-24-2022 Cobalamin (Vitamin B12) [Mass/volume] in Serum or Plasma VITAMIN B12 BLOOD Lab Routine GERD without esophagitis Medication management Expected: 10/24/2022, Expires: 12/24/2022 [facility] Work Phone: Comment on above: Expected: 10/24/2022 , Expires: 12/24/2022 Start: 10-24-2022 End: 12-24-2022 Comprehensive metabolic 2000 panel - Serum or Plasma COMP METABOLIC PANEL Lab Routine Essential hypertension Expected: 10/24/2022, Expires: 12/24/2022 [facility] Work Phone: Comment on above: Expected: 10/24/2022 , Expires: 12/24/2022 Start: 10-24-2022 End: 12-24-2022 Hemoglobin A1c in Blood HGB A1C Lab Routine Elevated fasting glucose Expected: 10/24/2022, Expires: 12/24/2022 [facility] Work Phone: Comment on above: Expected: 10/24/2022 , Expires: 12/24/2022 Start: 10-24-2022 End: 12-24-2022 LIPID PANEL, NONFASTING LIPID PANEL, NONFASTING Lab Routine Essential hypertension Expected: 10/24/2022, Expires: 12/24/2022 [facility] Work Phone: Comment on above: Expected: 10/24/2022 , Expires: 12/24/2022 Start: 10-24-2022 End: 12-24-2022 Magnesium [Mass/volume] in Serum or Plasma MAGNESIUM BLD Lab Routine GERD without esophagitis Medication management Expected: 10/24/2022, Expires: 12/24/2022 [facility] Work Phone: Comment on above: Expected: 10/24/2022 , Expires: 12/24/2022 Start: 10-24-2022 End: 12-24-2022 Urinalysis complete panel - Urine URINALYSIS, WITH MICROSCOPIC Lab Routine Essential hypertension Expected: 10/24/2022, Expires: 12/24/2022 [facility] Work Phone: Comment on above: Expected: 10/24/2022 , Expires: 12/24/2022 Start: 10-05-2022 ANNUAL PCP TEAM COUPON AND BOND COLLECTION CLERK [place] DISEASE VISIT ANNUAL PCP TEAM CHRONIC DISEASE VISIT [facility] Start: 10-05-2022 BP CONTROLLED (<130/80) BP CONTROLLE D (<130/80) [facility] Start: 10-05-2022 [facility] above: Postponed from 06/11 (Declined at this time) Postponed from 06/11 (Declined at this time) Start: 07-15-2022 ADVANCE DIRECTIVE DISCUSSION ADVANCE DIRECTIVE DISCUSSION [facility] Start: 07-15-2022 DEPRESSION ASSESSMENT DEPRESSION ASS ESSMENT [facility] Start: 04-11-2022 End: 2022 Basic metabolic 2000 panel - Serum or Plasma BASIC METABOLIC PNL Lab Routine Essential hypertension Elevated fasting glucose Expected: 04/11/2022, Expires: 2022 [facility] Work Phone: Comment on above: Expected: 04/11/2022 , Expires: 2022 Start: 04-11-2022 End: 2022 Hemoglobin A1c in Blood HGB A1C Lab Routine Elevated fasting glucose Expected: 04/11/2022, Expires: 2022 [facility] Work Phone: Comment on above: Expected: 04/11/2022 , Expires: 2022 Start: 04-11-2022 End: 04-25-2022 SARS-CoV-2 (COVID-19) RNA [Presence] in Respiratory specimen by GURVINDER with probe detection [facility] Work Phone: Comment on above: Expected: 04/11/2022 , Expires: 04/25/2022 Start: 03-15-2022 Influenza vaccination INFLUENZA (#1) [facility] Start: 10-06-2021 Mammography MAMMOGRAM [facility] Start: 08-26-2021 COVID-19 VACCINE (4 - Booster for Moderna series) COVID-19 VACCINE (4 - Booster for Moderna series) [facility] Start: 07-15-2021 DEPRESSION ASSESSMENT DEPRESSION ASS ESSMENT [facility] Start: 06-20-2021 COVID-19 VACCINE (4 - Booster for Moderna series) COVID-19 VACCINE (4 - Booster for Moderna series) [facility] Start: 06-20-2021 COVID-19 VACCINE (4 - Moderna series) COVID-19 VACCINE (4 - Moderna series) [facility] Start: 03-12-2020 Screening for osteoporosis Bone Density Screening [facility] Start: 10-03-2017 FECAL OCCULT BLOOD FECAL OCCULT BLOO D [facility] Start: 10-03-2017 Screening for malign ant neoplasm of colon Fecal Occult Blood [facility] Start: 2010 Hepatitis B Vaccine (1 of 3 - Risk 3-dose series) Hepatitis B Vaccine (1 of 3 - Risk 3-dose series) [facility] Start: 2010 RSV Vaccine (1 - 1-d ose 60+ series) RSV Vaccine (1 - 1-dose 60+ series) [facility] Start: 2010 RSV Vaccine (1 - Ris k 60-74 years 1-dose series) RSV Vaccine (1 - Risk 60-74 years 1-dose series) [facility] Start: 2000 Influenza vaccination LUNG CANCER SC REENING [facility] Start: 2000 Screening for malign ant neoplasm of lung Lung Cancer Screening [facility] Start: 2000 SHINGRIX VACCINE (1 of 2) BLEDSOE GRIX VACCINE (1 of 2) [facility] Start: 1995 COLOGUARD (FIT-DNA) COLOGUARD (FIT-D NA) [facility] Start: [address] [facility] Start: 1995 Screening for malign ant neoplasm of colon [facility] Start: 1995 SIGMOIDOSCOPY SIGMOIDOSCOPY [facility] Start: 1980 Zoledronic acid therapy ALPHA- 1 ANTITRYPSIN DEFICIENCY SCREENING [facility] Start: 1969 Urine microalbumin profile [facility] Start: 1968 Anxiety Screening Anxiety Screening [facility] Start: 1968 BP CONTROLLED (<130/80) BP CONTROLLE D (<130/80) [facility] Start: 1968 Depression Screening Depression Scre ening [facility] Start: 1960 3 comp foot exam completed DIABETIC FOOT EXAM [facility] Start: 1960 Diabetic foot examination Diabetic F oot Exam [facility] Start: 1960 Glaucoma screening Dilated Retinal E xam [facility] Start: 1960 Hepatitis B screening URINE ALBUMIN:CREATININE RATIO [facility] Start: 1960 Hepatitis C antibody , confirmatory test DILATED RETINAL EXAM [facility] Anion gap measurement [facility] BUN/Creatinine ratio [facility] Calcium [Mass/volume ] in Serum or Plasma [facility] Carbon dioxide, tota l [Moles/volume] in Serum or Plasma [facility] Chloride [Moles/volu me] in Serum or Plasma [facility] Creatinine [Moles/vo lume] in Serum or Plasma [facility] CT Chest WO contrast [facility] CT Chest WO contrast [facility] End: 05-11-2023 Dxa bone density study 1/> sites axial skel DXA-AXIAL SKELETON Radiology Routine Age-related osteoporosis without current pathological fracture 1 Occurrences starting 04/11/2022 until 05/11/2023 [facility] Work Phone: Comment on above: 1 Occurrences starti ng 04/11/2022 until 05/11/2023 Glucose [Mass/volume ] in Serum or Plasma [facility] Hematocrit [Volume Fraction] of Blood [facility] Hemoglobin [Mass/vol ume] in Blood [facility] INFLUENZA SEASONAL QUADRIVALENT HIGH DOSE AGE 65+ INFLUENZA SEASONAL QUADRIVALENT HIGH DOSE AGE 65+ Immunization/Injection Routine 1 Occurrences starting 04/11/2022 [facility] Work Phone: Comment on above: 1 Occurrences starti ng 04/11/2022 Leukocytes [#/volume ] in Blood [facility] Mean corpuscular hemoglobin concentration determination [facility] Mean corpuscular hemoglobin determination [facility] Measurement of renal function [facility] End: 01-02-2025 MG Breast Screening DASIA SCREENING Radiology Routine Encounter for screening mammogram for breast cancer 1 Occurrences starting 12/04/2023 until 01/02/2025 [facility] Work Phone: Comment on above: 1 Occurrences starti ng 12/04/2023 until 01/02/2025 MG Breast Screening DASIA SCREENIN G Radiology Routine Encounter for screening mammogram for breast cancer 05/06/2024 4:04 PM EDT [facility] Work Phone: Noninvasive ear/puls e oximetry multiple deter [id number] Procedures Routine Dependence on supplemental oxygen when ambulating Ordered: 04/09/2023 [facility] Work Phone: Comment on above: Ordered: 04/09/2023 Patient referral [facility] Work Phone: PFIZER[employer]BIONTE[employer] COVI D-19 BIVALENT BOOSTER VACCINE, AGE 12+ YR [employer] COVID-19 BIVALENT BOOSTER VACCINE, AGE 12+ YR Immunization/Injection Routine Need for COVID-19 vaccine 1 Occurrences starting 04/11/2022 [facility] Work Phone: Comment on above: 1 Occurrences starti ng 04/11/2022 Platelets [#/volume] in Blood [facility] Positron emission tomography with computed tomography [facility] Potassium [Moles/vol ume] in Serum or Plasma [facility] Red blood cell count [facility] Red cell distributio n width determination [facility] End: 01-26-2023 Screening mammography bi 2-view breast inc cad DASIA SCREENING Radiology Routine Encounter for screening mammogram for breast cancer 1 Occurrences starting 12/27/2021 until 01/26/2023 [facility] Work Phone: Comment on above: 1 Occurrences starti ng 12/27/2021 until 01/26/2023 Sodium [Moles/volume ] in Serum or Plasma [facility] Urea nitrogen [Mass/volume] in Serum [facility] Immunizations Immunization Date Immunization Notes Care Provider [facility] 04-14-2024 influenza, high dose seasonal, preservative-free Jennifer Ward PA-C Work Phone: [facility] 04-14-2024 influenza virus vacc ine, unspecified formulation Davy Downey MD Work Phone: [facility] 05-12-2021 influenza (aIIV4) vaccine, age 65+ yr, quadrivalent, PF (FLUAD QUADRIVALENT) Jennifer Ward PA-C Work Phone: [facility] 05-12-2021 influenza virus vacc ine, unspecified formulation Davy Downey MD Work Phone: [facility] 08-10-2020 COVID-19 vaccine, fu ll dose (MODERNA) Jennifer Ward PA-C Work Phone: [facility] 07-13-2020 COVID-19 vaccine, fu ll dose (MODERNA) Jennifer Ward PA-C Work Phone: [facility] 04-06-2020 influenza, high dose seasonal, preservative-free Jennifer Ward PA-C Work Phone: [facility] 04-06-2020 influenza, injectabl e, quadrivalent, preservative free Dr. Davy Downey Work Phone: [facility] 04-06-2020 influenza, seasonal, injectable [facility] 05-28-2019 influenza, high dose seasonal, preservative-free Jennifer Ward PA-C Work Phone: [facility] 09-11-2016 influenza, injectabl e, quadrivalent, preservative free Jennifer Ward PA-C Work Phone: [facility] 09-11-2016 pneumococcal polysaccharide vaccine, 23 valent Jennifer Ward PA-C Work Phone: [facility] 09-01-2015 influenza, injectabl e, quadrivalent, contains preservative Jennifer Ward PA-C Work Phone: [facility] Work Phone: 09-01-2015 pneumococcal conjuga te vaccine, 13 valent Jennifer Ward PA-C Work Phone: [facility] Work Phone: Payers Date Payer Category Payer Medicare (Managed Care) [id number]. [id number] 2024 Self-pay [id number] 2024 Medicare [id number] 2020 Medicare [employer]NA MEDICARE [employer] GOLD PLUS [id number] 2020-Present [phone] [place], [place] [address] [id number] 2020 Medicare [employer]MANA MEDICARE [employer] GOLD PLUS [id number] 2020-Present [phone] [place], [place] [address] [id number] Unknown [facility] [id number] Unknown [id number] 62 Unknown [id number] 62 Unknown [id number] 62 Unknown [id number] 62 Unknown [id number] 62 Unknown [id number] 62 Unknown [id number] 62 Unknown [id number] 62 Unknown [id number] 62 Social History Date Type Detail Facility Start: 09-01-2015 End: 04-14-2024 Tobacco smoking status NHIS Smokes tobacco daily [facility] Work Phone: History of tobacco use Cigarette Smoker [facility] Work Phone: Start: 09-01-2015 End: 03-21-2023 Cigarettes smoked current (pack per day) - Reported 1 [facility] Work Phone: Start: 09-01-2015 End: 04-14-2024 Tobacco use and exposure Smokeless tobacco non-user [facility] Work Phone: Start: 10-05-2021 End: 10-07-2024 Alcohol intake Current drinker of alcohol (finding) [facility] Start: 03-12-2018 History SDOH Alcohol Comment occasional [facility] Start: 1950 Sex Assigned At Not on file [facility] Start: 07-29-2021 End: 04-11-2022 Exposure to SARS-CoV-2 (event) Not sure [facility] Start: 10-24-2022 End: 03-21-2023 Tobacco use panel [facility] Work Phone: Start: 06-15-2012 Adult Depression Screening Assessment 0 [facility] Work Phone: Start: 03-21-2023 End: 05-08-2023 Tobacco smoking status WIIS Unknown if ever smoked [facility] Start: 04-05-2020 [facility] Start: 04-05-2020 With Family [facility] Start: 04-07-2020 Cigarettes [facility] Start: 1950 Sex Assigned At Female [facility] (I/We) worried joaquín er (my/our) food would run out before (I/we) got money to buy more. Never true [facility] In the past 12 month s, was there a time when you were not able to pay the mortgage or rent on time? No [facility] Start: 10-30-2024 Sex Female (finding) [facility] Goals Date Patient Goal Desired Activity /State Functional Status Date Assessment Result Facility 04-01-2023 Functional status Ambulates [facility] Work Phone: Mental Status Date Assessment Result Facility 04-01-2023 Cognitive function Voice/Name [facility] Work Phone: Clinical Notes 10-05-2021 to 05-19-2025 Venecia Hartmann - 03/18/2025 1:02 PM Venecia Mosqueda - 03/18/2025 11:30 AM Jan Miranda LPN - 02/24/2025 8:22 AM Venecia Mosqueda - 01/07/2025 10:22 AM EDT Note Date & Type Note Facility 05-19-2025 Note HNO ID: [id number] Author: ?, ?, ? Service: ? Author Type: ? Type: Progress Notes Filed: 05/19/2025 10:00 Note Text: POPULATION HEALTH NAVIGATION OUTREACH Action/ Patient outreach for HCCs HM due; A1c, KED, Follow up October for HCCs Declined mamm, does WILEY at OSH. Lvm and sent mcm Reason for Outreach Care Gap/HCC or Scheduling Wellness Visits Care Gaps due: Follow-up Appointment HBA1C KED Patient Contacted: Unable or unnecessary to reach patient: Left message Lumeta message sent HCC related Navigation Signature: Venecia Cadet [facility] May 19, 2025 9:57 AM [facility] 05-19-2025 Note Patient Outreach (RON PISANO) MIMA DOS SANTOS ([id number]) 1950 F Date Time Provider Department 05/19/25 DAVY DOWNEY During your visit today, we recorded the following information about you: Helio WilsonBeckyVenecia 05/19/2025 10:00 AM Signed POPULATION HEALTH NAVIGATION OUTREACH Action/FYI Patient outreach for HCCs HM due; A1c, KED, Follow up October for HCCs Declined mamm, does WILEY at OSH. Lvm and sent mcm Reason for Outreach Care Gap/HCC or Scheduling Wellness Visits Care Gaps due: Follow-up Appointment HBA1C KED Patient Contacted: Unable or unnecessary to reach patient: Left message [email or web address] message sent HCC related Navigation Signature: Venecia Wilson May 19, 2025 9:57 AM Allergies As of Date: 05/19/2025 Noted Allergy Reaction SULFITES 09/01/2015 2 - Rash SHRIMP 09/01/2015 11 - Vomiting Date Reviewed: 04/15/2025 Reviewed by: Bakari Ram MA - Fully Assessed Reason for Visit: Population Health Navigation Outreach [3910] Cmt: Joya Gordon Prescriptions as of 05/19/2025 - atorvastatin (LIPITOR) 20 mg tablet Take 1 tablet by mouth once daily. - omeprazole (PRILOSEC) 20 mg capsule Take 2 capsules by mouth once daily. - predniSONE (DELTASONE) 10 mg tablet Take 4 tablets x 3 days, then 3 tablets x 3 days, then 2 tablets x 3 days, then one tablet x 3 days then stop - habuaekukdd-abwsmcajb-olldykgz (TRELEGY ELLIPTA) 100-62.5-25 mcg inhalation powder Inhale 1 Puff as instructed once daily. - ELIQUIS 5 mg tab(s) - furosemide (LASIX) 40 mg tablet - metoprolol tartrate, short acting, (LOPRESSOR) 25 mg tablet TWICE A DAY - albuterol HFA (VENTOLIN HFA) 90 mcg/actuation inhaler Inhale 2 Puffs as instructed every 4 hours as needed for wheezing/shortness of breath. Problem List As Of Date 05/19/2025 Noted Resolved Smoker [F17.200] 09/01/2015 Screen for colon cancer [Z12.11] 09/01/2015 Encounter for gynecological examination without*03/01/2016 Soft tissue mass [M79.89] 09/26/2017 Medicare annual wellness visit, subsequent [Z00*03/03/2018 Encounter for screening mammogram for breast ca*03/03/2018 Primary ovarian failure [E28.39] 03/03/2018 Age-related osteoporosis without current pathol*03/12/2018 Encounter for screening for malignant neoplasm *03/13/2018 COPD (chronic obstructive pulmonary disease) (H*10/24/2018 Other chronic sinusitis [J32.8] 10/24/2018 GERD without esophagitis [K21.9] 05/28/2019 Medication management [Z79.899] 01/21/2020 Vitamin D deficiency [E55.9] 01/21/2020 Essential hypertension [I10] 05/20/2020 Bilateral leg edema [R60.0] 05/20/2020 Other proteinuria [R80.8] 01/18/2021 Advance directive discussed with patient [Z71.8*10/05/2021 Obesity, Class II, BMI 35-39.9 [E66.812] 10/05/2021 Type 2 diabetes mellitus without complication, *10/28/2022 Lung nodule [R91.1] 04/04/2023 Paroxysmal atrial fibrillation (HCC) [I48.0] 04/14/2024 Secondary polycythemia [D75.1] 04/22/2024 Encounter Status:Closed by VENECIA HARTMANN on 05/19/25 [facility] 04-19-2025 Note HNO ID: [id number] Author: ?, ?, ? Service: ? Author Type: ? Type: Progress Notes Filed: 04/19/2025 09:47 Note Text: POPULATION HEALTH NAVIGATION OUTREACH Action/I Patient outreach for HCCs HM due; Follow up October, A1c, ked, declined mammogram, sees OSH for WILEY Lvm and sent mcm Reason for Outreach Care Gap/HCC or Scheduling Wellness Visits Care Gaps due: Follow-up Appointment HBA1C KED Patient Contacted: Unable or unnecessary to reach patient: Left message MyChart message sent HCC related Navigation Signature: Venecia Wilson April 19, 2025 9:40 AM [facility] 04-19-2025 Note Patient Outreach (RON TNAV) MIMA DOS SANTOS ([id number]) 1950 F Date Time Provider Department 04/19/25 DAVY DOWNEY During your visit today, we recorded the following information about you: Venecia Hartmann 04/19/2025 9:47 AM Signed POPULATION HEALTH NAVIGATION OUTREACH Action/I Patient outreach for HCCs HM due; Follow up October, A1c, ked, declined mammogram, sees OSH for WILEY Lvm and sent mcm Reason for Outreach Care Gap/HCC or Scheduling Wellness Visits Care Gaps due: Follow-up Appointment HBA1C KED Patient Contacted: Unable or unnecessary to reach patient: Left message Brandwatcht message sent HCC related Navigation Signature: Venecia Wilson April 19, 2025 9:40 AM Allergies As of Date: 04/19/2025 Noted Allergy Reaction SULFITES 09/01/2015 2 - Rash SHRIMP 09/01/2015 11 - Vomiting Date Reviewed: 04/15/2025 Reviewed by: Bakari Ram MA - Fully Assessed Reason for Visit: Population Health Navigation Outreach [3910] Cmt: Joya Gordon Prescriptions as of 04/19/2025 - atorvastatin (LIPITOR) 20 mg tablet Take 1 tablet by mouth once daily. - omeprazole (PRILOSEC) 20 mg capsule Take 2 capsules by mouth once daily. - predniSONE (DELTASONE) 10 mg tablet Take 4 tablets x 3 days, then 3 tablets x 3 days, then 2 tablets x 3 days, then one tablet x 3 days then stop - cmaefhnonqt-nprdgwtum-lzfemlaz (TRELEGY ELLIPTA) 100-62.5-25 mcg inhalation powder Inhale 1 Puff as instructed once daily. - ELIQUIS 5 mg tab(s) - furosemide (LASIX) 40 mg tablet - metoprolol tartrate, short acting, (LOPRESSOR) 25 mg tablet TWICE A DAY - albuterol HFA (VENTOLIN HFA) 90 mcg/actuation inhaler Inhale 2 Puffs as instructed every 4 hours as needed for wheezing/shortness of breath. 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] 03/03/2018 Age-related osteoporosis without current pathol*03/12/2018 Encounter for screening for malignant neoplasm *03/13/2018 COPD (chronic obstructive pulmonary disease) (H*10/24/2018 Other chronic sinusitis [J32.8] 10/24/2018 GERD without esophagitis [K21.9] 05/28/2019 Medication management [Z79.899] 01/21/2020 Vitamin D deficiency [E55.9] 01/21/2020 Essential hypertension [I10] 05/20/2020 Bilateral leg edema [R60.0] 05/20/2020 Other proteinuria [R80.8] 01/18/2021 Advance directive discussed with patient [Z71.8*10/05/2021 Obesity, Class II, BMI 35-39.9 [E66.812] 10/05/2021 Type 2 diabetes mellitus without complication, *10/28/2022 Lung nodule [R91.1] 04/04/2023 Paroxysmal atrial fibrillation (HCC) [I48.0] 04/14/2024 Secondary polycythemia [D75.1] 04/22/2024 Encounter Status:Closed by VENECIA HARTMANN on 04/19/25 [facility] 04-15-2025 Note HNO ID: [id number] Author: FAHAD WEBBER APRN.KYLIE Service: ? Author Type: Nurse Practitioner Type: Progress Notes Filed: 04/15/2025 17:05 Note Text: Mima Dos Santos is a 74 year old female here for a Medicare wellness visit. Medicare Health Risk Assessment General Health Fair Exercise: Minutes/Day None Exercise: Days/Week None Alcohol: Daily Use None Alcohol: Drinks/Day None Alcohol: 6 or more drinks None Feel off balance No Concerns: Teeth/Dentures No Concerns: Sexual function Troubled by feelings No Frequency: Eating healthy diet Well rounded ADLs requiring help No Safety precautions in home/vehicle Yes Smoke, vape, chews tobacco Yes Difficulty hearing No Difficulty seeing No Current Providers Specialists: I have reviewed specialist-related care of the patient in the medical record. Current care team: Patient Care Team: Davy Downey MD as PCP - General (Family Medicine) Fahad Webber APRN.KYLIE as Rolfer (Family Medicine) Jennifer Ward PA-C as Rolfer (Family Medicine) Medical/Family history review Reviewed and updated problem list, medical/surgical/family/social history, medications, and allergies. Opioid use review Opioid Medications (last 90 days) No data to display Anxiety/Depression screening (Lower risk for depression) (Lower risk for anxiety) Recommendation: no further intervention at this time Cognitive screening Cognitive screening reviewed and No further action needed (score 3-5). Functional Observation Was the patient's Timed Up AND Go test unsteady or >= 12 seconds? No Advance Care Planning Patient did not wish or was not able to name a surrogate decision maker or provide an advance care plan Measurements BP 117/65 Pulse 76 Wt 87 kg (191 lb 12.8 oz) BMI 36.10 kg/m? Vision Screening: Follows with optometry/ophthalmology Assessment/Plan Medicare annual wellness visit, subsequent (Z00.00) - Counseled on healthy diet and regular exercise - Fall avoidance information provided - Personalized prevention plan provided Chief Complaint Patient presents with: Medicare Wellness Exam HPI Mima Dos Santos is a 74 year old female who presents here today for Above Complaints.. Patient presents for annual wellness exam Past medical history, appointments, medications, allergies reviewed. 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 COPD (chronic obstructive pulmonary disease) (HCC) 10/24/2018 Suspected- patient not wanting to do PFT but willing to trial inhalers Diverticulosis of colon without diverticulitis 03/28/2018 Elevated fasting glucose 01/18/2021 Essential hypertension 05/20/2020 Gastritis GERD without esophagitis 05/28/2019 History of Helicobacter pylori infection 03/28/2018 Lung nodule 04/04/2023 [facility] 03/21/2023 7.1 mm noncalcified nodule Rt middle lobe Obesity, Class II, BMI 35-39.9 10/05/2021 Osteoporosis Other chronic sinusitis 10/24/2018 Paroxysmal atrial fibrillation (HCC) 04/14/2024 Seeing cardio Secondary polycythemia 04/22/2024 Smoker 09/01/2015 Started at age 15 and up to 1PPD Vitamin D deficiency 01/21/2020 Previous Surgical History PAST SURGICAL HISTORY Procedure Laterality Date APPENDECTOMY COLONOSCOPY FLX DX W/COLLJ SPEC WHEN PFRMD 03/28/2018 Colonoscopy ESOPHAGOGASTRODUODENOSCOPY TRANSORAL DIAGNOSTIC 03/28/2018 EGD PAST SURGICAL HISTORY OF 1992 [facility] Family History FAMILY HISTORY Problem Relation Age of Onset Stroke Mother Alzheimer's Disease Father Diabetes Sister Diabetes Sister Hypertension Sister Brain Cancer Sister Diabetes Brother Hypertension Brother Alzheimer's Disease Paternal Grandmother Patient Allergies ALLERGIES Allergen Reactions Sulfites Rash Shrimp Vomiting Current Medications Current Outpatient Medications on File Prior to Visit Medication Sig omeprazole (PRILOSEC) 20 mg capsule Take 2 capsules by mouth once daily. predniSONE (DELTASONE) 10 mg tablet Take 4 tablets x 3 days, then 3 tablets x 3 days, then 2 tablets x 3 days, then one tablet x 3 days then stop luiccgdskdm-teawqyqhv-zjbxevpn (TRELEGY ELLIPTA) 100-62.5-25 mcg inhalation powder Inhale 1 Puff as instructed once daily. ELIQUIS 5 mg tab(s) furosemide (LASIX) 40 mg tablet (Patient taking differently: 20 mg.) metoprolol tartrate, short acting, (LOPRESSOR) 25 mg tablet TWICE A DAY potassium chloride (K-TAB) 10 mEq tablet (Patient not taking: Reported on 04/15/2025) albuterol HFA (VENTOLIN HFA) 90 mcg/actuation inhaler Inhale 2 Puffs as instructed every 4 hours as needed for wheezing/shortness of breath. No current facility-administered medications on file prior to visit. Social History SOCIAL HISTORY[1] Review of Symptoms REVIEW OF SYSTEMS SEE HPI EXAM: BP 117/65 Pulse 76 Wt 87 kg (191 lb 12.8 oz) BMI 36.10 kg/m? General Appearance: Well appeari (more content not included)... [facility] 04-05-2025 Note HNO ID: [id number] Author: DENNIS LIRIANO CPhT Service: ? Author Type: Master Chef Type: Progress Notes Filed: 04/05/2025 15:17 Note Text: Patient is identified through a medication adherence outreach initiative based on pharmacy claims data from: [facility] Medication Adherence Category: Statins First Review Attribution Status: Correct attribution Medication(s) Atorvastatin 20 mg Last Filled 02/19/25 for 30DS, Next fill due 03/20/25 Medication Status per portal/Epic Reconcile Dispense: Filled late - Within 7 days after next fill date Date Filled (MM/DD): 03/22/25 Day Supply: 30 Medication Status per Profile Review: No issues per profile review Patient/provider appropriate for outreach? No Reason patient/provider not appropriate for outreach:Patient filled on time / no adherence concerns to be addressed Dennis Liriano CPhT [facility] Team [facility] 04-05-2025 Note Patient Outreach ( PO) MIMA DOS SANTOS ([id number]) 1950 F Date Time Provider Department 04/05/25 DAVY DOWNEY During your visit today, we recorded the following information about you: Dennis Liriano CPhT 04/05/2025 3:17 PM Signed Patient is identified through a medication adherence outreach initiative based on pharmacy claims data from: [facility] Medication Adherence Category: Statins First Review Attribution Status: Correct attribution Medication(s) Atorvastatin 20 mg Last Filled 02/19/25 for 30DS, Next fill due 03/20/25 Medication Status per portal/Epic Reconcile Dispense: Filled late - Within 7 days after next fill date Date Filled (MM/DD): 03/22/25 Day Supply: 30 Medication Status per Profile Review: No issues per profile review Patient/provider appropriate for outreach? No Reason patient/provider not appropriate for outreach:Patient filled on time / no adherence concerns to be addressed Dennis Liriano CPhT [facility] Team Allergies As of Date: 04/05/2025 Noted Allergy Reaction SULFITES 09/01/2015 2 - Rash SHRIMP 09/01/2015 11 - Vomiting Date Reviewed: 11/02/2024 Reviewed by: Marichuy Ambriz LPN - Fully Assessed Reason for Visit: Allied Health Visit [5] Cmt: Medication Adherence Outreach Prescriptions as of 04/05/2025 - omeprazole (PRILOSEC) 20 mg capsule Take 2 capsules by mouth once daily. - predniSONE (DELTASONE) 10 mg tablet Take 4 tablets x 3 days, then 3 tablets x 3 days, then 2 tablets x 3 days, then one tablet x 3 days then stop - atorvastatin (LIPITOR) 20 mg tablet Take 1 tablet by mouth once daily. - dbeykhtfxzb-lonsbqihg-rbemoicm (TRELEGY ELLIPTA) 100-62.5-25 mcg inhalation powder Inhale 1 Puff as instructed once daily. - ELIQUIS 5 mg tab(s) - furosemide (LASIX) 40 mg tablet - metoprolol tartrate, short acting, (LOPRESSOR) 25 mg tablet TWICE A DAY - potassium chloride (K-TAB) 10 mEq tablet - albuterol HFA (VENTOLIN HFA) 90 mcg/actuation inhaler Inhale 2 Puffs as instructed every 4 hours as needed for wheezing/shortness of breath. 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] 03/03/2018 Age-related osteoporosis without current pathol*03/12/2018 Encounter for screening for malignant neoplasm *03/13/2018 COPD (chronic obstructive pulmonary disease) (H*10/24/2018 Other chronic sinusitis [J32.8] 10/24/2018 GERD without esophagitis [K21.9] 05/28/2019 Medication management [Z79.899] 01/21/2020 Vitamin D deficiency [E55.9] 01/21/2020 Essential hypertension [I10] 05/20/2020 Bilateral leg edema [R60.0] 05/20/2020 Other proteinuria [R80.8] 01/18/2021 Advance directive discussed with patient [Z71.8*10/05/2021 Obesity, Class II, BMI 35-39.9 [E66.812] 10/05/2021 Type 2 diabetes mellitus without complication, *10/28/2022 Lung nodule [R91.1] 04/04/2023 Paroxysmal atrial fibrillation (HCC) [I48.0] 04/14/2024 Secondary polycythemia [D75.1] 04/22/2024 Encounter Status:Closed by DENNIS LIRIANO on 04/05/25 [facility] 03-18-2025 Note HNO ID: [id number] Author: ?, ?, ? Service: ? Author Type: ? Type: Progress Notes Filed: 03/18/2025 13:03 Note Text: POPULATION HEALTH NAVIGATION OUTREACH Action/FYI Patient returned call and agreed to flu at wellness Reason for Outreach Returned Call/MyChart Patient Contacted: Spoke to patient/parent/or legal guardian Patient identified by name and date of : Yes Returned call/MyChart actions taken: Updated appointment note Navigation Signature: Venecia Wilson March 18, 2025 1:02 PM [facility] 03-18-2025 History of Presen t illness Narrative POPULATION HEALTH NAVIGATION OUTREACH Action/FYI Patient returned call and agreed to flu at wellness Reason for Outreach Returned Call/MyChart Patient Contacted: Spoke to patient/parent/or legal guardian Patient identified by name and date of : Yes Returned call/MyChart actions taken: Updated appointment note Navigation Signature: Venecia Wilson March 18, 2025 1:02 PM POPULATION HEALTH NAVIGATION OUTREACH Action/FYI Patient outreach for HCCs HM due; Flu Lvm and sent mcm to schedule. Has wellness on 04/15/25 Reason for Outreach Care Gap/HCC or Scheduling Wellness Visits Care Gaps due: Flu Vaccine Patient Contacted: Unable or unnecessary to reach patient: Left message MyChart message sent HCC related Updated appointment notes Navigation Signature: Venecia Wilson March 18, 2025 11:30 AM documented in this encounter [facility] 03-18-2025 Note HNO ID: [id number] Author: ?, ?, ? Service: ? Author Type: ? Type: Progress Notes Filed: 03/18/2025 11:33 Note Text: POPULATION HEALTH NAVIGATION OUTREACH Action/FYI Patient outreach for HCCs HM due; Flu Lvm and sent mcm to schedule. Has wellness on 04/15/25 Reason for Outreach Care Gap/HCC or Scheduling Wellness Visits Care Gaps due: Flu Vaccine Patient Contacted: Unable or unnecessary to reach patient: Left message MyChart message sent HCC related Updated appointment notes Navigation Signature: Venecia Wilson March 18, 2025 11:30 AM [facility] 03-18-2025 Note Patient Outreach (NE TNAV) MIMA DOS SANTOS ([id number]) 1950 F Date Time Provider Department 03/18/25 DAVY DOWNEY During your visit today, we recorded the following information about you: Venecia Hartmann 03/18/2025 11:33 AM Signed POPULATION HEALTH NAVIGATION OUTREACH Action/FYI Patient outreach for HCCs HM due; Flu Lvm and sent mcm to schedule. Has wellness on 04/15/25 Reason for Outreach Care Gap/HCC or Scheduling Wellness Visits Care Gaps due: Flu Vaccine Patient Contacted: Unable or unnecessary to reach patient: Left message MyChart message sent HCC related Updated appointment notes Navigation Signature: Venecia Wilson March 18, 2025 11:30 AM Venecia Hartmann 03/18/2025 1:03 PM Signed POPULATION HEALTH NAVIGATION OUTREACH Action/FYI Patient returned call and agreed to flu at wellness Reason for Outreach Returned Call/MyChart Patient Contacted: Spoke to patient/parent/or legal guardian Patient identified by name and date of : Yes Returned call/MyChart actions taken: Updated appointment note Navigation Signature: Venecia Cadet [facility] March 18, 2025 1:02 PM Allergies As of Date: 03/18/2025 Noted Allergy Reaction SULFITES 09/01/2015 2 - Rash SHRIMP 09/01/2015 11 - Vomiting Date Reviewed: 11/02/2024 Reviewed by: Marichuy Ambriz LPN - Fully Assessed Reason for Visit: Population Health Navigation Outreach [3910] Cmt: Joya Gordon Prescriptions as of 03/18/2025 - omeprazole (PRILOSEC) 20 mg capsule Take 2 capsules by mouth once daily. - predniSONE (DELTASONE) 10 mg tablet Take 4 tablets x 3 days, then 3 tablets x 3 days, then 2 tablets x 3 days, then one tablet x 3 days then stop - atorvastatin (LIPITOR) 20 mg tablet Take 1 tablet by mouth once daily. - zbhjhvgshkv-pqiigcdvn-atfqsotd (TRELEGY ELLIPTA) 100-62.5-25 mcg inhalation powder Inhale 1 Puff as instructed once daily. - ELIQUIS 5 mg tab(s) - furosemide (LASIX) 40 mg tablet - metoprolol tartrate, short acting, (LOPRESSOR) 25 mg tablet TWICE A DAY - potassium chloride (K-TAB) 10 mEq tablet - albuterol HFA (VENTOLIN HFA) 90 mcg/actuation inhaler Inhale 2 Puffs as instructed every 4 hours as needed for wheezing/shortness of breath. 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] 03/03/2018 Age-related osteoporosis without current pathol*03/12/2018 Encounter for screening for malignant neoplasm *03/13/2018 COPD (chronic obstructive pulmonary disease) (H*10/24/2018 Other chronic sinusitis [J32.8] 10/24/2018 GERD without esophagitis [K21.9] 05/28/2019 Medication management [Z79.899] 01/21/2020 Vitamin D deficiency [E55.9] 01/21/2020 Essential hypertension [I10] 05/20/2020 Bilateral leg edema [R60.0] 05/20/2020 Other proteinuria [R80.8] 01/18/2021 Advance directive discussed with patient [Z71.8*10/05/2021 Obesity, Class II, BMI 35-39.9 [E66.812] 10/05/2021 Type 2 diabetes mellitus without complication, *10/28/2022 Lung nodule [R91.1] 04/04/2023 Paroxysmal atrial fibrillation (HCC) [I48.0] 04/14/2024 Secondary polycythemia [D75.1] 04/22/2024 Encounter Status:Closed by VENECIA HARTMANN on 03/18/25 [facility] 03-10-2025 Note HNO ID: [id number] Author: ISABELL WASHINGTON MA Service: ? Author Type: Hazardous Materials Handler Type: Progress Notes Filed: 03/10/2025 12:24 Note Text: Scan on 03/10/2025 10:15 AM by Bhavik Jhaveri PA-C: [facility] 02-24-2025 Note HNO ID: [id number] Author: JAN WILKERSON LPN Service: ? Author Type: LICENSED NURSE Type: Progress Notes Filed: 02/24/2025 08:22 Note Text: Scan on 02/23/2025 3:56 PM by Bhavik Jhaveri PA-C: Consultation - Pulmonary [facility] 02-24-2025 History of Presen t illness Narrative Scan on 02/23/2025 3:56 PM by Bhavik Jhaveri PA-C: Consultation - Pulmonary documented in this encounter [facility] 02-19-2025 Radiology Diagnostic study note [facility] Imaging Services [address] [place] [address] Chest without Contrast MR#: [id number] Acct: [id number] Name: MIMA DOS SANTOS Rep #: [id number] : 1950 F 74 From: Miguel Nation MD PCP: Dr. Davy Downey MD Status: REG CLI Study:Chest without Contrast Date of Exam: 02/18/25 Exam# [id number] Ordering Dr: Bre Worrell NP RANGE OPERATOR-C PROCEDURE: CHEST WITHOUT CONTRAST 02/18/2025 REASON FOR EXAM: LUNG NODULE IN SMOKER Follow-up examination. History of COPD. TECHNIQUE: Chest CT without contrast. Coronal and Sagittal reconstruction series were provided. One or more dose reduction techniques were used (e.g., Automated exposure control, adjustment of the mA and/or kV according to patient size, use of iterative reconstruction technique RADIATION DOSE SUMMARY: CTDlvol: 18.37 mGy DLP: 693.21 mGycm COMPARISON: Comparison is made with prior study dated October 26, 2024. FINDINGS: Hardware: None Lymph nodes: Unremarkable Heart and Vasculature: The heart is nonenlarged. Aortic annular calcification. Coronary Artery Calcifications: Present Lungs and Airways: Mild emphysematous changes are present. New irregular pulmonary nodule in the lingular segment of the left upper lobe as seen on axial image number 61. This measures 1 cm. Focal area ofscarring is seen in the surrounding lung parenchyma. Stable otherwise tiny nodular density seen in both lungs. Focal scarring in the anterior aspect of the left lower lobe. Pleura: No pleural effusion. Upper Abdomen: Unremarkable Bones: Degenerative changes of the thoracic spine. CT/Chest without Contrast IMPRESSION: Coronary artery calcification (CAC) is is present Essentially stable examination except for a new 1 cm irregular spiculated nodulein the lingular segment of the left upper lobe as seen on axial image number 61. Correlation with a PET scan recommended. Reading Location: [facility] CC: RANGE OPERATOR-Bre Worrell; Dr. Davy Downey MD ~ Public Opinion Survey Taker: Signed [facility] 01-07-2025 Note HNO ID: [id number] Author: ?, ?, ? Service: ? Author Type: ? Type: Progress Notes Filed: 01/07/2025 10:29 Note Text: POPULATION HEALTH NAVIGATION OUTREACH Action/FYI Patient outreach for Hcc gaps; Mammogram due 05/06, WILEY done at OSH this year, [facility]. Spoke with patient and declined. Will do labs before wellness. Reason for Outreach Care Gap/HCC or Scheduling Wellness Visits Care Gaps due: Breast Cancer Screening Diabetic Eye Exam KED Patient Contacted: Spoke to patient/parent/or legal guardian Patient identified by name and : Yes Care Gap/HCC/Scheduling Wellness actions taken: Patient declined: Doesn't feel it's necessary HCC related Navigation Signature: Venecia Wilson January 07, 2025 10:22 AM [facility] 01-07-2025 History of Presen t illness Narrative POPULATION HEALTH NAVIGATION OUTREACH Action/FYI Patient outreach for Hcc gaps; Mammogram due 05/06, WILEY done at OSH this year, [facility]. Spoke with patient and declined. Will do labs before wellness. Reason for Outreach Care Gap/HCC or Scheduling Wellness Visits Care Gaps due: Breast Cancer Screening Diabetic Eye Exam KED Patient Contacted: Spoke to patient/parent/or legal guardian Patient identified by name and : Yes Care Gap/HCC/Scheduling Wellness actions taken: Patient declined: Doesn't feel it's necessary HCC related Navigation Signature: Venecia Wilson January 07, 2025 10:22 AM documented in this encounter [facility] 01-07-2025 Note Patient Outreach (NE TNAV) MIMA DOS SANTOS ([id number]) 1950 F Date Time Provider Department 01/07/25 DAVY DOWNEY During your visit today, we recorded the following information about you: Helio SteveVenecia 01/07/2025 10:29 AM Signed POPULATION HEALTH NAVIGATION OUTREACH Action/FYI Patient outreach for Hcc gaps; Mammogram due 05/06, WILEY done at OSH this year, [facility]. Spoke with patient and declined. Will do labs before wellness. Reason for Outreach Care Gap/HCC or Scheduling Wellness Visits Care Gaps due: Breast Cancer Screening Diabetic Eye Exam [facility] Patient Contacted: Spoke to patient/parent/or legal guardian Patient identified by name and : Yes Care Gap/HCC/Scheduling Wellness actions taken: Patient declined: Doesn't feel it's necessary HCC related Navigation Signature: Venecia Cadet Pss January 07, 2025 10:22 AM Allergies As of Date: 01/07/2025 Noted Allergy Reaction SULFITES 09/01/2015 2 - Rash SHRIMP 09/01/2015 11 - Vomiting Date Reviewed: 11/02/2024 Reviewed by: Marichuy Ambriz LPN - Fully Assessed Reason for Visit: Population Health Navigation Outreach [3910] Cmt: Joya Gordon Prescriptions as of 01/07/2025 - omeprazole (PRILOSEC) 20 mg capsule Take 2 capsules by mouth once daily. - predniSONE (DELTASONE) 10 mg tablet Take 4 tablets x 3 days, then 3 tablets x 3 days, then 2 tablets x 3 days, then one tablet x 3 days then stop - atorvastatin (LIPITOR) 20 mg tablet Take 1 tablet by mouth once daily. - bzfanjptjcj-tbyzojtgt-egimmxjh (TRELEGY ELLIPTA) 100-62.5-25 mcg inhalation powder Inhale 1 Puff as instructed once daily. - ELIQUIS 5 mg tab(s) - furosemide (LASIX) 40 mg tablet - metoprolol tartrate, short acting, (LOPRESSOR) 25 mg tablet TWICE A DAY - potassium chloride (K-TAB) 10 mEq tablet - albuterol HFA (VENTOLIN HFA) 90 mcg/actuation inhaler Inhale 2 Puffs as instructed every 4 hours as needed for wheezing/shortness of breath. 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] 03/03/2018 Age-related osteoporosis without current pathol*03/12/2018 Encounter for screening for malignant neoplasm *03/13/2018 COPD (chronic obstructive pulmonary disease) (H*10/24/2018 Other chronic sinusitis [J32.8] 10/24/2018 GERD without esophagitis [K21.9] 05/28/2019 Medication management [Z79.899] 01/21/2020 Vitamin D deficiency [E55.9] 01/21/2020 Essential hypertension [I10] 05/20/2020 Bilateral leg edema [R60.0] 05/20/2020 Other proteinuria [R80.8] 01/18/2021 Advance directive discussed with patient [Z71.8*10/05/2021 Obesity, Class II, BMI 35-39.9 [E66.812] 10/05/2021 Type 2 diabetes mellitus without complication, *10/28/2022 Lung nodule [R91.1] 04/04/2023 Paroxysmal atrial fibrillation (HCC) [I48.0] 04/14/2024 Secondary polycythemia [D75.1] 04/22/2024 Encounter Status:Closed by VENECIA HARTMANN on 01/07/25 [facility] 01-01-2025 Telephone encount er Note Pt notified. Katya Cabrera MA [facility] 01-01-2025 Miscellaneous Notes Formattin g of this note might be different from the original. Pt notified. Katya Cabrera MA Patient will need to contact [facility] for refill on potassium. Prescription Refill Information The patient has been identified by name and date of : Yes Caregiver verified no other encounters exist for this prescription request: Yes Caregiver confirmed with patient/requestor that no other refills are due, in the near future, with this provider at this time: Yes The last office visit in the department: 09/2024 Does the patient have a future office visit with this provider/department: Yes Contacted patient and she indicated that she only sees Jennifer/Dr Downey and no other specialist and she has been taking the medication Requested Prescriptions Pending Prescriptions Disp Refills potassium chloride (K-TAB) 10 mEq tablet omeprazole (PRILOSEC) 20 mg capsule 60 capsule 5 Sig: Take 2 capsules by mouth once daily. Jackie Granados MA January 01, 2025 11:04 AM Patient has been identified by name and date of : Yes Patient phones for refill(s): Requested Prescriptions Pending Prescriptions Disp Refills potassium chloride (K-TAB) 10 mEq tablet omeprazole (PRILOSEC) 20 mg capsule 60 capsule 5 Sig: Take 2 capsules by mouth once daily. Date of last office visit in primary care: 10/07/2024 Date of next office visit in primary care: 04/15/2025 Please advise. Thank you. Adela Waters. documented in this encounter [facility] 01-01-2025 Telephone encount er Note Patient will need to contact [facility] for refill on potassium. [facility] 01-01-2025 Telephone encount er Note Prescription Refill Information The patient has been identified by name and date of : Yes Caregiver verified no other encounters exist for this prescription request: Yes Caregiver confirmed with patient/requestor that no other refills are due, in the near future, with this provider at this time: Yes The last office visit in the department: 09/2024 Does the patient have a future office visit with this provider/department: Yes Contacted patient and she indicated that she only sees Jennifer/Dr Downey and no other specialist and she has been taking the medication Requested Prescriptions Pending Prescriptions Disp Refills potassium chloride (K-TAB) 10 mEq tablet omeprazole (PRILOSEC) 20 mg capsule 60 capsule 5 Sig: Take 2 capsules by mouth once daily. Jackie Granados MA January 01, 2025 11:04 AM [facility] 12-31-2024 Telephone encount er Note Patient has been identified by name and date of : Yes Patient phones for refill(s): Requested Prescriptions Pending Prescriptions Disp Refills potassium chloride (K-TAB) 10 mEq tablet omeprazole (PRILOSEC) 20 mg capsule 60 capsule 5 Sig: Take 2 capsules by mouth once daily. Date of last office visit in primary care: 10/07/2024 Date of next office visit in primary care: 04/15/2025 Please advise. Thank you. Adela Waters. [facility] 12-18-2024 Note HNO ID: [id number] Author: ?, ?, ? Service: ? Author Type: ? Type: Progress Notes Filed: 12/18/2024 12:49 Note Text: Patient is identified through a medication adherence outreach initiative based on pharmacy claims data from: [employer] Medication Adherence Category: Statins First Review Attribution Status: Correct attribution Medication(s) Atorvastatin 20 mg Medication Status per portal/Epic Reconcile Dispense: Not filled Medication Status per Profile Review: No issues per profile review Patient/provider appropriate for outreach? Yes Patient identified by name and Outreach to patient: Left Voicemail/message for return call What was primary intervention? No intervention Sent/Responded to [facility] What was primary intervention? Remind patient to roller picker or fill Last filled 11/18/2024, next fill due 12/17/2024 Don Tirado [facility] Team [facility] 12-18-2024 History of Presen t illness Narrative Patient is identified through a medication adherence outreach initiative based on pharmacy claims data from: [employer] Medication Adherence Category: Statins First Review Attribution Status: Correct attribution Medication(s) Atorvastatin 20 mg Medication Status per portal/Epic Reconcile Dispense: Not filled Medication Status per Profile Review: No issues per profile review Patient/provider appropriate for outreach? Yes Patient identified by name and Outreach to patient: Left Voicemail/message for return call What was primary intervention? No intervention Sent/Responded to [employer] What was primary intervention? Remind patient to roller picker or fill Last filled 11/18/2024, next fill due 12/17/2024 Don Tirado [facility] Team documented in this encounter [facility] 12-18-2024 Note Patient Outreach ( POHE) MIMA DOS SANTOS ([id number]) 1950 F Date Time Provider Department 12/18/24 DAVY DOWNEY During your visit today, we recorded the following information about you: Don Tirado 12/18/2024 12:49 PM Signed Patient is identified through a medication adherence outreach initiative based on pharmacy claims data from: [employer] Medication Adherence Category: Statins First Review Attribution Status: Correct attribution Medication(s) Atorvastatin 20 mg Medication Status per portal/Epic Reconcile Dispense: Not filled Medication Status per Profile Review: No issues per profile review Patient/provider appropriate for outreach? Yes Patient identified by name and Outreach to patient: Left Voicemail/message for return call What was primary intervention? No intervention Sent/Responded to [facility] What was primary intervention? Remind patient to roller picker or fill Last filled 11/18/2024, next fill due 12/17/2024 Don Tirado [facility] Team Allergies As of Date: 12/18/2024 Noted Allergy Reaction SULFITES 09/01/2015 2 - Rash SHRIMP 09/01/2015 11 - Vomiting Date Reviewed: 11/02/2024 Reviewed by: Marichuy Ambriz LPN - Fully Assessed Reason for Visit: Allied Health Visit [5] Cmt: Medication Adherence Outreach Prescriptions as of 12/18/2024 - predniSONE (DELTASONE) 10 mg tablet Take 4 tablets x 3 days, then 3 tablets x 3 days, then 2 tablets x 3 days, then one tablet x 3 days then stop - atorvastatin (LIPITOR) 20 mg tablet Take 1 tablet by mouth once daily. - sshftebqzod-shgenmocu-eeuwfwfh (TRELEGY ELLIPTA) 100-62.5-25 mcg inhalation powder Inhale 1 Puff as instructed once daily. - ELIQUIS 5 mg tab(s) - furosemide (LASIX) 40 mg tablet - metoprolol tartrate, short acting, (LOPRESSOR) 25 mg tablet TWICE A DAY - potassium chloride (K-TAB) 10 mEq tablet - omeprazole (PRILOSEC) 20 mg capsule Take 2 capsules by mouth once daily. - albuterol HFA (VENTOLIN HFA) 90 mcg/actuation inhaler Inhale 2 Puffs as instructed every 4 hours as needed for wheezing/shortness of breath. 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] 03/03/2018 Age-related osteoporosis without current pathol*03/12/2018 Encounter for screening for malignant neoplasm *03/13/2018 COPD (chronic obstructive pulmonary disease) (H*10/24/2018 Other chronic sinusitis [J32.8] 10/24/2018 GERD without esophagitis [K21.9] 05/28/2019 Medication management [Z79.899] 01/21/2020 Vitamin D deficiency [E55.9] 01/21/2020 Essential hypertension [I10] 05/20/2020 Bilateral leg edema [R60.0] 05/20/2020 Other proteinuria [R80.8] 01/18/2021 Advance directive discussed with patient [Z71.8*10/05/2021 Obesity, Class II, BMI 35-39.9 [E66.812] 10/05/2021 Type 2 diabetes mellitus without complication, *10/28/2022 Lung nodule [R91.1] 04/04/2023 Paroxysmal atrial fibrillation (HCC) [I48.0] 04/14/2024 Secondary polycythemia [D75.1] 04/22/2024 Encounter Status:Closed by DON TIRADO on 12/18/24 [facility] 12-08-2024 Note HNO ID: [id number] Author: ?, ?, ? Service: ? Author Type: ? Type: Progress Notes Filed: 12/08/2024 11:06 Note Text: POPULATION HEALTH NAVIGATION OUTREACH Action/FYI Patient outreach for Hcc gaps; KED, MAMMOGRAM, WILEY. LVM and sent mychart to close gaps. Updated appointment notes Reason for Outreach Care Gap/HCC or Scheduling Wellness Visits Care Gaps due: Breast Cancer Screening Diabetic Eye Exam KED Patient Contacted: Unable or unnecessary to reach patient: Left message MyChart message sent HCC related Updated appointment notes Navigation Signature: Venecia Wilson December 08, 2024 10:49 AM [facility] 12-08-2024 History of Presen t illness Narrative POPULATION HEALTH NAVIGATION OUTREACH Action/FYI Patient outreach for Hcc gaps; KED, MAMMOGRAM, WILEY. LVM and sent mychart to close gaps. Updated appointment notes Reason for Outreach Care Gap/HCC or Scheduling Wellness Visits Care Gaps due: Breast Cancer Screening Diabetic Eye Exam KED Patient Contacted: Unable or unnecessary to reach patient: Left message MyChart message sent HCC related Updated appointment notes Navigation Signature: Venecia Wilson December 08, 2024 10:49 AM documented in this encounter [facility] 12-08-2024 Note Patient Outreach (RON TNJOSE) MIMA DOS SANTOS ([id number]) 1950 F Date Time Provider Department 12/08/24 DAVY DOWNEY During your visit today, we recorded the following information about you: Venecia Hartmann 12/08/2024 11:06 AM Signed POPULATION HEALTH NAVIGATION OUTREACH Action/FYI Patient outreach for Hcc gaps; KED, MAMMOGRAM, WILEY. LVM and sent [employer] to close gaps. Updated appointment notes Reason for Outreach Care Gap/HCC or Scheduling Wellness Visits Care Gaps due: Breast Cancer Screening Diabetic Eye Exam KED Patient Contacted: Unable or unnecessary to reach patient: Left message MyChart message sent HCC related Updated appointment notes Navigation Signature: Venecia Wilson December 08, 2024 10:49 AM Allergies As of Date: 12/08/2024 Noted Allergy Reaction SULFITES 09/01/2015 2 - Rash SHRIMP 09/01/2015 11 - Vomiting Date Reviewed: 11/02/2024 Reviewed by: Marichuy Ambriz LPN - Fully Assessed Reason for Visit: Population Health Navigation Outreach [3910] Cmt: Joya Gordon Prescriptions as of 12/08/2024 - predniSONE (DELTASONE) 10 mg tablet Take 4 tablets x 3 days, then 3 tablets x 3 days, then 2 tablets x 3 days, then one tablet x 3 days then stop - atorvastatin (LIPITOR) 20 mg tablet Take 1 tablet by mouth once daily. - acdsflcbazh-yrxnvltoc-gghpmfth (TRELEGY ELLIPTA) 100-62.5-25 mcg inhalation powder Inhale 1 Puff as instructed once daily. - ELIQUIS 5 mg tab(s) - furosemide (LASIX) 40 mg tablet - metoprolol tartrate, short acting, (LOPRESSOR) 25 mg tablet TWICE A DAY - potassium chloride (K-TAB) 10 mEq tablet - omeprazole (PRILOSEC) 20 mg capsule Take 2 capsules by mouth once daily. - albuterol HFA (VENTOLIN HFA) 90 mcg/actuation inhaler Inhale 2 Puffs as instructed every 4 hours as needed for wheezing/shortness of breath. Problem List As Of Date 12/08/2024 Noted Resolved Smoker [F17.200] 09/01/2015 Screen for colon cancer [Z12.11] 09/01/2015 Encounter for gynecological examination without*03/01/2016 Soft tissue mass [M79.89] 09/26/2017 Medicare annual wellness visit, subsequent [Z00*03/03/2018 Encounter for screening mammogram for breast ca*03/03/2018 Primary ovarian failure [E28.39] 03/03/2018 Age-related osteoporosis without current pathol*03/12/2018 Encounter for screening for malignant neoplasm *03/13/2018 COPD (chronic obstructive pulmonary disease) (H*10/24/2018 Other chronic sinusitis [J32.8] 10/24/2018 GERD without esophagitis [K21.9] 05/28/2019 Medication management [Z79.899] 01/21/2020 Vitamin D deficiency [E55.9] 01/21/2020 Essential hypertension [I10] 05/20/2020 Bilateral leg edema [R60.0] 05/20/2020 Other proteinuria [R80.8] 01/18/2021 Advance directive discussed with patient [Z71.8*10/05/2021 Obesity, Class II, BMI 35-39.9 [E66.812] 10/05/2021 Type 2 diabetes mellitus without complication, *10/28/2022 Lung nodule [R91.1] 04/04/2023 Paroxysmal atrial fibrillation (HCC) [I48.0] 04/14/2024 Secondary polycythemia [D75.1] 04/22/2024 Encounter Status:Closed by VENECIA HARTMANN on 12/08/24 [facility] 12-03-2024 Note HNO ID: [id number] Author: FRANKIE SMITH RN Service: ? Author Type: Registered Nurse Type: Progress Notes Filed: 12/03/2024 11:38 Note Text: CDM Care Path Telephonic Outreach Provider Action/FYI Patient identified by Name and Date of . Discussed care with patient. Program Details Chronic Disease Management Status: Enrolled Effective Dates: 09/17/2024 - present Responsible Staff: Frankie Smith RN Support and Services: Hypertension, Diabetes, Chronic Obstructive Pulmonary Disease (COPD) Program Goals Targets Target Due Completed Completed By Outcome Comprehensive COPD education provided 12/18/2024 -- -- -- Comprehensive HTN education provided 12/18/2024 -- -- -- HTN lab care gaps addressed 12/18/2024 -- -- -- Annual Medicare Wellness visit addressed 12/18/2024 12/03/2024 Frankie Smith RN Complete/Scheduled Scheduled 04/15/25 Annual Pulmonology visit addressed 12/18/2024 12/03/2024 Frankie Smith RN Complete/Scheduled Biannual PCP visit addressed 12/18/2024 12/03/2024 Frankie Smith RN Complete/Scheduled Comprehensive Diabetes education provided 12/18/2024 12/03/2024 Frankie Smith RN Complete Diabetes lab care gaps addressed 12/18/2024 12/03/2024 Frankie Smith RN Complete/Scheduled Patient-stated goal addressed (add comment) 12/18/2024 12/03/2024 Frankie Smith RN Complete I would like to lose weight General education provided (managing stress, where to go/how to contact, etc.) 10/19/2024 10/19/2024 Frankie Smith RN Complete Intake assessments completed: ADLs, Fall Risk, SDOH 10/19/2024 09/17/2024 Frankie Smith RN Complete Assessments CDM Assessment Medications: Do you have any questions about taking your medications or which medications you should be taking?: No Do you need any medication refills at this time, including any of the medication you might take only when needed?: No Social: It can be normal to feel anxious or down during a time like this. Would you like to talk to a mental health professional about how you have been feeling?: No Symptoms: Are you experiencing any new or worsening symptoms that you need to talk about today?: No ADLs No documentation this encounter Fall Risk No documentation this encounter SDOH No documentation this encounter Interventions The following were addressed during this visit: - Annual Pulmonology visit addressed - Month 1: Provide COPD Education: Action Plan - Month 1: Provide COPD Education: Meter Dose Inhaler/How to Use - Month 1: Provide COPD Education: Understanding COPD AND COPD Zones - Month 2: Provide COPD Education: COPD Education on Medications - What Inhalers Do - Month 2: Provide COPD DAVID Education - Schedule Annual COPD Pulmonology Appointment - Month 1: Review Individual Blood Pressure Target (If established by provider) - Month 1: Provide HTN Education: What is High Blood Pressure - Month 1: Provide HTN Education: When to call your Doctor, When to seek Emergency Care - Month 2: Provide HTN Education: High Blood Pressure AND Nutrition - Month 3: Schedule/Order BMP Lab - Comprehensive Diabetes education provided - Diabetes lab care gaps addressed - Month 1: Schedule/Order HbA1C Lab - Month 1: Schedule/Order Lipid Panel Lab - Month 1: Provide Diabetes Education: Signs and Symptoms of Low Blood Sugar - Month 1: Provide Diabetes Education: How to Manage Blood Sugar - Month 2: Provide Diabetes Education: Diet Modification: Plate Method - Month 2: Provide Diabetes Education: Diet Modification: Added Sugars in Drinks - Month 3: Provide Diabetes Education: Understanding Medication - Month 3: Schedule/Order Urine Albumin Creatinine lab - Biannual PCP visit addressed - Annual Medicare Wellness visit addressed - Patient-stated goal addressed (add comment) - Schedule Biannual PCP Appointment - Schedule Annual Wellness Visit - Month 1: Provide General Education: Smoking Cessation - Month 1: Provide General Education: Managing Stress AND Anxiety - Month 1: Provide General Education: Where to Go for Care - Month 1: Provide General Education: How to Contact Your Physician Team - Develop a Patient-Stated Goal (add to Target comments) - Bi-Weekly Outreach (Recurring) Disposition Based on talk show host, the following disposition is advised: No action needed Frankie Smith RN December 03, 2024 11:28 AM [facility] 12-03-2024 Note [place] Out[place] [facility] [place] MIMA DOS SANTOS ([id number]) 1950 F Date Time Provider Department 12/03/24 FRANKIE SMITH During your visit today, we recorded the following information about you: Frankie Smith RN 12/03/2024 11:38 AM Signed CDM Care Path Telephonic Outreach Provider Action/FYI Patient identified by Name and Date of . Discussed care with patient. Program Details Chronic Disease Management Status: Enrolled Effective Dates: 09/17/2024 - present Responsible Staff: Frankie Smith RN Support and Services: Hypertension, Diabetes, Chronic Obstructive Pulmonary Disease (COPD) Program Goals Targets Target Due Completed Completed By Outcome Comprehensive COPD education provided 12/18/2024 -- -- -- Comprehensive HTN education provided 12/18/2024 -- -- -- HTN lab care gaps addressed 12/18/2024 -- -- -- Annual Medicare Wellness visit addressed 12/18/2024 12/03/2024 Frankie Smith RN Complete/Scheduled Scheduled 04/15/25 Annual Pulmonology visit addressed 12/18/2024 12/03/2024 Frankie Simth RN Complete/Scheduled Biannual PCP visit addressed 12/18/2024 12/03/2024 Frankie Smith RN Complete/Scheduled Comprehensive Diabetes education provided 12/18/2024 12/03/2024 Frankie Smith RN Complete Diabetes lab care gaps addressed 12/18/2024 12/03/2024 Frankie Smith RN Complete/Scheduled Patient-stated goal addressed (add comment) 12/18/2024 12/03/2024 Frankie Smith RN Complete I would like to lose weight General education provided (managing stress, where to go/how to contact, etc.) 10/19/2024 10/19/2024 Frankie Smith RN Complete Intake assessments completed: ADLs, Fall Risk, SDOH 10/19/2024 09/17/2024 Frankie Smith RN Complete Assessments CDM Assessment Medications: Do you have any questions about taking your medications or which medications you should be taking?: No Do you need any medication refills at this time, including any of the medication you might take only when needed?: No Social: It can be normal to feel anxious or down during a time like this. Would you like to talk to a mental health professional about how you have been feeling?: No Symptoms: Are you experiencing any new or worsening symptoms that you need to talk about today?: No ADLs No documentation this encounter Fall Risk No documentation this encounter SDOH No documentation this encounter Interventions The following were addressed during this visit: - Annual Pulmonology visit addressed - Month 1: Provide COPD Education: Action Plan - Month 1: Provide COPD Education: Meter Dose Inhaler/How to Use - Month 1: Provide COPD Education: Understanding COPD AND COPD Zones - Month 2: Provide COPD Education: COPD Education on Medications - What Inhalers Do - Month 2: Provide COPD DAVID Education - Schedule Annual COPD Pulmonology Appointment - Month 1: Review Individual Blood Pressure Target (If established by provider) - Month 1: Provide HTN Education: What is High Blood Pressure - Month 1: Provide HTN Education: When to call your Doctor, When to seek Emergency Care - Month 2: Provide HTN Education: High Blood Pressure AND Nutrition - Month 3: Schedule/Order BMP Lab - Comprehensive Diabetes education provided - Diabetes lab care gaps addressed - Month 1: Schedule/Order HbA1C Lab - Month 1: Schedule/Order Lipid Panel Lab - Month 1: Provide Diabetes Education: Signs and Symptoms of Low Blood Sugar - Month 1: Provide Diabetes Education: How to Manage Blood Sugar - Month 2: Provide Diabetes Education: Diet Modification: Plate Method - Month 2: Provide Diabetes Education: Diet Modification: Added Sugars in Drinks - Month 3: Provide Diabetes Education: Understanding Medication - Month 3: Schedule/Order Urine Albumin Creatinine lab - Biannual PCP visit addressed - Annual Medicare Wellness visit addressed - Patient-stated goal addressed (add comment) - Schedule Biannual PCP Appointment - Schedule Annual Wellness Visit - Month 1: Provide General Education: Smoking Cessation - Month 1: Provide General Education: Managing Stress AND Anxiety - Month 1: Provide General Education: Where to Go for Care - Month 1: Provide General Education: How to Contact Your Physician Team - Develop a Patient-Stated Goal (add to Target comments) - Bi-Weekly Outreach (Recurring) Disposition Based on talk show host, the following disposition is advised: No action needed Frankie Smith RN December 03, 2024 11:28 AM Allergies As of Date: 12/03/2024 Noted Allergy Reaction SULFITES 09/01/2015 2 - Rash SHRIMP 09/01/2015 11 - Vomiting Date Reviewed: 11/02/2024 Reviewed by: Marichuy Ambriz LPN - Fully Assessed Prescriptions as of 12/03/2024 - predniSONE (DELTASONE) 10 mg tablet Take 4 tablets x 3 days, then 3 tablets x 3 days, then 2 tablets x 3 days, then one tablet x 3 days then stop - atorvastatin (more content not included)... [facility] 11-27-2024 Note HNO ID: [id number] Author: JAN WILKERSON LPN Service: ? Author Type: LICENSED NURSE Type: Progress Notes Filed: 11/27/2024 10:23 Note Text: Scan on 11/26/2024 1:27 PM by ProviderBhavik PA-C: Consultation - Pulmonary [facility] 11-27-2024 History of Presen t illness Narrative Scan on 11/26/2024 1:27 PM by ProviderBhavik PA-C: Consultation - Pulmonary documented in this encounter [facility] 11-26-2024 Evaluation note Diagnosis Onset Date Resolution COPD (chronic obstructive pulmonary disease) chronic November 26, 2024 12:38pm Hypoxia chronic November 26, 2024 12:38pm Lung nodule chronic November 26 12:38pm Obesity chronic November 26, 2024 12:38pm LAWANDA (obstructive sleep apnea) chronic November 26, 2024 12:38pm Smoking greater than 40 pack years chronic November 26, 2024 12:38pm COPD (chronic obstructive pulmonary disease) chronic February 23 2:09pm Hypoxia chronic February 23, 025 2:09pm Lung nodule chronic February 23, 2025 2:09pm Obesity chronic February 23, 2 025 2:09pm LAWANDA (obstructive sleep apnea) chronic February 23 2:09pm Smoking greater than 40 pack years chronic February 23 2:09pm [facility] [employer] Work Phone: 1(907) 224-608505-15-2025 Evaluation note* Diagnosis Onset Date Resolution Status Admit Date COPD (chronic obstructive pulmonary disease) chronic November 26 12:38pm Hypoxia chronic November 26, 2024 12:38pm Lung nodule chronic November 26 12:38pm Obesity chronic November 26, 2024 12:38pm LAWANDA (obstructive sleep apnea) chroni c November 26, 2024 12:38pm Smoking greater than 40 pack years chronic November 26, 2024 1 2:38pm COPD (chronic obstructive pulmonary disease) chronic February 23, 2025 2:09pm Hypoxia chronic February 23, 2 025 2:09pm Lung nodule chronic February 23, 2025 2:09pm Obesity chronic February 23, 2 025 2:09pm LAWANDA (obstructive sleep apnea) chroni c February 23, 2025 2:09pm Smoking greater than 40 pack years chronic February 23 2:09pm COPD (chronic obstructive pulmonary disease) chronic March 10, 2025 7:55am Hypoxia chronic March 10, 2 025 7:55am Lung nodule chronic March 10, 2025 7:55am Obesity chronic March 10, 2 025 7:55am LAWANDA (obstructive sleep apnea) chroni c March 10, 2025 7:55am Smoking greater than 40 pack years chronic March 10 7:55am [facility] Work Phone: [phone]) 234-322404-24-2025 NoteHNO ID: [id number] Author: ?, ?, ? Service: ? Author Type: ? Type: Progress Notes Filed: 11/05/2024 12:18 Note Text: POPULATION HEALTH NAVIGATION OUTREACH Action/FYI Patient outreach for HCC gaps; MAMMOGRAM due 04/2025, [facility]. Could not speak to patient as they have a DUHEM machine that screens calls. Call was ended by patient. Reason for Outreach Care Gap/HCC or Scheduling Wellness Visits Care Gaps due: Breast Cancer Screening Diabetic Eye Exam Patient Contacted: Unable or unnecessary to reach patient: Unable to leave message Lumeta message sent HCC related Updated appointment notes Navigation Signature: Venecia Cadet [facility] November 05, 2024 12:15 [facility]04-24-2025 NotePatient Outreach ([facility]) MIMA DOS SANTOS ([id number]) 1950 F Date Time Provider Department 11/05/24 DAVY DWONEY During your visit today, we recorded the following information about you: Helio SteveVenecia 11/05/2024 12:18 PM Signed POPULATION HEALTH NAVIGATION OUTREACH Action/FYI Patient outreach for HCC gaps; MAMMOGRAM due 04/2025, [place]. Could not speak to patient as they have a google machine that screens calls. Call was ended by patient. Reason for Outreach Care Gap/HCC or Scheduling Wellness Visits Care Gaps due: Breast Cancer Screening Diabetic Eye Exam Patient Contacted: Unable or unnecessary to reach patient: Unable to leave message Brandwatcht message sent HCC related Updated appointment notes Navigation Signature: Venecia Cadet [facility] November 05, 2024 12:15 PM Allergies As of Date: 11/05/2024 Noted Allergy Reaction SULFITES 09/01/2015 2 - Rash SHRIMP 09/01/2015 11 - Vomiting Date Reviewed: 11/02/2024 Reviewed by: Marichuy Ambriz LPN - Fully Assessed Reason for Visit: Population Health Navigation Outreach [3910] Cmt: Joya Gordon Prescriptions as of 11/05/2024 - predniSONE (DELTASONE) 10 mg tablet Take 4 tablets x 3 days, then 3 tablets x 3 days, then 2 tablets x 3 days, then one tablet x 3 days then stop - azithromycin (ZITHROMAX TRI-ISRAEL) 500 mg tablet Take 1 tablet by mouth once daily for 3 days. - atorvastatin (LIPITOR) 20 mg tablet Take 1 tablet by mouth once daily. - jgeeybpzaoq-ojclsvhdz-ivctljvk (TRELEGY ELLIPTA) 100-62.5-25 mcg inhalation powder Inhale 1 Puff as instructed once daily. - ELIQUIS 5 mg tab(s) - furosemide (LASIX) 40 mg tablet - metoprolol tartrate, short acting, (LOPRESSOR) 25 mg tablet TWICE A DAY - potassium chloride (K-TAB) 10 mEq tablet - omeprazole (PRILOSEC) 20 mg capsule Take 2 capsules by mouth once daily. - albuterol HFA (VENTOLIN HFA) 90 mcg/actuation inhaler Inhale 2 Puffs as instructed every 4 hours as needed for wheezing/shortness of breath. 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] 03/03/2018 Age-related osteoporosis without current pathol*03/12/2018 Encounter for screening for malignant neoplasm *03/13/2018 COPD (chronic obstructive pulmonary disease) (H*10/24/2018 Other chronic sinusitis [J32.8] 10/24/2018 GERD without esophagitis [K21.9] 05/28/2019 Medication management [Z79.899] 01/21/2020 Vitamin D deficiency [E55.9] 01/21/2020 Essential hypertension [I10] 05/20/2020 Bilateral leg edema [R60.0] 05/20/2020 Other proteinuria [R80.8] 01/18/2021 Advance directive discussed with patient [Z71.8*10/05/2021 Obesity, Class II, BMI 35-39.9 [E66.812] 10/05/2021 Type 2 diabetes mellitus without complication, *10/28/2022 Lung nodule [R91.1] 04/04/2023 Paroxysmal atrial fibrillation (HCC) [I48.0] 04/14/2024 Secondary polycythemia [D75.1] 04/22/2024 Encounter Status:Closed by VENECIA HARTMANN on 11/05/24[facility]04-21-2025 NoteHNO ID: [id number] Author: WENCESLAO SPENCER APRN.ELECTRICIAN'S ASSISTANT Service: ? Author Type: Nurse Specialist Type: Progress Notes Filed: 11/02/2024 16:03 Note Text: SUBJECTIVE Mima Dos Santos is a 74 year old female who presents with 3 days of symptoms that are stable. 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 - Productive cough with yellow to green sputum. - Difficult to control; more frequent than usual. Dyspnea: - Worsened since onset of illness. - Uses oxygen at night; has a portable oxygen tank for daytime use but typically does not use it. - Follows with pulmonology; seen by RANGE OPERATOR Mari Ho. Fatigue: - Persistent since onset of illness. Fever and Chills: - Fever on Saturday night and last night; managed with Tylenol. - Temperature this morning was 97.7?F after taking Tylenol. - Chills reported on Saturday night and last night. Additional Symptoms: - Myalgias and headaches. - Sore throat. - Clear nasal congestion and drainage, described as almost an allergy type thing. - Denies nausea, emesis, or diarrhea. Recent Illness Exposure: - Had dinner with sister on Saturday night; sister reported having bronchitis. Medications: - Taking Tylenol and Caridad-Willow Plus tablets. - Using Trelegy and albuterol inhalers; reports albuterol is helpful. - Denies need for albuterol refill. Diabetes: - Denies having diabetes; not on any diabetic medications. - Recent A1c was 6.4%. OTC meds/remedies that patient has tried: acetaminophen and OTC cold medicine. High risk category assessment Age > 60 years old Chronic lung disease Exposures: Sick contacts? No Family or close contacts with confirmed/probable COVID-19 in last 14 days? No She reports that she has been smoking cigarettes. She has a 50 pack-year smoking history. She has never used smokeless tobacco. OBJECTIVE PHYSICAL EXAM: BP 148/76 Pulse 82 Resp 16 SpO2 (!) 89% General appearance: tired/ill appearing, alert, cooperative, pleasant, in no acute distress Head: Normocephalic Eyes: conjunctiva/corneas normal Ears: R TM - clear with good landmarks, nl light reflex, L TM - clear with good landmarks, nl light reflex Nose: clear Oropharynx: moist without lesions, mild erythema to GPA, no exudate Neck: supple and small, benign anterior cervical nodes bilaterally Heart: regular rate and rhythm, without murmur Lungs: diminished breath sounds, wheezing diffusely ASSESSMENT/PLAN (J44.1) COPD with exacerbation (HCC) (primary encounter diagnosis) ASSESSMENT/PLAN: 1. COPD with exacerbation (HCC) - ICD9: 491.21, ICD10: J44.1 Prefers not to check for RSV,Covid, influenza Recommend Wear O2 3 L NC which she has at home, start taking medication today, supportive care. Let us know if not feeling improved. - PREDNISONE 10 MG TABLET - AZITHROMYCIN 500 MG TABLET Wenceslao Spencer APRN.CNS Medical Decision Making: Problems: Low: Acute, uncomplicated illness or injury Moderate: 2+ stable chronic illnesses Risk: Moderate: Drug management Medical Decision Making Level: 4 - [facility] History of Present illness Narrative* Wenceslao Spencer APRN.ELECTRICIAN'S ASSISTANT - 11/02/2024 3:36 PM EDT SUBJECTIVE Mima Dos Santos is a 74 year old female who presents with 3 days of symptoms that are stable. 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 - Productive cough with yellow to green sputum. - Difficult to control; more frequent than usual. Dyspnea: - Worsened since onset of illness. - Uses oxygen at night; has a portable oxygen tank for daytime use but typically does not use it. - Follows with pulmonology; seen by RANGE OPERATOR Mari Ho. Fatigue: - Persistent since onset of illness. Fever and Chills: - Fever on Saturday night and last night; managed with Tylenol. - Temperature this morning was 97.7 F after taking Tylenol. - Chills reported on Saturday night and last night. Additional Symptoms: - Myalgias and headaches. - Sore throat. - Clear nasal congestion and drainage, described as almost an allergy type thing. - Denies nausea, emesis, or diarrhea. Recent Illness Exposure: - Had dinner with sister on Saturday night; sister reported having bronchitis. Medications: - Taking Tylenol and Caridad-Willow Plus tablets. - Using Trelegy and albuterol inhalers; reports albuterol is helpful. - Denies need for albuterol refill. Diabetes: - Denies having diabetes; not on any diabetic medications. - Recent A1c was 6.4%. OTC meds/remedies that patient has tried: acetaminophen and OTC cold medicine. High risk category assessment Age > 60 years old Chronic lung disease Exposures: Sick contacts? No Family or close contacts with confirmed/probable COVID-19 in last 14 days? No She reports that she has been smoking cigarettes. She has a 50 pack-year smoking history. She has never used smokeless tobacco. OBJECTIVE PHYSICAL EXAM: BP 148/76 Pulse 82 Resp 16 SpO2 (!) 89% General appearance: tired/ill appearing, alert, cooperative, pleasant, in no acute distress Head: Normocephalic Eyes: conjunctiva/corneas normal Ears: R TM - clear with good landmarks, nl light reflex, L TM - clear with good landmarks, nl lightreflex Nose: clear Oropharynx: moist without lesions, mild erythema to GPA, no exudate Neck: supple and small, benign anterior cervical nodes bilaterally Heart: regular rate and rhythm, without murmur Lungs: diminished breath sounds, wheezing diffusely ASSESSMENT/PLAN (J44.1) COPD with exacerbation (HCC) (primary encounter diagnosis) ASSESSMENT/PLAN: 1. COPD with exacerbation (HCC) - ICD9: 491.21, ICD10: J44.1 Prefers not to check for RSV,Covid, influenza Recommend Wear O2 3 L NC which she has at home, start taking medication today, supportive care. Letus know if not feeling improved. - PREDNISONE 10 MG TABLET - AZITHROMYCIN 500 MG TABLET Wenceslao Spencer APRN.CNS Medical Decision Making: Problems: Low: Acute, uncomplicated illness or injury Moderate: 2+ stable chronic illnesses Risk: Moderate: Drug management Medical Decision Making Level: 4 - Moderate [facility] NoteHNO ID: [id number] Author: FRANKIE SMITH RN Service: ? Author Type: Registered Nurse Type: Progress Notes Filed: 11/02/2024 14:03 Note Text: [facility] Care Path Telephonic Outreach Provider Action/FYI Patient identified by Name and Date of . Discussed care with patient. Program Details Chronic Disease Management Status: Enrolled Effective Dates: 09/17/2024 - present Responsible Staff: Frankie Smith RN Support and Services: Hypertension, Diabetes, Chronic Obstructive Pulmonary Disease (COPD) Program Goals Targets Target Due Completed Completed By Outcome Annual Medicare Wellness visit addressed 12/18/2024 -- -- -- Annual Pulmonology visit addressed 12/18/2024 -- -- -- Biannual PCP visit addressed 12/18/2024 -- -- -- Comprehensive COPD education provided 12/18/2024 -- -- -- Comprehensive Diabetes education provided 12/18/2024 -- -- -- Comprehensive HTN education provided 12/18/2024 -- -- -- Diabetes lab care gaps addressed 12/18/2024 -- -- -- HTN lab care gaps addressed 12/18/2024 -- -- -- Patient-stated goal addressed (add comment) 12/18/2024 -- -- -- General education provided (managing stress, where to go/how to contact, etc.) 10/19/2024 10/19/2024 Frankie Smith RN Complete Intake assessments completed: ADLs, Fall Risk, SDOH 10/19/2024 09/17/2024 Frankie Smith RN Complete Assessments No documentation this encounter Interventions The following were addressed during this visit: - General education provided (managing stress, where to go/how to contact, etc.) - Bi-Weekly Outreach (Recurring) Frankie Smith RN November 02, 2024 1:57 [facility]04-21-2025 History of Present illness Narrative* Frankie Smith RN - 11/02/2024 1:57 PM EDT Images from the original note were not included. [facility] Care Path Telephonic Outreach Provider Action/FYI Patient identified by Name and Date of . Discussed care with patient. Program Details Chronic Disease Management Status: Enrolled Effective Dates: 09/17/2024 - present Responsible Staff: Frankie Smith RN Support and Services: Hypertension, Diabetes, Chronic Obstructive Pulmonary Disease (COPD) Program Goals Targets Target Due Completed Completed By Outcome Annual Medicare Wellness visit addressed 12/18/2024 -- -- -- Annual Pulmonology visit addressed 12/18/2024 -- -- -- Biannual PCP visit addressed 12/18/2024 -- -- -- Comprehensive COPD education provided 12/18/2024 -- -- -- Comprehensive Diabetes education provided 12/18/2024 -- -- -- Comprehensive HTN education provided 12/18/2024 -- -- -- Diabetes lab care gaps addressed 12/18/2024 -- -- -- HTN lab care gaps addressed 12/18/2024 -- -- -- Patient-stated goal addressed (add comment) 12/18/2024 -- -- -- General education provided (managing stress, where to go/how to contact, etc.) 10/19/2024 10/19/2024 Frankie Smith RN Complete Intake assessments completed: ADLs, Fall Risk, SDOH 10/19/2024 09/17/2024 Frankie Smith RN Complete Assessments No documentation this encounter Interventions The following were addressed during this visit: - General education provided (managing stress, where to go/how to contact, etc.) - Bi-Weekly Outreach (Recurring) Frankie Smith RN November 02, 2024 1:57 PM [facility] Telephone encounter Note * Telephone Encounter - Ratna Valladares RN - 11/02/2024 9:57 AM EDT Protocol recommends see provider within 24 hours. Pt requesting appt after 3. No appts available inFP. Pt booked with Wenceslao Spencer at 340 pm today. Advised patient that if symptoms get worse to go to ER or call 911. Pt verbalized understanding. Reason for Disposition [1] Known COPD or other severe lung disease (i.e., bronchiectasis, cystic fibrosis, lung surgery) AND [2] symptoms getting worse (i.e., increased sputum purulence or amount, increased breathing difficulty Answer Assessment - Initial Assessment Questions 1. ONSET: late Saturday 2. SEVERITY: moderate 3. SPUTUM: yellowish to greenish 4. HEMOPTYSIS: denies 5. DIFFICULTY BREATHING: mild - MILD: No SOB at rest, mild SOB with walking, speaks normally in sentences, can lie down, no retractions, pulse < 100. - MODERATE: SOB at rest, SOB with minimal exertion and prefers to sit, cannot lie down flat, speaksin phrases, mild retractions, audible wheezing, pulse 100-120. - SEVERE: Very SOB at rest, speaks in single words, struggling to breathe, sitting hunched forward,retractions, pulse > 120. 6. FEVER: temp currently 97.7 but pt feels she has had a fever due to chilling 7. CARDIAC HISTORY: has hx of Afib 8. LUNG HISTORY: COPD 9. PE RISK FACTORS: denies any hx of blood clots 10. OTHER SYMPTOMS: notes sore throat, some wheezing off and on-feels slightly wheezy right now. Nowheezing heard 11. : n/a 12. TRAVEL: n/a Protocols used: Cough - Acute Nsfaaexday-PEWEP-YS [facility]04-21-20[facility] Miscellaneous Notes* Telephone Encounter - Ratna Valladares RN - 11/02/2024 9:57 AM EDT Protocol recommends see provider within 24 hours. Pt requesting appt after 3. No appts available inFP. Pt booked with Wenceslao Spencer at 340 pm today. Advised patient that if symptoms get worse to go to ER or call 911. Pt verbalized understanding. Reason for Disposition [1] Known COPD or other severe lung disease (i.e., bronchiectasis, cystic fibrosis, lung surgery) AND [2] symptoms getting worse (i.e., increased sputum purulence or amount, increased breathing difficulty Answer Assessment - Initial Assessment Questions 1. ONSET: late Saturday 2. SEVERITY: moderate 3. SPUTUM: yellowish to greenish 4. HEMOPTYSIS: denies 5. DIFFICULTY BREATHING: mild - MILD: No SOB at rest, mild SOB with walking, speaks normally in sentences, can lie down, no retractions, pulse < 100. - MODERATE: SOB at rest, SOB with minimal exertion and prefers to sit, cannot lie down flat, speaksin phrases, mild retractions, audible wheezing, pulse 100-120. - SEVERE: Very SOB at rest, speaks in single words, struggling to breathe, sitting hunched forward,retractions, pulse > 120. 6. FEVER: temp currently 97.7 but pt feels she has had a fever due to chilling 7. CARDIAC HISTORY: has hx of Afib 8. LUNG HISTORY: COPD 9. PE RISK FACTORS: denies any hx of blood clots 10. OTHER SYMPTOMS: notes sore throat, some wheezing off and on-feels slightly wheezy right now. Nowheezing heard 11. : n/a 12. TRAVEL: n/a Protocols used: Cough - Acute Irqajydihr-WUOIT-CH * Telephone Encounter - Sylvia Schaefer - 11/02/2024 9:27 AM EDT Mima is calling Davy Downey MD today with concern regarding productive cough, SOB and fever.Spoke to triage and I was told to put a message in for patient. Patient has been identified by name and birthdate. Duration of symptoms: 3 days Person calling: self Call patient at: on cell [phone] (home) [phone] (cell) Was an appointment scheduled: No Closing statement: Symptom Call: Thank you for calling [facility], your call is very important. A nurse will call in approximately 2-4 hours during business hours. If this is an emergency, please contact 911Kel Schaefer documented in [facility] encounterDet[facility]04-[facility] Telephone encounter Note * Telephone Encounter - Sylvia Schaefer - 11/02/2024 9:27 AM EDT Mima is calling Davy Downey MD today with concern regarding productive cough, SOB and fever.Spoke to triage and I was told to put a message in for patient. Patient has been identified by name and birthdate. Duration of symptoms: 3 days Person calling: self Call patient at: on cell [phone] (home) [phone] (cell) Was an appointment scheduled: No Closing statement: Symptom Call: Thank you for calling [facility], your call is very important. A nurse will call in approximately 2-4 hours during business hours. If this is an emergency, please contact 911. Sylvia Schaefer [facility]04-21-2025 NotePatient Outreach ([facility]) MIMA DOS SANTOS ([id number]) 1950 F Date Time Provider Department 11/02/24 FRANKIE SMITH [facility] During your visit today, we recorded the following information about you: Frankie Smith, RN 11/02/2024 2:03 PM Signed [facility] Telephonic Outreach Provider / Patient identified by Name and Date of . Discussed care with patient. Program Details Chronic Disease Management Status: Enrolled Effective Dates: 09/17/2024 - present Responsible Staff: Frankie Smith, RN Support and Services: Hypertension, Diabetes, Chronic Obstructive Pulmonary Disease (COPD) Program Goals Targets Target Due Completed Completed By Outcome Annual Medicare Wellness visit addressed 12/18/2024 -- -- -- Annual Pulmonology visit addressed 12/18/2024 -- -- -- Biannual PCP visit addressed 12/18/2024 -- -- -- Comprehensive COPD education provided 12/18/2024 -- -- -- Comprehensive Diabetes education provided 12/18/2024 -- -- -- Comprehensive HTN education provided 12/18/2024 -- -- -- Diabetes lab care gaps addressed 12/18/2024 -- -- -- HTN lab care gaps addressed 12/18/2024 -- -- -- Patient-stated goal addressed (add comment) 12/18/2024 -- -- -- General education provided (managing stress, where to go/how to contact, etc.) 10/19/2024 10/19/2024 Frankie Smith RN Complete Intake assessments completed: ADLs, Fall Risk, SDOH 10/19/2024 09/17/2024 Frankie Smith RN Complete Assessments No documentation this encounter Interventions The following were addressed during this visit: - General education provided (managing stress, where to go/how to contact, etc.) - Bi-Weekly Outreach (Recurring) Frankie Smith RN November 02, 2024 1:57 PM Allergies As of Date: 11/02/2024 Noted Allergy Reaction SULFITES 09/01/2015 2 - Rash SHRIMP 09/01/2015 11 - Vomiting Date Reviewed: 10/07/2024 Reviewed by: Davy Downey MD - Fully Assessed Prescriptions as of 11/02/2024 - atorvastatin (LIPITOR) 20 mg tablet Take 1 tablet by mouth once daily. - owooaettsvy-qltkggzsa-tdjfwyut (TRELEGY ELLIPTA) 100-62.5-25 mcg inhalation powder Inhale 1 Puff as instructed once daily. - ELIQUIS 5 mg tab(s) - furosemide (LASIX) 40 mg tablet - metoprolol tartrate, short acting, (LOPRESSOR) 25 mg tablet TWICE A DAY - potassium chloride (K-TAB) 10 mEq tablet - omeprazole (PRILOSEC) 20 mg capsule Take 2 capsules by mouth once daily. - albuterol HFA (VENTOLIN HFA) 90 mcg/actuation inhaler Inhale 2 Puffs as instructed every 4 hours as needed for wheezing/shortness of breath. 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] 03/03/2018 Age-related osteoporosis without current pathol*03/12/2018 Encounter for screening for malignant neoplasm *03/13/2018 COPD (chronic obstructive pulmonary disease) (H*10/24/2018 Other chronic sinusitis [J32.8] 10/24/2018 GERD without esophagitis [K21.9] 05/28/2019 Medication management [Z79.899] 01/21/2020 Vitamin D deficiency [E55.9] 01/21/2020 Essential hypertension [I10] 05/20/2020 Bilateral leg edema [R60.0] 05/20/2020 Other proteinuria [R80.8] 01/18/2021 Advance directive discussed with patient [Z71.8*10/05/2021 Obesity, Class II, BMI 35-39.9 [E66.812] 10/05/2021 Type 2 diabetes mellitus without complication, *10/28/2022 Lung nodule [R91.1] 04/04/2023 Paroxysmal atrial fibrillation (HCC) [I48.0] 04/14/2024 Secondary polycythemia [D75.1] 04/22/2024 Encounter Status:Closed by FRANKIE SMITH on 11/02/24[facility] 10-27-2024 NoteHNO ID: [id number] Author: JAN WILKERSON LPN Service: ? Author Type: LICENSED NURSE Type: Progress Notes Filed: 10/27/2024 11:50 Note Text: Scan on 10/27/2024 9:42 AM by Bhavik Jhaveri PA-C: [facility] History of Present illness Narrative* Jan Wilkerson LPN - 10/27/2024 11:49 AM EDT Scan on 10/27/2024 9:42 AM by Bhavik Jhaveri PA-C: CT Scan documented in this encounterDetw[facility]04-15-2025 Radiology Diagnostic study note [facility] Imaging Services [address] [place] [address] Lung Screening MR#: [id number] Acct: [id number] Name: MIMA DOS SANTOS Rep #: [id number] : 1950 F 74 From: Tenisha Arango MD PCP: Dr. Davy Downey MD Status: REG CLI Study:Low Dose CT Lung Screening Date of Exam : 10/26/24 Exam# [id number] Ordering Dr: Bre Worrell NP RANGE OPERATOR-C PROCEDURE: LOW DOSE CT LUNG SCREENING 10/26/2024 REASON FOR EXAM: >20 PACK YEARS TECHNIQUE: Low Dose CT Lung screening without contrast. Coronal and Sagittal reconstructionseries were provided. One or more dose reduction techniques were used (e.g., Automated exposure control, adjustment of the mA and/or kV according to patient size, use of iterative reconstruction technique). REFERENCE LINK: [email or web address] Lung-RADS RADIATION DOSE SUMMARY: CTDlvol: 4.02 mGy DLP: 133.41 mGycm COMPARISON: None. FINDINGS: Note that evaluation of the vasculature, [place], and soft tissues is limited in the absence of IV contrast. Heart/pericardium:Moderate multivessel coronary atherosclerosis and/or stents. Mild aortic annular calcification. Aorta: Mild/moderate atherosclerosis.. Pulmonary arteries: Enlarged central pulmonary arteries which may indicate pulmonary arterial hypertension. Lymph nodes: Unremarkable. Lungs/pleura: Emphysema. Biapical pleural/parenchymal scarring. Bibasilar atelectasis/scarring. 9 x8 mm RIGHT lower lobe nodule (series 2, image 180). Similar additional similar and smaller nodules annotated on series 2.prominent likely fissural intrapulmonary lymph node on the RIGHT. Airways: Mild endobronchial debris within the lower lobes. Mild central bronchial wall thickening.. Chest wall: Unremarkable. Upper abdomen: Gastric underdistention limits evaluation of wall thickness.. Musculoskeletal: Demineralization. Multilevel spondylosis. Mild scoliosis.. CT/Low Dose CT Lung Screening IMPRESSION: 1. Lung-RADS category: 4AS (suspicious, 5-15% chance of malignancy); recommend 3-month follow-up with LDCT or PET-CT if there is a ?8 mm solid component. 2. Other clinically significant or potentially significant non-lung cancer findings: Moderate multivessel coronary atherosclerosis.. 3. Additional description as above. Recommendations per [employer]. Lung CT Screening Reporting and Data System (Lung-RADS) v. 2 Reading Location: [id number] CC: SATURNINO Worrlel; Dr. Davy Downey MD ~ Public Opinion Survey Taker: Signed [facility]03-29-2025 Telephone encounter Note* Telephone Encounter - Davy Downey MD - 10/10/2024 9:51 AM EDT The following approved medication requests have been transmitted electronically. Requested Prescriptions Signed Prescriptions Disp Refills atorvastatin (LIPITOR) 20 mg tablet 30 tablet 5 Sig: Take 1 tablet by mouth once daily. Davy Downey MD [facility]03-29-2025 Miscellaneous Notes* Telephone Encounter - Davy Downey MD - 10/10/2024 9:51 AM EDT The following approved medication requests have been transmitted electronically. Requested Prescriptions Signed Prescriptions Disp Refills atorvastatin (LIPITOR) 20 mg tablet 30 tablet 5 Sig: Take 1 tablet by mouth once daily. Davy Downey MD * Telephone Encounter - Jan Wilkerson LPN - 10/10/2024 8:18 AM EDT Patient notified of results and provider's instructions. Patient verbalizes understanding. Pt is agreeable to start Lip[facility]kerson LPN * Telephone Encounter - Davy Downey MD - 10/09/2024 10:42 PM EDT Let patient know lipid panel showed Trigs elevated at 392 (goal<150), HDL low at 42 (goal>50)and LDL elevated at 111 (goal<100). Her 10 year risk of a heart attack or stroke is 52%. I wouldadvise starting her on lipitor 20 mg ad ay to help correct these numbers and reduced her risk of a cardiovascular event. Her electrolyte panel is ok except her kidney functions are slightly decreased. Advise her to try to only take OTC tylenol if needed and increase her water intake to try to get 56-64 ounces of water a day. Since she looked slight dehydrated on her labs. Her other labs were ok. documented in this encounterDet[facility]03-29-2025 Telephone encounter Note * Telephone Encounter - Jan Wilkerson LPN - 10/10/2024 8:18 AM EDT Patient notified of results and provider's instructions. Patient verbalizes understanding. Pt is agreeable to start Lipitor. Pt uses [facility]. Jan Wilkerson LPN [facility]03-28-2025 Telephone encounter Note* Telephone Encounter - Davy Downey MD - 10/09/2024 10:42 PM EDT Let patient know lipid panel showed Trigs elevated at 392 (goal<150), HDL low at 42 (goal>50)and LDL elevated at 111 (goal<100). Her 10 year risk of a heart attack or stroke is 52%. I wouldadvise starting her on lipitor 20 mg ad ay to help correct these numbers and reduced her risk of a cardiovascular event. Her electrolyte panel is ok except her kidney functions are slightly decreased. Advise her to try to only take OTC tylenol if needed and increase her water intake to try to get 56-64 ounces of water a day. Since she looked slight dehydrated on her labs. Her other labs were ok. [facility]03-26-2025 Instructions* Patient Instructions* Davy Downey MD - 10/07/2024 5:45 PM EDT Please get labs and urine test done on or after 03/26/2025 prior to your next visit. documented in this encounterDetwiler [facility]03-26-2025 NoteHNO ID: [id number] Author: DAVY DOWNEY MD Service: ? Author Type: Physician Type: Progress Notes Filed: 10/08/2024 08:35 Note Text: Chief Complaint Patient presents with: F/U 6 months HPI Mima Dos Santos is a 74 year old female who presents here today for 6 month follow up. Patient with hx of DM2, HTN, COPD, a.fib, GERD, osteoporosis, obesity, vit d def and those as below. Ref Range AND Units 5 mo ago (04/16/24) 1 yr ago (10/26/22) 3 yr ago (08/24/21) 3 yr ago (01/12/21) Hemoglobin A1C 4.3 - 5.6 % 6.5 High 6.7 High CM 6.4 High CM 6.4 High CM Comment: [place] [employer] guidelines indicate that patien Patient has been doing well. No new issues or concerns. Past medical history, appointments, medications, allergies reviewed. 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 COPD (chronic obstructive pulmonary disease) (HCC) 10/24/2018 Suspected- patient not wanting to do PFT but willing to trial inhalers Diverticulosis of colon without diverticulitis 03/28/2018 Elevated fasting glucose 01/18/2021 Essential hypertension 05/20/2020 Gastritis GERD without esophagitis 05/28/2019 History of Helicobacter pylori infection 03/28/2018 Lung nodule 04/04/2023 CT WC 03/21/2023 7.1 mm noncalcified nodule Rt middle lobe Obesity, Class II, BMI 35-39.9 10/05/2021 Osteoporosis Other chronic sinusitis 10/24/2018 Paroxysmal atrial fibrillation (HCC) 04/14/2024 Seeing cardio Smoker 09/01/2015 Started at age 15 and up to 1PPD Vitamin D deficiency 01/21/2020 Previous Surgical History PAST SURGICAL HISTORY Procedure Laterality Date APPENDECTOMY COLONOSCOPY FLX DX W/COLLJ SPEC WHEN PFRMD 03/28/2018 Colonoscopy ESOPHAGOGASTRODUODENOSCOPY TRANSORAL DIAGNOSTIC 03/28/2018 EGD PAST SURGICAL HISTORY OF 1992 [place] Family History FAMILY HISTORY Problem Relation Age of Onset Stroke Mother Alzheimer's Disease Father Diabetes Sister Diabetes Sister Hypertension Sister Brain Cancer Sister Diabetes Brother Hypertension Brother Alzheimer's Disease Paternal Grandmother Patient Allergies ALLERGIES Allergen Reactions Sulfites Rash Shrimp Vomiting Current Medications Current Outpatient Medications on File Prior to Visit Medication Sig kjmitukxgxf-mepqiyfxk-sqysfeoc (TRELEGY ELLIPTA) 100-62.5-25 mcg inhalation powder Inhale 1 Puff as instructed once daily. ELIQUIS 5 mg tab(s) furosemide (LASIX) 40 mg tablet metoprolol tartrate, short acting, (LOPRESSOR) 25 mg tablet TWICE A DAY potassium chloride (K-TAB) 10 mEq tablet omeprazole (PRILOSEC) 20 mg capsule Take 2 capsules by mouth once daily. albuterol HFA (VENTOLIN HFA) 90 mcg/actuation inhaler Inhale 2 Puffs as instructed every 4 hours as needed for wheezing/shortness of breath. cholecalciferol, Vitamin D3, (VITAMIN D3) 1,250 mcg (50,000 unit) cap capsule Take 1 capsule by mouth every 2 weeks. (Patient not taking: Reported on 10/07/2024) No current facility-administered medications on file prior to visit. Social History Social History Tobacco Use Smoking status: Every Day Current packs/day: 1.00 Average packs/day: 1 pack/day for 50.0 years (50.0 ttl pk-yrs) Types: Cigarettes Smokeless tobacco: Never Vaping Use Vaping status: Never Used Substance Use Topics Alcohol use: Yes Comment: occasional Drug use: No Review of Symptoms REVIEW OF SYSTEMS GENERAL: No unintentional weight loss, malaise or fevers NECK: Negative for lumps, goiter, pain and significant neck swelling RESPIRATORY: Negative for cough, hemoptysis, wheezing, COPD, dyspnea or shortness of breath CARDIOVASCULAR: Negative for chest pain, leg swelling, hypertension, CHF or palpitations GI: No nausea, vomiting, or diarrhea and No heartburn or reflux symptoms : No history of dysuria, frequency or blood ENDOCRINE: Negative for symptoms of low BS's NEURO: No history of headaches, syncope, paralysis, seizures or tremors EXAM: BP 138/82 Pulse 60 Resp 18 Wt 84.8 kg (187 lb) BMI 35.19 kg/m? Last 5 Encounter Wt Readings: Date: Wt: 10/07/2024 84.8 kg (187 lb) 04/14/2024 86.2 kg (190 lb) 04/09/2023 89.8 kg (198 lb) 03/21/2023 97.5 kg (215 lb) 10/24/2022 93 kg (205 lb) General Appearance: Well appearing, alert, in no acute distress, well-hydrated, well nourished. and Obese. Eyes: Anicteric sclera. Pupils are equally round and reactive to light. Extraocular movements are intact. . Neck: Supple, no adenopathy; thyroid symmetric, normal size, no bruits. Lungs: Lungs clear to auscultation. No wheezing, rhonchi, rales.. Heart: RRR without murmur, gallop, or rubs. No ectopy. Abdomen: Normal abdominal exam, Abdomen soft, non-tender. Bowel sounds normal. No masses, organomegaly. Extremities: No deformities, edema, skin discoloration, Good capillary refill. . Musculoskeletal: . Muscular strength intact, No joint swelling, de (more content not included)...[facility]03-26-2025 History of Present illness Narrative* Davy Downey MD - 10/07/2024 5:03 PM EDT Chief Complaint Patient presents with: F/U 6 months HPI Mima Dos Santos is a 74 year old female who presents here today for 6 month follow up. Patient with hx of DM2, HTN, COPD, a.fib, GERD, osteoporosis, obesity, vit d def and those as below. Ref Range & Units 5 mo ago (04/16/24) 1 yr ago (10/26/22) 3 yr ago (08/24/21) 3 yr ago (01/12/21) Hemoglobin A1C 4.3 - 5.6 % 6.5 High 6.7 High CM 6.4 High CM 6.4 High CM Comment: [place] [employer] guidelines indicate that patien Patient has been doing well. No new issues or concerns. Past medical history, appointments, medications, allergies reviewed. 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 COPD (chronic obstructive pulmonary disease) (HCC) 10/24/2018 Suspected- patient not wanting to do PFT but willing to trial inhalers Diverticulosis of colon without diverticulitis 03/28/2018 Elevated fasting glucose 01/18/2021 Essential hypertension 05/20/2020 Gastritis GERD without esophagitis 05/28/2019 History of Helicobacter pylori infection 03/28/2018 Lung nodule 04/04/2023 [facility] 03/21/2023 7.1 mm noncalcified nodule Rt middle lobe Obesity, Class II, BMI 35-39.9 10/05/2021 Osteoporosis Other chronic sinusitis 10/24/2018 Paroxysmal atrial fibrillation (HCC) 04/14/2024 Seeing cardio Smoker 09/01/2015 Started at age 15 and up to 1PPD Vitamin D deficiency 01/21/2020 Previous Surgical History PAST SURGICAL HISTORY Procedure Laterality Date APPENDECTOMY COLONOSCOPY FLX DX W/COLLJ SPEC WHEN PFRMD 03/28/2018 Colonoscopy ESOPHAGOGASTRODUODENOSCOPY TRANSORAL DIAGNOSTIC 03/28/2018 EGD PAST SURGICAL HISTORY OF 1992 [place] Family History FAMILY HISTORY Problem Relation Age of Onset Stroke Mother Alzheimer's Disease Father Diabetes Sister Diabetes Sister Hypertension Sister Brain Cancer Sister Diabetes Brother Hypertension Brother Alzheimer's Disease Paternal Grandmother Patient Allergies ALLERGIES Allergen Reactions Sulfites Rash Shrimp Vomiting Current Medications Current Outpatient Medications on File Prior to Visit Medication Sig rriubvwdywc-aslzryqep-ujtedgmn (TRELEGY ELLIPTA) 100-62.5-25 mcg inhalation powder Inhale 1 Puff asinstructed once daily. ELIQUIS 5 mg tab(s) furosemide (LASIX) 40 mg tablet metoprolol tartrate, short acting, (LOPRESSOR) 25 mg tablet TWICE A DAY potassium chloride (K-TAB) 10 mEq tablet omeprazole (PRILOSEC) 20 mg capsule Take 2 capsules by mouth once daily. albuterol HFA (VENTOLIN HFA) 90 mcg/actuation inhaler Inhale 2 Puffs as instructed every 4 hours asneeded for wheezing/shortness of breath. cholecalciferol, Vitamin D3, (VITAMIN D3) 1,250 mcg (50,000 unit) cap capsule Take 1 capsule by mouth every 2 weeks. (Patient not taking: Reported on 10/07/2024) No current facility-administered medications on file prior to visit. Social History Social History Tobacco Use Smoking status: Every Day Current packs/day: 1.00 Average packs/day: 1 pack/day for 50.0 years (50.0 ttl pk-yrs) Types: Cigarettes Smokeless tobacco: Never Vaping Use Vaping status: Never Used Substance Use Topics Alcohol use: Yes Comment: occasional Drug use: No Review of Symptoms REVIEW OF SYSTEMS GENERAL: No unintentional weight loss, malaise or fevers NECK: Negative for lumps, goiter, pain and significant neck swelling RESPIRATORY: Negative for cough, hemoptysis, wheezing, COPD, dyspnea or shortness of breath CARDIOVASCULAR: Negative for chest pain, leg swelling, hypertension, CHF or palpitations GI: No nausea, vomiting, or diarrhea and No heartburn or reflux symptoms : No history of dysuria, frequency or blood ENDOCRINE: Negative for symptoms of low BS's NEURO: No history of headaches, syncope, paralysis, seizures or tremors EXAM: BP 138/82 Pulse 60 Resp 18 Wt 84.8 kg (187 lb) BMI 35.19 kg/m Last 5 Encounter Wt Readings: Date: Wt: 10/07/2024 84.8 kg (187 lb) 04/14/2024 86.2 kg (190 lb) 04/09/2023 89.8 kg (198 lb) 03/21/2023 97.5 kg (215 lb) 10/24/2022 93 kg (205 lb) General Appearance: Well appearing, alert, in no acute distress, well-hydrated, well nourished. andObese. Eyes: Anicteric sclera. Pupils are equally round and reactive to light. Extraocular movements are intact. . Neck: Supple, no adenopathy; thyroid symmetric, normal size, no bruits. Lungs: Lungs clear to auscultation. No wheezing, rhonchi, rales.. Heart: RRR without murmur, gallop, or rubs. No ectopy. Abdomen: Normal abdominal exam, Abdomen soft, non-tender. Bowel sounds normal. No masses, organomegaly. Extremities: No deformities, edema, skin discoloration, Good capillary refill. . Musculoskeletal: . Muscular strength intact, No joint swelling, deformity, or tenderness. Peripheral Pulses: Normal. Neurologic: Gait normal. Sensation to light touch and crainal nerves 2-12 intact.. Health Maintenance List Dilated Retinal Exam Never done DTaP,Tdap,Td Vaccine(1 - Tdap) Never done Shingrix Vaccine(1 of 2) Never done RSV Vaccine(1 - Risk 60-74 years 1-dose series) Never done Bone Density Screening due on 03/12/2020 Advance Directive Discussion due on 07/15/2024 Lung Cancer Screening due on 09/12/2024 Covid-19 Vaccine( season) due on 04/14/2025 HbA1C due on 10/15/2024 Diabetic Foot Exam due on 04/14/2025 Annual PCP Team Chronic Disease Visit due on 04/14/2025 Depression Screening due on 04/14/2025 Anxiety Screening due on 04/14/2025 BP Controlled (<130/80) due on 04/14/2025 Urine Albumin:Creatinine Ratio due on 04/16/2025 LDL Cholesterol due on 04/16/2025 Mammogram Screening due on 05/06/2025 Spirometry Completed Influenza Vaccine Completed Hepatitis C Screening Completed Pneumococcal Vaccine: 50+ Completed Alpha-1 Antitrypsin Deficiency Screening Discontinued Colorectal Cancer Screening Discontinued Data reviewed A/P ASSESSMENT/PLAN: 1. Type 2 diabetes mellitus without complication, without long-term current use of insulin (HCC) - ICD9: 250.00, ICD10: E11.9 (primary diagnosis) - Control undetermined, due for labs - Counseled on healthy diet and regular exercise - Discussed need for and benefit of weight loss. BMI 35.19 kg/(m^2) - cont control through diet. Check - BASIC METABOLIC PANEL - HEMOGLOBIN A1C - LIPID PANEL, NONFASTING - COMPLETE BLOOD COUNT AND DIFFERENTIAL 2. Essential hypertension - ICD9: 401.9, ICD10: I10 - Controlled - Continue current medications - Recommend home blood pressure monitoring, to bring results to next visit - Encouraged sodium restriction, DASH or Mediterranean diet - Recommend regular aerobic exercise. Check - BASIC METABOLIC PANEL - LIPID PANEL, NONFASTING 3. GERD without esophagitis - ICD9: 530.81, ICD10: K21.9 - Continue treatment with Prilosec 20 mg QD 4. Bilateral leg edema - ICD9: 782.3, ICD10: R60.0 - none on exam today. - patient to talk with cardio to see if her lasix can be cut back some. 5. Chronic obstructive pulmonary disease, unspecified COPD type (HCC) - ICD9: 496, ICD10: J44.9 - stable on inhalers and managed per Pulm. 6. Obesity, Class II, BMI 35-39.9 - ICD9: 278.00, ICD10: E66.812 - patient working on weight los. 7. Smoker - ICD9: 305.1, ICD10: F17.200 - Cessation encouraged. - Counseling was given focusing on the harmful effects of this addiction especially given the patient's medical condition(s) which will be worsened because of the chemicals in tobacco. 8. Vitamin D deficiency - ICD9: 268.9, ICD10: E55.9 - patient has anika of meds for a year. Check Vit D level 9. Paroxysmal atrial fibrillation (HCC) - ICD9: 427.31, ICD10: I48.0 Follows with cardio 10. Secondary polycythemia - ICD9: 289.0, ICD10: D75.1 Check CBC F/u 6 months extensive check CMP, Lipid, UA urine micro albumin, A1c, CBC, Vit D, B12 and Mg prior Davy Downey MD documented in [facility]Det[facility]-2025 NoteHNO ID: [id number] Author: ELAINE BUENO MA Service: ? Author Type: Hazardous Materials Handler Type: Progress Notes Filed: 09/28/2024 15:28 Note Text: POPULATION HEALTH NAVIGATION OUTREACH Action/FYI Provider declined pended lab orders; will review with patient at upcoming appt Navigation Signature: Elaine Bueno MA September 28, 2024 3:27 [facility]03-17-2025 History of Present illness Narrative* Elaine Bueno MA - 09/28/2024 3:27 PM EDT POPULATION HEALTH NAVIGATION OUTREACH Action/FYI Provider declined pended lab orders; will review with patient at upcoming appt Navigation Signature: Elaine Bueno MA September 28, 2024 3:27 PM * Elaine Bueno MA - 09/28/2024 11:26 AM EDT POPULATION HEALTH NAVIGATION OUTREACH Action/FYI [employer] High Risk Outreach (attempt 2) Due for: Medicare Wellness Dilated Retinal Exam KEDom Spoke with patient; declined to schedule AWV at this time Had eye exam done at [facility] in August Pended labs due; upon approval, please add any additional needed Reason for Outreach Care Gap/HCC or Scheduling Wellness Visits Care Gaps due: Medicare Annual Wellness Visit KED Patient Contacted: Spoke to patient/parent/or legal guardian Patient identified by name and : Yes Care Gap/HCC/Scheduling Wellness actions taken: Patient scheduled/pended orders: HBA1C KED Navigation Signature: Elaine Bueno MA September 28, 2024 11:26 AM documented in this encounterDetw[facility]03-17-2025 NoteHNO ID: [id number] Author: ELAINE BUENO MA Service: ? Author Type: Hazardous Materials Handler Type: Progress Notes Filed: 09/28/2024 15:28 Note Text: POPULATION HEALTH NAVIGATION OUTREACH Action/FYI [employer] High Risk Outreach (attempt 2) Due for: Medicare Wellness Dilated Retinal Exam KED Spoke with patient; declined to schedule AWV at this time Had eye exam done at [facility] in August Pended labs due; upon approval, please add any additional needed Reason for Outreach Care Gap/HCC or Scheduling Wellness Visits Care Gaps due: Medicare Annual Wellness Visit KED Patient Contacted: Spoke to patient/parent/or legal guardian Patient identified by name and : Yes Care Gap/HCC/Scheduling Wellness actions taken: Patient scheduled/pended orders: HBA1C KED Navigation Signature: Elaine Bueno MA September 28, 2024 11:26 [facility]03-17-2025 NotePatient Outreach (NETNAV) MIMA DOS SANTOS ([id number]) 1950 F Date Time Provider Department 3/17/25 ELAINE BUENO NETNAV During your visit today, we recorded the following information about you: Elaine Bueno MA 09/28/2024 3:28 PM Signed POPULATION HEALTH NAVIGATION OUTREACH Action/FYI [employer] High Risk Outreach (attempt 2) Due for: Medicare Wellness Dilated Retinal Exam KEDom Spoke with patient; declined to schedule AWV at this time Had eye exam done at [facility] in August Pended labs due; upon approval, please add any additional needed Reason for Outreach Care Gap/HCC or Scheduling Wellness Visits Care Gaps due: Medicare Annual Wellness Visit KED Patient Contacted: Spoke to patient/parent/or legal guardian Patient identified by name and : Yes Care Gap/HCC/Scheduling Wellness actions taken: Patient scheduled/pended orders: HBA1C KED Navigation Signature: Elaine Bueno MA September 28, 2024 11:26 AM Elaine Bueno MA 09/28/2024 3:28 PM Signed POPULATION HEALTH NAVIGATION OUTREACH Action/FYI Provider declined pended lab orders; will review with patient at upcoming appt Navigation Signature: Elaine Bueno MA September 28, 2024 3:27 PM Allergies As of Date: 09/28/2024 Noted Allergy Reaction SULFITES 09/01/2015 2 - Rash SHRIMP 09/01/2015 11 - Vomiting Date Reviewed: 04/14/2024 Reviewed by: Jan Wilkerson LPN - Fully Assessed Reason for Visit: Population Health Navigation Outreach [3910] Cmt: [employer] High Risk - Attempt 2 Primary Visit Diagnosis:Type 2 diabetes mellitus without complication, without long-term current use of insulin (HCC) [E11.9] Prescriptions as of 09/28/2024 - ikuapoitkkl-wdsxjjfau-fcgizmus (TRELEGY ELLIPTA) 100-62.5-25 mcg inhalation powder Inhale 1 Puff as instructed once daily. - ELIQUIS 5 mg tab(s) - furosemide (LASIX) 40 mg tablet - metoprolol tartrate, short acting, (LOPRESSOR) 25 mg tablet TWICE A DAY - potassium chloride (K-TAB) 10 mEq tablet - omeprazole (PRILOSEC) 20 mg capsule Take 2 capsules by mouth once daily. - albuterol HFA (VENTOLIN HFA) 90 mcg/actuation inhaler Inhale 2 Puffs as instructed every 4 hours as needed for wheezing/shortness of breath. - cholecalciferol, Vitamin D3, (VITAMIN D3) 1,250 mcg (50,000 unit) cap capsule Take 1 capsule by mouth every 2 weeks. 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] 03/03/2018 Age-related osteoporosis without current pathol*03/12/2018 Encounter for screening for malignant neoplasm *03/13/2018 COPD (chronic obstructive pulmonary disease) (H*10/24/2018 Other chronic sinusitis [J32.8] 10/24/2018 GERD without esophagitis [K21.9] 05/28/2019 Medication management [Z79.899] 01/21/2020 Vitamin D deficiency [E55.9] 01/21/2020 Essential hypertension [I10] 05/20/2020 Bilateral leg edema [R60.0] 05/20/2020 Other proteinuria [R80.8] 01/18/2021 Advance directive discussed with patient [Z71.8*10/05/2021 Obesity, Class II, BMI 35-39.9 [E66.812] 10/05/2021 Type 2 diabetes mellitus without complication, *10/28/2022 Lung nodule [R91.1] 04/04/2023 Paroxysmal atrial fibrillation (HCC) [I48.0] 04/14/2024 Secondary polycythemia [D75.1] 04/22/2024 Encounter Status:Closed by ELAINE BUENO on 09/28/24[facility] 09-17-2024 NoteHNO ID: [id number] Author: FRANKIE SMITH RN Service: ? Author Type: Registered Nurse Type: Progress Notes Filed: 09/17/2024 16:32 Note Text: CDM ENROLLMENT Provider Action / FYI: Patient identified by name and date of . Discussed care with patient. Program Details Chronic Disease Management Status: Enrolled Effective Dates: 09/17/2024 - present Responsible Staff: Frankie Smith RN Support and Services: Hypertension, Diabetes, Chronic Obstructive Pulmonary Disease (COPD) Assessments CDM Assessment Medications: Do you have any questions about taking your medications or which medications you should be taking?: No Do you need any medication refills at this time, including any of the medication you might take only when needed?: No Social: It can be normal to feel anxious or down during a time like this. Would you like to talk to a mental health professional about how you have been feeling?: No Symptoms: Are you experiencing any new or worsening symptoms that you need to talk about today?: No ADLs Patients can perform the following activities without help: Dressing: Yes Bathing: Yes Doing laundry: Yes Climbing a flight of stairs: Yes Walking briskly: Yes Instrumental activities of daily living Do you drive a car?: Yes Do you need help from others to take care of things inside the house, for example: laundry, house cleaning, preparing meals?: No Do you need help from others with errands outside the house, for example: shopping for groceries or clothes, going medical appointments?: No Fall Risk One or more falls in the last year:: No Any near falls in the last year?: No Advised to use a cane or walker to get around safely:: No Feels unsteady when walking:: No Steadies self on furniture while walking at home:: No Worried about falling:: No Needs to push with hands when rising from a chair:: No Has trouble stepping up onto a curb:: No Often has to jefferson to the toilet:: No Has lost some feeling in feet:: No Takes medicine that makes him/her feel lightheaded or more tired than usual:: No Takes medicine to sleep or improve mood:: No SDOH Financial Resource Strain How hard is it for you to pay for the very basics like food, housing, medical care, and heating?: Not hard at all Housing Stability In the last 12 months, was there a time when you were not able to pay the mortgage or rent on time?: No At any time in the past 12 months, were you homeless or living in a fpc (including now)?: No Transportation Needs In the past 12 months, has lack of transportation kept you from medical appointments or from getting medications?: Yes In the past 12 months, has lack of transportation kept you from meetings, work, or from getting things needed for daily living?: Yes Food Insecurity Within the past 12 months, you worried that your food would run out before you got the money to buy more.: Never true Within the past 12 months, the food you bought just didn't last and you didn't have money to get more.: Never true Tobacco Use Patient reports that she has been smoking cigarettes. She has a 50 pack-year smoking history. She has never used smokeless tobacco. Interventions The following were addressed during this visit: - Initial enrollment outreach - Intake assessments completed: ADLs, Fall Risk, SDOH Disposition Based on talk show host, the following disposition is advised: No action needed Frankie Smith RN September 17, 2024 4:15 [facility]03-06-2025 History of Present illness Narrative* Frankie Smith RN - 09/17/2024 4:15 PM EST CDM ENROLLMENT Provider Action / FYI: Patient identified by name and date of . Discussed care with patient. Program Details Chronic Disease Management Status: Enrolled Effective Dates: 09/17/2024 - present Responsible Staff: Frankie Smith RN Support and Services: Hypertension, Diabetes, Chronic Obstructive Pulmonary Disease (COPD) Assessments CDM Assessment Medications: Do you have any questions about taking your medications or which medications you should be taking?:No Do you need any medication refills at this time, including any of the medication you might take only when needed?: No Social: It can be normal to feel anxious or down during a time like this. Would you like to talk to a mental health professional about how you have been feeling?: No Symptoms: Are you experiencing any new or worsening symptoms that you need to talk about today?: No ADLs Patients can perform the following activities without help: Dressing: Yes Bathing: Yes Doing laundry: Yes Climbing a flight of stairs: Yes Walking briskly: Yes Instrumental activities of daily living Do you drive a car?: Yes Do you need help from others to take care of things inside the house, for example: laundry, house cleaning, preparing meals?: No Do you need help from others with errands outside the house, for example: shopping for groceries orclothes, going medical appointments?: No Fall Risk One or more falls in the last year:: No Any near falls in the last year?: No Advised to use a cane or walker to get around safely:: No Feels unsteady when walking:: No Steadies self on furniture while walking at home:: No Worried about falling:: No Needs to push with hands when rising from a chair:: No Has trouble stepping up onto a curb:: No Often has to jefferson to the toilet:: No Has lost some feeling in feet:: No Takes medicine that makes him/her feel lightheaded or more tired than usual:: No Takes medicine to sleep or improve mood:: No SDOH Financial Resource Strain How hard is it for you to pay for the very basics like food, housing, medical care, and heating?: Not hard at all Housing Stability In the last 12 months, was there a time when you were not able to pay the mortgage or rent on time?: No At any time in the past 12 months, were you homeless or living in a fpc (including now)?: No Transportation Needs In the past 12 months, has lack of transportation kept you from medical appointments or from getting medications?: Yes In the past 12 months, has lack of transportation kept you from meetings, work, or from getting things needed for daily living?: Yes Food Insecurity Within the past 12 months, you worried that your food would run out before you got the money to buymore.: Never true Within the past 12 months, the food you bought just didn't last and you didn't have money to get more.: Never true Tobacco Use Patient reports that she has been smoking cigarettes. She has a 50 pack-year smoking history. She has never used smokeless tobacco. Interventions The following were addressed during this visit: - Initial enrollment outreach - Intake assessments completed: ADLs, Fall Risk, SDOH Disposition Based on talk show host, the following disposition is advised: No action needed Frankie Smith RN September 17, 2024 4:15 PM documented in [facility] encounterDet[facility] NotePatient Outreach (AMBCMG) MIMA DOS SANTOS ([id number]) 1950 F Date Time Provider Department 09/17/24 FRANKIE SMITH [facility] During your visit today, we recorded the following information about you: Frankie Smith RN 09/17/2024 4:32 PM Signed CDM ENROLLMENT Provider Action / FYI: Patient identified by name and date of . Discussed care with patient. Program Details Chronic Disease Management Status: Enrolled Effective Dates: 09/17/2024 - present Responsible Staff: Frankie Smith RN Support and Services: Hypertension, Diabetes, Chronic Obstructive Pulmonary Disease (COPD) Assessments CDM Assessment Medications: Do you have any questions about taking your medications or which medications you should be taking?: No Do you need any medication refills at this time, including any of the medication you might take only when needed?: No Social: It can be normal to feel anxious or down during a time like this. Would you like to talk to a mental health professional about how you have been feeling?: No Symptoms: Are you experiencing any new or worsening symptoms that you need to talk about today?: No ADLs Patients can perform the following activities without help: Dressing: Yes Bathing: Yes Doing laundry: Yes Climbing a flight of stairs: Yes Walking briskly: Yes Instrumental activities of daily living Do you drive a car?: Yes Do you need help from others to take care of things inside the house, for example: laundry, house cleaning, preparing meals?: No Do you need help from others with errands outside the house, for example: shopping for groceries or clothes, going medical appointments?: No Fall Risk One or more falls in the last year:: No Any near falls in the last year?: No Advised to use a cane or walker to get around safely:: No Feels unsteady when walking:: No Steadies self on furniture while walking at home:: No Worried about falling:: No Needs to push with hands when rising from a chair:: No Has trouble stepping up onto a curb:: No Often has to jefferson to the toilet:: No Has lost some feeling in feet:: No Takes medicine that makes him/her feel lightheaded or more tired than usual:: No Takes medicine to sleep or improve mood:: No SDOH Financial Resource Strain How hard is it for you to pay for the very basics like food, housing, medical care, and heating?: Not hard at all Housing Stability In the last 12 months, was there a time when you were not able to pay the mortgage or rent on time?: No At any time in the past 12 months, were you homeless or living in a fpc (including now)?: No Transportation Needs In the past 12 months, has lack of transportation kept you from medical appointments or from getting medications?: Yes In the past 12 months, has lack of transportation kept you from meetings, work, or from getting things needed for daily living?: Yes Food Insecurity Within the past 12 months, you worried that your food would run out before you got the money to buy more.: Never true Within the past 12 months, the food you bought just didn't last and you didn't have money to get more.: Never true Tobacco Use Patient reports that she has been smoking cigarettes. She has a 50 pack-year smoking history. She has never used smokeless tobacco. Interventions The following were addressed during this visit: - Initial enrollment outreach - Intake assessments completed: ADLs, Fall Risk, SDOH Disposition Based on talk show host, the following disposition is advised: No action needed Frankie Smith RN September 17, 2024 4:15 PM Allergies As of Date: 09/17/2024 Noted Allergy Reaction SULFITES 09/01/2015 2 - Rash SHRIMP 09/01/2015 11 - Vomiting Date Reviewed: 04/14/2024 Reviewed by: Jan Wilkerson LPN - Fully Assessed Prescriptions as of 09/17/2024 - jwggtyjospm-nlwhpiieq-yfiwhlkn (TRELEGY ELLIPTA) 100-62.5-25 mcg inhalation powder Inhale 1 Puff as instructed once daily. - ELIQUIS 5 mg tab(s) - furosemide (LASIX) 40 mg tablet - metoprolol tartrate, short acting, (LOPRESSOR) 25 mg tablet TWICE A DAY - potassium chloride (K-TAB) 10 mEq tablet - omeprazole (PRILOSEC) 20 mg capsule Take 2 capsules by mouth once daily. - albuterol HFA (VENTOLIN HFA) 90 mcg/actuation inhaler Inhale 2 Puffs as instructed every 4 hours as needed for wheezing/shortness of breath. - cholecalciferol, Vitamin D3, (VITAMIN D3) 1,250 mcg (50,000 unit) cap capsule Take 1 capsule by mouth every 2 weeks. Problem List As Of Date 09/17/2024 Noted Resolved Smoker [F17.200] 09/01/2015 Screen for colon cancer [Z12.11] 09/01/2015 Encounter for gynecological examination without*03/01/2016 Soft tissue mass [M79.89] 09/26/2017 Medicare annual wellness visit, subsequent [Z00*03/03/2018 Encounter for screening mammogram for breast ca*03/03/2018 Primary ovarian f (more content not included)...[facility] 08-27-2024 NoteHNO ID: [id number] Author: ELAINE BUENO MA Service: ? Author Type: Hazardous Materials Handler Type: Progress Notes Filed: 08/27/2024 10:41 Note Text: POPULATION HEALTH NAVIGATION OUTREACH Action/ [employer] High Risk Outreach Due for: Medicare Wellness (Oct) Dilated Retinal Exam Left VM; Agrar33hart message sent Reason for Outreach Care Gap/HCC or Scheduling Wellness Visits Care Gaps due: Medicare Annual Wellness Visit Diabetic Eye Exam Patient Contacted: Unable or unnecessary to reach patient: Left message [email or web address] message sent Navigation Signature: Elaine Bueno MA August 27, 2024 10:17 [facility]02-13-2025 History of Present illness Narrative* Elaine Bueno MA - 08/27/2024 10:17 AM EST POPULATION HEALTH NAVIGATION OUTREACH Action/FYI [employer] High Risk Outreach Due for: Medicare Wellness (Oct) Dilated Retinal Exam Left VM; MyChart message sent Reason for Outreach Care Gap/HCC or Scheduling Wellness Visits Care Gaps due: Medicare Annual Wellness Visit Diabetic Eye Exam Patient Contacted: Unable or unnecessary to reach patient: Left message MyChart message sent Navigation Signature: Elaine Bueno MA August 27, 2024 10:17 AM documented in this encounterDetw[facility]02-[facility] NotePatient Outreach (NETNAV) MIMA DOS SANTOS ([id number]) 1950 F Date Time Provider Department 08/27/24 ELAINE BUENO During your visit today, we recorded the following information about you: Elaine Bueno MA 08/27/2024 10:41 AM Signed POPULATION HEALTH NAVIGATION OUTREACH Action/FYI [employer] High Risk Outreach Due for: Medicare Wellness (Oct) Dilated Retinal Exam Left VM; Brandwatcht message sent Reason for Outreach Care Gap/HCC or Scheduling Wellness Visits Care Gaps due: Medicare Annual Wellness Visit Diabetic Eye Exam Patient Contacted: Unable or unnecessary to reach patient: Left message [email or web address] message sent Navigation Signature: Elaine Bueno MA August 27, 2024 10:17 AM Allergies As of Date: 08/27/2024 Noted Allergy Reaction SULFITES 09/01/2015 2 - Rash SHRIMP 09/01/2015 11 - Vomiting Date Reviewed: 04/14/2024 Reviewed by: Jan Wilkerson LPN - Fully Assessed Reason for Visit: Population Health Navigation Outreach [3910] Cmt: [employer] High Risk - Attempt 1 Prescriptions as of 08/27/2024 - gpqvigbmstw-qjfmmdbug-usoekhsu (TRELEGY ELLIPTA) 100-62.5-25 mcg inhalation powder Inhale 1 Puff as instructed once daily. - ELIQUIS 5 mg tab(s) - furosemide (LASIX) 40 mg tablet - metoprolol tartrate, short acting, (LOPRESSOR) 25 mg tablet TWICE A DAY - potassium chloride (K-TAB) 10 mEq tablet - omeprazole (PRILOSEC) 20 mg capsule Take 2 capsules by mouth once daily. - albuterol HFA (VENTOLIN HFA) 90 mcg/actuation inhaler Inhale 2 Puffs as instructed every 4 hours as needed for wheezing/shortness of breath. - cholecalciferol, Vitamin D3, (VITAMIN D3) 1,250 mcg (50,000 unit) cap capsule Take 1 capsule by mouth every 2 weeks. 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] 03/03/2018 Age-related osteoporosis without current pathol*03/12/2018 Encounter for screening for malignant neoplasm *03/13/2018 COPD (chronic obstructive pulmonary disease) (H*10/24/2018 Other chronic sinusitis [J32.8] 10/24/2018 GERD without esophagitis [K21.9] 05/28/2019 Medication management [Z79.899] 01/21/2020 Vitamin D deficiency [E55.9] 01/21/2020 Essential hypertension [I10] 05/20/2020 Bilateral leg edema [R60.0] 05/20/2020 Other proteinuria [R80.8] 01/18/2021 Advance directive discussed with patient [Z71.8*10/05/2021 Obesity, Class II, BMI 35-39.9 [E66.812] 10/05/2021 Type 2 diabetes mellitus without complication, *10/28/2022 Lung nodule [R91.1] 04/04/2023 Paroxysmal atrial fibrillation (HCC) [I48.0] 04/14/2024 Secondary polycythemia [D75.1] 04/22/2024 Encounter Status:Closed by ELAINE BUENO on 08/27/24[facility] 07-17-2024 Telephone encounter Note* Telephone Encounter - Bakari Ram MA - 07/17/2024 3:31 PM EST Pt notified and verbalized understanding Bakari Ram MA [facility]01-03-2025 Miscellaneous Notes* Telephone Encounter - Bakari Ram MA - 07/17/2024 3:31 PM EST Pt notified and verbalized understanding Bakari Ram MA * Telephone Encounter - Fahad Webber APRN.CNP - 07/17/2024 3:11 PM EST Please let patient know the prescription has been sent. * Telephone Encounter - Adela Waters - 07/17/2024 2:44 PM EST Patient calling with an update. She was in the donut hole last year and could not afford to fill it. With the new insurance this year, she is moving forward with this medication and is asking for this to please be refilled today. Please call when this is sent to the pharmacy today. [phone] * Telephone Encounter - Isabell Washington MA - 07/16/2024 4:36 PM EST Medication was in historical med list and marked as d/c. Is patient supposed to be taking this? Note said it was d/c due to cost of medication? Please advise. Isabell Washington MA * Telephone Encounter - Laurie Wilder - 07/16/2024 3:35 PM EST Mima is calling Davy Downey MD today with concern regarding Refill Request and Medication Request ftvnavtzpv-qwyhzajri-mrgtqcwg (TRELEGY ELLIPTA) 100-62.5-25 mcg inhalation powder 1 Each 5 Sig: Inhale 1 Puff as instructed once daily. Sent to pharmacy as: utisakubbgb-kmbzazkcj-iceknbza (TRELEGY ELLIPTA) 100-62.5-25 mcg inhalation powder Class: Normal Patient has been identified by name and birthdate. Person calling: self Call patient at: at home [phone] (home) [phone] (cell) Was an appointment scheduled: No Closing statement: Results or non-symptom based questions: Thank you for calling [facility], your call will be returned within the next business day. Laurie Wilson documented in this encounterDetwiler [facility]01-03-2025 Telephone encounter Note * Telephone Encounter - Fahad Webber APRN.CNP - 07/17/2024 3:11 PM EST Please let patient know the prescription has been sent. [facility]01-[facility] Telephone encounter Note* Telephone Encounter - Adela Waters - 07/17/2024 2:44 PM EST Patient calling with an update. She was in the donut hole last year and could not afford to fill it. With the new insurance this year, she is moving forward with this medication and is asking for this to please be refilled today. Please call when this is sent to the pharmacy today. [phone] [facility]01-02-2025 Telephone encounter Note* Telephone Encounter - Isabell Washington MA - 07/16/2024 4:36 PM EST Medication was in historical med list and marked as d/c. Is patient supposed to be taking this? Note said it was d/c due to cost of medication? Please advise. Isabell Washington MA [facility]01-02-2025 Telephone encounter Note* Telephone Encounter - Peter SteveLaurie - 07/16/2024 3:35 PM EST Mima is calling Davy Downey MD today with concern regarding Refill Request and Medication Request ihobntoqyt-qirvktviy-ieephlce (TRELEGY ELLIPTA) 100-62.5-25 mcg inhalation powder 1 Each 5 Sig: Inhale 1 Puff as instructed once daily. Sent to pharmacy as: ugcdyufcyld-zweoseagw-idocuust (TRELEGY ELLIPTA) 100-62.5-25 mcg inhalation powder Class: Normal Patient has been identified by name and birthdate. Person calling: self Call patient at: at home [phone] (home) [phone] (cell) Was an appointment scheduled: No Closing statement: Results or non-symptom based questions: Thank you for calling [facility], your call will be returned within the next business day. Laurie Peter Pss [facility]11-14-2024 NoteHNO ID: [id number] Author: JAN WILKERSON LPN Service: ? Author Type: LICENSED NURSE Type: Progress Notes Filed: 05/28/2024 08:03 Note Text: Scan on 05/27/2024 4:09 PM by ProviderBhavik PA-C: [facility] History of Present illness Narrative* Jan Wilkerson LPN - 05/28/2024 8:03 AM EST Scan on 05/27/2024 4:09 PM by ProviderBhavik PAJonoC: Consultation - Cardiology documented in [facility]Det[facility]24 Telephone encounter Note * Telephone Encounter - Jan Wilkerson LPN - 05/08/2024 2:13 PM EDT Pt notified of same. Jan Wilkerson LPN [facility]10-25-2024 Miscellaneous Notes* Telephone Encounter - Jan Wilkerson LPN - 05/08/2024 2:13 PM EDT Pt notified of same. Jan Wilkerson LPN * Telephone Encounter - Davy Downey MD - 05/08/2024 1:34 PM EDT Let patient know mammo was normal. [facility]24 Telephone encounter Note * Telephone Encounter - Davy Downey MD - 05/08/2024 1:34 PM EDT Let patient know mammo was normal. [facility]10-09-2024 Telephone encounter Note* Telephone Encounter - Vidhya Mejia LPN - 04/22/2024 8:32 AM EDT Pt notified of results & message from provider, pt voiced understanding. Vidhya Mejia LPN [facility]10-09-2024 Miscellaneous Notes* Telephone Encounter - Vidhya Mejia LPN - 04/22/2024 8:32 AM EDT Pt notified of results & message from provider, pt voiced understanding. Vidhya Mejia LPN * Telephone Encounter - Jennifer Ward PA-C - 04/22/2024 7:40 AM EDT Her EPO level is normal. So I is likely her smoking that is causing high blood counts. We will monitor. Jennifer Ward PA-C documented in this encounterDet[facility]10-[facility]-2024 Telephone encounter Note * Telephone Encounter - Jennifer Ward PA-C - 04/22/2024 7:40 AM EDT Her EPO level is normal. So I is likely her smoking that is causing high blood counts. We will monitor. Jennifer Ward PA-C [facility]10-04-2024 Telephone encounter Note* Telephone Encounter - Jan Wilkerson LPN - 04/17/2024 2:55 PM EDT Patient notified of results and provider's instructions. Patient verbalizes understanding. Jan Wilkerson LPN [facility]10-04-2024 Miscellaneous Notes* Telephone Encounter - Jan Wilkerson LPN - 04/17/2024 2:55 PM EDT Patient notified of results and provider's instructions. Patient verbalizes understanding. Jan Wilkerson LPN * Telephone Encounter - Jennifer Ward PA-C - 04/17/2024 1:59 PM EDT Let patient know that A1c is 6.5% which is stable. Her Cholesterol is okay. Mildly elevated but overall stable. Her hemoglobin is getting higher. Likely from smoking. Will order an additional lab to further investigate. The rest of her labs are wnl. Jennifer Ward PA-C documented in this encounterDet[facility]10-04-2024 Telephone encounter Note * Telephone Encounter - Jennifer Ward PA-C - 04/17/2024 1:59 PM EDT Let patient know that A1c is 6.5% which is stable. Her Cholesterol is okay. Mildly elevated but overall stable. Her hemoglobin is getting higher. Likely from smoking. Will order an additional lab to further investigate. The rest of her labs are wnl. Jennifer Ward PA-C [facility]10-01-2024 Instructions* Patient Instructions* Jennifer Ward PA-C - 04/14/2024 12:48 PM EDT Screening schedule The following prevention plan is recommended: Urine Albumin:Creatinine Ratio Never done Dilated Retinal Exam Never done Diabetic Foot Exam Never done Depression Screening Never done Anxiety Screening Never done DTaP,Tdap,Td Vaccine(1 - Tdap) Never done Shingrix Vaccine(1 of 2) Never done RSV Vaccine(1 - Risk 60-74 years 1-dose series) Never done Bone Density Screening due on 03/12/2020 Colorectal Cancer Screening due on 03/28/2023 HbA1C due on 04/27/2023 Advance Directive Discussion due on 07/15/2023 BP Controlled (<130/80) due on 10/25/2023 Mammogram Screening due on 10/27/2023 LDL Cholesterol due on 10/27/2023 Influenza Vaccine(1) due on 03/15/2024 WHAT YOU CAN DO TO PREVENT FALLS Many falls can be prevented. By making some changes, you can lower your chances of falling. Four things YOU can do to prevent falls for you* and your caregiver 1. Begin a regular exercise program Exercise is one of the most important ways to lower your chances of falling. It makes you stronger and helps you feel better. Exercises that improve balance and coordination (like Go Chi) are the most helpful. Lack of exercise leads to weakness and increases your chances of falling. Ask your doctor or health care provider about the best type of exercise program for you. 2. Have your health care provider review your medicines Have your doctor or pharmacist review all the medicines you take, even qeta-wsh-oaaphiq medicines. As you get older, the way medicines work in your body can change. Some medicines, or combinations of medicines, can make you sleepy or dizzy andcan cause you to fall. 3. Have your vision checked Have your eyes checked by an eye doctor at least once a year. You may be wearing the wrong glasses or have a condition like glaucoma or cataracts that limits your vision. Poor vision can increase your chances of falling. 4. Make your home safer About half of all falls happen at home. To make your home safer: Remove things you can trip over (like papers, books, clothes, and shoes) from stairs and places where you walk. Remove small throw rugs or use double-sided tape to keep the rugs from slipping. Keep items you use often in cabinets you can reach easily without using a step stool. Have grab bars put in next to your toilet and in the tub or shower. Use non-slip mats in the bathtub and on shower floors. Improve the lighting in your home. As you get older, you need brighter lights to see well. Hang light-weight curtains or shades to reduce glare. Have handrails and lights put in on all staircases. Wear shoes both inside and outside the house. Avoid going barefoot or wearing slippers. For more information, contact: Centers for Disease Control and Prevention www.cdc.gov/injury * This information may not apply if you have certain medical conditions. [facility] in [facility]Det[facility]10[facility] History of Present illness Narrative* Jennifer Ward PA-C - 04/14/2024 12:43 PM EDT Images from the original note were not included. Mima Dos Santos is a 73 year old female here for a Medicare wellness visit. Medicare Health Risk Assessment General Health Good Exercise: Minutes/Day ADL Exercise: Days/Week - Alcohol: Daily Use no Alcohol: Drinks/Day 0 Alcohol: 6 or more drinks never Feel off balance no Concerns: Teeth/Dentures no Concerns: Sexual function Troubled by feelings no Frequency: Eating healthy diet Every day ADLs requiring help no Safety precautions in home/vehicle no Smoke, vape, chews tobacco yes Difficulty hearing no Difficulty seeing no Current Providers Specialists: I have reviewed specialist-related care of the patient in the medical record. Medical/Family history review Reviewed and updated problem list, medical/surgical/family/social history, medications, and allergies. Opioid use review Opioid Medications (last 90 days) No data to display Anxiety/Depression screening PHQ-2 Score: 0 (Lower risk for depression) JULIO C-2 Score: 0 (Lower risk for anxiety) Recommendation: no further intervention at this time Cognitive screening Mini Cog Score: 5 Cognitive screening reviewed and No further action needed (score 3-5). Functional Observation Was the patient's Timed Up & Go test unsteady or >= 12 seconds? No Advance Care Planning Patient did not wish or was not able to name a surrogate decision maker or provide an advance care plan Measurements BP 126/70 (BP Site: Left Arm, BP Position: Sitting, BP Cuff Size: Large Adult) Pulse 63 Temp 36.8 C (98.2 F) Resp 18 Ht 155.2 cm (5' 1.12) Wt 86.2 kg (190 lb) SpO2 91% BMI 35.76 kg/m Vision Screening: Follows with optometry/ophthalmology Assessment/Plan Medicare annual wellness visit, subsequent (Z00.00) - Counseled on healthy diet and regular exercise - Fall avoidance information provided - Personalized prevention plan provided Chief Complaint Patient presents with: Medicare Wellness Exam HPI Mima Dos Santos is a 73 year old female who presents here today for extensive exam. Patient with hx of DM2, HTN, COPD, a.fib, GERD, osteoporosis, obesity, vit d def and those as below. No specific concerns today. Past medical history, appointments, medications, allergies reviewed. 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 COPD (chronic obstructive pulmonary disease) (HCC) 10/24/2018 Suspected- patient not wanting to do PFT but willing to trial inhalers Diverticulosis of colon without diverticulitis 03/28/2018 Elevated fasting glucose 01/18/2021 Essential hypertension 05/20/2020 Gastritis GERD without esophagitis 05/28/2019 History of Helicobacter pylori infection 03/28/2018 Lung nodule 04/04/2023 [facility] 03/21/2023 7.1 mm noncalcified nodule Rt middle lobe Obesity, Class II, BMI 35-39.9 10/05/2021 Osteoporosis Other chronic sinusitis 10/24/2018 Paroxysmal atrial fibrillation (HCC) 04/14/2024 Seeing cardio Smoker 09/01/2015 Started at age 15 and up to 1PPD Vitamin D deficiency 01/21/2020 Previous Surgical History PAST SURGICAL HISTORY Procedure Laterality Date APPENDECTOMY COLONOSCOPY FLX DX W/COLLJ SPEC WHEN PFRMD 03/28/2018 Colonoscopy ESOPHAGOGASTRODUODENOSCOPY TRANSORAL DIAGNOSTIC 03/28/2018 EGD PAST SURGICAL HISTORY OF 1992 [place] Family History FAMILY HISTORY Problem Relation Age of Onset Stroke Mother Alzheimer's Disease Father Diabetes Sister Diabetes Sister Hypertension Sister Brain Cancer Sister Diabetes Brother Hypertension Brother Alzheimer's Disease Paternal Grandmother Patient Allergies ALLERGIES Allergen Reactions Sulfites Rash Shrimp Vomiting Current Medications Current Outpatient Medications on File Prior to Visit Medication Sig ELIQUIS 5 mg tab(s) furosemide (LASIX) 40 mg tablet metoprolol tartrate, short acting, (LOPRESSOR) 25 mg tablet TWICE A DAY potassium chloride (K-TAB) 10 mEq tablet omeprazole (PRILOSEC) 20 mg capsule Take 2 capsules by mouth once daily. albuterol HFA (VENTOLIN HFA) 90 mcg/actuation inhaler Inhale 2 Puffs as instructed every 4 hours asneeded for wheezing/shortness of breath. hydroCHLOROthiazide 12.5 mg capsule Take 1 capsule by mouth once daily. (Patient not taking: Reported on 04/09/2023) ovlvasasfnb-fstjgrnol-jpaxrkkm (TRELEGY ELLIPTA) 100-62.5-25 mcg inhalation powder Inhale 1 Puff asinstructed once daily. cholecalciferol, Vitamin D3, (VITAMIN D3) 1,250 mcg (50,000 unit) cap capsule Take 1 capsule by mouth every 2 weeks. No current facility-administered medications on file prior to visit. Social History Social History Tobacco Use Smoking status: Every Day Current packs/day: 1.00 Average packs/day: 1 pack/day for 50.0 years (50.0 ttl pk-yrs) Types: Cigarettes Smokeless tobacco: Never Vaping Use Vaping status: Never Used Substance Use Topics Alcohol use: Yes Comment: occasional Drug use: No Review of Symptoms REVIEW OF SYSTEMS GENERAL: No weight loss, malaise or fevers HEENT: No changes in hearing or vision, no nose bleeds or other nasal problems NECK: Negative for lumps, goiter, pain and significant neck swelling RESPIRATORY: Negative for cough, hemoptysis, wheezing, COPD, dyspnea or shortness of breath CARDIOVASCULAR: Negative for chest pain, leg swelling, hypertension, CHF or palpitations GI: Negative for abdominal discomfort, blood in stools or black stools, change in bowel habit, heart burn, nausea, vomiting : No history of dysuria, frequency or incontinence MUSCULOSKELETAL: Negative for joint pain or swelling, back pain or muscle pain SKIN: Negative for lesions, rash, and itching PSYCH: Negative for sleep disturbance, mood disorder and recent psychosocial stressors HEMATOLOGY/LYMPHOLOGY: Negative for prolonged bleeding, bruising easily or swollen nodes ENDOCRINE: Negative for cold or heat intolerance, polyuria, polydipsia and goiter NEURO: No history of headaches, syncope, paralysis, seizures or tremors EXAM: BP 126/70 (BP Site: Left Arm, BP Position: Sitting, BP Cuff Size: Large Adult) Pulse 63 Temp 36.8 C (98.2 F) Resp 18 Ht 155.2 cm (5' 1.12) Wt 86.2 kg (190 lb) SpO2 91% BMI 35.76 kg/m General Appearance: Well appearing, alert, in no acute distress, well-hydrated, well nourished. andObese. Skin: Skin color, texture, turgor normal, no suspicious rashes or lesions. Head: Normocephalic, no masses, lesions, tenderness or abnormalities. Eyes: Anicteric sclera. Pupils are equally round and reactive to light. Extraocular movements are intact. . Ears: External ears normal, canals clear, TMs pearly miles. Nose/Sinuses: Nares normal, septum midline, mucosa normal, no drainage or sinus tenderness. Oropharynx: Lips, mucosa, and tongue normal, teeth and gums normal, oropharynx normal. Neck: Supple, no adenopathy; thyroid symmetric, normal size, no bruits. Lungs: Lungs clear to auscultation. No wheezing, rhonchi, rales.. Heart: RRR without murmur, gallop, or rubs. No ectopy. Abdomen: Normal abdominal exam, Abdomen soft, non-tender. Bowel sounds normal. No masses, organomegaly. Extremities: No deformities, edema, skin discoloration, clubbing or cyanosis. Good capillary refill. . Peripheral Pulses: Normal. Neurologic: Gait normal. Reflexes normal and symmetric. Sensation grossly intact.. Feet:Shoes and socks removed, No deformities, ulcers, calluses, normal distal pulses, sensitive to 10 gm monofilament, and vibratory perception normal Health Maintenance List Urine Albumin:Creatinine Ratio Never done Dilated Retinal Exam Never done Diabetic Foot Exam Never done DTaP,Tdap,Td Vaccine(1 - Tdap) Never done Shingrix Vaccine(1 of 2) Never done RSV Vaccine(1 - Risk 60-74 years 1-dose series) Never done Bone Density Screening due on 03/12/2020 HbA1C due on 04/27/2023 Mammogram Screening due on 10/27/2023 LDL Cholesterol due on 10/27/2023 Covid-19 Vaccine( season) due on 04/14/2025 Lung Cancer Screening due on 09/12/2024 Annual PCP Team Chronic Disease Visit due on 04/14/2025 Depression Screening due on 04/14/2025 Anxiety Screening due on 04/14/2025 BP Controlled (<130/80) due on 04/14/2025 Spirometry Completed Influenza Vaccine Completed Advance Directive Discussion Completed Hepatitis C Screening Completed Pneumococcal Vaccine: 65+ Completed Alpha-1 Antitrypsin Deficiency Screening Discontinued Colorectal Cancer Screening Discontinued Data reviewed ASSESSMENT/PLAN: 1. Medicare annual wellness visit, subsequent - ICD9: V70.0, ICD10: Z00.00 (primary diagnosis) - Counseled on healthy diet and regular exercise - Patient counseled on and acknowledged vaccine benefits/risks/side effects; VIS provided: Influenza - patient declines c-scope 2. Advance directive discussed with patient - ICD9: V65.49, ICD10: Z71.89 Papers given 3. Type 2 diabetes mellitus without complication, without long-term current use of insulin (HCC) - ICD9: 250.00, ICD10: E11.9 - Control undetermined, due for labs - Counseled on healthy diet and regular exercise - Smoking cessation encouraged; discussed risks to health and quitting strategies. Patient is not ready to quit - HEMOGLOBIN A1C - URINALYSIS, WITH MICROSCOPIC - ALBUMIN/CREATININE RATIO, URINE 4. Essential hypertension - ICD9: 401.9, ICD10: I10 - Controlled - Continue current medications - Recommend home blood pressure monitoring, to bring results to next visit - Encouraged sodium restriction, DASH or Mediterranean diet - Recommend regular aerobic exercise - LIPID PANEL, NONFASTING - COMPREHENSIVE METABOLIC PANEL - URINALYSIS, WITH MICROSCOPIC 5. Screening for depression - ICD9: V79.0, ICD10: Z13.31 - DEPRESSION SCREENING 6. Encounter for screening examination for other mental health and behavioral disorders - ICD9: V79.8, ICD10: Z13.39 - ANXIETY SCREENING 7. Encounter for immunization - ICD9: V03.89, ICD10: Z23 - INFLUENZA VACCINE, PRSV FREE, AGE 65+ YR, HIGH DOSE, TRIVALENT (FLUZONE HIGH-DOSE) 8. Obesity, Class II, BMI 35-39.9 - ICD9: 278.00, ICD10: E66.812 Last 3 Encounter Wt Readings: Date: Wt: 04/14/2024 86.2 kg (190 lb) 04/09/2023 89.8 kg (198 lb) 03/21/2023 97.5 kg (215 lb) 9. Smoker - ICD9: 305.1, ICD10: F17.200 - Cessation encouraged. - Physiologic and physical aspects of tobacco addiction as well as strategies for quitting were discussed. - Counseling was given focusing on the harmful effects of this addiction especially given the patient's medical condition(s) which will be worsened because of the chemicals in tobacco. 10. Chronic obstructive pulmonary disease, unspecified COPD type (HCC) - ICD9: 496, ICD10: J44.9 Cont with pulm 11. Vitamin D deficiency - ICD9: 268.9, ICD10: E55.9 - VITAMIN D 25 HYDROXY 12. Medication management - ICD9: V58.69, ICD10: Z79.899 - VITAMIN B12 - COMPLETE BLOOD COUNT AND DIFFERENTIAL 13. GERD without esophagitis - ICD9: 530.81, ICD10: K21.9 stable 14. Age-related osteoporosis without current pathological fracture - ICD9: 733.01, ICD10: M81.0 Patient declines management 15. Lung nodule - ICD9: 793.11, ICD10: R91.1 Sees pulm stable 16. Paroxysmal atrial fibrillation (HCC) - ICD9: 427.31, ICD10: I48.0 Cont with cardio Jennifer Ward PA-C I spent a total of 40 minutes on the date of the service which included preparing to see the patient, ibbu-ll-rusa patient care, completing clinical documentation, obtaining and/or reviewing separately obtained history, performing a medically appropriate examination, counseling and educating the pat ient/family/caregiver, ordering medications, tests, or procedures, and communicating results to thepatient/family/caregiver. [facility] in [facility] History of Present illness Narrative* Tr Moses PA - 03/14/2024 12:50 PM EDT 73-year-old female presents for cough, shortness of breath, sore throat. Patient has history of COPD. She states she has had a cough and shortness of breath for the past few days. Nursing staff askedme to triage this patient as they were getting pulse ox readings from 86 to 88% on room air. Patient is wheezing throughout the lungs and has rales in the lobes. We have no XR available at time of exam as it is the weekend. I did recommend evaluation in the emergency room for full workup due to hypoxia. Patient states pulse ox is usually around 92-93% on room air. She has history of acute respiratory failure with sepsis in the past. Patient does not want to go to the emergency room. Advised patient that this was my professional opinion and highly recommend she needs to be seen in ER. She declines EMS. She understands recommendation, but is unsure what she will do at this time. documented in [facility]04[facility] History of Present illness Narrative* Vidhya Mejia LPN - 10/18/2023 8:23 AM EDT Scan on 10/17/2023 9:51 AM by ProviderBhavik PA-C: Consultation - Pulmonary Vidhya Mejia LPN documented in this encounterDet[facility]10-25-2023 History of Present illness Narrative* Jan Wilkerson LPN - 05/08/2023 12:48 PM EDT Scan on 05/08/2023 11:21 AM by Provider, FOUZIA Gutierres: Consultation - Cardiology documented in this encounterDet[facility]09-28-2023 Miscellaneous Notes* Telephone Encounter - Bakari Ram Cma - 04/11/2023 3:47 PM EDT Refaxed Bakari Ram Cma * Telephone Encounter - Fahad Webber APRN.CNP - 04/11/2023 3:42 PM EDT Ordered. * Telephone Encounter - Jacinda Collins - 04/11/2023 3:26 PM EDT Please re-fax order for oxygen. Order needs to have oxygen concentrator written on it. Please fax Kenneth RAPHAEL. documented in this encounterDet[facility]09-26-2023 History of Present illness Narrative* Fahad Webber APRN.CNP - 04/09/2023 10:55 AM EDT Chief Complaint Patient presents with: Hospital F/U HPI Mima Dos Santos is a 72 year old female who presents here today for Above Complaints.. Patient presents for Hospital follow up. Patient was sent to ER on 03/20 for SOB and SpO2 of 76% on room air. Patient was hospitalized for 12 days and sent home with Bipap and O2. Patient was sent home with 2L n/c O2 at rest and 8l n/c O2 with activity. Past medical history, appointments, medications, allergies reviewed. 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 COPD (chronic obstructive pulmonary disease) (HCC) 10/24/2018 Suspected- patient not wanting to do PFT but willing to trial inhalers Diverticulosis of colon without diverticulitis 03/28/2018 Elevated fasting glucose 01/18/2021 Essential hypertension 05/20/2020 Gastritis GERD without esophagitis 05/28/2019 History of Helicobacter pylori infection 03/28/2018 Lung nodule 04/04/2023 [facility] 03/21/2023 7.1 mm noncalcified nodule Rt middle lobe Obesity, Class II, BMI 35-39.9 10/05/2021 Osteoporosis Other chronic sinusitis 10/24/2018 Smoker 09/01/2015 Started at age 15 and up to 1PPD Vitamin D deficiency 01/21/2020 Previous Surgical History PAST SURGICAL HISTORY Procedure Laterality Date APPENDECTOMY COLONOSCOPY FLX DX W/COLLJ SPEC WHEN PFRMD 03/28/2018 Colonoscopy ESOPHAGOGASTRODUODENOSCOPY TRANSORAL DIAGNOSTIC 03/28/2018 EGD PAST SURGICAL HISTORY OF 1992 [place] Family History FAMILY HISTORY Problem Relation Age of Onset Stroke Mother Alzheimer's Disease Father Diabetes Sister Diabetes Sister Hypertension Sister Brain Cancer Sister Diabetes Brother Hypertension Brother Alzheimer's Disease Paternal Grandmother Patient Allergies ALLERGIES Allergen Reactions Sulfites Rash Shrimp Vomiting Current Medications Current Outpatient Medications on File Prior to Visit Medication Sig metoprolol tartrate, short acting, (LOPRESSOR) 25 mg tablet TWICE A DAY ELIQUIS 5 mg tab(s) furosemide (LASIX) 40 mg tablet potassium chloride (K-TAB) 10 mEq tablet omeprazole (PRILOSEC) 20 mg capsule Take 2 capsules by mouth once daily. hydroCHLOROthiazide 12.5 mg capsule Take 1 capsule by mouth once daily. (Patient not taking: Reported on 04/09/2023) ihiytptgwhc-ffgdkojjg-dmfnohhr (TRELEGY ELLIPTA) 100-62.5-25 mcg inhalation powder Inhale 1 Puff asinstructed once daily. albuterol HFA (VENTOLIN HFA) 90 mcg/actuation inhaler Inhale 2 Puffs as instructed every 4 hours asneeded for wheezing/shortness of breath. cholecalciferol, Vitamin D3, (VITAMIN D3) 1,250 mcg (50,000 unit) cap capsule Take 1 capsule by mouth every 2 weeks. No current facility-administered medications on file prior to visit. Social History Social History Tobacco Use Smoking status: Every Day Packs/day: 1.00 Years: 50.00 Additional pack years: 0.00 Total pack years: 50.00 Types: Cigarettes Smokeless tobacco: Never Vaping Use Vaping Use: Never used Substance Use Topics Alcohol use: Yes Comment: occasional Drug use: No Review of Symptoms REVIEW OF SYSTEMS SEE HPI EXAM: BP 106/71 Pulse 64 Resp 18 Wt 89.8 kg (198 lb) SpO2 90% BMI 36.51 kg/m General Appearance: Well appearing, alert, in no acute distress, well-hydrated, well nourished.. Lungs: Lungs diminished to auscultation. No wheezing, rhonchi, rales.. Heart: RRR without murmur, gallop, or rubs. No ectopy. Health Maintenance List Urine Albumin:Creatinine Ratio Never done Dilated Retinal Exam Never done Diabetic Foot Exam Never done Lung Cancer Screening Never done Hepatitis B Vaccine(1 of 3 - Risk 3-dose series) Never done Covid-19 Vaccine(4 - Moderna series) due on 06/20/2021 Influenza Vaccine(1) due on 03/15/2023 Colorectal Cancer Screening due on 03/28/2023 DTaP,Tdap,Td Vaccine(1 - Tdap) due on 10/25/2023 Shingrix Vaccine(1 of 2) due on 10/25/2023 HbA1C due on 04/27/2023 BP Controlled (<130/80) due on 10/25/2023 Mammogram Screening due on 10/27/2023 LDL Cholesterol due on 10/27/2023 Annual PCP Team Chronic Disease Visit due on 03/21/2024 Bone Density Screening Completed Spirometry Completed Advance Directive Discussion Completed Depression Assessment Completed Hepatitis C Screening Completed Pneumococcal Vaccine: 65+ Completed Alpha-1 Antitrypsin Deficiency Screening Discontinued ASSESSMENT/PLAN: 1. Dependence on supplemental oxygen when ambulating - ICD9: V46.2, ICD10: Z99.81 (primary diagnosis) -Patient was sent home with 2l n/c at rest and 8l n/c with ambulation. Ambulatory pulse ox completed in [facility], Patient 91% at rest on room air, 85% on room air with ambulation and 90% on 2L n/c with ambulation. - [id number] 2. Sepsis with acute hypoxic respiratory failure without septic shock, due to unspecified organism (HCC) - ICD9: 038.9, 995.91, 518.81, ICD10: A41.9, R65.20, J96.01 -Resolved 3. Skin ulcer of multiple sites of buttock, limited to breakdown of skin (HCC) - ICD9: 707.8, ICD10: L98.411 - [place] 0.44 %-ZINC OXIDE 20.6 % TOPICAL OINTMENT Fahad Webber APRN.LANCE CREWMEMBER/MLRS SERGEANT [facility] Miscellaneous Notes* Telephone Encounter - Nikita Desai LPN - 04/05/2023 2:36 PM EDT Pt notified. She states she was dc'd from [facility] on 04/02 d/t pneumonia. Hospital follow up scheduled with Nikki Webber for 04/09. Nikita Desai LPN * Telephone Encounter - Davy Downey MD - 04/04/2023 5:06 PM EDT Let patient know I received a copy of her chest CT from [facility] done showing a 7.1 mm non-calcified nodule in the right middle lobe. With her Hx of smoking I want to get a repeat CT in 3 months. Order placed. Patient has smoked a PPD for the past 50 yrs. documented in [facility]09-[facility]-2023 Progress note Author Michael Soto [facility] March 31, 2023 10:18am Note Date/Time March 31, 2023 10:17am [facility] Medical Records Department [address] [place] [address] Progress Note - Media Supervisor 03/31/23 1014 MR#: [id number] Acct: [id number] Name: MIMA DOS SANTOS Rep #:[id number] : 1950 72 From: Michael Fernandes PCP: Dr. Davy Downey MD Status:ADM IN Location: [place] [address]- 1 Assessment & Plan Assessment/Plan (1) COPD exacerbation: PLAN: Plan Assessment Acute hypoxic respiratory failure. Patient is not usually on home oxygen COPD exacerbation Chronic hypercapnia 7.1 mm right middle lobe nodule Diastolic heart failure, acute A-fib with RVR History of severe sleep apnea AHI of 47 with noncompliance Volume overload Morbid obesity BMI of 40.8 Tobacco use Plan * Hypoxia is mostly multifactorial she has severe COPD with emphysema on her CT scan. She also has diastolic heart failure. * Kidney function improved. Lasix ordered per primary. * cont steroid taper. cont breathing treatments. She is now on 2L NC during the day but requires upto 8L when she ambulates. * Cont NIPPV at night. She will benefit from outpt pulmonary evaluation including PFTs. She will benefit from scheduled ICS/LABA/LAMA inhalers and PRN albuterol upon discharge. * This patient has severe COPD with elevated CO2 despite treatment for a week. Her condition now requires the use of a noninvasive ventilator due to the life-threatening condition chronic respiratory failure secondary to chronic obstructive pulmonary disease. All other therapies have been considered and or attempted and failed. Due to the severity of this patient's disease, as indicated by CO2 retention, this patient requires assisted tidal volume therapy with a trilogy, astral or Anna NIV unit. Without noninvasive ventila tor intervention this patient's health will rapidly deteriorate which could lead to serious harm, rehospitalization or . * Discussed with SW and pt's insurance will cover NIPPV. * Discussed with the patient importance of smoking cessation * Patient was found to have a 7.1 mm right middle lobe nodule along with bilateral consolidation suggestive of pneumonia. Patient high risk given her smoking history. Recommend repeat CT scan in 6 to 8 weeks to ensure resolution of PNA. * wean Oxygen as tolerated. She will need home O2 eval prior to discharge * Rest of management per primary Subjective Subjective Continues to improve. She is now on 2L NC during the day but requires upto 8L when she ambulates. Objective Data Objective Data Vital Signs: Vital Signs Temp Pulse Resp BP Pulse Ox O2 Del Method O2 Flow Rate 36.6 C 65 18 111/63 91 Nasal Cannula 2 03/31/23 09:40 03/31/23 09:41 03/31/23 09:40 03/31/23 09:40 03/31/23 09:40 03/31/23 09:40 03/31/23 09:40 FiO2 40 03/31/23 04:42 Oxygen Flow Rate (L/min) [ 8 AMBULATING with Oxygen #3] Oxygen Flow Rate (L/min) [ 6 AMBULATING with Oxygen #2] Oxygen Flow Rate (L/min) [ 4 AMBULATING with Oxygen #1] Oxygen Flow Rate (L/min) [At 2 REST with Oxygen] Oxygen Flow Rate (L/min) 2 Oxygen Delivery Method Nasal Cannula Weight: 98 kg Body Mass Index (BMI) 40.8 Intake & Output: Intake and Output for Last 24 Hours 03/29/23 03/30/23 03/31/23 23:59 23:59 23:59 Intake Total 555 / 555 800 / 800 Balance 555 / 555 800 / 800 Lab / Micro Data 03/31/23 08:30 03/31/23 07:25 Labs: Laboratory Results - last 24 hr 03/31/23 07:25: WBC Cancelled, Corrected WBC Cancelled, RBC Cancelled, Hgb Cancelled, Hct Cancelled, MCV Cancelled, MCH Cancelled, MCHC Cancelled, RDW Std Deviation Cancelled, RDW Coeff of Piper Cancelled, Plt Count Cancelled, MPV Cancelled, Immature Gran % (Auto) Cancelled, Neut % (Auto) Cancelled, Lymph % (Auto) Cancelled, [place] % (Auto) Cancelled, Eos % (Auto) Cancelled, Baso % (Auto)Cancelled, Absolute Neuts (auto) Cancelled, Absolute Lymphs (auto) Cancelled, Total Counted Cancelled, Neutrophils % (Manual) Cancelled, Band Neutrophils % Cancelled, Lymphocytes % (Manual) Cancelled, Monocytes % (Manual) Cancelled, Eosinophils % (Manual) Cancelled, Basophils % (Manual) Cancelled, Metamyelocytes% Cancelled, Myelocytes % Cancelled, Promyelocytes % Cancelled, Blast Cells % Cancelled, Plasma Cell % (Manual) Cancelled, Other Cells % Cancelled, Nucleated RBC % Cancelled, Nucleated RBCs/100 WBC Cancelled, Differential Comment Cancelled, Diff Path Review Cancelled, Hypersegmented Neuts Cancelled, Atypical Lymphocytes Cancelled, Reactive Lymphocytes Cancelled, Smudge Cells Cancelled, Toxic Granulation Cancelled, Toxic Vacuolation Cancelled, Dohle Bodies Cancelled, [place] Rods Cancelled, Platelet Estimate Cancelled, Plt Morphology Comment Cancelled, RBC Morphology Cancelled 03/31/23 07:25: RBC Morphology Cancelled, Polychromasia Cancelled, HypochromasiaCancelled, Poikilocytosis Cancelled, Basophilic Stippling Cancelled, Anisocytosis Cancelled, Microcytosis Cancelled, Macrocytosis Cancelled, Spherocytes Cancelled, Sickle Cells Cancelled, Target Cells Cancelled, Tear DropCells Cancelled, Ovalocytes Cancelled, Stomatocytes Cancelled, Bee-Norco Bodies Cancelled, [place] Cells Cancelled, Bite Cells Cancelled, Crenated Cell Cancelled, Acanthocytes (Spur) Cancelled, Rouleaux Cancelled, Schistocytes Cancelled, Sodium 140, Potassium 5.0, Chloride 109 H, Carbon Dioxide 26.0, AnionGap 5, BUN 47 H, Creatinine 1.02, Estim Creat Clear Calc 37.62, Est GFR (MDRD) Af Amer 68, Est GFR (MDRD) Non-Af 57 L, BUN/Creatinine Ratio 46.1 H, Glucose 85,Calcium 8.7 03/31/23 08:30: WBC 8.2, RBC 6.66 H, Hgb 17.6 H, Hct 60.6 H, MCV 91.0, MCH 26.4 L, MCHC 29.0 L, RDW Std Deviation 55.0 H, RDW Coeff of Piper 17.3 H, Plt Count 214, MPV 10.7, Immature Gran % (Auto) 0.600, Neut % (Auto) 67.4, Lymph % (Auto) 23.2, [place] % (Auto) 8.0, Eos % (Auto) 0.7, Baso % (Auto) 0.1, Absolute Neuts (auto) 5.6, Absolute Lymphs (auto) 1.91, Nucleated RBC % 0 Micro: Microbiology 03/24/23 10:20 Sputum, Expectorated/Coughed Gram Stain - Final 03/24/23 10:20 Sputum, Expectorated/Coughed Respiratory Culture - Final 03/22/23 03:10 Urine, Clean Catch Legionella Antigen - Final 03/22/23 03:10 Urine, Clean Catch Streptococcus pneumoniae Antigen (M - Final 03/21/23 16:15 Mucosa - Nasopharyngeal Respiratory Panel (PCR) - Final 03/21/23 09:58 Nasal Secretion SARS-CoV-2 & FLU Antigen (Rapid) - Final Physical Exam Narrative General alert oriented in no acute distress HEENT. Normocephalic atraumatic, pupils equal and reactive Respiratory equal air entry bilaterally, no wheezing Cardiac S1-S2, regular rate and rhythm GI abdomen soft and nontender MSK +1 lower extremity edema Skin no rashes Neuro moves all extremities, no dysarthria, no facial droop Charges/Coding Visit Charges Inpatient E&M: 53779 Subs Hosp L2 03/31/23 1018 <Electronically signed by Michael Soto MD> Cosigner Signature (if applicable): CC: ~ Signed [facility] Work Phone: 1(558) 923-286809-17-2023 Progress note Author Severino Madsen [facility] March 31, 2023 9:18am Note Date/Time March 31, 2023 8:58am [facility] Medical Records Department [address] [place] [id number] Progress Note - Hospitalist 03/31/23 0854 MR#: [id number] Acct: [id number] Name: MIMA DOS SANTOS Rep #:[id number] : 1950 72 From: Severino moreno MD PCP: Dr. Davy Downey MD Status:ADM IN Location: [place] [address] Subjective Subjective Feels a little bit better every day, she is getting much better sleep now that she wears a BiPAP at night Objective Data Objective Data Vital Signs: Vital Signs Temp Pulse Resp BP Pulse Ox O2 Del Method O2 Flow Rate 97.2 F L 54 L 18 147/69 H 86 Nasal Cannula 2 03/31/23 03:48 03/31/23 07:43 03/31/23 07:43 03/31/23 03:48 03/31/23 08:10 03/31/23 08:10 03/31/23 08:10 FiO2 40 03/31/23 04:42 Oxygen Flow Rate (L/min) [ 8 AMBULATING with Oxygen #3] Oxygen Flow Rate (L/min) [ 6 AMBULATING with Oxygen #2] Oxygen Flow Rate (L/min) [ 4 AMBULATING with Oxygen #1] Oxygen Flow Rate (L/min) [At 2 REST with Oxygen] Oxygen Flow Rate (L/min) 2 Oxygen Delivery Method Nasal Cannula Weight: 216 lb 0.848 oz Body Mass Index (BMI) 40.8 Intake & Output: Intake and Output for Last 24 Hours 03/30/23 03/31/23 04/01/23 03:59 03:59 03:59 Intake Total 555 / 555 800 / 800 Balance 555 / 555 800 / 800 Lab / Micro Data 03/31/23 08:30 03/31/23 07:25 Labs: Laboratory Results - last 24 hr 03/31/23 07:25: WBC Cancelled, Corrected WBC Cancelled, RBC Cancelled, Hgb Cancelled, Hct Cancelled, MCV Cancelled, MCH Cancelled, MCHC Cancelled, RDW Std Deviation Cancelled, RDW Coeff of Piper Cancelled, Plt Count Cancelled, MPV Cancelled, Immature Gran % (Auto) Cancelled, Neut % (Auto) Cancelled, Lymph % (Auto) Cancelled, [place] % (Auto) Cancelled, Eos % (Auto) Cancelled, Baso % (Auto)Cancelled, Absolute Neuts (auto) Cancelled, Absolute Lymphs (auto) Cancelled, Total Counted Cancelled, Neutrophils % (Manual) Cancelled, Band Neutrophils % Cancelled, Lymphocytes % (Manual) Cancelled, Monocytes % (Manual) Cancelled, Eosinophils % (Manual) Cancelled, Basophils % (Manual) Cancelled, Metamyelocytes% Cancelled, Myelocytes % Cancelled, Promyelocytes % Cancelled, Blast Cells % Cancelled, Plasma Cell % (Manual) Cancelled, Other Cells % Cancelled, Nucleated RBC % Cancelled, Nucleated RBCs/100 WBC Cancelled, Differential Comment Cancelled, Diff Path Review Cancelled, Hypersegmented Neuts Cancelled, Atypical Lymphocytes Cancelled, Reactive Lymphocytes Cancelled, Smudge Cells Cancelled, Toxic Granulation Cancelled, Toxic Vacuolation Cancelled, Dohle Bodies Cancelled, [place] Rods Cancelled, Platelet Estimate Cancelled, Plt Morphology Comment Cancelled, RBC Morphology Cancelled 03/31/23 07:25: RBC Morphology Cancelled, Polychromasia Cancelled, HypochromasiaCancelled, Poikilocytosis Cancelled, Basophilic Stippling Cancelled, Anisocytosis Cancelled, Microcytosis Cancelled, Macrocytosis Cancelled, Spherocytes Cancelled, Sickle Cells Cancelled, Target Cells Cancelled, Tear DropCells Cancelled, Ovalocytes Cancelled, Stomatocytes Cancelled, Bee-Norco Bodies Cancelled, [place] Cells Cancelled, Bite Cells Cancelled, Crenated Cell Cancelled, Acanthocytes (Spur) Cancelled, Rouleaux Cancelled, Schistocytes Cancelled, Sodium 140, Potassium 5.0, Chloride 109 H, Carbon Dioxide 26.0, AnionGap 5, BUN 47 H, Creatinine 1.02, Estim Creat Clear Calc 37.62, Est GFR (MDRD) Af Amer 68, Est GFR (MDRD) Non-Af 57 L, BUN/Creatinine Ratio 46.1 H, Glucose 85,Calcium 8.7 03/31/23 08:30: WBC 8.2, RBC 6.66 H, Hgb 17.6 H, Hct 60.6 H, MCV 91.0, MCH 26.4 L, MCHC 29.0 L, RDW Std Deviation 55.0 H, RDW Coeff of Piper 17.3 H, Plt Count 214, MPV 10.7, Immature Gran % (Auto) 0.600, Neut % (Auto) 67.4, Lymph % (Auto) 23.2, [place] % (Auto) 8.0, Eos % (Auto) 0.7, Baso % (Auto) 0.1, Absolute Neuts (auto) 5.6, Absolute Lymphs (auto) 1.91, Nucleated RBC % 0 Micro: Microbiology 03/24/23 10:20 Sputum, Expectorated/Coughed Gram Stain - Final 03/24/23 10:20 Sputum, Expectorated/Coughed Respiratory Culture - Final 03/22/23 03:10 Urine, Clean Catch Legionella Antigen - Final 03/22/23 03:10 Urine, Clean Catch Streptococcus pneumoniae Antigen (M - Final 03/21/23 16:15 Mucosa - Nasopharyngeal Respiratory Panel (PCR) - Final 03/21/23 09:58 Nasal Secretion SARS-CoV-2 & FLU Antigen (Rapid) - Final Physical Exam Narrative General: Alert, Oriented x3, Cooperative, No apparent distress HEENT: Atraumatic, PERRLA, EOMI, Normocephalic Oral: Moist Mucosa Neck: Supple, No JVD Lungs: Diminished, poor air movement, No rhonchi, no wheeze, No rales Cardiovascular: Regular rate, Regular Rhythm, Normal S1, Normal S2, No murmurs Abdomen: Soft, Non Tender, Non-Distended, No Hepato-splenomegaly Extremities: No edema, Capillary Refill Less than 3 Seconds Skin: No rashes, No breakdown Musculoskeletal: No Tenderness to Palpation of Joints or Extremities Neurological: Cranial nerves II-XII grossly intact, Motor Exam 5/5 strength throughout, Sensory exam intact to light touch and pain Psych/Mental Status: Normal Affect, Appropriate Assessment & Plan Assessment/Plan (1) COPD exacerbation: PLAN: Plan 1. Acute hypoxic respiratory failure, COPD exacerbation, community-acquired pneumonia with unclear organism/tobacco abuse ?She did complete her antibiotic course ? She does have a history of COPD but she is also never been worked up for obstructive sleep apnea currently she requires 2 L nasal cannula at rest but needed 8 L with ambulation ? We will trial her on another IV dose of Lasix today as her renal function has improved ? We will continue with nocturnal BiPAP she does have approval for BiPAP on discharge for home ? Continue nicotine patch, discussed cessation 2. Paroxysmal atrial flutter/elevated troponins/pulmonary hypertension stage I diastolic dysfunction/HTN ? We will continue with Eliquis given her [id number] score of 3 and her history of atrial flutter ? Continue with the beta-kelvin for rate control ? Echo with 55% EF and stage I diastolic dysfunction ? Now that her renal function has improved we will transition her to IV Lasix vanda given daily after evaluation of her renal function 3. Lung nodule ? She has a 7 mm noncalcified nodule in closer peripheral lateral aspect of the right middle lobe follow-up as an outpatient 4. GERD ? Stable ? Continue with PPI DVT: Eliquis Charges/Coding Visit Charges Inpatient E&M: 68420 Subs Hosp L2 03/31/23 0918 <Electronically signed by Severino Madsen MD> Cosigner Signature (if applicable): CC: ~ Signed [facility] Work Phone: 1(380) 778-116909-16-2023 Progress note Author Michael Soto [facility] March 30, 2023 10:32am Note Date/Time March 30, 2023 10:32am [facility] Medical Records Department [address] [place] [address] Progress Note - Media Supervisor 03/30/23 1028 MR#: [id number] Acct: [id number] Name: MIMA DOS SANTOS Rep #:[id number] : 1950 72 From: Michael Fernandes PCP: Dr. Davy Downey MD Status:ADM IN Location: [place] [address] Assessment & Plan Assessment/Plan (1) COPD exacerbation: PLAN: Plan Assessment Acute hypoxic respiratory failure currently on 6 to 7 L via nasal cannula. Patient is not usually on home oxygen COPD exacerbation Chronic hypercapnia 7.1 mm right middle lobe nodule Diastolic heart failure, acute A-fib with RVR History of severe sleep apnea AHI of 47 with noncompliance Volume overload Morbid obesity BMI of 40.8 Tobacco use Plan * Hypoxia is mostly multifactorial she has severe COPD with emphysema on her CT scan. She also has diastolic heart failure. * Cont to hold off Lasix given BECKIE. * cont steroid taper. cont breathing treatments. She is down to 5 L NC today, goal O2 sat 88% or above * She is tolerating NIPPV at night. * This patient has severe COPD with elevated CO2 despite treatment for a week. Her condition now requires the use of a noninvasive ventilator due to the life-threatening condition chronic respiratory failure secondary to chronic obstructive pulmonary disease. All other therapies have been considered and or attempted and failed. Due to the severity of this patient's disease, as indicated by CO2 retention, this patient requires assisted tidal volume therapy with a trilogy, astral or Anna NIV unit. Without noninvasive ventilator intervention this patient's health will rapidly deteriorate which could lead to serious harm, rehospitalization or . * Discussed with SW and pt's insurance will cover NIPPV. * Discussed with the patient importance of smoking cessation * Patient was found to have a 7.1 mm right middle lobe nodule along with bilateral consolidation suggestive of pneumonia. Patient high risk given her smoking history. Recommend repeat CT scan in 6 to 8 weeks to ensure resolution of PNA. * wean Oxygen as tolerated. She will need home O2 eval prior to discharge * Rest of management per primary Subjective Subjective Continues to improve. she is now on 5L NC. Objective Data Objective Data Vital Signs: Vital Signs Temp Pulse Resp BP Pulse Ox O2 Del Method O2 Flow Rate 36.6 C 69 16 130/65 H 90 High Flow 5 03/30/23 09:50 03/30/23 10:00 03/30/23 09:50 03/30/23 10:00 03/30/23 09:50 03/30/23 09:50 03/30/23 09:50 FiO2 35 03/30/23 05:00 Oxygen Flow Rate (L/min) [ 10 AMBULATING with Oxygen #2] Oxygen Flow Rate (L/min) [ 8 AMBULATING with Oxygen #1] Oxygen Flow Rate (L/min) [At 7 REST with Oxygen] Oxygen Flow Rate (L/min) 5 Oxygen Delivery Method High Flow Weight: 98 kg Body Mass Index (BMI) 40.8 Intake & Output: Intake and Output for Last 24 Hours 03/28/23 03/29/23 03/30/23 23:59 23:59 23:59 Intake Total 500 / 500 555 / 555 Output Total 300 / 300 Balance 200 / 200 555 / 555 Lab / Micro Data 03/30/23 07:39 03/30/23 07:39 Labs: Laboratory Results - last 24 hr 03/30/23 07:39: WBC 9.4, RBC 6.57 H, Hgb 17.3 H, Hct 60.2 H, MCV 91.6, MCH 26.3 L, MCHC 28.7 L, RDW Std Deviation 55.9 H, RDW Coeff of Piper 18.0 H, Plt Count 239, MPV 11.2, Immature Gran % (Auto) 0.600, Neut % (Auto) 86.3 H, Lymph % (Auto) 8.0 L, [place] % (Auto) 4.9, Eos % (Auto) 0.0, Baso % (Auto) 0.2, Absolute Neuts (auto) 8.1 H, Absolute Lymphs (auto) 0.75 L, Nucleated RBC % 0, Sodium 137, Potassium 4.7, Chloride 107, Carbon Dioxide 28.0, Anion Gap 2 L, BUN 54 H, Creatinine 1.11 H, Estim Creat Clear Calc 34.57, Est GFR (MDRD) Af Amer 62, Est GFR (MDRD) Non-Af 51 L, BUN/Creatinine Ratio 48.6 H, Glucose 141 H, Calcium 9.1 Micro: Microbiology 03/24/23 10:20 Sputum, Expectorated/Coughed Gram Stain - Final 03/24/23 10:20 Sputum, Expectorated/Coughed Respiratory Culture - Final 03/22/23 03:10 Urine, Clean Catch Legionella Antigen - Final 03/22/23 03:10 Urine, Clean Catch Streptococcus pneumoniae Antigen (M - Final 03/21/23 16:15 Mucosa - Nasopharyngeal Respiratory Panel (PCR) - Final 03/21/23 09:58 Nasal Secretion SARS-CoV-2 & FLU Antigen (Rapid) - Final Physical Exam Narrative General alert oriented in no acute distress HEENT. Normocephalic atraumatic, pupils equal and reactive Respiratory equal air entry bilaterally, no wheezing Cardiac S1-S2, regular rate and rhythm GI abdomen soft and nontender MSK +1 lower extremity edema Skin no rashes Neuro moves all extremities, no dysarthria, no facial droop Charges/Coding Visit Charges Inpatient E&M: 89711 Subs Hosp L3 03/30/23 1032 <Electronically signed by Michael Soto MD> Cosigner Signature (if applicable): CC: ~ Signed [facility] Work Phone: 1(536) 322-479309-16-2023 Progress note Author Severino Madsen [facility] March 30, 2023 8:17am Note Date/Time March 30, 2023 8:17am [facility] Medical Records Department [address] [place] [address] Progress Note - Hospitalist 03/30/2315 MR#: [id number] Acct: [id number] Name: MIMA DOS SANTOS Rep #:[id number] : 1950 72 From: Severino moreno MD PCP: Dr. Davy Downey MD Status:ADM IN Location: [place] [address] Subjective Subjective Well, no issues overnight. She tolerated BiPAP again very well and is now down to 6 L nasal cannula we will obtain an ambulatory pulse ox Objective Data Objective Data Vital Signs: Vital Signs Temp Pulse Resp BP Pulse Ox O2 Del Method O2 Flow Rate 97.6 F L 62 16 136/71 H 90 Nasal Cannula 6 03/30/23 03:13 03/30/23 05:00 03/30/23 05:00 03/30/23 03:13 03/30/23 05:00 03/30/23 08:10 03/30/23 08:10 FiO2 35 03/30/23 05:00 Oxygen Flow Rate (L/min) [ 10 AMBULATING with Oxygen #2] Oxygen Flow Rate (L/min) [ 8 AMBULATING with Oxygen #1] Oxygen Flow Rate (L/min) [At 7 REST with Oxygen] Oxygen Flow Rate (L/min) 6 Oxygen Delivery Method Nasal Cannula Weight: 216 lb 0.848 oz Body Mass Index (BMI) 40.8 Intake & Output: Intake and Output for Last 24 Hours 03/29/23 03/30/23 03/31/23 03:59 03:59 03:59 Intake Total 500 / 500 555 / 555 Output Total 300 / 300 Balance 200 / 200 555 / 555 Lab / Micro Data 03/30/23 07:39 03/29/23 05:38 Labs: Laboratory Results - last 24 hr 03/30/23 07:39: WBC 9.4, RBC 6.57 H, Hgb 17.3 H, Hct 60.2 H, MCV 91.6, MCH 26.3 L, MCHC 28.7 L, RDW Std Deviation 55.9 H, RDW Coeff of Piper 18.0 H, Plt Count 239, MPV 11.2, Immature Gran % (Auto) 0.600, Neut % (Auto) 86.3 H, Lymph % (Auto) 8.0 L, [place] % (Auto) 4.9, Eos % (Auto) 0.0, Baso % (Auto) 0.2, Absolute Neuts (auto) 8.1 H, Absolute Lymphs (auto) 0.75 L, Nucleated RBC % 0 Micro: Microbiology 03/24/23 10:20 Sputum, Expectorated/Coughed Gram Stain - Final 03/24/23 10:20 Sputum, Expectorated/Coughed Respiratory Culture - Final 03/22/23 03:10 Urine, Clean Catch Legionella Antigen - Final 03/22/23 03:10 Urine, Clean Catch Streptococcus pneumoniae Antigen (M - Final 03/21/23 16:15 Mucosa - Nasopharyngeal Respiratory Panel (PCR) - Final 03/21/23 09:58 Nasal Secretion SARS-CoV-2 & FLU Antigen (Rapid) - Final Physical Exam Narrative General: Alert, Oriented x3, Cooperative, No apparent distress HEENT: Atraumatic, PERRLA, EOMI, Normocephalic Oral: Moist Mucosa Neck: Supple, No JVD Lungs: Diminished, poor air movement, No rhonchi, no wheeze, No rales Cardiovascular: Regular rate, Regular Rhythm, Normal S1, Normal S2, No murmurs Abdomen: Soft, Non Tender, Non-Distended, No Hepato-splenomegaly Extremities: No edema, Capillary Refill Less than 3 Seconds Skin: No rashes, No breakdown Musculoskeletal: No Tenderness to Palpation of Joints or Extremities Neurological: Cranial nerves II-XII grossly intact, Motor Exam 5/5 strength throughout, Sensory exam intact to light touch and pain Psych/Mental Status: Normal Affect, Appropriate Assessment & Plan Assessment/Plan (1) COPD exacerbation: PLAN: Plan 1. Acute hypoxic respiratory failure, COPD exacerbation, community-acquired pneumonia with unclear organism History of COPD secondary to longstanding tobacco use, not on home oxygen. Diagnosed with COPD about 2 years ago. No previous history of COPD exacerbations. Suspect exacerbation is likely secondary to community-acquired pneumonia. Chest CTA showed infiltrates at the lung bases slightly worse on theright side, patchy infiltrate in the posterior aspect of the right middle lobe, emphysematous changes. Requiring 4 to 5 L nasal cannula in ED for saturations greater than 90%. Moderately improved in ED after a breathing treatment. COVIDand flu negative. Respiratory panel negative. Urine antigens negative. Unableto produce sputum culture. Failed O2 walk test on 03/23, had oxygen saturations drop below 88% on 6 L nasal cannula. ? Continue supplemental oxygen, wean as able. Will need home oxygen on discharge, will repeat walk test likely tomorrow after echo was done as noted below. Continue prednisone, ceftriaxone and azithromycin with plan for 5-day courses. Continue DuoNebs every 4 hours scheduled. Continue home long-acting inhaler. 03/25/2023: Doing well, she is slow to improve this is likely secondary to her baseline lung physiology. Will obtain an ambulatory pulse ox today to gauge where we are at in her recovery 03/26/2023: Given her slow improvement we will place her back on IV Lasix daily and will transition her steroids to IV 3 times daily 03/27/2023: Given her continued slow improvement we will consult pulmonology for their assistance 03/28/2023: Continue with IV Lasix and Diamox per pulmonology's recommendations she will complete her dose of Rocephin this morning 03/29/2023: She tolerated the BiPAP very well overnight and she feels like it worked well she was able to sleep, her creatinine is elevated so we will hold her Lasix and Diamox and we will proceed with trying to obtain home noninvasive ventilator 03/30/2023: Awaiting BMP to monitor renal function. Do have a noninvasive ventilator set up for discharge. We will obtain an ambulatory pulse ox 2. Paroxysmal atrial flutter/elevated troponins New diagnosis. Had episode of heart rate spike to the 150s on 03/23. EKG showed atrial flutter with 2:1 conduction, heart rate 156 bpm. Resolved after approximately 10 minutes without need for rate control medication. Unfortunately had recurrence on evening of 03/23. ?[id number] score of 3 (age, sex, hypertension). Continue Lopressor 25 mg twice daily, can increase as needed. TTE ordered. We will start Eliquis today for anticoagulation. Lasix as noted below. Monitor telemetry. 03/25/2023: Rate and rhythm are regular so this is likely paroxysmal and could berelated to her hypoxia especially with ambulation. We will continue with medications and have her follow-up as an outpatient with allergy. Troponins arelikely secondary to demand ischemia and hypoxia from her COPD exacerbation 3. Concern for volume overload Mild volume overload suspected given persistent hypoxia as noted above. Likely tachycardia mediated in setting of paroxysmal atrial flutter as noted above. ? TTE pending as above. We will give 2 doses of IV Lasix 40 mg today, start p.o. Lasix 40 mg daily tomorrow morning. Monitor volume status and oxygen saturations. 03/27/2023: We will hold off on any further diuretics at this time her bicarb is climbing so we will monitor for now and await pulmonology evaluation 03/30/2023: Had to hold Diamox and Lasix secondary to a bump in her renal function will await repeat BMP today 4. Current smoker Currently smoking around 5 cigarettes daily. Extensive smoking history. ? Nicotine patch ordered per patient request. Encouraged cessation. 5. Lung nodule ? CT chest on admit with 7 mm noncalcified nodule noted in peripheral lateral aspect of the right middle lobe. 12-month follow-up examination is recommended. Chronic medical conditions: ? Hypertension: Continue home hydrochlorothiazide. ? GERD: Continue home PPI. DVT: Eliquis Charges/Coding Visit Charges Inpatient E&M: 79725 Subs Hosp L2 03/30/23 0817 <Electronically signed by Severino Madsen MD> Cosigner Signature (if applicable): CC: ~ Signed [facility] Work Phone: 1(816) 646-511409-15-2023 Progress note Author Severino Madsen [facility] March 29, 2023 10:35am Note Date/Time March 29, 2023 10:36am [facility] Medical Records Department [address] [place] [address] Progress Note - Hospitalist 03/29/23 1034 MR#: [id number] Acct: [id number] Name: MIMA DOS SANTOS Rep #:[id number] : 1950 72 From: Severino moreno MD PCP: Dr. Davy Downey MD Status:ADM IN Location: [place] [address] Subjective Subjective Feels better today, she was finally able to get some sleep with the BiPAP overnight and she feels more rested than she has in a long time Objective Data Objective Data Vital Signs: Vital Signs Temp Pulse Resp BP Pulse Ox O2 Del Method O2 Flow Rate 97.8 F 63 16 133/73 H 93 Nasal Cannula 6 03/29/23 09:50 03/29/23 10:05 03/29/23 09:50 03/29/23 10:05 03/29/23 09:50 03/29/23 09:50 03/29/23 09:50 FiO2 35 03/29/23 04:01 Oxygen Flow Rate (L/min) [ 10 AMBULATING with Oxygen #2] Oxygen Flow Rate (L/min) [ 8 AMBULATING with Oxygen #1] Oxygen Flow Rate (L/min) [At 7 REST with Oxygen] Oxygen Flow Rate (L/min) 6 Oxygen Delivery Method Nasal Cannula Weight: 216 lb 0.848 oz Body Mass Index (BMI) 40.8 Intake & Output: Intake and Output for Last 24 Hours 03/28/23 03/29/23 03/30/23 03:59 03:59 03:59 Intake Total 900 / 900 500 / 500 Output Total 300 / 300 Balance 900 / 900 200 / 200 Lab / Micro Data 03/28/23 05:56 03/29/23 05:38 Labs: Laboratory Results - last 24 hr 03/29/23 05:38: Sodium 141, Potassium 4.5, Chloride 105, Carbon Dioxide 31.0, Anion Gap 5, BUN 56 H, Creatinine 1.39 H, Estim Creat Clear Calc 27.61, Est GFR (MDRD) Af Amer 48 L, Est GFR (MDRD) Non-Af 40 L, BUN/Creatinine Ratio 40.3 H, Glucose 158 H, Calcium 9.1 Micro: Microbiology 03/24/23 10:20 Sputum, Expectorated/Coughed Gram Stain - Final 03/24/23 10:20 Sputum, Expectorated/Coughed Respiratory Culture - Final 03/22/23 03:10 Urine, Clean Catch Legionella Antigen - Final 03/22/23 03:10 Urine, Clean Catch Streptococcus pneumoniae Antigen (M - Final 03/21/23 16:15 Mucosa - Nasopharyngeal Respiratory Panel (PCR) - Final 03/21/23 09:58 Nasal Secretion SARS-CoV-2 & FLU Antigen (Rapid) - Final ABG Data ABG results: ABG 03/28/23 12:46 Specimen Type ART Sample Site L Radial pH 7.36 Bicarbonate Actual 35.5 H Total CO2 37 Base Excess 10 H O2 Saturation 92 L O2 % 8.0 ABG pCO2 63.1 H ABG pO2 69 L Redd Test Positive O2 Delivery Device Cannula Vent Mode Not entered Physical Exam Narrative General: Alert, Oriented x3, Cooperative, No apparent distress HEENT: Atraumatic, PERRLA, EOMI, Normocephalic Oral: Moist Mucosa Neck: Supple, No JVD Lungs: Diminished, poor air movement, No rhonchi, no wheeze, No rales Cardiovascular: Regular rate, Regular Rhythm, Normal S1, Normal S2, No murmurs Abdomen: Soft, Non Tender, Non-Distended, No Hepato-splenomegaly Extremities: No edema, Capillary Refill Less than 3 Seconds Skin: No rashes, No breakdown Musculoskeletal: No Tenderness to Palpation of Joints or Extremities Neurological: Cranial nerves II-XII grossly intact, Motor Exam 5/5 strength throughout, Sensory exam intact to light touch and pain Psych/Mental Status: Normal Affect, Appropriate Assessment & Plan Assessment/Plan (1) COPD exacerbation: PLAN: Plan 1. Acute hypoxic respiratory failure, COPD exacerbation, community-acquired pneumonia with unclear organism History of COPD secondary to longstanding tobacco use, not on home oxygen. Diagnosed with COPD about 2 years ago. No previous history of COPD exacerbations. Suspect exacerbation is likely secondary to community-acquired pneumonia. Chest CTA showed infiltrates at the lung bases slightly worse on the right side,patchy infiltrate in the posterior aspect of the right middle lobe, emphysematous changes. Requiring 4 to 5 L nasal cannula in ED for saturations greater than 90%. Moderately improved in ED after a breathing treatment. COVIDand flu negative. Respiratory panel negative. Urine antigens negative. Unableto produce sputum culture. Failed O2 walk test on 03/23, had oxygen saturations drop below 88% on 6 L nasal cannula. ? Continue supplemental oxygen, wean as able. Will need home oxygen on discharge, will repeat walk test likely tomorrow after echo was done as noted below. Continue prednisone, ceftriaxone and azithromycin with plan for 5-day courses. Continue DuoNebs every 4 hours scheduled. Continue home long-acting inhaler. 03/25/2023: Doing well, she is slow to improve this is likely secondary to her baseline lung physiology. Will obtain an ambulatory pulse ox today to gauge where we are at in her recovery 03/26/2023: Given her slow improvement we will place her back on IV Lasix daily and will transition her steroids to IV 3 times daily 03/27/2023: Given her continued slow improvement we will consult pulmonology for their assistance 03/28/2023: Continue with IV Lasix and Diamox per pulmonology's recommendations she will complete her dose of Rocephin this morning 03/29/2023: She tolerated the BiPAP very well overnight and she feels like it worked well she was able to sleep, her creatinine is elevated so we will hold her Lasix and Diamox and we will proceed with trying to obtain home noninvasive ventilator 2. Paroxysmal atrial flutter/elevated troponins New diagnosis. Had episode of heart rate spike to the 150s on 03/23. EKG showed atrial flutter with 2:1 conduction, heart rate 156 bpm. Resolved after approximately 10 minutes without need for rate control medication. Unfortunately had recurrence on evening of 03/23. ?[id number] score of 3 (age, sex, hypertension). Continue Lopressor 25 mg twice daily, can increase as needed. TTE ordered. We will start Eliquis today for anticoagulation. Lasix as noted below. Monitor telemetry. 03/25/2023: Rate and rhythm are regular so this is likely paroxysmal and could berelated to her hypoxia especially with ambulation. We will continue with medications and have her follow-up as an outpatient with allergy. Troponins arelikely secondary to demand ischemia and hypoxia from her COPD exacerbation 3. Concern for volume overload Mild volume overload suspected given persistent hypoxia as noted above. Likely tachycardia mediated in setting of paroxysmal atrial flutter as noted above. ? TTE pending as above. We will give 2 doses of IV Lasix 40 mg today, start p.o. Lasix 40 mg daily tomorrow morning. Monitor volume status and oxygen saturations. 03/27/2023: We will hold off on any further diuretics at this time her bicarb is climbing so we will monitor for now and await pulmonology evaluation 4. Current smoker Currently smoking around 5 cigarettes daily. Extensive smoking history. ? Nicotine patch ordered per patient request. Encouraged cessation. 5. Lung nodule ? CT chest on admit with 7 mm noncalcified nodule noted in peripheral lateral aspect of the right middle lobe. 12-month follow-up examination is recommended. Chronic medical conditions: ? Hypertension: Continue home hydrochlorothiazide. ? GERD: Continue home PPI. DVT: Eliquis Charges/Coding Visit Charges Inpatient E&M: 16233 Subs Hosp L2 03/29/23 1035 <Electronically signed by Severino Madsen MD> Cosigner Signature (if applicable): CC: ~ Signed [facility] Work Phone: 1(690) 906-112009-15-2023 Progress note Author Michael Soto [facility] March 29, 2023 10:07am Note Date/Time March 29, 2023 10:00am [facility] Medical Records Department [address] [place] [address] Progress Note - Media Supervisor 03/29/23 0957 MR#: [id number] Acct: [id number] Name: MIMA DOS SANTOS Rep #:[id number] : 1950 72 From: Michael Fernandes PCP: Dr. aDvy Downey MD Status:ADM IN Location: [address] Assessment & Plan Assessment/Plan (1) COPD exacerbation: PLAN: Plan Assessment Acute hypoxic respiratory failure currently on 6 to 7 L via nasal cannula. 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 She also has diastolic heart failure. * Will hold off Lasix today given worsening BECKIE. * cont steroid taper. cont breathing treatments. Will try her on 6L NC today, goal O2 sat 88% or above * This patient has severe COPD with elevated CO2 despite treatment for a week. Her condition now requires the use of a noninvasive ventilator due to the life-threatening condition chronic respiratory failure secondary to chronic obstructive pulmonary disease. All other therapies have been considered and or attempted and failed. Due to the severity of this patient's disease, as indicated by CO2 retention, this patient requires assisted tidal volume thera py with a trilogy, astral or Anna NIV unit. Without noninvasive ventilator intervention this patient's health will rapidly deteriorate which could lead to serious harm, rehospitalization or . * Discussed with the patient importance of smoking cessation * Patient was found to have a 7.1 mm right middle lobe nodule along with bilateral consolidation suggestive of pneumonia. Patient high risk given her smoking history. Recommend repeat CT scan in 6 to 8 weeks to ensure resolution of PNA. * wean Oxygen as tolerated. She will need home O2 eval prior to discharge * Rest of management per primary Subjective Subjective She reports that she slept better with NIPPV on Objective Data Objective Data Vital Signs: Vital Signs Temp Pulse Resp BP Pulse Ox O2 Del Method O2 Flow Rate 36.6 C 63 16 133/73 H 93 Nasal Cannula 6 03/29/23 09:50 03/29/23 09:50 03/29/23 09:50 03/29/23 09:50 03/29/23 09:50 03/29/23 09:50 03/29/23 09:50 FiO2 35 03/29/23 04:01 Oxygen Flow Rate (L/min) [ 10 AMBULATING with Oxygen #2] Oxygen Flow Rate (L/min) [ 8 AMBULATING with Oxygen #1] Oxygen Flow Rate (L/min) [At 7 REST with Oxygen] Oxygen Flow Rate (L/min) 6 Oxygen Delivery Method Nasal Cannula Weight: 98 kg Body Mass Index (BMI) 40.8 Intake & Output: Intake and Output for Last 24 Hours 03/27/23 03/28/23 03/29/23 23:59 23:59 23:59 Intake Total 900 / 900 500 / 500 Output Total 300 / 300 Balance 900 / 900 200 / 200 Lab / Micro Data 03/28/23 05:56 03/29/23 05:38 Labs: Laboratory Results - last 24 hr 03/29/23 05:38: Sodium 141, Potassium 4.5, Chloride 105, Carbon Dioxide 31.0, Anion Gap 5, BUN 56 H, Creatinine 1.39 H, Estim Creat Clear Calc 27.61, Est GFR (MDRD) Af Amer 48 L, Est GFR (MDRD) Non-Af 40 L, BUN/Creatinine Ratio 40.3 H, Glucose 158 H, Calcium 9.1 Micro: Microbiology 03/24/23 10:20 Sputum, Expectorated/Coughed Gram Stain - Final 03/24/23 10:20 Sputum, Expectorated/Coughed Respiratory Culture - Final 03/22/23 03:10 Urine, Clean Catch Legionella Antigen - Final 03/22/23 03:10 Urine, Clean Catch Streptococcus pneumoniae Antigen (M - Final 03/21/23 16:15 Mucosa - Nasopharyngeal Respiratory Panel (PCR) - Final 03/21/23 09:58 Nasal Secretion SARS-CoV-2 & FLU Antigen (Rapid) - Final ABG Data ABG results: ABG 03/28/23 12:46 Specimen Type ART Sample Site L Radial pH 7.36 Bicarbonate Actual 35.5 H Total CO2 37 Base Excess 10 H O2 Saturation 92 L O2 % 8.0 ABG pCO2 63.1 H ABG pO2 69 L Redd Test Positive O2 Delivery Device Cannula Vent Mode Not entered Physical Exam Narrative General alert oriented in no acute distress HEENT. Normocephalic atraumatic, pupils equal and reactive Respiratory reduced air entry bilaterally, mild wheezing Cardiac S1-S2, regular rate and rhythm GI abdomen soft and nontender MSK +1 lower extremity edema Skin no rashes Neuro moves all extremities, no dysarthria, no facial droop Charges/Coding Visit Charges Inpatient E&M: 79597 Subs Hosp L3 03/29/23 1007 <Electronically signed by Michael Soto MD> Cosigner Signature (if applicable): CC: ~ Signed [facility] Work Phone: [phone]) [phone] Progress note Author Michael Soto [facility] March 28, 2023 10:35am Note Date/Time March 28, 2023 10:35am [facility] Medical Records Department [address] [place] [address] Progress Note - Media Supervisor 03/28/23 1026 MR#: [id number] Acct: [id number] Name: MIMA DOS SANTOS Rep #:[id number] : 1950 72 From: Michael Fernandes PCP: Dr. Davy Downey MD Status:ADM IN Location: [place] [address] Assessment & Plan Assessment/Plan (1) COPD exacerbation: PLAN: Plan Assessment Acute hypoxic respiratory failure currently on 6 to 7 L via nasal cannula. 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 She also has diastolic heart failure. * She was started on lasix with diamox yesterday. Her kidney function is starting to be affected. Will cont lasix with diamox for one more day. She remains on 8L NC. * start steroid taper. cont breathing treatments * Will obtain a blood gas, if pt is hypercapnic then she could qualify for home non invasive vent * Patient would benefit from outpatient pulmonary evaluation. She also has severe sleep apnea per her report but she has not had CPAP or BiPAP prescribed. She will need further work-up outpatient * Discussed with the patient importance of smoking cessation * Patient was found to have a 7.1 mm right middle lobe nodule along with bilateral consolidation suggestive of pneumonia. Patient high risk given her smoking history. Recommend repeat CT scan in 6 to 8 weeks to ensure resolution of PNA. * wean Oxygen as tolerated. She will need home O2 eval prior to discharge * Rest of management per primary Subjective Subjective No acute changes. Patient is frustrated with her respiratory status. She was asking about getting a sleep study done inpatient. Explained that we cannot do that here Objective Data Objective Data Vital Signs: Vital Signs Temp Pulse Resp BP Pulse Ox O2 Del Method O2 Flow Rate 36.6 C 65 18 132/58 H 92 Nasal Cannula 8 03/28/23 09:55 03/28/23 09:58 03/28/23 09:55 03/28/23 09:58 03/28/23 09:55 03/28/23 09:55 03/28/23 09:55 Oxygen Flow Rate (L/min) [ 10 AMBULATING with Oxygen #2] Oxygen Flow Rate (L/min) [ 8 AMBULATING with Oxygen #1] Oxygen Flow Rate (L/min) [At 7 REST with Oxygen] Oxygen Flow Rate (L/min) 8 Oxygen Delivery Method Nasal Cannula Weight: 98 kg Body Mass Index (BMI) 40.8 Intake & Output: Intake and Output for Last 24 Hours 03/26/23 03/27/23 03/28/23 23:59 23:59 23:59 Intake Total 422.5 / 422.5 900 / 900 0 / 0 Balance 422.5 / 422.5 900 / 900 0 / 0 Lab / Micro Data 03/28/23 05:56 03/28/23 05:56 Labs: Laboratory Results - last 24 hr 03/28/23 05:56: WBC 13.8 H, RBC 6.27 H, Hgb 16.7 H, Hct 57.1 H, MCV 91.1, MCH 26.6 L, MCHC 29.2 L, RDW Std Deviation 54.3 H, RDW Coeff of Piper 16.7 H, Plt Count 264, MPV 11.7, Immature Gran % (Auto) 0.500, Neut % (Auto) 91.5 H, Lymph %(Auto) 4.3 L, [place] % (Auto) 3.5, Eos % (Auto) 0.0, Baso % (Auto) 0.2, Absolute Neuts (auto) 12.7 H, Absolute Lymphs (auto) 0.60 L, Nucleated RBC % 0, Differential Comment COMMENT, Sodium 138, Potassium 4.4, Chloride 101, Carbon Dioxide 35.0 H, Anion Gap 2 L, BUN 48 H, Creatinine 1.15 H, Estim Creat Clear Calc 33.37, Est GFR (MDRD) Af Amer 60, Est GFR (MDRD) Non-Af 49 L, BUN/Creatinine Ratio 41.7 H, Glucose 134 H, Calcium 9.2 Micro: Microbiology 03/24/23 10:20 Sputum, Expectorated/Coughed Gram Stain - Final 03/24/23 10:20 Sputum, Expectorated/Coughed Respiratory Culture - Final 03/22/23 03:10 Urine, Clean Catch Legionella Antigen - Final 03/22/23 03:10 Urine, Clean Catch Streptococcus pneumoniae Antigen (M - Final 03/21/23 16:15 Mucosa - Nasopharyngeal Respiratory Panel (PCR) - Final 03/21/23 09:58 Nasal Secretion SARS-CoV-2 & FLU Antigen (Rapid) - Final Physical Exam Narrative General alert oriented in no acute distress HEENT. Normocephalic atraumatic, pupils equal and reactive Respiratory reduced air entry bilaterally, mild wheezing Cardiac S1-S2, regular rate and rhythm GI abdomen soft and nontender MSK +1 lower extremity edema Skin no rashes Neuro moves all extremities, no dysarthria, no facial droop Charges/Coding Visit Charges Inpatient E&M: 20488 Subs Hosp L3 03/28/23 1035 <Electronically signed by Michael Soto MD> Cosigner Signature (if applicable): CC: ~ Signed [facility] Work Phone: [phone]) [phone] Progress note Author Severino Madsen [facility] March 28, 2023 8:42am Note Date/Time March 28, 2023 8:42am [facility] Medical Records Department [address] [place] [address] Progress Note - Hospitalist 03/28/23 0840 MR#: [id number] Acct: [id number] Name: MIMA DOS SANTOS Rep #:[id number] : 1950 72 From: Severino moreno MD PCP: Dr. Davy Downey MD Status:ADM IN Location: [place] [address] Subjective Subjective Resting comfortably, no issues overnight. Appreciate pulmonology's assistance Objective Data Objective Data Vital Signs: Vital Signs Temp Pulse Resp BP Pulse Ox O2 Del Method O2 Flow Rate 97.7 F L 57 L 18 141/71 H 93 High Flow 8 03/28/23 05:00 03/28/23 05:00 03/28/23 05:00 03/28/23 05:00 03/28/23 05:00 03/28/23 05:00 03/28/23 05:00 Oxygen Flow Rate (L/min) [ 10 AMBULATING with Oxygen #2] Oxygen Flow Rate (L/min) [ 8 AMBULATING with Oxygen #1] Oxygen Flow Rate (L/min) [At 7 REST with Oxygen] Oxygen Flow Rate (L/min) 8 Oxygen Delivery Method High Flow Weight: 216 lb 0.848 oz Body Mass Index (BMI) 40.8 Intake & Output: Intake and Output for Last 24 Hours 03/27/23 03/28/23 03/29/23 03:59 03:59 03:59 Intake Total 422.5 / 422.5 900 / 900 0 / 0 Balance 422.5 / 422.5 900 / 900 0 / 0 Lab / Micro Data 03/28/23 05:56 03/28/23 05:56 Labs: Laboratory Results - last 24 hr 03/28/23 05:56: WBC 13.8 H, RBC 6.27 H, Hgb 16.7 H, Hct 57.1 H, MCV 91.1, MCH 26.6 L, MCHC 29.2 L, RDW Std Deviation 54.3 H, RDW Coeff of Piper 16.7 H, Plt Count 264, MPV 11.7, Immature Gran % (Auto) 0.500, Neut % (Auto) 91.5 H, Lymph %(Auto) 4.3 L, [place] % (Auto) 3.5, Eos % (Auto) 0.0, Baso % (Auto) 0.2, Absolute Neuts (auto) 12.7 H, Absolute Lymphs (auto) 0.60 L, Nucleated RBC % 0, Sodium 138, Potassium 4.4, Chloride 101, Carbon Dioxide 35.0 H, Anion Gap 2 L, BUN 48 H, Creatinine 1.15 H, Estim Creat Clear Calc 33.37, Est GFR (MDRD) Af Amer 60, Est GFR (MDRD) Non-Af 49 L, BUN/Creatinine Ratio 41.7 H, Glucose 134 H, Calcium 9.2 Micro: Microbiology 03/24/23 10:20 Sputum, Expectorated/Coughed Gram Stain - Final 03/24/23 10:20 Sputum, Expectorated/Coughed Respiratory Culture - Final 03/22/23 03:10 Urine, Clean Catch Legionella Antigen - Final 03/22/23 03:10 Urine, Clean Catch Streptococcus pneumoniae Antigen (M - Final 03/21/23 16:15 Mucosa - Nasopharyngeal Respiratory Panel (PCR) - Final 03/21/23 09:58 Nasal Secretion SARS-CoV-2 & FLU Antigen (Rapid) - Final Radiography Diagnostic Testing: Radiology Impression Chest X-Ray 03/27/23 08:45 IMPRESSION: Persistent right lower lobe infiltrate. Improved aeration at the left lung base. Electronically Signed: Cameron Nation MD at 9:40 EDT , Physical Exam Narrative General: Alert, Oriented x3, Cooperative, No apparent distress HEENT: Atraumatic, PERRLA, EOMI, Normocephalic Oral: Moist Mucosa Neck: Supple, No JVD Lungs: Diminished left greater than right, poor air movement, No rhonchi, no wheeze, No rales Cardiovascular: Regular rate, Regular Rhythm, Normal S1, Normal S2, No murmurs Abdomen: Soft, Non Tender, Non-Distended, No Hepato-splenomegaly Extremities: No edema, Capillary Refill Less than 3 Seconds Skin: No rashes, No breakdown Musculoskeletal: No Tenderness to Palpation of Joints or Extremities Neurological: Cranial nerves II-XII grossly intact, Motor Exam 5/5 strength throughout, Sensory exam intact to light touch and pain Psych/Mental Status: Normal Affect, Appropriate Assessment & Plan Assessment/Plan (1) COPD exacerbation: PLAN: Plan 1. Acute hypoxic respiratory failure, COPD exacerbation, community-acquired pneumonia with unclear organism History of COPD secondary to longstanding tobacco use, not on home oxygen. Diagnosed with COPD about 2 years ago. No previous history of COPD exacerbations. Suspect exacerbation is likely secondary to community-acquired pneumonia. Chest CTA showed infiltrates at the lung bases slightly worse on theright side, patchy infiltrate in the posterior aspect of the right middle lobe, emphysematous changes. Requiring 4 to 5 L nasal cannula in ED for saturations greater than 90%. Moderately improved in ED after a breathing treatment. COVIDand flu negative. Respiratory panel negative. Urine antigens negative. Unableto produce sputum culture. Failed O2 walk test on 03/23, had oxygen saturations drop below 88% on 6 L nasal cannula. ? Continue supplemental oxygen, wean as able. Will need home oxygen on discharge, will repeat walk test likely tomorrow after echo was done as noted below. Continue prednisone, ceftriaxone and azithromycin with plan for 5-day courses. Continue DuoNebs every 4 hours scheduled. Continue home long-acting inhaler. 03/25/2023: Doing well, she is slow to improve this is likely secondary to her baseline lung physiology. Will obtain an ambulatory pulse ox today to gauge where we are at in her recovery 03/26/2023: Given her slow improvement we will place her back on IV Lasix daily and will transition her steroids to IV 3 times daily 03/27/2023: Given her continued slow improvement we will consult pulmonology for their assistance 03/28/2023: Continue with IV Lasix and Diamox per pulmonology's recommendations she will complete her dose of Rocephin this morning 2. Paroxysmal atrial flutter/elevated troponins New diagnosis. Had episode of heart rate spike to the 150s on 03/23. EKG showed atrial flutter with 2:1 conduction, heart rate 156 bpm. Resolved after approximately 10 minutes without need for rate control medication. Unfortunately had recurrence on evening of 03/23. ?[id number] score of 3 (age, sex, hypertension). Continue Lopressor 25 mg twice daily, can increase as needed. TTE ordered. We will start Eliquis today foranticoagulation. Lasix as noted below. Monitor telemetry. 03/25/2023: Rate and rhythm are regular so this is likely paroxysmal and could berelated to her hypoxia especially with ambulation. We will continue with medications and have her follow-up as an outpatient with allergy. Troponins are likely secondary to demand ischemia and hypoxia from her COPD exacerbation 3. Concern for volume overload Mild volume overload suspected given persistent hypoxia as noted above. Likely tachycardia mediated in setting of paroxysmal atrial flutter as noted above. ? TTE pending as above. We will give 2 doses of IV Lasix 40 mg today, start p.o. Lasix 40 mg daily tomorrow morning. Monitor volume status and oxygen saturations. 03/27/2023: We will hold off on any further diuretics at this time her bicarb is climbing so we will monitor for now and await pulmonology evaluation 4. Current smoker Currently smoking around 5 cigarettes daily. Extensive smoking history. ? Nicotine patch ordered per patient request. Encouraged cessation. 5. Lung nodule ? CT chest on admit with 7 mm noncalcified nodule noted in peripheral lateral aspect of the right middle lobe. 12-month follow-up examination is recommended. Chronic medical conditions: ? Hypertension: Continue home hydrochlorothiazide. ? GERD: Continue home PPI. DVT: Eliquis Charges/Coding Visit Charges Inpatient E&M: 77579 Subs Hosp L2 03/28/23 0842 <Electronically signed by Severino Madsen MD> Cosigner Signature (if applicable): CC: ~ Signed [facility] Work Phone: 1(759) 690-882009-13-2023 Consult note Author Michael Soto [facility] March 27, 2023 2:51pm Note Date/Time March 27, 2023 2:51pm [facility] Medical Records Department [address] [place] [id number] Consultation - Media Supervisor 03/27/23 1443 MR#: [id number] Acct: [id number] Name: MIMA DOS SANTOS Rep #:[id number] : 1950 72 From: Michael Fernandes PCP: Dr. Davy Downey MD Status:ADM IN Location: [place] [address] Assessment & Plan Assessment/Plan (1) COPD exacerbation: PLAN: Plan Assessment Acute hypoxic respiratory failure currently on 6 to 7 L via nasal cannula. 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 She also has diastolic heart failure. * Initiate Lasix with Diamox to help avoid contraction alkalosis and improve diuresis in the light of diastolic heart failure * Continue steroids and breathing treatments * Patient would benefit from outpatient pulmonary evaluation. She also has severe sleep apnea per her report but she has not had CPAP or BiPAP prescribed. She will need further work-up outpatient * Discussed with the patient importance of smoking cessation * Patient was found to have a 7.1 mm right middle lobe nodule along with bilateral consolidation suggestive of pneumonia. Patient high risk given her smoking history. Recommend repeat CT scan in 2 to 8 weeks to ensure resolution of PNA. * wean Oxygen as tolerated. She will need home O2 eval prior to discharge * Rest of management per primary HPI Consult Data Date of Consult: 03/27/23 HPI Narrative Reason for Consultation: Hypoxia HPI Narrative: MIMA DOS SANTOS, is a 72 F past medical history of morbid obesity BMI of 40.8, COPD, lifelong smoker and hypertension. Patient presented around a week ago with worsening shortness of breath she told me that she went to her primary carephysician's office and was found to be satting in the 90s. She is not on home oxygen. Reports that she is diagnosed with COPD and she is on home Trelegy and as needed albuterol. She reports that her most recent COPD exacerbation was around 2 years ago. She continues to smoke. She reports that she has had home sleep study which revealed severe sleep apnea and AHI of 47 however she has not followed up and has not obtained a BiPAP/CPAP. Patient was found to have bilateral infiltrates on her CT scan upon admission she is on CAP coverage. She also went into A-fib with RVR her echo showed grade1 diastolic dysfunction with a EF of 55%. She also notes that she occasionally has lower extremity edema. She otherwise denies coughing, weight loss, hemoptysis or fever. PFSH Medical History COPD (chronic obstructive pulmonary disease) GERD (gastroesophageal reflux disease) Hypertension Smoker Home Medications hydrochlorothiazide 12.5 mg capsule 12.5 mg PO DAILY BP 04/05/20 [History Last Taken 03/21/23] omeprazole 20 mg capsule,delayed release 40 mg PO DAILY GERD 04/05/20 [History Last Taken 03/21/23] albuterol sulfate 90 mcg/actuation aerosol inhaler 2 puff inhalation [id number] ##1 04/08/20 [Rx Last Taken 03/21/23] cetirizine 10 mg tablet (All Day Allergy (cetirizine)) 10 mg PO DAILY 03/21/23 [History Last Taken 03/21/23] fluticasone fur. 100 mcg-umeclid 62.5 mcg-vilant 25 mcg inhalat.powder (Trelegy Ellipta) 1 inh inhalation Q24H 03/21/23 [History Last Taken 03/21/23] Allergy/AdvReac Type Severity Reaction Status Date / Time shellfish derived Allergy Other Verified 03/21/23 09:34 Surgical History History of appendectomy Social History Smoking Status: Current every day smoker tobacco type: cigarettes ROS ROS Narrative Pertinent positives and pertinent negatives as noted in HPI. All other systems were reviewed and are negative Physical Exam Narrative General alert oriented in no acute distress HEENT. Normocephalic atraumatic, pupils equal and reactive Respiratory reduced air entry bilaterally, no wheezing Cardiac S1-S2, regular rate and rhythm GI abdomen soft and nontender MSK +1 lower extremity edema Skin no rashes Neuro moves all extremities, no dysarthria, no facial droop Lab / Micro Data 03/27/23 05:46 03/27/23 05:46 Labs: Laboratory Results - last 24 hr 03/27/23 05:46: WBC 9.2, RBC 6.44 H, Hgb 16.9 H, Hct 57.9 H, MCV 89.9, MCH 26.2 L, MCHC 29.2 L, RDW Std Deviation 51.8 H, RDW Coeff of Piper 16.8 H, Plt Count 235, MPV 11.1, Immature Gran % (Auto) 0.500, Neut % (Auto) 91.3 H, Lymph % (Auto) 6.2 L, [place] % (Auto) 1.8, Eos % (Auto) 0.0, Baso % (Auto) 0.2, Absolute Neuts (auto) 8.4 H, Absolute Lymphs (auto) 0.57 L, Nucleated RBC % 0, Differential Comment SCANNED, Sodium 139, Potassium 4.4, Chloride 93 L, Carbon Dioxide 43.0 H, Anion Gap 3 L, BUN 37 H, Creatinine 1.01, Estim Creat Clear Calc37.99, Est GFR (MDRD) Af Amer 69, Est GFR (MDRD) Non-Af 57 L, BUN/Creatinine Ratio 36.6 H, Glucose 130 H, Calcium 9.4 Micro: Microbiology 03/24/23 10:20 Sputum, Expectorated/Coughed Gram Stain - Final 03/24/23 10:20 Sputum, Expectorated/Coughed Respiratory Culture - Final Radiology Impression Chest X-Ray 03/27/23 08:45 IMPRESSION: Persistent right lower lobe infiltrate. Improved aeration at the left lung base. Electronically Signed: Cameron Nation MD at 9:40 EDT , Charges/Coding Visit Charges Inpatient E&M: 98270 Init Hosp L3 03/27/23 1451 <Electronically signed by Michael Soto MD> Cosigner Signature (if applicable): CC: RANGE OPERATORAdolfo Worrell; Dr. Jimmy Springer DO; Dr. Deng Dubon MD; Dr. Arturo Maynard DO; Dr. Davy Downey MD; Dr. Michael Soto MD; Dr. Ty Jackson MD; Dr. Chance Mcintyre MD~ Signed [facility] Work Phone: 1(276) 479-537009-13-2023 Progress note Author Severino Madsen [facility] March 27, 2023 10:30am Note Date/Time March 27, 2023 10:30am [facility] Medical Records Department [address] [place] [address] Progress Note - Hospitalist 03/27/23 1028 MR#: [id number] Acct: [id number] Name: MIMA DOS SANTOS Rep #:[id number] : 1950 72 From: Severino moreno MD PCP: Dr. Davy Downey MD Status:ADM IN Location: [place] [address] Subjective Subjective No issues overnight still requiring 6 to 7 L nasal cannula Objective Data Objective Data Vital Signs: Vital Signs Temp Pulse Resp BP Pulse Ox O2 Del Method O2 Flow Rate 99.5 F H 72 15 119/60 98 Nasal Cannula 6 03/27/23 09:21 03/27/23 09:37 03/27/23 09:21 03/27/23 09:21 03/27/23 09:21 03/27/23 09:34 03/27/23 09:34 Oxygen Flow Rate (L/min) [ 6 AMBULATING with Oxygen #2] Oxygen Flow Rate (L/min) [ 6 AMBULATING with Oxygen #1] Oxygen Flow Rate (L/min) [At 6 REST with Oxygen] Oxygen Flow Rate (L/min) 6 Oxygen Delivery Method Nasal Cannula Weight: 216 lb 0.848 oz Body Mass Index (BMI) 40.8 Intake & Output: Intake and Output for Last 24 Hours 03/26/23 03/27/23 03/28/23 03:59 03:59 03:59 Intake Total 542.5 / 542.5 422.5 / 422.5 Output Total 700 / 700 Balance -157.5 / -157.5 422.5 / 422.5 Lab / Micro Data 03/27/23 05:46 03/27/23 05:46 Labs: Laboratory Results - last 24 hr 03/27/23 05:46: WBC 9.2, RBC 6.44 H, Hgb 16.9 H, Hct 57.9 H, MCV 89.9, MCH 26.2 L, MCHC 29.2 L, RDW Std Deviation 51.8 H, RDW Coeff of Piper 16.8 H, Plt Count 235, MPV 11.1, Immature Gran % (Auto) 0.500, Neut % (Auto) 91.3 H, Lymph % (Auto) 6.2 L, [place] % (Auto) 1.8, Eos % (Auto) 0.0, Baso % (Auto) 0.2, Absolute Neuts (auto) 8.4 H, Absolute Lymphs (auto) 0.57 L, Nucleated RBC % 0, Differential Comment SCANNED, Sodium 139, Potassium 4.4, Chloride 93 L, Carbon Dioxide 43.0 H, Anion Gap 3 L, BUN 37 H, Creatinine 1.01, Estim Creat Clear Calc37.99, Est GFR (MDRD) Af Amer 69, Est GFR (MDRD) Non-Af 57 L, BUN/Creatinine Ratio 36.6 H, Glucose 130 H, Calcium 9.4 Micro: Microbiology 03/24/23 10:20 Sputum, Expectorated/Coughed Gram Stain - Final 03/24/23 10:20 Sputum, Expectorated/Coughed Respiratory Culture - Final 03/22/23 03:10 Urine, Clean Catch Legionella Antigen - Final 03/22/23 03:10 Urine, Clean Catch Streptococcus pneumoniae Antigen (M - Final 03/21/23 16:15 Mucosa - Nasopharyngeal Respiratory Panel (PCR) - Final 03/21/23 09:58 Nasal Secretion SARS-CoV-2 & FLU Antigen (Rapid) - Final Radiography Diagnostic Testing: Radiology Impression Chest X-Ray 03/27/23 08:45 IMPRESSION: Persistent right lower lobe infiltrate. Improved aeration at the left lung base. Electronically Signed: Cameron Nation MD at 9:40 EDT , Physical Exam Narrative General: Alert, Oriented x3, Cooperative, No apparent distress HEENT: Atraumatic, PERRLA, EOMI, Normocephalic Oral: Moist Mucosa Neck: Supple, No JVD Lungs: Diminished left greater than right, poor air movement, No rhonchi, slightexpiratory wheeze, No rales Cardiovascular: Regular rate, Regular Rhythm, Normal S1, Normal S2, No murmurs Abdomen: Soft, Non Tender, Non-Distended, No Hepato-splenomegaly Extremities: No edema, Capillary Refill Less than 3 Seconds Skin: No rashes, No breakdown Musculoskeletal: No Tenderness to Palpation of Joints or Extremities Neurological: Cranial nerves II-XII grossly intact, Motor Exam 5/5 strength throughout, Sensory exam intact to light touch and pain Psych/Mental Status: Normal Affect, Appropriate Assessment & Plan Assessment/Plan (1) COPD exacerbation: PLAN: Plan 1. Acute hypoxic respiratory failure, COPD exacerbation, community-acquired pneumonia with unclear organism History of COPD secondary to longstanding tobacco use, not on home oxygen. Diagnosed with COPD about 2 years ago. No previous history of COPD exacerbations. Suspect exacerbation is likely secondary to community-acquired pneumonia. Chest CTA showed infiltrates at the lung bases slightly worse on theright side, patchy infiltrate in the posterior aspect of the right middle lobe, emphysematous changes. Requiring 4 to 5 L nasal cannula in ED for saturations greater than 90%. Moderately improved in ED after a breathing treatment. COVIDand flu negative. Respiratory panel negative. Urine antigens negative. Unableto produce sputum culture. Failed O2 walk test on 03/23, had oxygen saturations drop below 88% on 6 L nasal cannula. ? Continue supplemental oxygen, wean as able. Will need home oxygen on discharge, will repeat walk test likely tomorrow after echo was done as noted below. Continue prednisone, ceftriaxone and azithromycin with plan for 5-day courses. Continue DuoNebs every 4 hours scheduled. Continue home long-acting inhaler. 03/25/2023: Doing well, she is slow to improve this is likely secondary to her baseline lung physiology. Will obtain an ambulatory pulse ox today to gauge where we are at in her recovery 03/26/2023: Given her slow improvement we will place her back on IV Lasix daily and will transition her steroids to IV 3 times daily 03/27/2023: Given her continued slow improvement we will consult pulmonology for their assistance 2. Paroxysmal atrial flutter/elevated troponins New diagnosis. Had episode of heart rate spike to the 150s on 03/23. EKG showed atrial flutter with 2:1 conduction, heart rate 156 bpm. Resolved after approximately 10 minutes without need for rate control medication. Unfortunately had recurrence on evening of 03/23. ?[id number] score of 3 (age, sex, hypertension). Continue Lopressor 25 mg twice daily, can increase as needed. TTE ordered. We will start Eliquis today for anticoagulation. Lasix as noted below. Monitor telemetry. 03/25/2023: Rate and rhythm are regular so this is likely paroxysmal and could berelated to her hypoxia especially with ambulation. We will continue with medications and have her follow-up as an outpatient with allergy. Troponins arelikely secondary to demand ischemia and hypoxia from her COPD exacerbation 3. Concern for volume overload Mild volume overload suspected given persistent hypoxia as noted above. Likely tachycardia mediated in setting of paroxysmal atrial flutter as noted above. ? TTE pending as above. We will give 2 doses of IV Lasix 40 mg today, start p.o. Lasix 40 mg daily tomorrow morning. Monitor volume status and oxygen saturations. 03/27/2023: We will hold off on any further diuretics at this time her bicarb is climbing so we will monitor for now and await pulmonology evaluation 4. Current smoker Currently smoking around 5 cigarettes daily. Extensive smoking history. ? Nicotine patch ordered per patient request. Encouraged cessation. 5. Lung nodule ? CT chest on admit with 7 mm noncalcified nodule noted in peripheral lateral aspect of the right middle lobe. 12-month follow-up examination is recommended. Chronic medical conditions: ? Hypertension: Continue home hydrochlorothiazide. ? GERD: Continue home PPI. DVT: Eliquis Charges/Coding Visit Charges Inpatient E&M: 93891 Subs Hosp L2 03/27/23 1030 <Electronically signed by Severino Madsen MD> Cosigner Signature (if applicable): CC: ~ Signed [facility] Work Phone: 1(184) 400-610109-12-2023 Progress note Author Severino Madsen [facility] March 26, 2023 1:58pm Note Date/Time March 26, 2023 1:58pm [facility] Medical Records Department [address] [place] [address] Progress Note - Hospitalist 03/26/23 1357 MR#: [id number] Acct: [id number] Name: IMMA DOS SANTOS Rep #:[id number] : 1950 72 From: Severino moreno MD PCP: Dr. Davy Downey MD Status:ADM IN Location: [place] [address] Subjective Subjective Breathing about the same today. No new issues overnight Objective Data Objective Data Vital Signs: Vital Signs Temp Pulse Resp BP Pulse Ox O2 Del Method O2 Flow Rate 97.9 F 65 18 109/58 L 89 Nasal Cannula 6 03/26/23 09:44 03/26/23 11:00 03/26/23 11:00 03/26/23 09:51 03/26/23 12:37 03/26/23 09:47 03/26/23 12:37 Oxygen Flow Rate (L/min) [ 6 AMBULATING with Oxygen #2] Oxygen Flow Rate (L/min) [ 6 AMBULATING with Oxygen #1] Oxygen Flow Rate (L/min) [At 6 REST with Oxygen] Oxygen Flow Rate (L/min) 4 Oxygen Delivery Method Nasal Cannula Weight: 216 lb 0.848 oz Body Mass Index (BMI) 40.8 Intake & Output: Intake and Output for Last 24 Hours 03/25/23 03/26/23 03/27/23 03:59 03:59 03:59 Intake Total 1442.5 / 1442.5 542.5 / 542.5 422.5 / 422.5 Output Total 3300 / 3300 700 / 700 Balance -1857.5 / -1857.5 -157.5 / -157.5 422.5 / 422.5 Lab / Micro Data 03/26/23 04:56 03/26/23 04:56 Labs: Laboratory Results - last 24 hr 03/26/23 04:56: WBC 9.2, RBC 6.24 H, Hgb 16.3 H, Hct 56.1 H, MCV 89.9, MCH 26.1 L, MCHC 29.1 L, RDW Std Deviation 51.0 H, RDW Coeff of Piper 16.1 H, Plt Count 211, MPV 10.1, Immature Gran % (Auto) 0.400, Neut % (Auto) 67.8, Lymph % (Auto) 21.8, [place] % (Auto) 8.2, Eos % (Auto) 1.3, Baso % (Auto) 0.5, Absolute Neuts (auto) 6.3, Absolute Lymphs (auto) 2.01, Nucleated RBC % 0, Sodium 139, Potassium 3.9, Chloride 95 L, Carbon Dioxide 40.0 H, Anion Gap 4 L, BUN 32 H, Creatinine 0.96, Estim Creat Clear Calc 39.97, Est GFR (MDRD) Af Amer 73, Est GFR (MDRD) Non-Af 61, BUN/Creatinine Ratio 33.4 H, Glucose 108 H, Calcium 8.8 Micro: Microbiology 03/24/23 10:20 Sputum, Expectorated/Coughed Gram Stain - Final 03/24/23 10:20 Sputum, Expectorated/Coughed Respiratory Culture - Preliminary 03/22/23 03:10 Urine, Clean Catch Legionella Antigen - Final 03/22/23 03:10 Urine, Clean Catch Streptococcus pneumoniae Antigen (M - Final 03/21/23 16:15 Mucosa - Nasopharyngeal Respiratory Panel (PCR) - Final 03/21/23 09:58 Nasal Secretion SARS-CoV-2 & FLU Antigen (Rapid) - Final Radiography Diagnostic Testing: Radiology Impression Echocardiogram 03/24/23 00:23 Interpretation Summary Normal LV size. Left ventricular systolic function is normal. The estimated ejection fraction is 55 %. Stage 1 diastolic dysfunction. Mild concentric left ventricular hypertrophy. Ordering Physician: Ana Paula Hennessy Referring Physician: DAVY DOWNEY Performed By: Francisca Austin RCS Physical Exam Narrative General: Alert, Oriented x3, Cooperative, No apparent distress HEENT: Atraumatic, PERRLA, EOMI, Normocephalic Oral: Moist Mucosa Neck: Supple, No JVD Lungs: Diminished left greater than right, Normal air movement, No rhonchi, slight expiratory wheeze, No rales Cardiovascular: Regular rate, Regular Rhythm, Normal S1, Normal S2, No murmurs Abdomen: Soft, Non Tender, Non-Distended, No Hepato-splenomegaly Extremities: No edema, Capillary Refill Less than 3 Seconds Skin: No rashes, No breakdown Musculoskeletal: No Tenderness to Palpation of Joints or Extremities Neurological: Cranial nerves II-XII grossly intact, Motor Exam 5/5 strength throughout, Sensory exam intact to light touch and pain Psych/Mental Status: Normal Affect, Appropriate Assessment & Plan Assessment/Plan (1) COPD exacerbation: PLAN: Plan 1. Acute hypoxic respiratory failure, COPD exacerbation, community-acquired pneumonia with unclear organism History of COPD secondary to longstanding tobacco use, not on home oxygen. Diagnosed with COPD about 2 years ago. No previous history of COPD exacerbations. Suspect exacerbation is likely secondary to community-acquired pneumonia. Chest CTA showed infiltrates at the lung bases slightly worse on theright side, patchy infiltrate in the posterior aspect of the right middle lobe, emphysematous changes. Requiring 4 to 5 L nasal cannula in ED for saturations greater than 90%. Moderately improved in ED after a breathing treatment. COVIDand flu negative. Respiratory panel negative. Urine antigens negative. Unableto produce sputum culture. Failed O2 walk test on 03/23, had oxygen saturations drop below 88% on 6 L nasal cannula. ? Continue supplemental oxygen, wean as able. Will need home oxygen on discharge, will repeat walk test likely tomorrow after echo was done as noted below. Continue prednisone, ceftriaxone and azithromycin with plan for 5-day courses. Continue DuoNebs every 4 hours scheduled. Continue home long-acting inhaler. 03/25/2023: Doing well, she is slow to improve this is likely secondary to her baseline lung physiology. Will obtain an ambulatory pulse ox today to gauge where we are at in her recovery 03/26/2023: Given her slow improvement we will place her back on IV Lasix daily and will transition her steroids to IV 3 times daily 2. Paroxysmal atrial flutter/elevated troponins New diagnosis. Had episode of heart rate spike to the 150s on 03/23. EKG showed atrial flutter with 2:1 conduction, heart rate 156 bpm. Resolved after approximately 10 minutes without need for rate control medication. Unfortunately had recurrence on evening of 03/23. ?[id number] score of 3 (age, sex, hypertension). Continue Lopressor 25 mg twice daily, can increase as needed. TTE ordered. We will start Eliquis today for anticoagulation. Lasix as noted below. Monitor telemetry. 03/25/2023: Rate and rhythm are regular so this is likely paroxysmal and could berelated to her hypoxia especially with ambulation. We will continue with medications and have her follow-up as an outpatient with allergy. Troponins arelikely secondary to demand ischemia and hypoxia from her COPD exacerbation 3. Concern for volume overload Mild volume overload suspected given persistent hypoxia as noted above. Likely tachycardia mediated in setting of paroxysmal atrial flutter as noted above. ? TTE pending as above. We will give 2 doses of IV Lasix 40 mg today, start p.o. Lasix 40 mg daily tomorrow morning. Monitor volume status and oxygen saturations. 4. Current smoker Currently smoking around 5 cigarettes daily. Extensive smoking history. ? Nicotine patch ordered per patient request. Encouraged cessation. 5. Lung nodule ? CT chest on admit with 7 mm noncalcified nodule noted in peripheral lateral aspect of the right middle lobe. 12-month follow-up examination is recommended. Chronic medical conditions: ? Hypertension: Continue home hydrochlorothiazide. ? GERD: Continue home PPI. DVT: Eliquis Charges/Coding Visit Charges Inpatient E&M: 12698 Subs Hosp L2 03/26/23 8829 <Electronically signed by Severino Madsen MD> Cosigner Signature (if applicable): CC: ~ Signed [facility] Work Phone: 1(473) 555-871909-12-2023 History of Present illness Narrative* Katya Cabrera Ma - 03/26/2023 11:38 AM EDT View External Cardiology - Echo [ID [id number]] [facility] Progress note Author Severino Madsen [facility] March 25, 2023 1:22pm Note Date/Time March 25, 2023 1:18pm [facility] Medical Records Department [address] [place] [address] Progress Note - Hospitalist 03/25/23 1312 MR#: [id number] Acct: [id number] Name: MIMA DOS SANTOS Rep #:[id number] : 1950 72 From: Severino moreno MD PCP: Dr. Davy Downey MD Status:ADM IN Location: [place] [address] Subjective Subjective Doing well, no issues overnight. Breathing a little bit easier today. Objective Data Objective Data Vital Signs: Vital Signs Temp Pulse Resp BP Pulse Ox O2 Del Method O2 Flow Rate 98 F 64 14 168/82 H 91 Nasal Cannula 5 03/25/23 08:59 03/25/23 10:59 03/25/23 10:59 03/25/23 09:20 03/25/23 10:59 03/25/23 10:59 03/25/23 10:59 Oxygen Flow Rate (L/min) [ 6 AMBULATING with Oxygen #2] Oxygen Flow Rate (L/min) [ 4 AMBULATING with Oxygen #1] Oxygen Flow Rate (L/min) [At 3 REST with Oxygen] Oxygen Flow Rate (L/min) 5 Oxygen Delivery Method Nasal Cannula Weight: 216 lb 0.848 oz Body Mass Index (BMI) 40.8 Intake & Output: Intake and Output for Last 24 Hours 03/24/23 03/25/23 03/26/23 03:59 03:59 03:59 Intake Total 542.5 / 542.5 1442.5 / 1442.5 50 / 50 Output Total 3300 / 3300 700 / 700 Balance 542.5 / 542.5 -1857.5 / -1857.5 -650 / -650 Lab / Micro Data 03/22/23 05:00 03/24/23 06:12 Micro: Microbiology 03/24/23 10:20 Sputum, Expectorated/Coughed Gram Stain - Final 03/24/23 10:20 Sputum, Expectorated/Coughed Respiratory Culture - Preliminary Appears to be normal respiratory no. Further studies to follow. 03/22/23 03:10 Urine, Clean Catch Legionella Antigen - Final 03/22/23 03:10 Urine, Clean Catch Streptococcus pneumoniae Antigen (M - Final 03/21/23 16:15 Mucosa - Nasopharyngeal Respiratory Panel (PCR) - Final 03/21/23 09:58 Nasal Secretion SARS-CoV-2 & FLU Antigen (Rapid) - Final Physical Exam Narrative General: Alert, Oriented x3, Cooperative, No apparent distress HEENT: Atraumatic, PERRLA, EOMI, Normocephalic Oral: Moist Mucosa Neck: Supple, No JVD Lungs: Diminished left greater than right, Normal air movement, No rhonchi, slight expiratory wheeze, No rales Cardiovascular: Regular rate, Regular Rhythm, Normal S1, Normal S2, No murmurs Abdomen: Soft, Non Tender, Non-Distended, No Hepato-splenomegaly Extremities: No edema, Capillary Refill Less than 3 Seconds Skin: No rashes, No breakdown Musculoskeletal: No Tenderness to Palpation of Joints or Extremities Neurological: Cranial nerves II-XII grossly intact, Motor Exam 5/5 strength throughout, Sensory exam intact to light touch and pain Psych/Mental Status: Normal Affect, Appropriate Assessment & Plan Assessment/Plan (1) COPD exacerbation: PLAN: Plan 1. Acute hypoxic respiratory failure, COPD exacerbation, community-acquired pneumonia with unclear organism History of COPD secondary to longstanding tobacco use, not on home oxygen. Diagnosed with COPD about 2 years ago. No previous history of COPD exacerbations. Suspect exacerbation is likely secondary to community-acquired pneumonia. Chest CTA showed infiltrates at the lung bases slightly worse on theright side, patchy infiltrate in the posterior aspect of the right middle lobe, emphysematous changes. Requiring 4 to 5 L nasal cannula in ED for saturations greater than 90%. Moderately improved in ED after a breathing treatment. COVIDand flu negative. Respiratory panel negative. Urine antigens negative. Unableto produce sputum culture. Failed O2 walk test on 03/23, had oxygen saturations drop below 88% on 6 L nasal cannula. ? Continue supplemental oxygen, wean as able. Will need home oxygen on discharge, will repeat walk test likely tomorrow after echo was done as noted below. Continue prednisone, ceftriaxone and azithromycin with plan for 5-day courses. Continue DuoNebs every 4 hours scheduled. Continue home long-acting inhaler. 03/25/2023: Doing well, she is slow to improve this is likely secondary to her baseline lung physiology. Will obtain an ambulatory pulse ox today to gauge where we are at in her recovery 2. Paroxysmal atrial flutter/elevated troponins New diagnosis. Had episode of heart rate spike to the 150s on 03/23. EKG showed atrial flutter with 2:1 conduction, heart rate 156 bpm. Resolved after approximately 10 minutes without need for rate control medication. Unfortunately had recurrence on evening of 03/23. ?[id number] score of 3 (age, sex, hypertension). Continue Lopressor 25 mg twice daily, can increase as needed. TTE ordered. We will start Eliquis today for anticoagulation. Lasix as noted below. Monitor telemetry. 03/25/2023: Rate and rhythm are regular so this is likely paroxysmal and could berelated to her hypoxia especially with ambulation. We will continue with medications and have her follow-up as an outpatient with allergy. Troponins arelikely secondary to demand ischemia and hypoxia from her COPD exacerbation 3. Concern for volume overload Mild volume overload suspected given persistent hypoxia as noted above. Likely tachycardia mediated in setting of paroxysmal atrial flutter as noted above. ? TTE pending as above. We will give 2 doses of IV Lasix 40 mg today, start p.o. Lasix 40 mg daily tomorrow morning. Monitor volume status and oxygen saturations. 4. Current smoker Currently smoking around 5 cigarettes daily. Extensive smoking history. ? Nicotine patch ordered per patient request. Encouraged cessation. 5. Lung nodule ? CT chest on admit with 7 mm noncalcified nodule noted in peripheral lateral aspect of the right middle lobe. 12-month follow-up examination is recommended. Chronic medical conditions: ? Hypertension: Continue home hydrochlorothiazide. ? GERD: Continue home PPI. DVT: Eliquis Charges/Coding Visit Charges Inpatient E&M: 85897 Subs Hosp L2 03/25/23 1322 <Electronically signed by Severino Madsen MD> Cosigner Signature (if applicable): CC: ~ Signed [facility] Work Phone: 1(885) 138-522709-10-2023 Progress note Author Jimmy may [facility] March 24, 2023 12:31pm Note Date/Time March 24, 2023 12:25pm [facility] Medical Records Department [address] [place] [address] Progress Note - Hospitalist 03/24/23 1217 MR#: [id number] Acct: [id number] Name: MIMA DOS SANTOS Rep #:[id number] : 1950 72 From: Jimmy moreno DO PCP: Dr. Davy Downey MD Status:ADM IN Location: [place] [address] Reason for Visit Reason for Visit: Diagnoses Chronic obstructive pulmonary disease with (acute) exacerbation (03/21/23) Subjective Subjective Patient had mildly worsened hypoxia overnight, along with runs of A-fib with RVR. See Dr. Hennessy's note for further details. Patient seen at bedside this morning. Was asleep when I entered the room. Resting comfortably in bed, conversing normally, no acute distress. No increased work of breathing noted on4 L nasal cannula. Patient states that she has noticed palpitations yesterday and this morning. However, she states she has noticed palpitations at home as well for some time. She denies any fevers or chills. She denies any sputum production. She denies any leg swelling or discomfort. No other acute concerns. Objective Data Objective Data Vital Signs: Vital Signs Temp Pulse Resp BP Pulse Ox O2 Del Method O2 Flow Rate 98.4 F 84 20 H 122/67 H 93 Nasal Cannula 6 03/24/23 08:55 03/24/23 11:13 03/24/23 11:13 03/24/23 10:18 03/24/23 08:55 03/24/23 08:55 03/24/23 08:55 Oxygen Flow Rate (L/min) [ 6 AMBULATING with Oxygen #2] Oxygen Flow Rate (L/min) [ 4 AMBULATING with Oxygen #1] Oxygen Flow Rate (L/min) [At 3 REST with Oxygen] Oxygen Flow Rate (L/min) 6 Oxygen Delivery Method Nasal Cannula Weight: 98 kg Body Mass Index (BMI) 40.8 Intake & Output: Intake and Output for Last 24 Hours 03/22/23 03/23/23 03/24/23 23:59 23:59 23:59 Intake Total 1622.5 / 1622.5 422.5 / 662.5 530 / 530 Output Total 1550 / 1550 Balance 1622.5 / 1622.5 422.5 / 662.5 -1020 / -1020 Lab / Micro Data 03/22/23 05:00 03/24/23 06:12 Labs: Laboratory Results - last 24 hr 03/23/23 23:44: B-Natriuretic Peptide 508.7 H 03/24/23 06:12: Sodium 139, Potassium 4.1, Chloride 98, Carbon Dioxide 37.0 H, Anion Gap 4 L, BUN 21 H, Creatinine 1.01, Estim Creat Clear Calc 37.99, Est GFR (MDRD) Af Amer 69, Est GFR (MDRD) Non-Af 57 L, BUN/Creatinine Ratio 20.8 H, Glucose 92, Calcium 8.9, Magnesium 2.4, TSH 0.31 L, Free T4 0.92 Micro: Microbiology 03/22/23 03:10 Urine, Clean Catch Legionella Antigen - Final 03/22/23 03:10 Urine, Clean Catch Streptococcus pneumoniae Antigen (M - Final 03/21/23 16:15 Mucosa - Nasopharyngeal Respiratory Panel (PCR) - Final 03/21/23 09:58 Nasal Secretion SARS-CoV-2 & FLU Antigen (Rapid) - Final Physical Exam Const alert, oriented x3, no apparent distress, average body habitus and well nourished Constitutional Narrative: Pleasant female, laying comfortably in bed, conversing normally, no conversational dyspnea, no increased work of breathing, satting well on 4 L nasal cannula. General Appearance: cooperative, comfortable, well kempt and well developed HEENT normocephalic, head/scalp atraumatic, hearing grossly normal bilaterally, nasal mucous membranes and turbinates normal and moist oral mucous membranes Eyes PERRL, EOMs intact bilaterally and conjunctivae normal Neck full ROM, no lymphadenopathy and supple Lymph Lymphatic: no lymphadenopathy noted Chest inspection of chest normal Resp Resp Narrative: Decreased breath sounds throughout, with mild wheezes noted bilaterally in upperairways. No increased work of breathing noted. Cardio regular rate, regular rhythm, no murmurs and peripheral pulses 2+ throughout GI normal to inspection, nondistended, normoactive bowel sounds, soft to palpation,non-tender and non-distended Back/Spine normal ROM Extremity normal to inspection, full ROM and no pedal edema Skin no rashes or lesions noted Psych mental status grossly normal Assessment & Plan Assessment/Plan (1) COPD exacerbation: PLAN: Plan Patient is a 72-year-old female with history of COPD not on home O2, current smoker, hypertension and GERD who presented to [facility] ED on 03/21/2023 with worsening shortness of breath. 1. Acute hypoxic respiratory failure, COPD exacerbation, community-acquired pneumonia with unclear organism History of COPD secondary to longstanding tobacco use, not on home oxygen. Diagnosed with COPD about 2 years ago. No previous history of COPD exacerbations. Suspect exacerbation is likely secondary to community-acquired pneumonia. Chest CTA showed infiltrates at the lung bases slightly worse on theright side, patchy infiltrate in the posterior aspect of the right middle lobe, emphysematous changes. Requiring 4 to 5 L nasal cannula in ED for saturations greater than 90%. Moderately improved in ED after a breathing treatment. COVIDand flu negative. Respiratory panel negative. Urine antigens negative. Unableto produce sputum culture. Failed O2 walk test on 03/23, had oxygen saturations drop below 88% on 6 L nasal cannula. ? Continue supplemental oxygen, wean as able. Will need home oxygen on discharge, will repeat walk test likely tomorrow after echo was done as noted below. Continue prednisone, ceftriaxone and azithromycin with plan for 5-day courses. Continue DuoNebs every 4 hours scheduled. Continue home long-acting inhaler. 2. Paroxysmal atrial flutter New diagnosis. Had episode of heart rate spike to the 150s on 03/23. EKG showed atrial flutter with 2:1 conduction, heart rate 156 bpm. Resolved after approximately 10 minutes without need for rate control medication. Unfortunately had recurrence on evening of 03/23. ?[id number] score of 3 (age, sex, hypertension). Continue Lopressor 25 mg twice daily, can increase as needed. TTE ordered. We will start Eliquis today for anticoagulation. Lasix as noted below. Monitor telemetry. 3. Concern for volume overload Mild volume overload suspected given persistent hypoxia as noted above. Likely tachycardia mediated in setting of paroxysmal atrial flutter as noted above. ? TTE pending as above. We will give 2 doses of IV Lasix 40 mg today, start p.o. Lasix 40 mg daily tomorrow morning. Monitor volume status and oxygen saturations. 4. Current smoker Currently smoking around 5 cigarettes daily. Extensive smoking history. ? Nicotine patch ordered per patient request. Encouraged cessation. 5. Lung nodule ? CT chest on admit with 7 mm noncalcified nodule noted in peripheral lateral aspect of the right middle lobe. 12-month follow-up examination is recommended. 6. Elevated troponins ? Troponin trend 79 to 68 in the ED. EKG showed normal sinus rhythm, no ST changes. Suspect secondary to demand ischemia in setting of COPD exacerbation as noted above. No need for further work-up. Chronic medical conditions: ? Hypertension: Continue home hydrochlorothiazide. ? GERD: Continue home PPI. DVT prophylaxis: Lovenox CODE STATUS: Full code, verified Expected disposition: Home, 1 to 2 days Total clinical time spent by myself addressing the patient's medical issues, reviewing all the data, and collaborating with patient's care team: 35 minutes. Charges/Coding Visit Charges Inpatient E&M: 57025 Subs Hosp L2 03/24/23 1231 <Electronically signed by Jimmy Springer DO> Cosigner Signature (if applicable): CC: ~ Signed [facility] Work Phone: 1([phone]) 429-953909-10-2023 Progress note Author Ana Paula Hennessy [facility] March 24, 2023 12:23am Note Date/Time March 24, 2023 12:23am [facility] Medical Records Department [address] [place] [address] Progress Note - Hospitalist 03/24/23 0022 MR#: [id number] Acct: [id number] Name: MIMA DOS SANTOS Felicia Rep #:[id number] : 1950 72 From: Ana Paula Hennessy MD PCP: Dr. Davy Downey MD Status:ADM IN Location: [place] [address] Hospitalist Note Patient with increased oxygenation requirements with rales, admit with COPD but new onset PAFlutter with RVR. BNP obtained and ~ 500 range. Certainly with RVR could be overloaded component. Will pulse dose with lasix 40 mg IV x 1 now. ECHOrequested, mag ordered as well as TSH/FT4. 03/24/23 0023 <Electronically signed by Ana Paula Hennessy MD> Cosigner Signature (if applicable): CC: ~ Signed [facility] Work Phone: 1(651) 523-246809-09-2023 Progress note Author Jimmy Springer [facility] March 23, 2023 1:48pm Note Date/Time March 23, 2023 1:48pm [facility] Medical Records Department [address] [place] [address] Progress Note - Hospitalist 03/23/23 1342 MR#: [id number] Acct: [id number] Name: MIMA DOS SANTOS Rep #:[id number] : 1950 72 From: Jimmy moreno DO PCP: Dr. Davy Downey MD Status:ADM IN Location: [place] [address] Reason for Visit Reason for Visit: Diagnoses Chronic obstructive pulmonary disease with (acute) exacerbation (03/21/23) Subjective Subjective No acute events overnight. Patient seen at bedside this morning. Laying comfortably in bed, conversing normally, no acute distress. Still requiring 3 to 4 L nasal cannula to maintain saturations greater than 90%. She has mild shortness of breath with walking around the room. Denies any shortness of breath at rest. Denies any chest pain. States the prednisone has made her feela bit jittery, and has limited her sleep somewhat. She denies any fevers or chills. Denies any sputum production. Has been tolerating the nicotine patch well. No other acute concerns. Objective Data Objective Data Vital Signs: Vital Signs Temp Pulse Resp BP Pulse Ox O2 Del Method O2 Flow Rate 98.2 F 88 18 119/69 86 Nasal Cannula 3 03/23/23 09:10 03/23/23 09:10 03/23/23 09:10 03/23/23 09:10 03/23/23 12:54 03/23/23 09:10 03/23/23 12:54 Oxygen Flow Rate (L/min) [ 6 AMBULATING with Oxygen #2] Oxygen Flow Rate (L/min) [ 4 AMBULATING with Oxygen #1] Oxygen Flow Rate (L/min) [At 3 REST with Oxygen] Oxygen Flow Rate (L/min) 5 Oxygen Delivery Method Nasal Cannula Weight: 98 kg Body Mass Index (BMI) 40.8 Intake & Output: Intake and Output for Last 24 Hours 03/21/23 03/22/23 03/23/23 23:59 23:59 23:59 Intake Total 785 / 905 1622.5 / 1622.5 422.5 / 422.5 Balance 785 / 905 1622.5 / 1622.5 422.5 / 422.5 Lab / Micro Data 03/22/23 05:00 03/22/23 05:00 Micro: Microbiology 03/22/23 03:10 Urine, Clean Catch Legionella Antigen - Final 03/22/23 03:10 Urine, Clean Catch Streptococcus pneumoniae Antigen (M - Final 03/21/23 16:15 Mucosa - Nasopharyngeal Respiratory Panel (PCR) - Final 03/21/23 09:58 Nasal Secretion SARS-CoV-2 & FLU Antigen (Rapid) - Final Physical Exam Const alert, oriented x3, no apparent distress, average body habitus and well nourished Constitutional Narrative: Pleasant female, laying comfortably in bed, conversing normally, no conversational dyspnea, no increased work of breathing, satting well on 4 L nasal cannula. General Appearance: cooperative, comfortable, well kempt and well developed HEENT normocephalic, head/scalp atraumatic, hearing grossly normal bilaterally, nasal mucous membranes and turbinates normal and moist oral mucous membranes Eyes PERRL, EOMs intact bilaterally and conjunctivae normal Neck full ROM, no lymphadenopathy and supple Lymph Lymphatic: no lymphadenopathy noted Chest inspection of chest normal Resp Resp Narrative: Decreased breath sounds throughout, with mild wheezes noted bilaterally in upperairways. No increased work of breathing noted. Cardio regular rate, regular rhythm, no murmurs and peripheral pulses 2+ throughout GI normal to inspection, nondistended, normoactive bowel sounds, soft to palpation,non-tender and non-distended Back/Spine normal ROM Extremity normal to inspection, full ROM and no pedal edema Skin no rashes or lesions noted Psych mental status grossly normal Assessment & Plan Assessment/Plan (1) COPD exacerbation: PLAN: Plan Patient is a 72-year-old female with history of COPD not on home O2, current smoker, hypertension and GERD who presented to [facility] ED on 03/21/2023 with worsening shortness of breath. 1. Acute hypoxic respiratory failure, COPD exacerbation, community-acquired pneumonia with unclear organism History of COPD secondary to longstanding tobacco use, not on home oxygen. Diagnosed with COPD about 2 years ago. No previous history of COPD exacerbations. Suspect exacerbation is likely secondary to community-acquired pneumonia. Chest CTA showed infiltrates at the lung bases slightly worse on theright side, patchy infiltrate in the posterior aspect of the right middle lobe, emphysematous changes. Requiring 4 to 5 L nasal cannula in ED for saturations greater than 90%. Moderately improved in ED after a breathing treatment. COVIDand flu negative. Respiratory panel negative. Urine antigens negative. Unableto produce sputum culture. ? Patient unfortunately failed O2 walk test on 03/23, had oxygen saturations drop below 88% on 6 L nasal cannula. We will plan to repeat tomorrow. Continue prednisone, ceftriaxone and azithromycin with plan for 5-day courses. Continue DuoNebs every 4 hours scheduled. Continue home long-acting inhaler. 2. Paroxysmal atrial flutter New diagnosis. Had episode of heart rate spike to the 150s on 03/23. EKG showed atrial flutter with 2:1 conduction, heart rate 156 bpm. Episode notably occurred shortly after breathing treatment and as patient was exerting herself. Resolved after approximately 10 minutes without need for rate control medication. ?We will start p.o. Lopressor 25 mg twice daily. We will hold on anticoagulation at this time. Monitor telemetry. 3. Current smoker Currently smoking around 5 cigarettes daily. Extensive smoking history. ? Nicotine patch ordered per patient request. Encouraged cessation. 4. Lung nodule ? CT chest on admit with 7 mm noncalcified nodule noted in peripheral lateral aspect of the right middle lobe. 12-month follow-up examination is recommended. 5. Elevated troponins ? Troponin trend 79 to 68 in the ED. EKG showed normal sinus rhythm, no ST changes. Suspect secondary to demand ischemia in setting of COPD exacerbation as noted above. No need for further work-up. Chronic medical conditions: ? Hypertension: Continue home hydrochlorothiazide. ? GERD: Continue home PPI. DVT prophylaxis: Lovenox CODE STATUS: Full code, verified Expected disposition: Home, 1 to 2 days Total clinical time spent by myself addressing the patient's medical issues, reviewing all the data, and collaborating with patient's care team: 35 minutes. Charges/Coding Visit Charges Inpatient E&M: 96034 Subs Hosp L2 03/23/23 1348 <Electronically signed by Jimmy Springer DO> Cosigner Signature (if applicable): CC: ~ Signed [facility] Work Phone: 1(617) 656-598609-08-2023 Progress note Author Jimmy Springer [facility] March 22, 2023 1:13pm Note Date/Time March 22, 2023 1:13pm [facility] Medical Records Department [address] [facility] [place] [address] Progress Note - Hospitalist 03/22/23 1310 MR#: [id number] Acct: [id number] Name: MIMA DOS SANTOS Rep #:[id number] : 1950 72 From: Jimmy moreno DO PCP: Dr. Davy Downey MD Status:ADM IN Location: [place] [address] Reason for Visit Reason for Visit: Diagnoses Chronic obstructive pulmonary disease with (acute) exacerbation (03/21/23) Subjective Subjective No acute events overnight. Patient seen at bedside this morning. Laying comfortably in bed, conversing normally, no acute distress. Breathing comfortably on 4 L nasal cannula, satting in low 90s, no increased work of breathing noted. Patient states she continues to feel more fatigued than her usual, but otherwise has no acute concerns. States that her breathing does not feel labored at this point. Denies any fevers or chills. Denies any chest pain. Denies any lightheadedness or dizziness. Has been able to ambulate around the room without issue. No other acute concerns. Objective Data Objective Data Vital Signs: Vital Signs Temp Pulse Resp BP Pulse Ox O2 Del Method O2 Flow Rate 97.7 F L 85 20 H 130/61 H 93 Nasal Cannula 6 03/22/23 10:15 03/22/23 10:15 03/22/23 10:15 03/22/23 10:15 03/22/23 10:15 03/22/23 10:15 03/22/23 10:15 Oxygen Flow Rate (L/min) 6 Oxygen Delivery Method Nasal Cannula Weight: 98 kg Body Mass Index (BMI) 40.8 Intake & Output: Intake and Output for Last 24 Hours 03/20/23 03/21/23 03/22/23 23:59 23:59 23:59 Intake Total 785 / 905 902.5 / 902.5 Balance 785 / 905 902.5 / 902.5 Lab / Micro Data 03/22/23 05:00 03/22/23 05:00 Labs: Laboratory Results - last 24 hr 03/21/23 12:45: Troponin I High Sens 68 H 03/22/23 03:10: Urine Color Yellow, Urine Clarity Clear, Urine pH 5.0, Ur Specific [place] 1.020, Urine Protein 30 H, Urine Glucose (UA) Normal, Urine Ketones Negative, Urine Occult Blood 10 H, Urine Nitrite Negative, Urine Bilirubin Negative, Urine Urobilinogen Normal, Ur Leukocyte Esterase 25 H, UrineRBC 0 SEEN, Urine WBC 0-5 SEEN, Ur Squamous Epith Cells 0-5 SEEN, Urine Bacteria2+, Urine Mucus 0 SEEN 03/22/23 05:00: WBC 10.3, RBC 6.07 H, Hgb 15.7 H, Hct 55.1 H, MCV 90.8, MCH 25.9L, MCHC 28.5 L, RDW Std Deviation 50.9 H, RDW Coeff of [place] 15.6 H, Plt Count 256, MPV 10.8, Sodium 138, Potassium 4.2, Chloride 102, Carbon Dioxide 33.0 H, Anion Gap 3 L, BUN 22 H, Creatinine 0.91, Estim Creat Clear Calc 42.17, Est GFR (MDRD) Af Amer 78, Est GFR (MDRD) Non-Af 65, BUN/Creatinine Ratio 24.3 H, Glucose 140 H, Calcium 9.0 Micro: Microbiology 03/22/23 03:10 Urine, Clean Catch Legionella Antigen - Final 03/22/23 03:10 Urine, Clean Catch Streptococcus pneumoniae Antigen (M - Final 03/21/23 16:15 Mucosa - Nasopharyngeal Respiratory Panel (PCR) - Final 03/21/23 09:58 Nasal Secretion SARS-CoV-2 & FLU Antigen (Rapid) - Final Physical Exam Const alert, oriented x3, no apparent distress, average body habitus and well nourished Constitutional Narrative: Pleasant female, laying comfortably in bed, conversing normally, no conversational dyspnea, no increased work of breathing, satting well on 4 L nasal cannula. General Appearance: cooperative, comfortable, well kempt and well developed HEENT normocephalic, head/scalp atraumatic, hearing grossly normal bilaterally, nasal mucous membranes and turbinates normal and moist oral mucous membranes Eyes PERRL, EOMs intact bilaterally and conjunctivae normal Neck full ROM, no lymphadenopathy and supple Lymph Lymphatic: no lymphadenopathy noted Chest inspection of chest normal Resp Resp Narrative: Decreased breath sounds throughout, with mild wheezes noted bilaterally in upperairways. No increased work of breathing noted. Cardio regular rate, regular rhythm, no murmurs and peripheral pulses 2+ throughout GI normal to inspection, nondistended, normoactive bowel sounds, soft to palpation,non-tender and non-distended Back/Spine normal ROM Extremity normal to inspection, full ROM and no pedal edema Skin no rashes or lesions noted Psych mental status grossly normal Assessment & Plan Assessment/Plan (1) COPD exacerbation: PLAN: Plan Patient is a 72-year-old female with history of COPD not on home O2, current smoker, hypertension and GERD who presented to [facility] ED on 03/21/2023 with worsening shortness of breath. 1. Acute hypoxic respiratory failure, COPD exacerbation, community-acquired pneumonia with unclear organism History of COPD secondary to longstanding tobacco use, not on home oxygen. Diagnosed with COPD about 2 years ago. No previous history of COPD exacerbations. Suspect exacerbation is likely secondary to community-acquired pneumonia. Chest CTA showed infiltrates at the lung bases slightly worse on theright side, patchy infiltrate in the posterior aspect of the right middle lobe, emphysematous changes. Requiring 4 to 5 L nasal cannula in ED for saturations greater than 90%. Moderately improved in ED after a breathing treatment. COVIDand flu negative. Respiratory panel negative. ?Continue prednisone, ceftriaxone and azithromycin with plan for 5-day courses. Wean supplemental oxygen as able, goal saturations greater than 88%. Patient very likely will require home O2 evaluation prior to discharge. Follow-up sputum culture, urine antigens. DuoNebs every 4 hours scheduled for now. Continue home long-acting inhaler. 2. Current smoker Currently smoking around 5 cigarettes daily. Extensive smoking history. ? Nicotine patch ordered per patient request. Encouraged cessation. 3. Lung nodule ? CT chest on admit with 7 mm noncalcified nodule noted in peripheral lateral aspect of the right middle lobe. 12-month follow-up examination is recommended. 4. Elevated troponins ? Troponin trend 79 to 68 in the ED. EKG showed normal sinus rhythm, no ST changes. Suspect secondary to demand ischemia in setting of COPD exacerbation as noted above. No need for further work-up. Chronic medical conditions: ? Hypertension: Continue home hydrochlorothiazide. ? GERD: Continue home PPI. DVT prophylaxis: Lovenox CODE STATUS: Full code, verified Expected disposition: Home, 1 to 2 days Total clinical time spent by myself addressing the patient's medical issues, reviewing all the data, and collaborating with patient's care team: 35 minutes. Charges/Coding Visit Charges Inpatient E&M: 19050 Subs Hosp L2 03/22/23 1313 <Electronically signed by Jimmy Springer DO> Cosigner Signature (if applicable): CC: ~ Signed [facility] Work Phone: 1(988) 639-549309-08-2023 History of Present illness Narrative* Gianna Murry Ma - 03/22/2023 8:27 AM EDT View External Imaging - CT Scan [ID [id number]] Scan on 03/21/2023 6:23 PM by Provider, FOUZIA Gutierres * Katya Cabrera Ma - 03/21/2023 4:18 PM EDT View External Imaging - X-ray [ID [id number]] [facility] History and physical note Author [facility] March 21, 2023 4:31pm Note Date/Time March 21, 2023 12:33pm [facility] Medical Records Department [address] [place] [address] H&P Exam - Hospitalist 03/21/23 1231 MR#: [id number] Acct: [id number] Name: MIMA DOS SANTOS Rep #:[id number] : 1950 72 From: Jimmy moreno DO PCP: Dr. Dvay Downey MD Status:ADM IN Location: [facility] [id number] HPI - General General Date of Admission: 03/21/23 Date of Service: 03/21/23 Chief Complaint: Worsening shortness of breath HPI Narrative MIMA DOS SANTOS, is a 72 F with history of COPD not on home O2, current smoker, hypertension and GERD who presented to [facility] ED on 03/21/2023with worsening shortness of breath. Patient seen at bedside in the ED, son present. Patient had just received a breathing treatment and was feeling significantly improved. Breathing comfortably on 4 to 5 L nasal cannula, no increased work of breathing noted. Patient states she was diagnosed with COPD about 2 years ago, has never had an acute exacerbation of COPD like this before. She does not wear home oxygen. She is a current smoker, has been trying to cutback and is currently smoking about 5 cigarettes daily. Has extensive smoking history. States she has had progressive dyspnea with worsening wheezing over the past week. Has been taking her long-acting inhaler as prescribed, and has been using her rescue inhaler more frequently with some relief. Patient denies any fevers or chills. Denies any known sick contacts recently. She denies any chest pain. Denies abdominal pain, nausea or vomiting. No other acute concerns. Vitals in ED notable for mild tachycardia with heart rate in 90s to 100s (normalsinus rhythm), O2 saturations in low 90s on 4 L nasal cannula, respiration rate around 20, mild hypertension, afebrile. Labs notable for normal white blood cell count of 6, hemoglobin 16, normal BMP, troponins 79 down to 68. Chest CTA showed infiltration of the lung bases slightly worse on the right side, patchy infiltrate in the posterior aspect of the right middle lobe, emphysematous changes, no evidence of pulmonary embolism. PFSH Medical History COPD (chronic obstructive pulmonary disease) GERD (gastroesophageal reflux disease) Hypertension Smoker Home Medications hydrochlorothiazide 12.5 mg capsule 12.5 mg PO DAILY BP 04/05/20 [History Last Taken 03/21/23] omeprazole 20 mg capsule,delayed release 40 mg PO DAILY GERD 04/05/20 [History Last Taken 03/21/23] albuterol sulfate 90 mcg/actuation aerosol inhaler 2 puff inhalation [id number] ##1 04/08/20 [Rx Last Taken 03/21/23] cetirizine 10 mg tablet (All Day Allergy (cetirizine)) 10 mg PO DAILY 03/21/23 [History Last Taken 03/21/23] fluticasone fur. 100 mcg-umeclid 62.5 mcg-vilant 25 mcg inhalat.powder (Trelegy Ellipta) 1 inh inhalation Q24H 03/21/23 [History Last Taken 03/21/23] Allergy/AdvReac Type Severity Reaction Status Date / Time shellfish derived Allergy Other Verified 03/21/23 09:34 Surgical History (Updated 03/21/23 @ 15:05 by Claudia Lu) History of appendectomy Social History Smoking Status: Current every day smoker tobacco type: cigarettes Vital Signs Vital Signs Vital Signs: 03/21/23 09:34 03/21/23 09:44 03/21/23 09:44 Temperature 97.6 F L Temperature Source Temporal Pulse Rate 80 Respiratory Rate 16 Respiratory Effort Short of Breath Respiratory Pattern Tachypnea Blood Pressure 149/76 H Blood Pressure Mean 100 Pulse Ox 90 87 Oxygen Delivery Method Nasal Cannula Nasal Cannula Nasal Cannula Oxygen Flow Rate (L/min) 3 5 6 03/21/23 09:54 03/21/23 11:57 03/21/23 12:00 Temperature Temperature Source Pulse Rate 80 85 Respiratory Rate 20 H 24 H Respiratory Effort Respiratory Pattern Blood Pressure 133/74 H Blood Pressure Mean 84 Pulse Ox 94 Oxygen Delivery Method Oxygen Flow Rate (L/min) 03/21/23 12:10 03/21/23 12:15 Temperature Temperature Source Pulse Rate 138 H 100 Respiratory Rate 17 15 Respiratory Effort Respiratory Pattern Blood Pressure 148/101 H Blood Pressure Mean 114 Pulse Ox 92 94 Oxygen Delivery Method Oxygen Flow Rate (L/min) Weight Weight: 97.205 kg Body Mass Index (BMI) 40.4 Physical Exam Const alert, oriented x3, no apparent distress, average body habitus and well nourished Constitutional Narrative: Pleasant female, sitting comfortably in bed, conversing normally, no conversational dyspnea, no increased work of breathing, satting well on 4 L nasal cannula. General Appearance: cooperative, comfortable, well kempt and well developed HEENT normocephalic, head/scalp atraumatic, hearing grossly normal bilaterally, nasal mucous membranes and turbinates normal and moist oral mucous membranes Eyes PERRL, EOMs intact bilaterally and conjunctivae normal Neck full ROM, no lymphadenopathy and supple Lymph Lymphatic: no lymphadenopathy noted Chest inspection of chest normal Resp Resp Narrative: Decreased breath sounds throughout, with mild wheezes noted bilaterally in upperairways. No increased work of breathing noted. Cardio regular rate, regular rhythm, no murmurs and peripheral pulses 2+ throughout GI normal to inspection, nondistended, normoactive bowel sounds, soft to palpation,non-tender and non-distended Back/Spine normal ROM Extremity normal to inspection, full ROM and no pedal edema Skin no rashes or lesions noted Psych mental status grossly normal Results Lab / Micro Data 03/21/23 09:58 03/21/23 09:58 Labs: Laboratory Results - last 24 hr 03/21/23 09:58: WBC 6.1, RBC 6.01 H, Hgb 16.0 H, Hct 54.2 H, MCV 90.2, MCH 26.6 L, MCHC 29.5 L, RDW Std Deviation 50.5 H, RDW Coeff of Piper 15.3 H, Plt Count 238, MPV 10.7, Immature Gran % (Auto) 0.500, Neut % (Auto) 65.7, Lymph % (Auto) 20.8, [place] % (Auto) 9.2, Eos % (Auto) 2.6, Baso % (Auto) 1.2 H, Absolute Neuts (auto) 4.0, Absolute Lymphs (auto) 1.26, Nucleated RBC % 0, PT 13.8, INR 1.1, APTT 28.2, D- Dimer Quant (PE/DVT) 0.95 H*, Sodium 140, Potassium 3.7, Chloride 103, Carbon Dioxide 32.0, Anion Gap 5, BUN 23 H, Creatinine 1.13 H, Estim Creat Clear Calc 33.96, Est GFR (MDRD) Af Amer 61, Est GFR (MDRD) Non-Af 50 L, BUN/Creatinine Ratio 20.4 H, Glucose 106, Calcium 8.7, Total Bilirubin 0.70, AST44 H, ALT 101 H, Alkaline Phosphatase 92, Troponin I High Sens 79 H, Total Protein 6.9, Albumin 3.0 L, Globulin 3.9, Albumin/Globulin Ratio 0.8 L Micro: Microbiology 03/21/23 09:58 Nasal Secretion SARS-CoV-2 & FLU Antigen (Rapid) - Final Radiology Impression Chest X-Ray 03/21/23 09:44 IMPRESSION: Increased markings at the lung bases with areas of confluence which have progressed as compared to prior study. Findings suggestive of bibasilar scarring superimposed on mild vascular congestion. Electronically Signed: Cameron Nation MD at 10:37 EDT , Chest CTA 03/21/23 10:32 IMPRESSION: No evidence of pulmonary embolism. Emphysematous changes. Infiltration at the lung bases slightly worse on the right side. Patchy infiltrate in the posterior aspect of the right middle lobe. 7.1 mm noncalcified nodule in the peripheral lateral aspect of the right middle lobe. Twelve-month follow-up examination is recommended. Electronically Signed: Cameron Nation MD at 11:52 EDT , Assessment & Plan Assessment/Plan (1) COPD exacerbation: PLAN: Plan Patient is a 72-year-old female with history of COPD not on home O2, current smoker, hypertension and GERD who presented to [facility] ED on 03/21/2023 with worsening shortness of breath. 1. Acute hypoxic respiratory failure, COPD exacerbation, community-acquired pneumonia with unclear organism History of COPD secondary to longstanding tobacco use, not on home oxygen. Diagnosed with COPD about 2 years ago. No previous history of COPD exacerbations. Suspect exacerbation is likely secondary to community-acquired pneumonia. Chest CTA showed infiltrates at the lung bases slightly worse on theright side, patchy infiltrate in the posterior aspect of the right middle lobe, emphysematous changes. Requiring 4 to 5 L nasal cannula in ED for saturations greater than 90%. Moderately improved in ED after a breathing treatment. COVIDand flu negative. ? Admit to cardiac telemetry bed in PCU. Treat COPD exacerbation with prednisone, ceftriaxone and azithromycin for 5-day courses. Wean supplemental oxygen as able, goal saturations greater than 88%. May require home O2 evaluation prior to discharge. Sputum culture, respiratory panel, urine antigens ordered. DuoNebs every 4 hours scheduled for now. Continue home long-acting inhaler. 2. Current smoker Currently smoking around 5 cigarettes daily. Extensive smoking history. ? Nicotine patch ordered per patient request. Encouraged cessation. 3. Lung nodule ? CT chest on admit with 7 mm noncalcified nodule noted in peripheral lateral aspect of the right middle lobe. 12-month follow-up examination is recommended. 4. Elevated troponins ? Troponin trend 79 to 68 in the ED. EKG showed normal sinus rhythm, no ST changes. Suspect secondary to demand ischemia in setting of COPD exacerbation as noted above. No need for further work-up. Chronic medical conditions: ? Hypertension: Continue home hydrochlorothiazide. ? GERD: Continue home PPI. DVT prophylaxis: Lovenox CODE STATUS: Full code, verified Expected disposition: Home, 2 to 3 days Total clinical time spent by myself addressing the patient's medical issues, reviewing all the data, and collaborating with patient's care team: 35 minutes. Charges/Coding Visit Charges Inpatient E&M: 26480 Init Hosp L2 03/21/23 1631 <Electronically signed by Jimmy Springer DO> Cosigner Signature (if applicable): CC: Dr. Jimmy Springer DO; Dr. Davy Downey MD~ Signed [facility] Work Phone: 1(763) 504-160909-07-2023 Discharge summary Author Earl Hutson [facility] March 21, 2023 3:16pm Note Date/Time March 21, 2023 9:48am [facility] Medical Records Department [address] [place] [id number] Emergency Department Summary 03/21/23 MR#: [id number] Acct: [id number] Name: MIMA DOS SANTOS Rep #:[id number] : 1950 72 From: Earl Bennett PCP: Dr. Davy Downey MD Status:ADM IN Location: [place] [address] HPI History of Present Illness Chief Complaint: Shortness of Breath Informant: patient Narrative Narrative: Progressive dyspnea wheeze over the past week. History of COPD tobacco history up to a pack per day. Reported stopped yesterday. No history of diabetes. Patient states she was on oxygen 2 years ago she was diagnosed with pneumonia with hospitalization. He was on it for short-term. Chest tightness. States with the weather changes it is worsened over the last week. Headache chronic myalgias. COVID vaccinated with no COVID infections in the past. Denies recenttravel or surgeries. No history of PE or DVT. Prior similar symptoms: Yes PFSH PFSH Medical History COPD (chronic obstructive pulmonary disease) GERD (gastroesophageal reflux disease) Hypertension Smoker Home Medications hydrochlorothiazide 12.5 mg capsule 12.5 mg PO DAILY BP 04/05/20 [History Last Taken 03/21/23] omeprazole 20 mg capsule,delayed release 40 mg PO DAILY GERD 04/05/20 [History Last Taken 03/21/23] albuterol sulfate 90 mcg/actuation aerosol inhaler 2 puff inhalation [id number] ##1 04/08/20 [Rx Last Taken 03/21/23] cetirizine 10 mg tablet (All Day Allergy (cetirizine)) 10 mg PO DAILY 03/21/23 [History Last Taken 03/21/23] fluticasone fur. 100 mcg-umeclid 62.5 mcg-vilant 25 mcg inhalat.powder (Trelegy Ellipta) 1 inh inhalation Q24H 03/21/23 [History Last Taken 03/21/23] Allergy/AdvReac Type Severity Reaction Status Date / Time shellfish derived Allergy Other Verified 03/21/23 09:34 Surgical History (Updated 03/21/23 @ 15:05 by Claudia Lu) History of appendectomy Social History Smoking Status: Current every day smoker tobacco type: cigarettes ROS ROS ED Constitutional Constitutional ED: Denies chills, fever(s) or sweats Eyes Eyes: Denies change in vision ENT ENT ED: Denies dysphagia or sore throat Cardiovascular Cardiovascular: Denies chest pain, leg edema, palpitations or racing heartbeat Respiratory/Chest Respiratory/Chest: Reports cough and dyspnea; Denies dyspnea on exertion Gastrointestinal Gastrointestinal: Denies abdominal pain, diarrhea, nausea or vomiting Genitourinary Genitourinary ED: Denies dysuria, hematuria or urinary frequency Musculoskeletal Musculoskeletal: Denies back pain, extremity pain or neck pain Integumentary Denies rash or wounds Neurologic Neurologic: Reports headache(s); Denies paresthesias or weakness EXAM Physical Exam Const Vital Signs: 03/21/23 09:34 03/21/23 09:44 03/21/23 09:44 Temperature 97.6 F L Temperature Source Temporal Pulse Rate 80 Respiratory Rate 16 Respiratory Effort Short of Breath Respiratory Pattern Tachypnea Blood Pressure 149/76 H Blood Pressure Mean 100 Pulse Ox 90 87 Oxygen Delivery Method Nasal Cannula Nasal Cannula Nasal Cannula Oxygen Flow Rate (L/min) 3 5 6 03/21/23 09:54 03/21/23 11:57 03/21/23 12:00 Temperature Temperature Source Pulse Rate 80 85 Respiratory Rate 20 H 24 H Respiratory Effort Respiratory Pattern Blood Pressure 133/74 H Blood Pressure Mean 84 Pulse Ox 94 Oxygen Delivery Method Oxygen Flow Rate (L/min) 03/21/23 12:10 03/21/23 12:15 03/21/23 12:20 Temperature Temperature Source Pulse Rate 138 H 100 89 Respiratory Rate 17 15 14 Respiratory Effort Respiratory Pattern Blood Pressure 148/101 H Blood Pressure Mean 114 Pulse Ox 92 94 94 Oxygen Delivery Method Oxygen Flow Rate (L/min) 03/21/23 12:30 03/21/23 12:40 Temperature Temperature Source Pulse Rate 89 97 Respiratory Rate 16 17 Respiratory Effort Respiratory Pattern Blood Pressure 170/95 H Blood Pressure Mean 118 Pulse Ox 92 91 Oxygen Delivery Method Oxygen Flow Rate (L/min) Positive well nourished and well developed General Appearance ED: well developed and NAD HEENT Reports moist mucous membranes normocephalic and atraumatic Eyes PERRL, EOMs intact bilaterally and conjunctivae normal General Eye ED: Yes normal appearance of both eyes Neck no lymphadenopathy, supple and no meningeal signs General: Negative for tenderness Chest Wall Chest: Negative for tenderness Resp Resp Narrative: Decreased breath sounds at bases there is mild expiratory wheezing, no distress Effort and Inspection: symmetric chest movement; Negative for respiratory distress Cardio regular rate, regular rhythm and no murmurs Peripheral Pulses: pulses 2+ throughout GI normal to inspection, nondistended, normoactive bowel sounds and non-tender Palpation: Negative for guarding or rebound tenderness present Back/Spine no CVA tenderness and no thoracic nor lumbar tenderness Extremity normal to inspection General Extremety ED: Negative for edema or tenderness General Extremity: Negative for edema Neuro oriented x3, CN's II-XII intact bilaterally and no sensory deficits noted Sensorium / Orientation: awake and alert Skin no rashes or lesions noted and no wounds MDM MDM MDM Narrative Medical decision making narrative: Interventions / MDM: Differential diagnosis: COPD exacerbation, pneumonia, chest pain, ACS Diagnosis considered but do not suspect: PE however CT chest negative. My EKG interpretation: Sinus rate of 76, no ST or T wave changes. Imaging independently reviewed and interpreted by myself: 1 view chest x-ray: Noinfiltrates, question effusion. Also read by radiology. CTA chest: No PE. Right-sided patchy infiltrate noted per radiology. External documents reviewed: N/A Test considered but not ordered:N/A ED course: Ambulated in the department 60% on room air. She is in no respiratory distress, she is placed on oxygen. History of COPD has wheezing. Aerosol treatment steroids. Labs were ordered. Tylenol for headache. No meningismal findings. 1050: Currently on 4.5 L of oxygen 95% on room air. Breathing and chest tightness improved aerosol treatments troponin did return at 78. EKG with no ischemic findings. D-dimer was elevated. COVID negative. CTA chest ordered for further evaluation. 1155: CTA chest negative for PE however patchy infiltrates noted. 7.1 mm noduleright side. Patient covered with Rocephin and Zithromax IV. Aspirin ordered for her elevated troponin, pending 2-hour troponin, is likely type II strain. Will discuss with hospitalist service for admission. Discussed with hospitalist Dr. Springer for admission to PCU. Re-evaluation: stable, on 4.5 L nasal cannula. Disposition discussed with patient/family/significant other: Patient Case discussed with consulting clinician: Hospitalist This note was generated with [employer] dictation software. It may contain incorrectwords, spelling, and punctuation that were not noted in checking the note beforesigning. Lab Data Attestation: I reviewed the patient's lab results. Labs: Laboratory Results - last 24 hr 03/21/23 09:58 WBC 6.1 RBC 6.01 H Hgb 16.0 H Hct 54.2 H MCV 90.2 MCH 26.6 L MCHC 29.5 L RDW Std Deviation 50.5 H RDW Coeff of Piper 15.3 H Plt Count 238 MPV 10.7 Immature Gran % (Auto) 0.500 Neut % (Auto) 65.7 Lymph % (Auto) 20.8 [place] % (Auto) 9.2 Eos % (Auto) 2.6 Baso % (Auto) 1.2 H Absolute Neuts (auto) 4.0 Absolute Lymphs (auto) 1.26 Nucleated RBC % 0 PT 13.8 INR 1.1 APTT 28.2 D-Dimer Quant (PE/DVT) 0.95 H* Sodium 140 Potassium 3.7 Chloride 103 Carbon Dioxide 32.0 Anion Gap 5 BUN 23 H Creatinine 1.13 H Estim Creat Clear Calc 33.96 Est GFR (MDRD) Af Amer 61 Est GFR (MDRD) Non-Af 50 L BUN/Creatinine Ratio 20.4 H Glucose 106 Calcium 8.7 Total Bilirubin 0.70 AST 44 H ALT 101 H Alkaline Phosphatase 92 Troponin I High Sens 79 H Total Protein 6.9 Albumin 3.0 L Globulin 3.9 Albumin/Globulin Ratio 0.8 L Radiography Diagnostic Testing: Clinical Impression(s) from Imaging Studies Chest X-Ray 03/21/23 09:44 IMPRESSION: Increased markings at the lung bases with areas of confluence which have progressed as compared to prior study. Findings suggestive of bibasilar scarring superimposed on mild vascular congestion. Electronically Signed: Cameron Nation MD at 10:37 EDT , Chest CTA 03/21/23 10:32 IMPRESSION: No evidence of pulmonary embolism. Emphysematous changes. Infiltration at the lung bases slightly worse on the right side. Patchy infiltrate in the posterior aspect of the right middle lobe. 7.1 mm noncalcified nodule in the peripheral lateral aspect of the right middle lobe. Twelve-month follow-up examination is recommended. Electronically Signed: Cameron Nation MD at 11:52 EDT , Discharge Plan Dx/Rx/DC Orders Clinical Impression: Elevated troponin, Hypoxia, COPD exacerbation, Pneumonia Disposition Disposition: Acute Care Hospital [facility] Discharge Date/Time: 03/21/23 14:35 What to do if you have Problems For any increased pain, shortness of breath, bleeding, nausea or vomiting, chestpain, or any unexpected problems, contact your Primary Care Provider. Call [facility] ([phone]) or report to the closest Emergency Room. Call 911 if necessary. 03/21/23 1516 <Electronically signed by Earl Bennett> Cosigner Signature (if applicable): CC: Dr. Davy Downey MD ~ Signed [facility] Work Phone: 1(786) 719-953109-07-2023 History of Present illness Narrative* Fahad Webber, CARI.[employer]BER/[employer]GEANT - 03/21/2023 8:47 AM EDT Chief Complaint No chief complaint on file. HPI Miam Dos Santos is a 72 year old female who presents here today for Above Complaints.. Patient presents for evaluation for continued oxygen use. Patient had pneumonia while back and was given oxygen which she reports she only used for about a week and a half and concentrator was pickedup in December. Patient reports that during this last hot spell she has become more short of breath andstarted taking her pulse ox at home which slowly has been decreasing. Patient currently reporting SOB and lightheadedness. Patient currently showing O2 level of 78-80% on room air. Past medical history, appointments, medications, allergies reviewed. 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 COPD (chronic obstructive pulmonary disease) (HCC) 10/24/2018 Suspected- patient not wanting to do PFT but willing to trial inhalers Diverticulosis of colon without diverticulitis 03/28/2018 Elevated fasting glucose 01/18/2021 Essential hypertension 05/20/2020 Gastritis GERD without esophagitis 05/28/2019 History of Helicobacter pylori infection 03/28/2018 Obesity, Class II, BMI 35-39.9 10/05/2021 Osteoporosis Other chronic sinusitis 10/24/2018 Smoker 09/01/2015 Started at age 15 and up to 1PPD Vitamin D deficiency 01/21/2020 Previous Surgical History PAST SURGICAL HISTORY Procedure Laterality Date APPENDECTOMY COLONOSCOPY FLX DX W/COLLJ SPEC WHEN PFRMD 03/28/2018 Colonoscopy ESOPHAGOGASTRODUODENOSCOPY TRANSORAL DIAGNOSTIC 03/28/2018 EGD PAST SURGICAL HISTORY OF 1992 [facility] Family History FAMILY HISTORY Problem Relation Age of Onset Stroke Mother Alzheimer's Disease Father Diabetes Sister Diabetes Sister Hypertension Sister Brain Cancer Sister Diabetes Brother Hypertension Brother Alzheimer's Disease Paternal Grandmother Patient Allergies ALLERGIES Allergen Reactions Sulfites Rash Shrimp Vomiting Current Medications Current Outpatient Medications on File Prior to Visit Medication Sig omeprazole (PRILOSEC) 20 mg capsule Take 2 capsules by mouth once daily. hydroCHLOROthiazide 12.5 mg capsule Take 1 capsule by mouth once daily. cxqttzfdmju-lohxigtsw-lvbmmasa (TRELEGY ELLIPTA) 100-62.5-25 mcg inhalation powder Inhale 1 Puff asinstructed once daily. albuterol HFA (VENTOLIN HFA) 90 mcg/actuation inhaler Inhale 2 Puffs as instructed every 4 hours asneeded for wheezing/shortness of breath. cholecalciferol, Vitamin D3, (VITAMIN D3) 1,250 mcg (50,000 unit) cap capsule Take 1 capsule by mouth every 2 weeks. No current facility-administered medications on file prior to visit. Social History Social History Tobacco Use Smoking status: Every Day Packs/day: 1.00 Years: 50.00 Additional pack years: 0.00 Total pack years: 50.00 Types: Cigarettes Smokeless tobacco: Never Vaping Use Vaping Use: Never used Substance Use Topics Alcohol use: Yes Comment: occasional Drug use: No Review of Symptoms REVIEW OF SYSTEMS SEE HPI EXAM: BP 136/84 Pulse 96 Resp 14 Wt 97.5 kg (215 lb) SpO2 (!) 74% BMI 39.64 kg/m General Appearance: Well appearing, alert, in no acute distress, well-hydrated, well nourished.. Lungs: Lungs with wheezes throughout, audible. Harsh nonproductive cough. Heart: RRR without murmur, gallop, or rubs. No ectopy. Health Maintenance List URINE ALBUMIN:CREATININE RATIO Never done DILATED RETINAL EXAM Never done DIABETIC FOOT EXAM Never done LUNG CANCER SCREENING Never done COVID-19 VACCINE(4 - Moderna series) due on 06/20/2021 INFLUENZA(1) due on 03/15/2023 COLORECTAL CANCER SCREENING due on 03/28/2023 DTAP,TDAP,TD(1 - Tdap) due on 10/25/2023 SHINGRIX VACCINE(1 of 2) due on 10/25/2023 HBA1C due on 04/27/2023 ANNUAL PCP TEAM CHRONIC DISEASE VISIT due on 10/25/2023 BP CONTROLLED (<130/80) due on 10/25/2023 MAMMOGRAM due on 10/27/2023 LDL CHOLESTEROL due on 10/27/2023 BONE DENSITY Completed SPIROMETRY Completed ADVANCE DIRECTIVE DISCUSSION Completed DEPRESSION ASSESSMENT Completed HEPATITIS C SCREENING Completed PNEUMOCOCCAL: 65+ Completed ALPHA-1 ANTITRYPSIN DEFICIENCY SCREENING Discontinued ASSESSMENT/PLAN: 1. SOB (shortness of breath) - ICD9: 786.05, ICD10: R06.02 -Patient placed on oxygen 3L n/c 02 up to 87%. Patient instructed to proceed to ER, refusing transport by EMS. Patient called daughter and brother to transport her, patient able to contact ex-husbandto transport. Fahad Webber APRN.LANCE CREWMEMBER/MLRS SERGEANT documented in this encounterDet[facility]09-06-2023 Miscellaneous Notes* Telephone Encounter - Davy Downey MD - 03/20/2023 5:18 PM EDT Noted. * Telephone Encounter - Jackie Granados MA - 03/20/2023 9:47 AM EDT Contacted patient and she indicated that had had pnuemonia some time back and was [place] [facility]. Patient was wanting this oxygen renew to [place]. I asked patient that we need to have her come to be evaluated for her breathing. She indicated thatshe has been short of breath and having some lightheadedness and feels that her oxygen level is down. No chest pain. I scheduled patient tomorrow with Fahad for 40 minutes for patient to be evaluated to determine if oxygen at home is needed. Jackie Granados MA * Telephone Encounter - Jonna Stearns - 03/20/2023 8:56 AM EDT Patient is calling requesting new oxygen concentrator orders be faxed to [facility] in [place] as [facility] is no longer in network with patient insurance. Please advise patient once faxed. documented in this encounterDetwiler [facility] Hospital09-01-2023 Miscellaneous Notes* Telephone Encounter - Katya Cabrera Ma - 03/15/2023 11:21 AM EDT Office received fax for oxygen concentrator orders from [employer]. Contacted pt who stated she did not request this paperwork. She states the company she was getting her O2 from was no longer covered with her insurance so she had that company come and roller picker her oxygen. States that this time she does not feel she needs O2. Katya Cabrera Ma documented in this encounterDetwiler [facility] Hospital08-08-2023 Miscellaneous Notes* Telephone Encounter - Jan Wilkerson LPN - 02/19/2023 12:11 PM EDT JASPAL 10/24/22 NOV 04/22/23 Last refill omeprazole and HCTZ 09/10/22 Qty: x 6 months Last refill albuterol inhaler 01/18/21 Qty: 1 with 5 refills Last refill Trelegy Ellipta 04/23/22 Qty: 1 with 5 refills Jan Wilkerson LPN * Telephone Encounter - Venecia Omalley - 02/19/2023 11:42 AM EDT [facility] Patient has been identified by name and date of : Yes Patient aware RX will be sent to pharmacy. No need to notify patient. Patient phones for refill(s): Requested Prescriptions Pending Prescriptions Disp Refills omeprazole (PRILOSEC) 20 mg capsule 60 capsule 5 Sig: Take 2 capsules by mouth once daily. hydroCHLOROthiazide 12.5 mg capsule 30 capsule 5 Sig: Take 1 capsule by mouth once daily. vzdqabklavf-mymiuddqx-ixwmjopc (TRELEGY ELLIPTA) 100-62.5-25 mcg inhalation powder 1 Each 5 Sig: Inhale 1 Puff as instructed once daily. albuterol HFA (VENTOLIN HFA) 90 mcg/actuation inhaler 1 Each 5 Sig: Inhale 2 Puffs as instructed every 4 hours as needed for wheezing/shortness of breath. Date of last office visit : 10/24/2022 Date of next office visit : 04/22/2023 Last 2 Encounter Wt Readings: Date: Wt: 10/24/2022 93 kg (205 lb) 04/11/2022 90.3 kg (199 lb) Not applicable Please advise. Venecia Wilson documented in this encounterDetwiler [facility] Hospital04-17-2023 Miscellaneous Notes* Letter - Mammography Coordinator - 10/29/2022 9:33 AM EDT October 30, 2022 PID: [id number] Mima Dos Santos [address] [place] [address] Dear Ms. Dos Santos, We are pleased to inform you that the results of your recent breast imaging exam on 10/26/2022 are normal. Early detection of cancer is very important. We also understand recommendations regarding breast cancer screening are controversial. Please discuss with your primary care provider which strategy is best for you and whether a mammogram is right for you. Your imaging studies and report will be kept on [facility] as part of your permanent medical record and are available for your continuing care. Thank you for allowing us to help in meeting your health care needs. Sincerely, Dr. Delaney Interpreting Radiologist [facility] (Normal over 40) documented in this encounterDetwiler Memorial Hospital04-12-2023 Instructions* Patient Instructions* Davy Downey MD - 10/24/2022 8:17 AM EDT Consider getting the shingrix vaccine for the prevention of shingles from a local pharmacy You should also consider getting updated on your tetanus and get a Tdap at the health dept. Please get labs and urine test done on or after 04/12/2023 prior to your next visit. documented in this encounterDetwiler [facility] Hospital04-12-2023 History of Present illness Narrative* Davy Downey MD - 10/24/2022 7:53 AM EDT Medicare Yearly Visit Medical B eligibilty date not able to find Date of last exam 10/05/21 PAST MEDICAL HISTORY PAST MEDICAL HISTORY Diagnosis Date Rubin's palsy Bilateral leg edema 05/20/2020 COPD (chronic obstructive pulmonary disease) ([facility]) 10/24/2018 Suspected- patient not wanting to do PFT but willing to trial inhalers Diverticulosis of colon without diverticulitis 03/28/2018 Essential hypertension 05/20/2020 Gastritis GERD without esophagitis 05/28/2019 History of Helicobacter pylori infection 03/28/2018 Osteoporosis Other chronic sinusitis 10/24/2018 Smoker 09/01/2015 Started at age 15 and up to 1PPD Vitamin D deficiency 01/21/2020 PAST SURGICAL HISTORY PAST SURGICAL HISTORY Procedure Laterality Date APPENDECTOMY COLONOSCOPY FLX DX W/COLLJ SPEC WHEN PFRMD 03/28/2018 Colonoscopy ESOPHAGOGASTRODUODENOSCOPY TRANSORAL DIAGNOSTIC 03/28/2018 EGD PAST SURGICAL HISTORY OF 1992 [place]BY ALLERGIES: Sulfites and Shrimp Medications reviewed: Yes FAMILY HISTORY FAMILY HISTORY Problem Relation Age of Onset Stroke Mother Alzheimer's Disease Father Diabetes Sister Diabetes Sister Hypertension Sister Brain Cancer Sister Diabetes Brother Hypertension Brother Alzheimer's Disease Paternal Grandmother SOCIAL HISTORY: SOCIAL HISTORY Social History Tobacco Use Smoking status: Current Every Day Smoker Packs/day: 1.00 Years: 50.00 Pack years: 50.00 Types: Cigarettes Smokeless tobacco: Never Used Vaping Use Vaping Use: Never used Substance Use Topics Alcohol use: Yes Comment: occasional Drug use: No Mima likes to walk for exercise and works 45-55 hrs week. She watches her diet for sodium, low fatand low cholesterol some of the time. List of current specialists seen: none End of Live Planning discussed including patients advanced directive wishes: Yes I am willing to follow Mima's advanced directives. PHQ-2 / Depression screen Depression Screening 03/01/2016 08/13/2017 11/25/2018 10/24/2022 PHQ-2 Score 0 0 0 0 Depression screening tool completed and reviewed. Based on score and interview, patient is not at risk for depression. Screening tool discussed with patient, and I recommended no further interventionat this time. Functional Ability/Safety Screen 1. Was the patient's timed Up and Go test unsteady or longer than 30 seconds? No 2. Does the patient need help with the phone, transportation, shopping,preparing meals, housework, laundry, medications or managing money? No 3. Does your home have rugs in the hallway, lack of grab bars in the bathroom, lack of handrails onthe stairs or have poor lighting? No Hearing Evaluation: normal PHYSICAL EXAM BP 148/88 (BP Site: Left Arm, BP Position: Sitting, BP Cuff Size: Large Adult) Pulse 70 Resp 16 Ht 156.8 cm (5' 1.75) Wt 93 kg (205 lb) BMI 37.80 kg/m Alert and oriented X 3: YES Body mass index is 37.80 kg/m . ASSESSMENT/PLAN: 72 year old female The following prevention plan was discussed during the office visit and provided to the patient: See below Chief Complaint Patient presents with: Medicare Wellness Exam HPI Mima Dos Santos is a 72 year old female who presents here today for chronic health issues and Medicare Annual Visit. Office visit: Medicare wellness Patient with hx of HTN, Smoker, COPD, GERD, elevated glucose, osteoporosis, and those as below. Patient reports no concerns today. Saw optho recently and told eval was ok. Office visit: 6 month follow up 04/11/2022 Patient with hx of HTN, COPD, GERD, Osteoporosis, and those as below. Past medical history, appointments, medications, allergies reviewed. 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 COPD (chronic obstructive pulmonary disease) (HCC) 10/24/2018 Suspected- patient not wanting to do PFT but willing to trial inhalers Diverticulosis of colon without diverticulitis 03/28/2018 Essential hypertension 05/20/2020 Gastritis GERD without esophagitis 05/28/2019 History of Helicobacter pylori infection 03/28/2018 Osteoporosis Other chronic sinusitis 10/24/2018 Smoker 09/01/2015 Started at age 15 and up to 1PPD Vitamin D deficiency 01/21/2020 Previous Surgical History PAST SURGICAL HISTORY Procedure Laterality Date APPENDECTOMY COLONOSCOPY FLX DX W/COLLJ SPEC WHEN PFRMD 03/28/2018 Colonoscopy ESOPHAGOGASTRODUODENOSCOPY TRANSORAL DIAGNOSTIC 03/28/2018 EGD PAST SURGICAL HISTORY OF 1992 KIR[place] Family History FAMILY HISTORY Problem Relation Age of Onset Stroke Mother Alzheimer's Disease Father Diabetes Sister Diabetes Sister Hypertension Sister Brain Cancer Sister Diabetes Brother Hypertension Brother Alzheimer's Disease Paternal Grandmother Patient Allergies ALLERGIES Allergen Reactions Sulfites Rash Shrimp Vomiting Current Medications Current Outpatient Medications on File Prior to Visit Medication Sig cholecalciferol, Vitamin D3, (VITAMIN D3) 1,250 mcg (50,000 unit) cap capsule Take 1 capsule by mouth one time a week. omeprazole (PRILOSEC) 20 mg capsule Take 2 capsules by mouth once daily. hydroCHLOROthiazide (HYDRODIURIL, ESIDRIX) 12.5 mg capsule Take 1 capsule by mouth once daily. gpslcnmbmkw-omcdsiguj-xyaxmogk (TRELEGY ELLIPTA) 100-62.5-25 mcg inhalation powder Inhale 1 Puff asinstructed once daily. albuterol HFA (VENTOLIN HFA) 90 mcg/actuation inhaler Inhale 2 Puffs as instructed every 4 hours asneeded for wheezing/shortness of breath. No current facility-administered medications on file prior to visit. Social History Social History Tobacco Use Smoking status: Every Day Packs/day: 1.00 Years: 50.00 Pack years: 50.00 Types: Cigarettes Smokeless tobacco: Never Vaping Use Vaping Use: Never used Substance Use Topics Alcohol use: Yes Comment: occasional Drug use: No Review of Symptoms REVIEW OF SYSTEMS GENERAL: No weight loss, malaise or fevers HEENT: Negative for frequent or significant headaches, No changes in hearing or vision, no nose bleeds or other nasal problems NECK: Negative for lumps, goiter, pain and significant neck swelling RESPIRATORY: Negative for cough, hemoptysis, wheezing, COPD, dyspnea or shortness of breath. Rarelyneeds her rescue inhaler and no nocturnal shortness of breath. CARDIOVASCULAR: Negative for chest pain, increased leg swelling, hypertension, CHF or palpitations GI: No nausea, vomiting, or diarrhea, No heartburn or reflux symptoms, and no blood : No history of dysuria, blood. MUSCULOSKELETAL: Negative for new of changes in her typical joint pain or swelling, back pain or muscle pain SKIN: Negative for lesions, rash, and itching PSYCH: Negative for sleep disturbance, mood disorder and recent psychosocial stressors HEMATOLOGY/LYMPHOLOGY: Negative for prolonged bleeding, bruising easily or swollen nodes ENDOCRINE: Negative for cold or heat intolerance, polyuria, polydipsia and goiter NEURO: No history of headaches, syncope, paralysis, seizures or tremors EXAM: BP 148/88 (BP Site: Left Arm, BP Position: Sitting, BP Cuff Size: Large Adult) Pulse 70 Resp 16 Ht 156.8 cm (5' 1.75) Wt 93 kg (205 lb) BMI 37.80 kg/m BP 138/86 Pulse 70 Resp 16 Ht 156.8 cm (5' 1.75) Wt 93 kg (205 lb) BMI 37.80 kg/m Last 5 Encounter Wt Readings: Date: Wt: 10/24/2022 93 kg (205 lb) 04/11/2022 90.3 kg (199 lb) 10/05/2021 87.5 kg (193 lb) 08/24/2021 86.6 kg (191 lb) 01/18/2021 89.4 kg (197 lb) General Appearance: Well appearing, alert, in no acute distress, well-hydrated, well nourished. andObese. Skin: Skin color, texture, turgor normal, no suspicious rashes or lesions. Head: Normocephalic, no masses, lesions, tenderness or abnormalities. Eyes: Anicteric sclera. Pupils are equally round and reactive to light. Extraocular movements are intact. . Ears: External ears, TM's normal, canals clear. Neck: Supple, no adenopathy; thyroid symmetric, normal size, no bruits. Lungs: Lungs clear to auscultation. No wheezing, rhonchi, rales.. Heart: RRR without murmur, gallop, or rubs. No ectopy. Abdomen: Normal abdominal exam, Abdomen soft, non-tender. Bowel sounds normal. No masses, organomegaly. Extremities: No deformities, skin discoloration, Good capillary refill. Slight leg edema bilaterally.. Musculoskeletal: Muscular strength intact, No joint swelling, deformity, or tenderness. Peripheral Pulses: Normal. Neurologic: Gait normal. Reflexes normal and symmetric. Sensation to light touch and crainal nerves2-12 intact.. Health Maintenance List BP CONTROLLED (<130/80) Never done DTAP,TDAP,TD(1 - Tdap) Never done ALPHA-1 ANTITRYPSIN DEFICIENCY SCREENING Never done LUNG CANCER SCREENING Never done SHINGRIX VACCINE(1 of 2) Never done COVID-19 VACCINE(4 - Booster for Moderna series) due on 06/20/2021 MAMMOGRAM due on 10/06/2021 ADVANCE DIRECTIVE DISCUSSION due on 07/15/2022 DEPRESSION ASSESSMENT Never done INFLUENZA(Season Ended) due on 03/15/2023 COLORECTAL CANCER SCREENING due on 03/28/2023 ANNUAL PCP TEAM CHRONIC DISEASE VISIT due on 04/11/2023 DIABETES SCREEN due on 08/24/2024 LIPID SCREEN due on 08/24/2026 BONE DENSITY Completed SPIROMETRY Completed HEPATITIS C SCREENING Completed PNEUMOCOCCAL: 65+ Completed Data reviewed A/P ASSESSMENT/PLAN: 1. Medicare annual wellness visit, subsequent - ICD9: V70.0, ICD10: Z00.00 (primary diagnosis) - Counseled on healthy diet and regular exercise - Calcium intake with supplements or by diet of 1000 mg/day for under 50, 1200- 1500 mg/day for 50+ - Discussed need and benefit for weight loss. BMI 37.80 kg/(m^2) - Follow up for annual exam in one year 2. Essential hypertension - ICD9: 401.9, ICD10: I10 - good control - Continue current medication(s) - Recommended regular aerobic exercise. - Recommend home blood pressure monitoring, to bring results in on next visit - Goal of BP <130/80 Check - COMP METABOLIC PANEL - URINALYSIS, WITH MICROSCOPIC - LIPID PANEL, NONFASTING 3. Bilateral leg edema - ICD9: 782.3, ICD10: R60.0 - minimal on exam. 4. GERD without esophagitis - ICD9: 530.81, ICD10: K21.9 - Continue treatment with Prilosec 40 mg every day Check - VITAMIN B12 BLOOD - MAGNESIUM BLD 5. Chronic obstructive pulmonary disease, unspecified COPD type (HCC) - ICD9: 496, ICD10: J44.9 - clinically stable with Tx. 6. Vitamin D deficiency - ICD9: 268.9, ICD10: E55.9 Cont replacement check - VITAMIN D 25 HYDROXY 7. Smoker - ICD9: 305.1, ICD10: F17.200 - Cessation encouraged. - Counseling was given focusing on the harmful effects of this addiction especially given the patient's medical condition(s) which will be worsened because of the chemicals in tobacco. - CONSULT LUNG CANCER SCREENING CLINIC 8. Elevated fasting glucose - ICD9: 790.21, ICD10: R73.01 Check - HGB A1C 9. Obesity, Class II, BMI 35-39.9 - ICD9: 278.00, ICD10: E66.9 Weight increasing - Behavioral intervention 10. Medication management - ICD9: V58.69, ICD10: Z79.899 Check - VITAMIN B12 BLOOD - MAGNESIUM BLD - CBC + DIFF 11. Encounter for screening for lung cancer - ICD9: V76.0, ICD10: Z12.2 - CONSULT LUNG CANCER SCREENING CLINIC 12. Advance directive discussed with patient - ICD9: V65.49, ICD10: Z71.89 - packets provided. F/u 6 months check A1c prior. I spent a total of 40 minutes on the date of the service which included preparing to see the patient, [id number] patient care, completing clinical documentation, performing a medically appropriate examination, counseling and educating the patient/family/caregiver and ordering medications, tests, or procedures. Davy Downey MD documented in this encounterDetwiler [facility]04-06-2023 History of Present illness Narrative* Avril Bedolla - 10/18/2022 1:09 PM EDT POPULATION HEALTH NAVIGATION OUTREACH Action/ Scheduled patient mammogram Patient Identified by Name and : YES, via phone Outreach Outcome/Action Spoke to patient / parent / legal guardian: Patient scheduled Did you use a PCP flex slot to schedule this appointment? No Reason for Outreach Care Gap or Scheduling/Wellness visits Payer: Payor: [employer] MEDICARE / Plan: [employer] PLUS / Product Type: HMO / Care Gap Reviewed:: N/A Reminder: Reminder note to check Health Maintenance for items below Health Maintenance items due: BP CONTROLLED (<130/80) Never done DTAP,TDAP,TD(1 - Tdap) Never done ALPHA-1 ANTITRYPSIN DEFICIENCY SCREENING Never done LUNG CANCER SCREENING Never done SHINGRIX VACCINE(1 of 2) Never done COVID-19 VACCINE(4 - Booster for Moderna series) due on 06/20/2021 MAMMOGRAM due on 10/06/2021 ADVANCE DIRECTIVE DISCUSSION due on 07/15/2022 DEPRESSION ASSESSMENT Never done Navigation Signature: Avril Bedolla October 18, 2022 1:10 PM documented in this encounterDetwiler [facility] Hospital02-28-2023 Miscellaneous Notes* Telephone Encounter - Kandace Green LPN - 09/11/2022 3:03 PM EST Spoke with pt and information listed below given. Pt verbalizes understanding. Apt booked. Kandace Green LPN * Telephone Encounter - Davy Downey MD - 09/10/2022 1:27 PM EST Patient's ppt in October on the got cancelled for extensive?medicare wellness but never rescheduled. There are openings later in the evening that day. The following approved medication requests have been transmitted electronically. Requested Prescriptions Signed Prescriptions Disp Refills cholecalciferol, Vitamin D3, (VITAMIN D3) 1,250 mcg (50,000 unit) cap capsule 12 capsule 1 Sig: Take 1 capsule by mouth one time a week. Authorizing Provider: DAVY DOWNEY omeprazole (PRILOSEC) 20 mg capsule 60 capsule 5 Sig: Take 2 capsules by mouth once daily. Authorizing Provider: DAVY DOWNEY hydroCHLOROthiazide (HYDRODIURIL, ESIDRIX) 12.5 mg capsule 30 capsule 5 Sig: Take 1 capsule by mouth once daily. Authorizing Provider: DAVY DOWNEY MD * Telephone Encounter - Jackie Granados MA - 09/10/2022 10:14 AM EST Patient has been identified by name and date of : Yes Requested Prescriptions Pending Prescriptions Disp Refills cholecalciferol, Vitamin D3, (VITAMIN D3) 1,250 mcg (50,000 unit) cap capsule 12 capsule 1 Sig: Take 1 capsule by mouth one time a week. omeprazole (PRILOSEC) 20 mg capsule 60 capsule 5 Sig: Take 2 capsules by mouth once daily. hydroCHLOROthiazide (HYDRODIURIL, ESIDRIX) 12.5 mg capsule 30 capsule 5 Sig: Take 1 capsule by mouth once daily. RX INSTRUCTIONS: Patient aware RX will be sent to pharmacy. No need to notify patient. Jackie Granados MA Jaspal; 03/2022 Nov: 10/2022 Last refill: 02/2022 * Telephone Encounter - Clementina Jacob Pss - 09/10/2022 9:30 AM EST Patient has been identified by name and date of : Yes Requested Prescriptions Pending Prescriptions Disp Refills cholecalciferol, Vitamin D3, (VITAMIN D3) 1,250 mcg (50,000 unit) cap capsule 12 capsule 1 Sig: Take 1 capsule by mouth one time a week. omeprazole (PRILOSEC) 20 mg capsule 60 capsule 5 Sig: Take 2 capsules by mouth once daily. hydroCHLOROthiazide (HYDRODIURIL, ESIDRIX) 12.5 mg capsule 30 capsule 5 Sig: Take 1 capsule by mouth once daily. RX INSTRUCTIONS: Patient aware RX will be sent to pharmacy. No need to notify patient. Clementina Jacob Pss documented in this encounterDetwiler [facility] Hospital10-10-2022 Miscellaneous Notes* Telephone Encounter - Jackie Granados MA - 04/23/2022 10:49 AM EDT Patient has been identified by name and date of : Yes Requested Prescriptions Pending Prescriptions Disp Refills xmihshlqmgy-qymurvhmt-dcxbtuio (TRELEGY ELLIPTA) 100-62.5-25 mcg inhalation powder 1 Each 5 Sig: Inhale 1 Puff as instructed once daily. RX INSTRUCTIONS: Patient aware RX will be sent to pharmacy. No need to notify patient. Jackie Granados MA Jaspal: 03/2022 Nov: 10/2022 Last refill: 08/2021 * Telephone Encounter - Eleonora Call [facility] - 04/23/2022 10:25 AM EDT Patient has been identified by name and date of : Yes Requested Prescriptions Pending Prescriptions Disp Refills tzyethmwbun-tbmjcitlg-jmjrygfu (TRELEGY ELLIPTA) 100-62.5-25 mcg inhalation powder 1 Each 5 Sig: Inhale 1 Puff as instructed once daily. RX INSTRUCTIONS: Patient aware RX will be sent to pharmacy. No need to notify patient. Eleonora Call [facility] documented in this encounterDetwiler [facility] Hospital09-29-2022 Miscellaneous Notes* Telephone Encounter - Jan Wilkerson LPN - 04/12/2022 10:44 AM EDT Left detailed message of below on pt's identified vm. Jan Wilkerson LPN * Telephone Encounter - Jennifer Ward PA-C - 04/12/2022 10:40 AM EDT I wanted her to give it a few more days before starting antibiotic. See how she does over the weekend and contact me on Saturday if not improved. If worsening over the weekend, can come to express care for eval. Jennifer Ward PA-C * Telephone Encounter - Jan Wilkerson LPN - 04/12/2022 10:02 AM EDT Pt notified of results. Pt wanting to know if you would send in atb to [facility] for her. States discussed this at ov yesterday. Advised pt would let her know either way. Ok to leave vm. Jan Wilkerson LPN * Telephone Encounter - Jan Wilkerson LPN - 04/12/2022 9:59 AM EDT ----- Message from Jennifer Ward PA-C sent at 04/12/2022 7:21 AM EDT ----- Please let patient know that covid was negative. documented in this encounterDetwiler [facility] Hospital09-28-2022 Instructions* Patient Instructions* Jennifer Ward PA-C - 04/11/2022 2:37 PM EDT BONE MINERAL DENSITY PATIENT INSTRUCTIONS Bone mineral density testing measures the amount of calcium in certain parts of your bones. This information determines how strong your bones are. The test is used to detect osteoporosis, a disease in which the bone's mineral content and density are low, increasing a person's risk of fractures. Thelumbar spine (lower back) and the hip are the skeletal sites usually examined. For the test, remember that: 1. You cannot take this test if you are . 2. Eat a normal diet on the day of the test. 3. Take your medications as you normally would. 4. DO NOT take calcium supplements (such as Tums) for 24 hours before the test. 5. On the day of the test, leave valuables (jewelry or credit cards) at home. 6. The test should be performed prior to oral, rectal or IV contrast studies, or at least 7 days after any of these studies. For the test, you may be asked to wear a hospital gown. You will lie on your back, on a padded table, in a comfortable position. Generally, you can resume your usual activities immediately. documented in this [facility] History of Present illness Narrative* Jennifer Ward PA-C - 04/11/2022 2:27 PM EDT Chief Complaint Patient presents with: 6 Month Exam HPI Mima Dos Santos is a 71 year old female who presents here today for Chronic Medical Conditions.. Patient with hx of HTN, COPD, GERD, Osteoporosis, and those as below. Patient currently has slight sinus symptoms for the past 4 days. Has had sinus pressure and watery eyes. No fever. Otherwise doing well. No concerns. Past medical history, appointments, medications, allergies reviewed. 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 COPD (chronic obstructive pulmonary disease) (HCC) 10/24/2018 Suspected- patient not wanting to do PFT but willing to trial inhalers Diverticulosis of colon without diverticulitis 03/28/2018 Essential hypertension 05/20/2020 Gastritis GERD without esophagitis 05/28/2019 History of Helicobacter pylori infection 03/28/2018 Osteoporosis Other chronic sinusitis 10/24/2018 Smoker 09/01/2015 Started at age 15 and up to 1PPD Vitamin D deficiency 01/21/2020 Previous Surgical History PAST SURGICAL HISTORY Procedure Laterality Date APPENDECTOMY COLONOSCOPY FLX DX W/COLLJ SPEC WHEN PFRMD 03/28/2018 Colonoscopy ESOPHAGOGASTRODUODENOSCOPY TRANSORAL DIAGNOSTIC 03/28/2018 EGD PAST SURGICAL HISTORY OF 1992 [facility] Family History FAMILY HISTORY Problem Relation Age of Onset Stroke Mother Alzheimer's Disease Father Diabetes Sister Diabetes Sister Hypertension Sister Brain Cancer Sister Diabetes Brother Hypertension Brother Alzheimer's Disease Paternal Grandmother Patient Allergies ALLERGIES Allergen Reactions Sulfites Rash Shrimp Vomiting Current Medications Current Outpatient Medications on File Prior to Visit Medication Sig cholecalciferol, Vitamin D3, (VITAMIN D3) 1,250 mcg (50,000 unit) cap capsule Take 1 capsule by mouth one time a week. hydroCHLOROthiazide (HYDRODIURIL, ESIDRIX) 12.5 mg capsule Take 1 capsule by mouth once daily. omeprazole (PRILOSEC) 20 mg capsule Take 2 capsules by mouth once daily. oejzkdlbndg-wxlfekvep-doheeerf (TRELEGY ELLIPTA) 100-62.5-25 mcg inhalation powder Inhale 1 Puff asinstructed once daily. albuterol HFA (VENTOLIN HFA) 90 mcg/actuation inhaler Inhale 2 Puffs as instructed every 4 hours asneeded for wheezing/shortness of breath. No current facility-administered medications on file prior to visit. Social History Social History Tobacco Use Smoking status: Every Day Packs/day: 1.00 Years: 50.00 Pack years: 50.00 Types: Cigarettes Smokeless tobacco: Never Vaping Use Vaping Use: Never used Substance Use Topics Alcohol use: Yes Comment: occasional Drug use: No Review of Symptoms REVIEW OF SYSTEMS GENERAL: No weight loss, malaise or fevers NECK: Negative for lumps, goiter, pain and significant neck swelling RESPIRATORY: Negative for cough, hemoptysis, wheezing, COPD, dyspnea or shortness of breath CARDIOVASCULAR: Negative for chest pain, leg swelling, hypertension, CHF or palpitations NEURO: No history of headaches, syncope, paralysis, seizures or tremors EXAM: BP 132/78 (BP Site: Right Arm, BP Position: Sitting, BP Cuff Size: Large Adult) Pulse 60 Temp 36.7 C (98 F) Resp 18 Wt 90.3 kg (199 lb) BMI 37.33 kg/m General Appearance: Well appearing, alert, in no acute distress, well-hydrated, well nourished.. Ears: External ears normal, canals clear. Nose/Sinuses: sinus pain to palp. Neck: Supple, no adenopathy; thyroid symmetric, normal size, no bruits. Lungs: Lungs clear to auscultation. No wheezing, rhonchi, rales.. Heart: RRR without murmur, gallop, or rubs. No ectopy. Extremities: No deformities, edema, skin discoloration, clubbing or cyanosis. Good capillary refill. . Peripheral Pulses: Normal. Health Maintenance List DTAP,TDAP,TD(1 - Tdap) Never done ALPHA-1 ANTITRYPSIN DEFICIENCY SCREENING Never done SHINGRIX VACCINE(1 of 2) Never done COVID-19 VACCINE(4 - Booster for Moderna series) due on 06/20/2021 DEPRESSION ASSESSMENT Never done MAMMOGRAM due on 10/06/2021 INFLUENZA(1) due on 03/15/2022 LUNG CANCER SCREENING due on 10/05/2022 ANNUAL PCP TEAM CHRONIC DISEASE VISIT due on 10/05/2022 BP CONTROLLED (<130/80) due on 10/05/2022 COLORECTAL CANCER SCREENING due on 03/28/2023 DIABETES SCREEN due on 08/24/2024 LIPID SCREEN due on 08/24/2026 BONE DENSITY Completed SPIROMETRY Completed ADVANCE DIRECTIVE DISCUSSION Completed HEPATITIS C SCREENING Completed PNEUMOCOCCAL: 65+ Completed Data reviewed N/a ASSESSMENT/PLAN: 1. Essential hypertension - ICD9: 401.9, ICD10: I10 (primary diagnosis) - good control - Continue current medication(s) - Recommended regular aerobic exercise. - Recommend home blood pressure monitoring, to bring results in on next visit - Goal of BP <130/80 - BASIC METABOLIC PNL 2. Chronic obstructive pulmonary disease, unspecified COPD type (HCC) - ICD9: 496, ICD10: J44.9 stable 3. Smoker - ICD9: 305.1, ICD10: F17.200 - Cessation encouraged. - Physiologic and physical aspects of tobacco addiction as well as strategies for quitting were discussed. - Counseling was given focusing on the harmful effects of this addiction especially given the patient's medical condition(s) which will be worsened because of the chemicals in tobacco. 4. GERD without esophagitis - ICD9: 530.81, ICD10: K21.9 stable 5. Elevated fasting glucose - ICD9: 790.21, ICD10: R73.01 - HGB A1C - BASIC METABOLIC PNL 6. Age-related osteoporosis without current pathological fracture - ICD9: 733.01, ICD10: M81.0 Check: - DXA-AXIAL SKELETON 7. Need for COVID-19 vaccine - ICD9: V04.89, ICD10: Z23 Patient plans to schedule in future. - [employer] COVID-19 BIVALENT BOOSTER VACCINE, AGE 12+ YR 8. Sinus congestion - ICD9: 478.19, ICD10: R09.81 Check - 2019 CORONAVIRUS Jennifer Ward PA-C documented in this encounterDet[facility]08-[facility]-2022 Miscellaneous Notes* Telephone Encounter - Kandace Green LPN - 02/14/2022 11:05 AM EDT Patient has been identified by name and date of : Yes Patient phones for refill(s): Pending Prescriptions Disp Refills CHOLECALCIFEROL (VITAMIN D3) 1,250 MCG (50,000 UNIT) CAPSULE 12 capsule 1 Sig: Take 1 capsule by mouth one time a week. KATHY: No HYDROCHLOROTHIAZIDE 12.5 MG CAPSULE 30 capsule 5 Sig: Take 1 capsule by mouth once daily. KATHY: No OMEPRAZOLE 20 MG CAPSULE,DELAYED RELEASE 60 capsule 5 Sig: Take 2 capsules by mouth once daily. KATHY: No Date of last office visit in primary care: 10/05/21 next apt 04/11/22 Last 2 Encounter Wt Readings: Date: Wt: 10/05/2021 87.5 kg (193 lb) 08/24/2021 86.6 kg (191 lb) Previous labs/tests for medication: Blood Pressure: BUN (mg/dL) Date Value 08/24/2021 22 Sodium (mmol/L) Date Value 08/24/2021 138 Last 1 Encounter BP Readings: Date: BP: 10/05/2021 100/76 Please advise. Thank you. Kandace Green LPN documented in this encounterDetw[facility]04-26-2022 History of Present illness Narrative* Lima Lundberg RN - 11/07/2021 2:33 PM EDT [facility] Enrollment Provider Action/I: 2020 enrollment attempts in insight program unsuccessful- unable to reach patient. Patient referred by: [facility] Ayesha Contact made with patient: Yes - Patient identified by name and . Discussed care with patient Fabián this is Lima Lundberg RN and I am calling from Davy Downey MD office at the [facility]. I am a RN Trimmer Sorter with our [facility] Chronic Disease Management program. Davy Downey MD wanted me to reach out to help you manage your health at home. Our goal is to keep you well at home. We want to help you manage your chronic disease by providing a safety net of resources around you, getting you the care you need in a timely manner, and hopefully keep you out of the ED and hospital. I will send you a few questions once a week through your [employer] account. It will automatically show up for you to complete. There are simple questions that will help us identify if you have any concerns or symptoms and I will call you to help get what you need. We will be able to connect you, review your symptoms, do an on demand visit, or communicate with Davy Downey MD if needed. I am going to sign you up for the program now. Enrollment Questions: Let's get you enrolled in the program. No, reason: I am not that sick. I don't need that Closing: PATIENT DECLINES - Thank you for your time today. I understand you are not interested participatingin our program at this time. I will be sure to let your primary care doctor know we discussed your option to enroll in the program and that, for now, you have chosen to opt-out. If you decide at any time that you would like to be involved in the program, please let your primary care doctor know, and he/she can refer you back to our program. documented in this encounterDetw[facility]03-24-2022 Instructions* Patient Instructions* Jennifer Ward PA-C - 10/05/2021 11:18 AM EDT Please schedule your mammogram Advance Directives Every adult has the right to direct their own medical care. Having an advance directive on file helps to ensure that you receive the care you want if a medical condition or injury renders you unable to make decisions or communicate. Forms can be found on the [facility] Advance Directives site. You do not need a communications associate to complete advance directive documents. [email or web address] Talking about end-of-life issues is difficult, but it truly is a gift to your loved ones. We suggest using The Conversation Project (theconversationproject.org) to help guide you through discussing and thinking about your wishes/preferences, goals and values and completing your advance directive. After you complete the documents, talk to those people who may be involved with your healthcare decision making, and give them a copy of your forms to make sure your wishes are followed. Please bringa copy of your advance directive documents to your next appointment, or email to [email or web address] as an attachment in either PDF, TIFF, or JPEG format. You can also mail to: [facility] Information Management, [employer] Advance Directive Processing [id number] 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 COPD (chronic obstructive pulmonary disease) ([facility]) 10/24/2018 Suspected- patient not wanting to do PFT but willing to trial inhalers Diverticulosis of colon without diverticulitis 03/28/2018 Essential hypertension 05/20/2020 Gastritis GERD without esophagitis 05/28/2019 History of Helicobacter pylori infection 03/28/2018 Osteoporosis Other chronic sinusitis 10/24/2018 Smoker 09/01/2015 Started at age 15 and up to 1PPD Vitamin D deficiency 01/21/2020 PAST SURGICAL HISTORY Procedure Laterality Date APPENDECTOMY COLONOSCOPY FLX DX W/COLLJ SPEC WHEN PFRMD 03/28/2018 Colonoscopy ESOPHAGOGASTRODUODENOSCOPY TRANSORAL DIAGNOSTIC 03/28/2018 EGD PAST SURGICAL HISTORY OF 1992 [facility] ALLERGIES: Sulfites and Shrimp Medications reviewed: Yes FAMILY HISTORY Problem Relation Age of Onset Stroke Mother Alzheimer's Disease Father Diabetes Sister Diabetes Sister Hypertension Sister Brain Cancer Sister Diabetes Brother Hypertension Brother Alzheimer's Disease Paternal Grandmother SOCIAL HISTORY: Social History Tobacco Use Smoking status: Current Every Day Smoker Packs/day: 1.00 Years: 50.00 Pack years: 50.00 Types: Cigarettes Smokeless tobacco: Never Used Vaping Use Vaping Use: Never used Substance Use Topics Alcohol use: Yes Comment: occasional Drug use: No Mima likes to exercise by active living. She watches her diet for sodium, low fat and low cholesterol some of the time. List of current specialists seen: none End of Live Planning discussed including patients advanced directive wishes: Yes I am willing to follow Mima's advanced directives. PHQ-2 / Depression screen She in the past two weeks denies having felt down, depressed, hopeless or with little interest or pleasure in doing things. Functional Ability/Safety Screen 1. Was the patient's timed Up and Go test unsteady or longer than 30 seconds? No 2. Does the patient need help with the phone, transportation, shopping,preparing meals, housework, laundry, medications or managing money? No 3. Does your home have rugs in the hallway, lack of grab bars in the bathroom, lack of handrails onthe stairs or have poor lighting? No Hearing Evaluation: normal PHYSICAL EXAM BP 100/76 (BP Site: Right Arm, BP Position: Sitting, BP Cuff Size: Large Adult) Pulse 80 Temp 36.2 C (97.2 F) Resp 18 Ht 155.5 cm (5' 1.22) Wt 87.5 kg (193 lb) BMI 36.21 kg/m Alert and oriented X 3: YES Body mass index is 36.21 kg/m . ASSESSMENT/PLAN: 71 year old female The following prevention plan was discussed during the office visit and provided to the patient: See below Jennifer Ward PA-C Chief Complaint Patient presents with: Medicare Wellness Exam HPI Mima Dos Santos is a 71 year old female who presents here today for extensive exam. Patient with hx of HTN, Smoker, COPD, GERD, elevated glucose, osteoporosis, and those as below. Patient reports no concerns today. She ended up not seeing podiatry for her ankle fracture but did wear her boat for 3-4 weeks. Feels like it has improved quite a bit. Only bugs her if she has been standing all day or if weather is bad. Past medical history, appointments, medications, allergies reviewed. 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 COPD (chronic obstructive pulmonary disease) (HCC) 10/24/2018 Suspected- patient not wanting to do PFT but willing to trial inhalers Diverticulosis of colon without diverticulitis 03/28/2018 Essential hypertension 05/20/2020 Gastritis GERD without esophagitis 05/28/2019 History of Helicobacter pylori infection 03/28/2018 Osteoporosis Other chronic sinusitis 10/24/2018 Smoker 09/01/2015 Started at age 15 and up to 1PPD Vitamin D deficiency 01/21/2020 Previous Surgical History PAST SURGICAL HISTORY Procedure Laterality Date APPENDECTOMY COLONOSCOPY FLX DX W/COLLJ SPEC WHEN PFRMD 03/28/2018 Colonoscopy ESOPHAGOGASTRODUODENOSCOPY TRANSORAL DIAGNOSTIC 03/28/2018 EGD PAST SURGICAL HISTORY OF [facility] Family History FAMILY HISTORY Problem Relation Age of Onset Stroke Mother Alzheimer's Disease Father Diabetes Sister Diabetes Sister Hypertension Sister Brain Cancer Sister Diabetes Brother Hypertension Brother Alzheimer's Disease Paternal Grandmother Patient Allergies ALLERGIES Allergen Reactions Sulfites Rash Shrimp Vomiting Current Medications Current Outpatient Medications on File Prior to Visit Medication Sig cholecalciferol, Vitamin D3, (VITAMIN D3) 1,250 mcg (50,000 unit) cap capsule Take 1 capsule by mouth one time a week. ijyqvvbxdko-ckkaxotmi-cejjgaed (TRELEGY ELLIPTA) 100-62.5-25 mcg inhalation powder Inhale 1 Puff asinstructed once daily. hydroCHLOROthiazide 12.5 mg capsule Take 1 capsule by mouth once daily. omeprazole (PRILOSEC) 20 mg capsule Take 2 capsules by mouth once daily. albuterol HFA (VENTOLIN HFA) 90 mcg/actuation inhaler Inhale 2 Puffs as instructed every 4 hours asneeded for wheezing/shortness of breath. oxyCODONE-acetaminophen (PERCOCET) 5-325 mg tablet Take by mouth. (Patient not taking: Reported on 10/05/2021) No current facility-administered medications on file prior to visit. Social History Social History Tobacco Use Smoking status: Current Every Day Smoker Packs/day: 1.00 Years: 50.00 Pack years: 50.00 Types: Cigarettes Smokeless tobacco: Never Used Vaping Use Vaping Use: Never used Substance Use Topics Alcohol use: Yes Comment: occasional Drug use: No Review of Symptoms REVIEW OF SYSTEMS GENERAL: No weight loss, malaise or fevers HEENT: No changes in hearing or vision, no nose bleeds or other nasal problems NECK: Negative for lumps, goiter, pain and significant neck swelling RESPIRATORY: Negative for cough, hemoptysis, wheezing, COPD, dyspnea or shortness of breath CARDIOVASCULAR: Negative for chest pain, leg swelling, CHF or palpitations GI: Negative for abdominal discomfort, blood in stools or black stools, change in bowel habit, heart burn, nausea, vomiting : No history of dysuria, frequency or incontinence APPRAISAL COORDINATOR: no abnormal vaginal bleeding or discharge MUSCULOSKELETAL: Negative for joint pain or swelling, back pain or muscle pain and see hpi SKIN: Negative for lesions, rash, and itching PSYCH: Negative for sleep disturbance, mood disorder and recent psychosocial stressors HEMATOLOGY/LYMPHOLOGY: Negative for prolonged bleeding, bruising easily or swollen nodes ENDOCRINE: Negative for cold or heat intolerance, polyuria, polydipsia and goiter NEURO: No history of headaches, syncope, paralysis, seizures or tremors EXAM: BP 100/76 (BP Site: Right Arm, BP Position: Sitting, BP Cuff Size: Large Adult) Pulse 80 Temp 36.2 C (97.2 F) Resp 18 Ht 155.5 cm (5' 1.22) Wt 87.5 kg (193 lb) BMI 36.21 kg/m General Appearance: Well appearing, alert, in no acute distress, well-hydrated, well nourished.. Skin: Skin color, texture, turgor normal, no suspicious rashes or lesions. Head: Normocephalic, no masses, lesions, tenderness or abnormalities. Eyes: Anicteric sclera. Pupils are equally round and reactive to light. Extraocular movements are intact. . Ears: External ears normal, canals impacted b/l. Nose/Sinuses: deferred- mask Oropharynx: deferred- mask. Neck: Supple, no adenopathy; thyroid symmetric, normal size, no bruits. Lungs: Lungs clear to auscultation. No wheezing, rhonchi, rales.. Heart: RRR without murmur, gallop, or rubs. No ectopy. Abdomen: Normal abdominal exam, Abdomen soft, non-tender. Bowel sounds normal. No masses, organomegaly. Extremities: No deformities, edema, skin discoloration, clubbing or cyanosis. Good capillary refill. . Peripheral Pulses: Normal. Neurologic: Gait normal. Reflexes normal and symmetric. Sensation grossly intact.. Health Maintenance List BP CONTROLLED (<130/80) Never done DTAP,TDAP,TD(1 - Tdap) Never done SHINGRIX VACCINE(1 of 2) Never done LUNG CANCER SCREENING Never done DEPRESSION SCREENING due on 11/26/2019 ADVANCE DIRECTIVE DISCUSSION Never done MAMMOGRAM due on 10/06/2021 ANNUAL PCP TEAM CHRONIC DISEASE VISIT due on 08/24/2022 COLORECTAL CANCER SCREENING due on 03/28/2023 DIABETES SCREEN due on 08/24/2024 LIPID SCREEN due on 08/24/2026 BONE DENSITY Completed SPIROMETRY Completed INFLUENZA Completed HEPATITIS C SCREENING Completed PNEUMOVAX AGE 65 AND OVER WITH 5YR LOOKBACK Completed COVID-19 VACCINE Completed MENINGOCOCCAL CONJUGATE Aged Out Data reviewed Component Latest Ref Rng & Units 08/24/2021 Color Yellow Yellow Clarity Clear Clear Glucose, Urine Negative mg/dL Negative Bilirubin, Urine Negative Negative Ketones, Urine Negative Negative Specific [place], Ur 1.005 - 1.030 1.019 Hemoglobin/Blood,Ur Negative Negative pH, Urine 5.0 - 8.0 6.0 Protein, Urine Negative 1+ (A) Urobilinogen Negative E.U./dL Negative Nitrites Negative Negative Leukest Negative Negative Comment SEE COMMENT Urine Calixto Comment SEE COMMENT WBC, Urine 0 - 5 /HPF 0-5 RBC, Urine 0 - 3 /HPF 0-3 Cast 0 /LPF SEE COMMENT (A) Epithelial Cells /HPF SEE COMMENT Protein, Total 6.3 - 8.0 g/dL 7.2 Albumin 3.9 - 4.9 g/dL 3.9 Calcium 8.5 - 10.2 mg/dL 9.7 Bilirubin, Total 0.2 - 1.3 mg/dL 0.4 Alkaline Phosphatase 34 - 123 U/L 85 AST 13 - 35 U/L 21 Glucose 74 - 99 mg/dL 98 BUN 7 - 21 mg/dL 22 (H) Creatinine 0.58 - 0.96 mg/dL 0.91 Sodium 136 - 144 mmol/L 138 Potassium 3.7 - 5.1 mmol/L 4.4 Chloride 97 - 105 mmol/L 100 CO2 22 - 30 mmol/L 29 Anion Gap 9 - 18 mmol/L 9 ALT 7 - 38 U/L 12 eGFR- >60 eGFR-All Other Races . >60 Total Cholesterol, Nonfasting <200 mg/dL 190 Triglycerides, Nonfasting <150 mg/dL 130 HDL Cholesterol, Nonfasting >39 mg/dL 42 LDL Cholesterol, Nonfasting <100 mg/dL 122 (H) Non HDL Cholesterol, Nonfasting <130 mg/dL 148 (H) VLDL Cholesterol, Nonfasting <30 mg/dL 26 Total Chol/HDL Ratio, Nonfasting <5.10 mg/dL 4.52 LDL/HDL Ratio, Nonfasting <2.54 mg/dL 2.90 (H) Hemoglobin A1C 4.3 - 5.6 % 6.4 (H) Estimated Average Glucose mg/dL 137 Magnesium 1.7 - 2.3 mg/dL 2.0 ASSESSMENT/PLAN: 1. Medicare annual wellness visit, subsequent - ICD9: V70.0, ICD10: Z00.00 (primary diagnosis) - Counseled on healthy diet and regular exercise - Calcium intake with supplements or by diet of 1000 mg/day for under 50, 1200- 1500 mg/day for 50+ 2. Advance directive discussed with patient - ICD9: V65.49, ICD10: Z71.89 Paperwork given. 3. Essential hypertension - ICD9: 401.9, ICD10: I10 - good control - Continue current medication(s) - Recommended regular aerobic exercise. - Recommend home blood pressure monitoring, to bring results in on next visit - Goal of BP <130/80 4. Smoker - ICD9: 305.1, ICD10: F17.200 - Cessation encouraged. - Physiologic and physical aspects of tobacco addiction as well as strategies for quitting were discussed. - Counseling was given focusing on the harmful effects of this addiction especially given the patient's medical condition(s) which will be worsened because of the chemicals in tobacco. 5. Chronic obstructive pulmonary disease, unspecified COPD type (HCC) - ICD9: 496, ICD10: J44.9 Patient denies any concerning symptoms 6. GERD without esophagitis - ICD9: 530.81, ICD10: K21.9 - stable 7. Bilateral impacted cerumen - ICD9: 380.4, ICD10: H61.23 Patient declines irrigation today. Use debrox 8. Elevated fasting glucose - ICD9: 790.21, ICD10: R73.01 Patient declines starting once a day metformin 9. Age-related osteoporosis without current pathological fracture - ICD9: 733.01, ICD10: M81.0 - Reviewed the need for Calcium and Vitamin D supplements and weight bearing exercise as tolerated 10. Closed avulsion fracture of lateral malleolus of right fibula, initial encounter - ICD9: 824.2,ICD10: S82.61XA Recheck xray today - XR ANKLE GENERAL 3V AP/LAT/OBL RIGHT 11. Obesity, Class II, BMI 35-39.9 - ICD9: 278.00, ICD10: E66.9 Last 3 Encounter Wt Readings: Date: Wt: 10/05/2021 87.5 kg (193 lb) 08/24/2021 86.6 kg (191 lb) 01/18/2021 89.4 kg (197 lb) Stable - Behavioral intervention F/u 6 months. Sooner as needed. Jennifer Ward PA-C documented [facility]The [facility] Author Dhaval Smith [facility] April 01, 2023 2:56pm Note Date/Time April 01, 2023 2:38pm [facility] Medical Records Department [address] [place] [address] Instructions for Home/Discharge Instructions 04/01/23 1437 MR#: [id number] Acct: [id number] Name: MIMA DOS SANTOS Rep #:[id number] : 1950 72 From: Dhaval Smith DO PCP: Dr. Davy Downey MD Status:ADM IN Discharge Instructions Diet Discharge Diet: No restrictions Activity Discharge Activity: Return to Normal Activity Weight Bearing Status: Weight bearing as tolerated Follow Up Care Test Results: Test results from this visit will be discussed in further detail at your follow- up appointment, if applicable. Discharge Plan Admission Admit Date/Time: 03/21/23 12:44 Primary Reason for Your Visit: Exacerbation of COPD, diastolic heart failure Attending Provider: Dhaval Smith Primary Care Provider: Davy Downey Consulting Providers: Jimmy Springer; Deng Dubon; Arturo Maynard; Michael Soto; Ty Jackson; Chance Mcnityre; Nina Worrell NP; Severino Madsen Instructions Additional Instructions / Restrictions: Do not take aspirin, ibuprofen, or Aleve while taking Eliquis, take Tylenol for pain Use oxygen at 2 L/min via nasal cannula at rest, use NIV at night, use 8 L of oxygen via nasal cannula during activity Do not smoke Discharge Orders/Prescriptions Prescriptions: New metoprolol tartrate 25 mg Tablet 25 mg PO BID Qty: 60 0RF Eliquis 5 mg Tablet 5 mg PO BID Qty: 60 0RF furosemide [Lasix] 40 mg tablet 40 mg PO DAILY Qty: 30 0RF potassium chloride 10 mEq tablet extended release 20 meq PO DAILY Qty: 60 0RF prednisone 20 mg tablet 40 mg PO DAILY Qty: 12 0RF Rx Instructions: one twice a day for 3 days, then one per day until gone Continued omeprazole 20 MG capsule,delayed release(/BARBER) 40 mg PO DAILY albuterol sulfate 1 INHALER inhaler 2 puff inhalation [id number] Qty: 1 0RF Rx Instructions: after 1 week, use every 6 hours as needed for shortness of breath Trelegy Ellipta 100-62.5-25 mcg blister with device 1 inh INHALATION Q24H Patient Comments: Inhale 1 Puff as instructed once daily. cetirizine [All Day Allergy (cetirizine)] 10 mg tablet 10 mg PO DAILY Discontinued hydrochlorothiazide 12.5 mg capsule 12.5 mg PO DAILY Patient Comments: TAKE 1 CAPSULE BY MOUTH ONCE DAILY. Referrals / Follow Up: Arturo Maynard DO [Med Staff - Active Staff] - See Referral Note (Follow-up in 2 weeks in the office) Davy Downey MD [Primary Care Provider] - Within 2 Weeks Disposition Disposition (needs filled in before D/C Order can be placed): Home, Self Care 04/01/23 0463<Electronically signed by Dhaval Smith DO>Dhaval Smith DO CC: SATURNINO Worrell; Dr. Jimmy Springer DO; Dr. Deng Dubon MD; Dr. Arturo Maynard DO; Dr. Davy Downey MD; Dr. Michael Soto MD; Dr. Ty Jackson MD; Dr. Severino Madsen MD; Dr. Chance Mcintyre MD ~ Signed [facility] Work Phone: Evaluation note* Diagnosis Medicare annual wellness visit, subsequent- Primary Routine general medical examination at a health care facility Advance directive discussed with patient Other specified counseling Essential hypertension Unspecified essential hypertension Smoker Tobacco use disorder Chronic obstructive pulmonary disease, unspecified COPD type (HCC) GERD without esophagitis Esophageal reflux Bilateral impacted cerumen Impacted cerumen Elevated fasting glucose Impaired fasting glucose Age-related osteoporosis without current pathological fracture Senile osteoporosis Closed avulsion fracture of lateral malleolus of right fibula, initial encounter Obesity, Class II, BMI 35-39.9 Obesity, unspecified documented in this encounter [facility] note* Diagnosis Encounter for screening mammogram for breast cancer documented in this encounter [facility] note* Diagnosis Vitamin D deficiency Unspecified vitamin D deficiency GERD without esophagitis Esophageal reflux documented in this encounter [facility] note* Diagnosis Essential hypertension- Primary Unspecified essential hypertension Chronic obstructive pulmonary disease, unspecified COPD type (HCC) Smoker Tobacco use disorder GERD without esophagitis Esophageal reflux Elevated fasting glucose Impaired fasting glucose Age-related osteoporosis without current pathological fracture Senile osteoporosis Need for COVID-19 vaccine Sinus congestion Other diseases of nasal cavity and sinuses documented in this encounter [facility] note* Diagnosis Vitamin D deficiency Unspecified vitamin D deficiency GERD without esophagitis Esophageal reflux [facility]* Diagnosis Medicare annual wellness visit, subsequent- Primary Routine general medical examination at a health care facility Essential hypertension Unspecified essential hypertension Bilateral leg edema Edema GERD without esophagitis Esophageal reflux Chronic obstructive pulmonary disease, unspecified COPD type (HCC) Vitamin D deficiency Unspecified vitamin D deficiency Smoker Tobacco use disorder Elevated fasting glucose Impaired fasting glucose Obesity, Class II, BMI 35-39.9 Obesity, unspecified Medication management Encounter for long-term (current) use of other medications Encounter for screening for lung cancer Advance directive discussed with patient Other specified counseling documented in this encounter [facility] note* Diagnosis GERD without esophagitis Esophageal reflux documented in this encounter [facility] noteNo assessment information [facility] Work Phone: Evaluation note* Diagnosis SOB (shortness of breath)- Primary Shortness of breath Abnormal blood oxygen level documented in this encounter [facility] note* Diagnosis Onset Date Resolution Status Elevated troponin acute Hypoxia acute Pneumonia acute COPD exacerbation [facility] Work Phone: Evaluation note* Diagnosis Lung nodules- Primary Other nonspecific abnormal finding of lung field documented in this encounter [facility] note* Diagnosis Dependence on supplemental oxygen when ambulating- Primary Sepsis with acute hypoxic respiratory failure without septic shock, due to unspecified organism (HCC) Skin ulcer of multiple sites of buttock, limited to breakdown of skin (HCC) documented [facility] this encounter [facility]* Diagnosis Dependence on supplemental oxygen when ambulating- Primary documented in this encounter [facility] note* Diagnosis Encounter for screening mammogram for breast cancer documented in this encounter [facility] note* Diagnosis Hypoxia- Primary Hypoxemia documented in this encounter [facility] note* Diagnosis Closed avulsion fracture of lateral malleolus of right fibula, initial encounter [facility] Diagnosis Closed avulsion fracture of lateral malleolus of right fibula, initial encounter Sprain of ligament of right ankle, initial encounter [facility] Diagnosis Medicare annual wellness visit, subsequent- Primary Routine general medical examination at a health care facility Advance directive discussed with patient Other specified counseling Type 2 diabetes mellitus without complication, without long-term current use of insulin (HCC) Essential hypertension Unspecified essential hypertension Screening for depression Encounter for screening examination for other mental health and behavioral disorders Encounter for immunization Need for other specified prophylactic vaccination against single bacterial disease Obesity, Class II, BMI 35-39.9 Obesity, unspecified Smoker Tobacco use disorder Chronic obstructive pulmonary disease, unspecified COPD type (HCC) Vitamin D deficiency Unspecified vitamin D deficiency Medication management Encounter for long-term (current) use of other medications GERD without esophagitis Esophageal reflux Age-related osteoporosis without current pathological fracture Senile osteoporosis Lung nodule Solitary pulmonary nodule Paroxysmal atrial fibrillation (HCC) Atrial fibrillation [facility]* Diagnosis Polycythemia- Primary Polycythemia vera [facility]* Diagnosis Secondary polycythemia- Primary Polycythemia, secondary [facility]* Diagnosis Encounter for screening mammogram for breast cancer [facility]* Diagnosis Chronic obstructive pulmonary disease, unspecified COPD type (HCC)- Primary [facility]* Diagnosis Type 2 diabetes mellitus without complication, without long-term current use of insulin (HCC)- Primary [facility]* Diagnosis Type 2 diabetes mellitus without complication, without long-term current use of insulin (HCC)- Primary Essential hypertension Unspecified essential hypertension GERD without esophagitis Esophageal reflux Bilateral leg edema Edema Chronic obstructive pulmonary disease, unspecified COPD type (HCC) Obesity, Class II, BMI 35-39.9 Obesity, unspecified Smoker Tobacco use disorder Vitamin D deficiency Unspecified vitamin D deficiency Paroxysmal atrial fibrillation (HCC) Atrial fibrillation Secondary polycythemia Polycythemia, secondary Medication management Encounter for long-term (current) use of other medications [facility]* Diagnosis COPD with exacerbation (HCC)- Primary Obstructive chronic bronchitis with exacerbation [facility]* Diagnosis Onset Date Resolution Status Admit Date COPD (chronic obstructive pulmonary disease) chronic November 26 12:38pm Hypoxia chronic November 26, 2024 12:38pm Lung nodule chronic November 26 12:38pm Obesity chronic November 26, 2024 12:38pm LAWANDA (obstructive sleep apnea) chroni c November 26, 2024 12:38pm Smoking greater than 40 pack years chronic November 26, 2024 1 2:38pm [facility] Work Phone: Evaluation note* Diagnosis GERD without esophagitis Esophageal reflux documented in this encounter [facility] for referral (narrative)* Diagnostic Procedure Only (Routine) - Closed Specialty Diagnoses / Procedures [facility] Diagnoses Closed avulsion fracture of lateral malleolus of right fibula, initial encounter Procedures XR ANKLE GENERAL 3V AP/LAT/OBL RIGHT RADEX ANKLE COMPLETE MINIMUM 3 VIEWS Jennifer Ward PA-C [address] [place] [address] Xr Imaging Referral ID Status Reason Start Date Expiration Date V isits Requested Visits Authorized [id number] Closed Auto-Generate d Referral 10/05/2021 11/04/2022 1 1 [facility] for referral (narrative)* Diagnostic Procedure Only (Routine) - Pending Review Specialty Diagnoses / Procedures [facility] To [facility] BR IMAGING Diagnoses Encounter for screening mammogram for breast cancer Procedures DASIA SCREENING SCREENING MAMMOGRAPHY BI 2-VIEW BREAST INC CAD Davy Downey MD [address] [place] [address] Br Imaging [address] [place] [address] Referral ID Status Reason Start Date Expiration Date Visits Requested Visits Authorized [id number] Pending Review Auto-Generat ed Referral 12/27/2021 01/26/2023 1 1 [facility] for referral (narrative)* Diagnostic Procedure Only (Routine) - Pending Review Specialty Diagnoses / Procedures Referred By Contac t Referred To Contact BR IMAGING Diagnoses Encounter for screening mammogram for breast cancer Procedures DASIA SCREENING SCREENING MAMMOGRAPHY BI 2-VIEW BREAST INC CAD Davy Downey MD [address] [place] [address] [facility] Imaging [address] [place] [address] Referral ID Status Reason Start Date Expiration Date Visits Requested Visits Authorized [id number] Pending Review Auto-Generat ed Referral 12/04/2023 01/02/2025 1 1 [facility] for referral (narrative)* Diagnostic Procedure Only (Routine) - Closed Specialty Diagnoses / Procedures Referred By Edison t Referred To Contact XR IMAGING Diagnoses Closed avulsion fracture of lateral malleolus of right fibula, initial encounter Procedures XR ANKLE GENERAL 3V AP/LAT/OBL RIGHT RADEX ANKLE COMPLETE MINIMUM 3 VIEWS Jennifer Ward PA-C [address] [place] [address] [place] [address] Referral ID Status Reason Start Date Expiration Date V isits Requested Visits Authorized [id number] Closed Auto-Generate d Referral 10/05/2021 11/04/2022 1 1 [facility] for referral (narrative)* Diagnostic Procedure Only (Routine) - Closed Specialty Diagnoses / Procedures Referred By Edison t Referred To Contact XR IMAGING Diagnoses Closed avulsion fracture of lateral malleolus of right fibula, initial encounter Sprain of ligament of right ankle, initial encounter Procedures XR ANKLE GENERAL 3V AP/LAT/OBL RIGHT RADEX ANKLE COMPLETE MINIMUM 3 VIEWS Jennifer Ward PA-C [address] [place] [address] [place] [address] Referral ID Status Reason Start Date Expiration Date V isits Requested Visits Authorized [id number] Closed Auto-Generate d Referral 08/25/2021 09/24/2022 1 1 [facility] for referral (narrative)No reason for referral information availableWGalion Hospital Work Phone: [facility] Narrative* Diagnostic Procedure Only (Routine) - Closed Specialty Diagnoses / Procedures Referred By Contac t Referred To Contact XR IMAGING Diagnoses Closed avulsion fracture of lateral malleolus of right fibula, initial encounter Procedures XR ANKLE GENERAL 3V AP/LAT/OBL RIGHT RADEX ANKLE COMPLETE MINIMUM 3 VIEWS Jennifer Ward PA-C [address] [place] [address] [place] [address] Referral ID Status Reason Start Date Expiration Date V isits Requested Visits Authorized [id number] Closed Auto-Generate d Referral 10/05/2021 11/04/2022 1 1 [facility] for visit Narrative* Diagnostic Procedure Only (Routine) - Closed Specialty Diagnoses / Procedures Referred By Contac t Referred To Contact XR IMAGING Diagnoses Closed avulsion fracture of lateral malleolus of right fibula, initial encounter Sprain of ligament of right ankle, initial encounter Procedures XR ANKLE GENERAL 3V AP/LAT/OBL RIGHT RADEX ANKLE COMPLETE MINIMUM 3 VIEWS Jennifer Ward PA-C [address] [place] [address] [place] [address] Referral ID Status Reason Start Date Expiration Date V isits Requested Visits Authorized [id number] Closed Auto-Generate d Referral 08/25/2021 09/24/2022 1 1 [facility] for visit Narrative* Diagnostic Procedure Only (Routine) - Closed Specialty Diagnoses / Procedures Referred By Contac t Referred To Contact BR IMAGING Diagnoses Encounter for screening mammogram for breast cancer Procedures DASIA SCREENING SCREENING MAMMOGRAPHY BI 2-VIEW BREAST INC CAD Davy Downey MD [address] [place] [address] Br Imaging [address] [place] [address] Referral ID Status Reason Start Date Expiration Date V isits Requested Visits Authorized [id number] Closed Auto-Generate d Referral 12/04/2023 01/02/2025 1 1 [facility] Advance Directives No Advanced Directives Records FoundDocuments on File Type Date Recorded Patient 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 Flying 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 Advance Directive(s) 03/28/2018 6:47 AM Advance Directive(s) 10/10/2015 7:38 PM Documents on File Type Date Recorded Patient 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 No March 21, 2023 3:00pm Health Concerns Infection Onset Date Last Indicated Resolved Time COVID-19 Rule-Out 04/11/2022 04/11/2022 Infection Onset Date Last Indicated Resolved Time COVID-19 Rule-Out 04/11/2022 04/11/2022 04/12/2022 2:27 AM EDT Chief Complaint and Reason for Visit Chief Complaint PNA, COPD, HYPOXIA, ELEVATED TROPONIN Chief Complaint PNA, COPD, HYPOXIA, ELEVATED TROPONIN PNA, COPD, HYPOXIA, ELEVATED TROPONIN PNA, COPD, HYPOXIA, ELEVATED TROPONIN PNA, COPD, HYPOXIA, ELEVATED TROPONIN PNA, COPD, HYPOXIA, ELEVATED TROPONIN PNA, COPD, HYPOXIA, ELEVATED TROPONIN PNA, COPD, HYPOXIA, ELEVATED TROPONIN PNA, COPD, HYPOXIA, ELEVATED TROPONIN PNA, COPD, HYPOXIA, ELEVATED TROPONIN PNA, COPD, HYPOXIA, ELEVATED TROPONIN PNA, COPD, HYPOXIA, ELEVATED TROPONIN PNA, COPD, HYPOXIA, ELEVATED TROPONIN PNA, COPD, HYPOXIA, ELEVATED TROPONIN PNA, COPD, HYPOXIA, ELEVATED TROPONIN PNA, COPD, HYPOXIA, ELEVATED TROPONIN PNA, COPD, HYPOXIA, ELEVATED TROPONIN Reason for Visit Elevated troponin Hypoxia Pneumonia COPD exacerbation Chief Complaint Solitary pulmonary n odule Chief Complaint Admit Date NICOTINE DEP October 26, 2024 4:5 3pm Chief Complaint Admit Date NICOTINE DEP October 26, 2024 4:5 3pm 1 Y FU November 26, 2024 12:38 pm Reason for Visit Admit Date COPD (chronic obstructive pulmonary dise ase) November 26, 2024 12:38pm Hypoxia November 26, 2024 12:38 pm Lung nodule November 26, 2024 12:38 pm Obesity November 26, 2024 12:38 pm LAWANDA (obstructive sleep apnea) November 26, 2024 12:38pm Smoking greater than 40 pack years November 122024 12:38pm Chief Complaint Admit Date NICOTINE DEP October 26, 2024 4:5 3pm 1 Y FU November 26, 2024 12:38 pm Solitary pulmonary nodule February 18 5:06pm Test results February 23, 2025 2: 09pm Reason for Visit Admit Date COPD (chronic obstructive pulmonary dise ase) November 26, 2024 12:38pm Hypoxia November 26, 2024 12:38 pm Lung nodule November 26, 2024 12:38 pm Obesity November 26, 2024 12:38 pm LAWANDA (obstructive sleep apnea) November 26, 2024 12:38pm Smoking greater than 40 pack years November 122024 12:38pm COPD (chronic obstructive pulmonary dise ase) February 23, 2025 2:09pm Hypoxia February 23, 2025 2: 09pm Lung nodule February 23, 2025 2: 09pm Obesity February 23, 2025 2: 09pm LAWANDA (obstructive sleep apnea) February 2:09pm Smoking greater than 40 pack years Augus t 2024 2:09pm Chief Complaint Admit Date 1 Y FU November 26, 2024 12:38 pm Solitary pulmonary nodule February 18 5:06pm Test results February 23, 2025 2: 09pm Chief Complaint Admit Date 1 Y FU November 26, 2024 12:38 pm Solitary pulmonary nodule February 18 5:06pm Test results February 23, 2025 2: 09pm LUNG March 02, 2025 7: 58am Chief Complaint Admit Date 1 Y FU November 26, 2024 12:38 pm Solitary pulmonary nodule February 18 5:06pm Test results February 23, 2025 2: 09pm LUNG March 02, 2025 7: 58am 2 wk fu March 10, 2025 7: 55am Reason for Visit Admit Date COPD (chronic obstructive pulmonary dise ase) November 26, 2024 12:38pm Hypoxia November 26, 2024 12:38 pm Lung nodule November 26, 2024 12:38 pm Obesity November 26, 2024 12:38 pm LAWANDA (obstructive sleep apnea) November 26, 2024 12:38pm Smoking greater than 40 pack years November 122024 12:38pm COPD (chronic obstructive pulmonary dise ase) February 23, 2025 2:09pm Hypoxia February 23, 2025 2: 09pm Lung nodule February 23, 2025 2: 09pm Obesity February 23, 2025 2: 09pm LAWANDA (obstructive sleep apnea) February 2:09pm Smoking greater than 40 pack years Augus 2024 2:09pm COPD (chronic obstructive pulmonary dise ase) March 10, 2025 7:55am Hypoxia March 10, 2025 7: 55am Lung nodule March 10, 2025 7: 55am Obesity March 10, 2025 7: 55am LAWANDA (obstructive sleep apnea) February 7:55am Smoking greater than 40 pack years Augus t 2024 7:55am Reason for Referral Specialty Diagnoses / Procedures Referred By Edison franco Referred To Contact CT IMAGING Diagnoses Lung nodules Procedures CT CHEST WO IVCON DIAGNOSTIC COMPUTED TOMOGRAPHY THORAX W/O CNTRST Davy Downey MD [address] [place] [address] [place] [address] Referral ID Status Reason Start Date Expiration Date Visits Requested Visits Authorized [id number] Pending Review Auto-Generat ed Referral 3 05/03/2024 1 1 Family History No Family History Records Found Relationship Condition Age at Onset Recorded Date/T florentino mother Cerebrovascular accident (CVA) Unknown father Alzheimer's disease Unknown sister Diabetes mellitus Unknown Hypertension Unknown Malignant neoplasm of brain Unknown brother Diabetes mellitus Unknown grandmother Alzheimer's disease Unknown Summary Purpose Additional Source Comments Source Comments (unrecognize d section and content) In the event this informatio n is protected by the Federal Confidentiality of Alcohol and Drug Abuse Patient Records regulations: The Federal rules restrict any use of the information to criminally investigate or prosecute any alcohol or drug abuse patient.[facility] the event this information is protected by the Federal Confidentiality of Alcohol and Drug Abuse Patient Records regulations: The Federal rules restrict any use of the information to criminally investigate or prosecute any alcohol or drug abuse patient.[facility] the event this information is protected by the Federal Confidentiality of Alcohol and Drug Abuse Patient Records regulations: The Federal rules restrict any use of the information to criminally investigate or prosecute any alcohol or drug abuse patient.[facility] the event this information is protected by the Federal Confidentiality of Alcohol and Drug Abuse Patient Records regulations: The Federal rules restrict any use of the information to criminally investigate or prosecute any alcohol or drug abuse patient.[facility] the event this information is protected by the Federal Confidentiality of Alcohol and Drug Abuse Patient Records regulations: The Federal rules restrict any use of the information to criminally investigate or prosecute any alcohol or drug abuse patient.[facility] the event this information is protected by the Federal Confidentiality of Alcohol and Drug Abuse Patient Records regulations: The Federal rules restrict any use of the information to criminally investigate or prosecute any alcohol or drug abuse patient.[facility] the event this information is protected by the Federal Confidentiality of Alcohol and Drug Abuse Patient Records regulations: The Federal rules restrict any use of the information to criminally investigate or prosecute any alcohol or drug abuse patient.[facility] the event this information is protected by the Federal Confidentiality of Alcohol and Drug Abuse Patient Records regulations: The Federal rules restrict any use of the information to criminally investigate or prosecute any alcohol or drug abuse patient.[facility] the event this information is protected by the Federal Confidentiality of Alcohol and Drug Abuse Patient Records regulations: The Federal rules restrict any use of the information to criminally investigate or prosecute any alcohol or drug abuse patient.[facility] the event this information is protected by the Federal Confidentiality of Alcohol and Drug Abuse Patient Records regulations: The Federal rules restrict any use of the information to criminally investigate or prosecute any alcohol or drug abuse patient.[facility] the event this information is protected by the Federal Confidentiality of Alcohol and Drug Abuse Patient Records regulations: The Federal rules restrict any use of the information to criminally investigate or prosecute any alcohol or drug abuse patient.[facility] the event this information is protected by the Federal Confidentiality of Alcohol and Drug Abuse Patient Records regulations: The Federal rules restrict any use of the information to criminally investigate or prosecute any alcohol or drug abuse patient.[facility] the event this information is protected by the Federal Confidentiality of Alcohol and Drug Abuse Patient Records regulations: The Federal rules restrict any use of the information to criminally investigate or prosecute any alcohol or drug abuse patient.[facility] the event this information is protected by the Federal Confidentiality of Alcohol and Drug Abuse Patient Records regulations: The Federal rules restrict any use of the information to criminally investigate or prosecute any alcohol or drug abuse patient.[facility] HospitalIn the event this information is protected by the Federal Confidentiality of Alcohol and Drug Abuse Patient Records regulations: The Federal rules restrict any use of the information to criminally investigate or prosecute any alcohol or drug abuse patient.[facility] HospitalIn the event this information is protected by the Federal Confidentiality of Alcohol and Drug Abuse Patient Records regulations: The Federal rules restrict any use of the information to criminally investigate or prosecute any alcohol or drug abuse patient.[facility] HospitalIn the event this information is protected by the Federal Confidentiality of Alcohol and Drug Abuse Patient Records regulations: The Federal rules restrict any use of the information to criminally investigate or prosecute any alcohol or drug abuse patient.[facility] the event this information is protected by the Federal Confidentiality of Alcohol and Drug Abuse Patient Records regulations: The Federal rules restrict any use of the information to criminally investigate or prosecute any alcohol or drug abuse patient.[facility] HospitalIn the event this information is protected by the Federal Confidentiality of Alcohol and Drug Abuse Patient Records regulations: The Federal rules restrict any use of the information to criminally investigate or prosecute any alcohol or drug abuse patient.[facility] HospitalIn the event this information is protected by the Federal Confidentiality of Alcohol and Drug Abuse Patient Records regulations: The Federal rules restrict any use of the information to criminally investigate or prosecute any alcohol or drug abuse patient.[facility] HospitalIn the event this information is protected by the Federal Confidentiality of Alcohol and Drug Abuse Patient Records regulations: The Federal rules restrict any use of the information to criminally investigate or prosecute any alcohol or drug abuse patient.[facility] HospitalIn the event this information is protected by the Federal Confidentiality of Alcohol and Drug Abuse Patient Records regulations: The Federal rules restrict any use of the information to criminally investigate or prosecute any alcohol or drug abuse patient.[facility] HospitalIn the event this information is protected by the Federal Confidentiality of Alcohol and Drug Abuse Patient Records regulations: The Federal rules restrict any use of the information to criminally investigate or prosecute any alcohol or drug abuse patient.[facility] HospitalIn the event this information is protected by the Federal Confidentiality of Alcohol and Drug Abuse Patient Records regulations: The Federal rules restrict any use of the information to criminally investigate or prosecute any alcohol or drug abuse patient.[facility] HospitalIn the event this information is protected by the Federal Confidentiality of Alcohol and Drug Abuse Patient Records regulations: The Federal rules restrict any use of the information to criminally investigate or prosecute any alcohol or drug abuse patient.[facility] HospitalIn the event this information is protected by the Federal Confidentiality of Alcohol and Drug Abuse Patient Records regulations: The Federal rules restrict any use of the information to criminally investigate or prosecute any alcohol or drug abuse patient.[facility] HospitalIn the event this information is protected by the Federal Confidentiality of Alcohol and Drug Abuse Patient Records regulations: The Federal rules restrict any use of the information to criminally investigate or prosecute any alcohol or drug abuse patient.[facility] HospitalIn the event this information is protected by the Federal Confidentiality of Alcohol and Drug Abuse Patient Records regulations: The Federal rules restrict any use of the information to criminally investigate or prosecute any alcohol or drug abuse patient.[facility] HospitalIn the event this information is protected by the Federal Confidentiality of Alcohol and Drug Abuse Patient Records regulations: The Federal rules restrict any use of the information to criminally investigate or prosecute any alcohol or drug abuse patient.[facility] HospitalIn the event this information is protected by the Federal Confidentiality of Alcohol and Drug Abuse Patient Records regulations: The Federal rules restrict any use of the information to criminally investigate or prosecute any alcohol or drug abuse patient.[facility] HospitalIn the event this information is protected by the Federal Confidentiality of Alcohol and Drug Abuse Patient Records regulations: The Federal rules restrict any use of the information to criminally investigate or prosecute any alcohol or drug abuse patient.[facility] HospitalIn the event this information is protected by the Federal Confidentiality of Alcohol and Drug Abuse Patient Records regulations: The Federal rules restrict any use of the information to criminally investigate or prosecute any alcohol or drug abuse patient.[facility] HospitalIn the event this information is protected by the Federal Confidentiality of Alcohol and Drug Abuse Patient Records regulations: The Federal rules restrict any use of the information to criminally investigate or prosecute any alcohol or drug abuse patient.[facility] HospitalIn the event this information is protected by the Federal Confidentiality of Alcohol and Drug Abuse Patient Records regulations: The Federal rules restrict any use of the information to criminally investigate or prosecute any alcohol or drug abuse patient.[facility] HospitalIn the event this information is protected by the Federal Confidentiality of Alcohol and Drug Abuse Patient Records regulations: The Federal rules restrict any use of the information to criminally investigate or prosecute any alcohol or drug abuse patient.[facility] HospitalIn the event this information is protected by the Federal Confidentiality of Alcohol and Drug Abuse Patient Records regulations: The Federal rules restrict any use of the information to criminally investigate or prosecute any alcohol or drug abuse patient.[facility] HospitalIn the event this information is protected by the Federal Confidentiality of Alcohol and Drug Abuse Patient Records regulations: The Federal rules restrict any use of the information to criminally investigate or prosecute any alcohol or drug abuse patient.[facility] HospitalIn the event this information is protected by the Federal Confidentiality of Alcohol and Drug Abuse Patient Records regulations: The Federal rules restrict any use of the information to criminally investigate or prosecute any alcohol or drug abuse patient.[facility] HospitalIn the event this information is protected by the Federal Confidentiality of Alcohol and Drug Abuse Patient Records regulations: The Federal rules restrict any use of the information to criminally investigate or prosecute any alcohol or drug abuse patient.[facility] HospitalIn the event this information is protected by the Federal Confidentiality of Alcohol and Drug Abuse Patient Records regulations: The Federal rules restrict any use of the information to criminally investigate or prosecute any alcohol or drug abuse patient.[facility] HospitalIn the event this information is protected by the Federal Confidentiality of Alcohol and Drug Abuse Patient Records regulations: The Federal rules restrict any use of the information to criminally investigate or prosecute any alcohol or drug abuse patient.[facility] HospitalIn the event this information is protected by the Federal Confidentiality of Alcohol and Drug Abuse Patient Records regulations: The Federal rules restrict any use of the information to criminally investigate or prosecute any alcohol or drug abuse patient.[facility] HospitalIn the event this information is protected by the Federal Confidentiality of Alcohol and Drug Abuse Patient Records regulations: The Federal rules restrict any use of the information to criminally investigate or prosecute any alcohol or drug abuse patient.[facility] HospitalIn the event this information is protected by the Federal Confidentiality of Alcohol and Drug Abuse Patient Records regulations: The Federal rules restrict any use of the information to criminally investigate or prosecute any alcohol or drug abuse patient.[facility] HospitalIn the event this information is protected by the Federal Confidentiality of Alcohol and Drug Abuse Patient Records regulations: The Federal rules restrict any use of the information to criminally investigate or prosecute any alcohol or drug abuse patient.[facility] HospitalIn the event this information is protected by the Federal Confidentiality of Alcohol and Drug Abuse Patient Records regulations: The Federal rules restrict any use of the information to criminally investigate or prosecute any alcohol or drug abuse patient.[facility] HospitalIn the event this information is protected by the Federal Confidentiality of Alcohol and Drug Abuse Patient Records regulations: The Federal rules restrict any use of the information to criminally investigate or prosecute any alcohol or drug abuse patient.[facility] HospitalIn the event this information is protected by the Federal Confidentiality of Alcohol and Drug Abuse Patient Records regulations: The Federal rules restrict any use of the information to criminally investigate or prosecute any alcohol or drug abuse patient.[facility] HospitalIn the event this information is protected by the Federal Confidentiality of Alcohol and Drug Abuse Patient Records regulations: The Federal rules restrict any use of the information to criminally investigate or prosecute any alcohol or drug abuse patient.[facility] Reason for Visit (unrecogniz ed section and content) Reason Comments Medicare Wellness Exam Reason Onset Date Comments Community Monitoring Outreach 11/07/2021 In sight CDM enrollment Reason Onset Date Comments Refill Request 02/14/2022 Reason Comments 6 Month Exam Reason Comments Results Reason Comments Refill Request Reason Onset Date Comments Refill Request 09/10/2022 Reason Onset Date Comments Population Health Navigation Outreach 10/18/2022 [employer] care gap Reason Comments Medicare Wellness Exam Reason Onset Date Comments Refill Request 02/19/2023 Reason Comments FYI-No Action Needed Received form for O 2 from [employer] (pt not using this company) Reason Comments Orders Reason Comments Breathing Problem Shortness of breath Reason Comments ext documentation Reason Comments ext document Echo Reason Comments Orders Patient Update Reason Comments Hospital F/U Specialty Diagnoses / Procedures Referred By Contac t Referred To Contact FAMILY MEDICINE Diagnoses [facility] follow up dc'd 04/09 Procedures [facility] follow up Dc'd 04/09 Davy Downey MD [address] [place] [address] [facility] [address] [place] [address] Referral ID Status Reason Start Date Expiration Date Visits Requested Visits Authorized [id number] Pending Review OON/Self Pay Override 04/05/2023 10/02/2023 1 1 Reason Comments Outside Cardiology Reason Comments Outside Records / [facility] Pulmonary Report Reason Onset Date Comments Refill Request 07/16/2024 Medication Request 07/16/2024 Patient Update Trelegy Reason Onset Date Comments Population Health Navigation Outreach 08/27/2024 [employer] High Risk - Attempt 1 Reason Onset Date Comments Population Health Navigation Outreach 09/28/2024 [employer] High Risk - Attempt 2 Reason Comments F/U 6 months Reason Comments Outside Imaging Reason Onset Date Comments productive cough, SOB and fever 11/02/2024 Reason Comments Cough Reason Comments Outside Pulmonology Reason Onset Date Comments Population Health Navigation Outreach 12/08/2024 [employer] [place] Reason Onset Date Comments Allied Health Visit 12/18/2024 Medication A dherence Outreach Reason Onset Date Comments Refill Request 12/31/2024 Reason Onset Date Comments Population Health Navigation Outreach 01/07/2025 [employer] [place] Reason Comments Outside Pulmonary Medicine Reason Onset Date Comments Population Health Navigation Outreach 03/18/2025 [employer] [place] Care Teams (unrecognized sec tion and content) Forgeman Helper Relationship Specialty Start Date End Date Dayv Downey MD [address] [place], [place] [id number] PCP - General Family Practice 09/01/15 Forgeman Helper Relationship Specialty Start Date End Date Davy Downey MD [address] [place], [place] [address] [phone] PCP - General Family Practice 09/01/15 Forgeman Helper Relationship Specialty Start Date End Date Davy Downey MD [address], [place] [id number] PCP - General Family Practice 09/01/15 Forgeman Helper Relationship Specialty Start Date End Date Davy Downey MD [address] [place], [place] [id number] PCP - General Family Practice 09/01/15 Forgeman Helper Relationship Specialty Start Date End Date Davy Downey MD [address] [facility] [place] [place] [address] PCP - General Family Medicine 09/01/15 Forgeman Helper Relationship Specialty Start Date End Date Davy Downey MD [address] [facility] [place] [address] PCP - General Family Medicine 09/01/15 Forgeman Helper Relationship Specialty Start Date End Date Davy Downey MD [address] [facility] [place] [address] PCP - General Family Medicine 09/01/15 Forgeman Helper Relationship Specialty Start Date End Date Davy Downey MD [facility] [place] [place] [address] PCP - General Family Medicine 09/01/15 Forgeman Helper Relationship Specialty Start Date End Date Davy Downey MD [address] [facility] [place] [address] PCP - General Family Medicine 09/01/15 Forgeman Helper Relationship Specialty Start Date End Date Davy Downey MD [address] [facility] [place] [address] PCP - General Family Medicine 09/01/15 Forgeman Helper Relationship Specialty Start Date End Date Davy Downey MD [address] [facility] [place] [address] PCP - General Family Medicine 09/01/15 Forgeman Helper Relationship Specialty Start Date End Date Davy Downey MD [address] [facility] [place] [address] PCP - General Family Medicine 09/01/15 Forgeman Helper Relationship Specialty Start Date End Date Davy Downey MD [address] [place] [address] PCP - General Family Medicine 09/01/15 Forgeman Helper Relationship Specialty Start Date End Date Davy Downey MD [address] [place] [address] PCP - General Family Medicine 09/01/15 Team Status: Active Member Role Status Dates Dr. Romy Denson MD Family Provider Active Dr. Davy Downey MD Primary Care Provider Active Team Status: Active Member Role Status Dates Dr. Davy Downey MD Primary Care Provider Active Dr. Earl Hutson , DO Emergency Provider Active Dr. Jimmy Springer , DO Admit Provider, Attending Provider Active Forgeman Helper Relationship Specialty Start Date End Date Davy Downey MD [address] [place] [address] PCP - General Family Medicine 09/01/15 Forgeman Helper Relationship Specialty Start Date End Date Davy Downey MD [address] [place] [address] PCP - General Family Medicine 09/01/15 Team Status: Active Member Role Status Dates Dr. Davy Downey MD Primary Care Provider Active Dr. Earl Hutson , DO Emergency Provider Active Dr. Jimmy Springer , DO Admit Provi jerry, Attending Provider, Other Provider Active Team Status: Active Member Role Status Dates Dr. Davy Downey MD Primary Care Provider Active Dr. Earl Hutson DO Emergency Provider Active Dr. Jimmy Springer , DO Admit Provi jerry, Attending Provider, Other Provider Active Dr. Ana Paula Hennessy MD Active Team Status: Active Member Role Status Dates Dr. Davy Downey MD Primary Care Provider Active Dr. Earl Hutson , DO Emergency Provider Active Dr. Jimmy Springer , DO Admit Provider, Other Pro vider Active Dr. Severino Madsen MD Attending Provider, Other Provider Active Team Status: Active Member Role Status Dates Dr. Davy Downey MD Primary Care Provider Active Dr. Víctor Sim MD Attending Provider Active Team Status: Active Member Role Status Dates Dr. Davy Downey MD Primary Care Provider Active Dr. Earl Hutson , DO Emergency Provider Active Dr. Jimmy Springer , DO Admit Provider, Other Pro vider Active Dr. Severino Madsen MD Attending Provider, Other Provider Active Dr. Deng Dubon MD Other Provider Active Dr. Arturo Maynard , DO Other Provider Active Dr. Michael Soto MD Other Provider Active Dr. Ty Jackson MD Other Provider Active Dr. Chance Mcintyre MD Other Provider Active Nina Worrell RANGE OPERATOR, RANGE OPERATOR-C Other Provider Active Team Status: Active Member Role Status Dates Dr. Davy Downey MD Primary Care Provider Active Dr. Earl Hutson , DO Emergency Provider Active Dr. Jimmy Springer , DO Admit Provider, Other Pro vider Active Dr. Severino Madsen MD Other Provider Active Dr. Deng Dubon MD Other Provider Active Dr. Arturo Maynard , DO Other Provider Active Dr. Michael Soto MD Attending Provider, Other Provi jerry Active Dr. Ty Jackson MD Other Provider Active Dr. Chance Mcintyre MD Other Provider Active Nina Worrell RANGE OPERATOR, RANGE OPERATOR-C Other Provider Active Team Status: Inactive Member Role Status Dates Dr. Davy Downey MD Primary Care Provider Active Dr. Earl Hutson , DO Emergency Provider Active Dr. Jimmy Springer , DO Admit Provider, Other Pro vider Active Dr. Deng Dubon MD Other Provider Active Dr. Arturo Maynard , DO Other Provider Active Dr. Michael Soto MD Other Provider Active Dr. Ty Jackson MD Other Provider Active Dr. Chance Mcintyre MD Other Provider Active Nina Worrell RANGE OPERATOR, RANGE OPERATOR-C Other Provider Active Dr. Dhaval Smith , DO Attending Provider Active Dr. Severino Madsen MD Other Provider Active Forgeman Helper Relationship Specialty Start Date End Date Davy Downey MD [address] [place] [address] PCP - General Family Medicine 09/01/15 Forgeman Helper Relationship Specialty Start Date End Date Davy Downey MD [address] [place] [address] PCP - General Family Medicine 09/01/15 Forgeman Helper Relationship Specialty Start Date End Date Davy Downey MD [address] [place] [address] PCP - General Family Medicine 09/01/15 Forgeman Helper Relationship Specialty Start Date End Date Davy Downey MD [address] [place] [address] PCP - General Family Medicine 09/01/15 Team Status: Inactive Member Role Status Dates Dr. Davy Downey MD Primary Care Provider Active Nina Worrell RANGE OPERATOR, RANGE OPERATOR-C Attending Provider, Jorge avila Provider Active Forgeman Helper Relationship Specialty Start Date End Date Davy Downey MD [address] [place] [address] PCP - General Family Medicine 09/01/15 Forgeman Helper Relationship Specialty Start Date End Date Davy Downey MD [address] [place] [address] PCP - General Family Medicine 09/01/15 Forgeman Helper Relationship Specialty Start Date End Date Davy Downey MD [address] [place] [address] PCP - General Family Medicine 09/01/15 Forgeman Helper Relationship Specialty Start Date End Date Davy Downey MD [address] [place] [address] PCP - General Family Medicine 09/01/15 Forgeman Helper Relationship Specialty Start Date End Date Davy Downey MD [address] [place] [address] PCP - General Family Medicine 09/01/15 Forgeman Helper Relationship Specialty Start Date End Date Davy Downey MD [address] [place] [address] PCP - General Family Medicine 09/01/15 Forgeman Helper Relationship Specialty Start Date End Date Davy Downey MD [address] [place] [address] PCP - General Family Medicine 09/01/15 Forgeman Helper Relationship Specialty Start Date End Date aDvy Downey MD [address] [place] [address] PCP - General Family Medicine 09/01/15 Fahad Webber, CARI.LANCE CREWMEMBER/MLRS SERGEANT [address] [place] [address] [facility] 06/20/24 Jennifer Ward PA-C [address] [place] [address] [facility] 06/20/24 Forgeman Helper Relationship Specialty Start Date End Date Davy Downey MD [address] [place] [address] PCP - General Family Medicine 09/01/15 Fahad Webber APRN.LANCE CREWMEMBER/MLRS SERGEANT [address] [place] [address] [facility] 06/20/24 Jennifer Ward PA-C [address] [place] [address] [facility] 06/20/24 Forgeman Helper Relationship Specialty Start Date End Date Davy Downey MD [address] [place] [address] PCP - General Family Medicine 09/01/15 Fahad Webber APRN.LANCE CREWMEMBER/MLRS SERGEANT [address] [place] [address] [facility] 06/20/24 Jennifer Ward PA-C [address] [place] [address] [facility] 06/20/24 Frankie Smith, NATACHA [address] [place], [place] [id number] Dance Coach 09/17/24 Forgeman Helper Relationship Specialty Start Date End Date Davy Downey MD [address] [place] [address] PCP - General Family Medicine 09/01/15 Fahad Webber, CARI.LANCE CREWMEMBER/MLRS SERGEANT [address] [place] [address] [facility] 06/20/24 Jennifer Ward PA-C [address] [place] [address] [facility] 06/20/24 Frankie Smith RN [address] [place], [place] [id number] Dance Coach 09/17/24 Forgeman Helper Relationship Specialty Start Date End Date Davy Downey MD [address] [place] [address] PCP - General Family Medicine 09/01/15 Fahad Webber, PLATE FURNACE OPERATOR.LANCE CREWMEMBER/MLRS SERGEANT [address] [place] [address] [facility] 06/[facility] Jennifer Ward PA-C [address] [facility] [place] [address] [facility] 06/20/24 Frankie Smith, NATACHA [address] [place], [place] [id number] Dance Coach 09/17/24 Forgeman Helper Relationship Specialty Start Date End Date Davy Downey MD [address] [place] [address] PCP - General Family Medicine 09/01/15 Fahad Webber, PLATE FURNACE OPERATOR.LANCE CREWMEMBER/MLRS SERGEANT [address] [place] [address] [facility] 06/20/24 Jennifer Ward PA-C [address] [facility] [place] [address] [facility] 06/20/24 Frankie Smith RN [address] [place], [place] [id number] Dance Coach 09/17/24 Team Status: Active Member Role Status Dates Dr. Davy Downey MD Primary Care Provider Active Team Status: Inactive Member Role Status Dates Dr. Davy Downey MD Primary Care Provider Active Start: October 26, 2024 End: October 26, 2024 Nina Worrell RANGE OPERATOR, RANGE OPERATOR-C Attending Provider Active Start: October 26, 2024 End: October 26, 2024 Nina Worrell RANGE OPERATOR, RANGE OPERATOR-C Referring Provider Active Start: October 26, 2024 End: October 26, 2024 Forgeman Helper Relationship Specialty Start Date End Date Davy Downey MD [address] [place] [address] PCP - General Family Medicine 09/01/15 Fahad Webber APRN.LANCE CREWMEMBER/MLRS SERGEANT [address] [place] [address] [facility] 06/20/24 Jennifer Ward PA-C [address] [place] [address] [facility] 06/20/24 Frankie Smith RN [address] [place] [address] Dance Coach 09/17/24 Forgeman Helper Relationship Specialty Start Date End Date Davy Downey MD [address] [place] [address] PCP - General Family Medicine 09/01/15 Fahad Webber, CARI.LANCE CREWMEMBER/MLRS SERGEANT [address] [place] [address] [facility] 06/20/24 Jennifer Ward PA-C [address] [place] [address] [facility] 06/20/24 Frankie Smith RN [address] [place] [address] Dance Coach 09/17/24 Forgeman Helper Relationship Specialty Start Date End Date Davy Downey MD [address] [place] [address] PCP - General Family Medicine 09/01/15 Fahad Webber, PLATE FURNACE OPERATOR.LANCE CREWMEMBER/MLRS SERGEANT [address] [place] [address] [facility] 06/20/24 Jennifer Ward PA-C [address] [place], [place] [address] [facility] 06/20/24 Frankie Smith, RN [address] [place] [address] Dance Coach 09/17/24 Team Status: Inactive Member Role Status Dates Dr. Davy Donwey MD Primary Care Provider Active Start: November 26, 2024 End: November 26, 2024 Dr. Davy Downey MD Referring Provider Active Start: November 26, 2024 End: November 26, 2024 Nina Worrell NP, RANGE OPERATOR-C Attending Provider Active Start: November 26, 2024 End: November 26, 2024 Forgeman Helper Relationship Specialty Start Date End Date Davy Downey MD [address] [place] [address] PCP - General Family Medicine 09/01/15 Jennifer Ward PA-C [address] [place] [address] [facility] 06[facility]24 Frankie Smith, NATACHA [address] [place] [address] Dance Coach 09/17/24 Forgeman Helper Relationship Specialty Start Date End Date Davy Downey MD [address] [place] [address] PCP - General Family Medicine 09/01/15 Frankie Smith, NATACHA [address] [place] [address] Dance Coach 09/17/24 Fahad Webber APRN.CNP [address] [place] [address] [facility] 12/14/24 Jennifer Ward PA-C [address] [place] [address] [facility] 12/14/24 Forgeman Helper Relationship Specialty Start Date End Date Davy Downey MD [address] [place] [address] PCP - General Family Medicine 09/01/15 Fahad Webber, PLATE FURNACE OPERATOR.LANCE CREWMEMBER/MLRS SERGEANT [address] [place] [address] [facility] 12/14/24 Jennifer Ward PA-C [address] [place] [address] [facility] 12/14/24 Forgeman Helper Relationship Specialty Start Date End Date Davy Downey MD [address] [place] [address] PCP - General Family Medicine 09/01/15 Fahad Webber, PLATE FURNACE OPERATOR.LANCE CREWMEMBER/MLRS SERGEANT [address] [place] [address] [facility] 12/14/24 Jennifer Ward PA-C [address] [place] [address] [facility] Family Medicine 12/14/24 Team Status: Active Member Role/Relationship Status Dates Dr. Davy Downey MD Primary Care Provider Active Team Status: Inactive Member Role/Relationship Status Dates Dr. Davy Downey MD Primary Care Provider Active Start: October 26, 2024 End: October 26, 2024 Nina Worrell RANGE OPERATOR, RANGE OPERATOR-C Attending Provider Active Start: October 26, 2024 End: October 26, 2024 Nina Worrell NP, RANGE OPERATOR-C Referring Provider Active Start: October 26, 2024 End: October 26, 2024 Team Status: Inactive Member Role/Relationship Status Dates Dr. Davy Downey MD Primary Care Provider Active Start: November 26, 2024 End: November 26, 2024 Dr. Davy Downey MD Referring Provider Active Start: November 26, 2024 End: November 26, 2024 Nina Worrell RANGE OPERATOR, RANGE OPERATOR-C Attending Provider Active Start: November 26, 2024 End: November 26, 2024 Team Status: Active Member Role/Relationship Status Dates Dr. Davy Downey MD Primary Care Provider Active Start: February 18, 2025 Nina Worrell RANGE OPERATOR, RANGE OPERATOR-C Attending Provider Active Start: February 18, 2025 Nina Worrell RANGE OPERATOR, RANGE OPERATOR-C Referring Provider Active Start: February 18, 2025 Team Status: Inactive Member Role/Relationship Status Dates Dr. Davy Downey MD Primary Care Provider Active Start: February 23, 2025 End: February 23, 2025 Dr. Davy Downey MD Referring Provider Active Start: February 23, 2025 End: February 23, 2025 Nina Worrell NP, RANGE OPERATOR-C Attending Provider Active Start: February 23, 2025 End: February 23, 2025 Forgeman Helper Relationship Specialty Start Date End Date Davy Downey MD [address] [place] [address] [id number] PCP - General Family Medicine 09/01/15 Fahad Webber APRN.LANCE CREWMEMBER/MLRS SERGEANT [address] [place] [address] [id number] [facility] Family Medicine 12/14/24 Jennifer Ward PA-C [address] [place] [id number] [facility] 12/14/24 Team Status: Inactive Member Role/Relationship Status Dates Dr. Davy Downey MD Primary Care Provider Active Start: November 26, 2024 End: November 26, 2024 Dr. Davy Downey MD Referring Provider Active Start: November 26, 2024 End: November 26, 2024 Nina Worrell RANGE OPERATOR, RANGE OPERATOR-C Attending Provider Active Start: November 26, 2024 End: November 26, 2024 Team Status: Inactive Member Role/Relationship Status Dates Dr. Davy Downey MD Primary Care Provider Active Start: February 18, 2025 End: February 18, 2025 Nina Worrell RANGE OPERATOR, RANGE OPERATOR-C Attending Provider Active Start: February 18, 2025 End: February 18, 2025 Nina Worrell RANGE OPERATOR, RANGE OPERATOR-C Referring Provider Active Start: February 18, 2025 End: February 18, 2025 Team Status: Inactive Member Role/Relationship Status Dates Dr. Davy Downey MD Primary Care Provider Active Start: February 23, 2025 End: February 23, 2025 Dr. Davy Downey MD Referring Provider Active Start: February 23, 2025 End: February 23, 2025 Nina Worrell NP, RANGE OPERATOR-C Attending Provider Active Start: February 23, 2025 End: February 23, 2025 Team Status: Inactive Member Role/Relationship Status Dates Dr. Davy Downey MD Primary Care Provider Active Start: March 02, 2025 End: March 02, 2025 Nina Worrell NP, RANGE OPERATOR-C Attending Provider Active Start: March 02, 2025 End: March 02, 2025 Nina Worrell RANGE OPERATOR, RANGE OPERATOR-C Referring Provider Active Start: March 02, 2025 End: March 02, 2025 Team Status: Inactive Member Role/Relationship Status Dates Dr. Davy Downey MD Primary Care Provider Active Start: March 10, 2025 End: March 10, 2025 Dr. Davy Downey MD Referring Provider Active Start: March 10, 2025 End: March 10, 2025 Nina Worrell NP, RANGE OPERATOR-C Attending Provider Active Start: March 10, 2025 End: March 10, 2025 Goals (unrecognized section and content) Goals may be documented in a n alternate sectionGoals may be documented in an alternate sectionGoals may be documented in an alternate sectionGoals may be documented in an alternate sectionGoals may be documented in an alternate sectionGoals may be documented in an alternate sectionGoals may be documented in an alternate sectionGoals may be documented in an alternate section INFORMATION SOURCE (unrecogn ized section and content) DATE CREATED AUTHOR 05/21/2025 [facility] DATE CREATED AUTHOR AUTHOR'S AGGIE ATION 05/27/2025 [facility] FOR RECORDS PERTAINING TO PATIENTS WHO ARE OR HAVE BEEN ENROLLED IN A CHEMICAL DEPENDENCY/SUBSTANCEABUSE PROGRAM, SOME INFORMATION MAY BE OMITTED. This clinical summary was aggregated from multiple sources. Caution should be exercised in using it in the provision of clinical care. This summary normalizes information from multiple sources, and as a consequence, information in this document may materially change the coding, format and clinical context of patient data. In addition, data may be omitted in some cases. CLINICAL DECISIONS SHOULD BE BASED ON THE PRIMARY CLINICAL RECORDS. [facility]. provides no warranty or guarantee of the accuracy or completeness of information in this document.
[2025-06-29 10:08] LABS: Bluegrass, Kentucky <0.10 kU/L (Class 0); Cat Hair/Dander, Standard 2.76 kU/L (Class III); Dog Epithelia 0.14 kU/L (Class 0/I); Elm, American White <0.10 kU/L (Class 0); Oak, White <0.10 kU/L (Class 0); Plantain, English <0.10 kU/L (Class 0); Ragweed, Short/Common <0.10 kU/L (Class 0)
[2025-06-29 16:09] LABS: Aspirgillus flavus Negative (Neg:<1:1); Aspirgillus fumigatus Negative (Neg:<1:1)
== END | disposition home or self-care (01) ==
LOC: PAVLAB 15:49
PROVIDERS: PCP Family Medicine; Referring Provider Nurse Practitioner Acute Care; Visit Provider Nurse Practitioner Acute Care
DX: J30.2 Other seasonal allergic rhinitis (principal)
CPT/HCPCS: 36415; 82785; 85025; 86003; 86606

== ENCOUNTER → 2025-07-05 | Outpatient (CLI) | payer MEDICARE, SELFPAY | END | disposition home or self-care (01) | LOC: PSN 10:55 | PROVIDERS: PCP Family Medicine; Referring Provider Nurse Practitioner Acute Care; Visit Provider Nurse Practitioner Acute Care | DX: J43.2 Centrilobular emphysema (principal) | CPT/HCPCS: 94010; 94060; 94726; 94729 ==